=== PATIENT | male | born 1980 | race Caucasian/White ===

== ENCOUNTER 2021-07-31 23:59 | Emergency (ER) | payer OTHER, SELFPAY ==
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
--- NOTE | 2021-08-01 01:35 | ER ---
Nurse's Notes [facility] Name: Severo Morgan Age: 40 yrs Sex: Male : 1980 Arrival Date: 08/01/2021 Time: 00:06 Bed Waiting Private MD: Diagnosis: ED Course: 08/01 00:06 Patient arrived in ED. es 01:10 Patient's name was called from ER lobby. No response. bb 01:35 Patient's name was called from ER lobby. No response. Unable to locate patient. Will bb disposition as left without being seen by a provider. Administered Medications: No medications were administered Outcome: 01:35 Patient left the ED. bb Signatures: Sandy Bentley Brenda, RN RN bb
== END 2021-08-01 01:35 | disposition left against medical advice (07) ==
LOC: ER 23:59
DX: Z02.9 Encounter for administrative examinations, unspecified (principal)

== ENCOUNTER 2022-03-10 06:05 | Emergency (ER) | payer OTHER ==
[2022-03-10 07:32] LABS: Urine Blood Negative (Negative); Urine Glucose Negative (Negative); Urine Protein Negative (Negative); Urine Specific Gravity >=1.030 (1.005-1.030)
[2022-03-10 11:17] LABS: Absolute Lymphocytes (CBC) 1.6 K/uL (0.7-4.9); Hematocrit 40.7 % (39.6-49.0); Lymphocytes % 30.9 % (15.3-44.8); MCV 90.9 fL (80-100); RBC Red Blood Cell Count 4.48 M/uL (4.33-5.43)
[2022-03-10] MEDS ORDERED: KETOROLAC 30 MG/ML INJ ONE (11:19)
[2022-03-10] MEDS ORDERED: NA CHLORIDE 0.9% 1,000 ML ONE (11:19)
[2022-03-10] MEDS ORDERED: ONDANSETRON 4 MG/2 ML VIAL ONE (11:19)
--- NOTE | 2022-03-10 11:36 | RAD REPORT ---
EXAM DESCRIPTION: CT - Stone Protocol - 03/10/2022 11:08 am CLINICAL HISTORY: flankpain on the right radiating to the lower back, history of kidney stones COMPARISON: No comparisons TECHNIQUE: Axial 3 mm thick images were obtained without oral or IV contrast. The [id number]-nmaj span s the entirety of the system including uppermost abdomen and lung bases. All CT scans are performed using dose optimization technique as appropriate and may include automated exposure control or mA/KV adjustment according to patient size. FINDINGS: No hydronephrosis is present and no obstructing ureteral calculi. No nonobstructing calcul i seen. No edema or stranding in the perinephric fat. No suspicious renal masses. Isodense masses and pyelonephritis are not excluded on a stone protocol CT scan. No significant adrenal finding. No urin kassidy bladder suspicious finding. No prostate gland or seminal vesicle abnormality seen. Imaged portions of the liver, spleen and pancreas show no suspicious findings on non-contrast imaging . No gallbladder or biliary tree abnormality identified. No acute stomach or small bowel finding. Large amount of stool is present in the colon from cecum to mid transverse colon. The appendix is normal. No hernia, mass or bulky lymphadenopathy noted. No free air, free fluid or inflammatory stranding. Patient has advanced for age facet joint degenerative change at L5-S1. L5 lateral recess stenosis is present from the hypertrophy. L4-5 facet degenerative changes mild. No acute bone process. IMPRESSION: No hydronephrosis, obstructing calculus or other acute finding. Isodense masses and pyelonephritis are not excluded on stone protocol technique. Advanced for age L5-S1 facet joint degenerative change with L5 lateral recess stenosis. These changes could be a source for back pain as well as unilateral or bilateral L5 radiculopathy.
[2022-03-10 11:45] LABS: Albumin 3.8 g/dL (3.4-5.0); Bilirubin Total 0.3 mg/dL (0.2-1.0); Potassium 3.9 mmol/L (3.5-5.1); Protein, Total 6.8 g/dL (6.4-8.2)
--- NOTE | 2022-03-10 12:07 | ER ---
Nurse's Notes [facility] Name: Severo Morgan Age: 41 yrs Sex: Male : 1980 Arrival Date: 03/10/2022 Time: 06:07 Bed 4 Private MD: Diagnosis: Abdominal pain, unspecified;Dental caries, unspecified Presentation: 03/10 06:33 Chief complaint: Patient states: i am having real bad pain in my kidney area on my kd3 right side that radiates to the front. Coronavirus screen: Vaccine status:. Ebola Screen: No symptoms or risks identified at this time. Initial Sepsis Screen: Does the patient meet any 2 criteria? No. Patient's initial sepsis screen is negative. Does the patient have a suspected source of infection? No. Patient's initial sepsis screen is negative. Risk Assessment: Do you want to hurt yourself or someone else? Patient reports no desire to harm self or others. Onset of symptoms. 06:33 Method Of Arrival: Ambulatory kd3 06:33 Acuity: FRANKLIN 3 kd3 Triage Assessment: 06:33 General: Appears in no apparent distress. Behavior is calm, cooperative. Pain: kd3 Complains of pain in flank. Historical: - Allergies: 06:36 No Known Allergies; kd3 - Home Meds: 06:36 None [Active]; kd3 - Immunization history:: Adult Immunizations up to date. - Social history:: Smoking status: unknown. - Family history:: not pertinent. Screenin:36 Abuse screen: Denies threats or abuse. Denies injuries from another. Nutritional kd3 screening: No deficits noted. Tuberculosis screening: No symptoms or risk factors identified. Fall Risk None identified. Assessment: 10:47 General: Appears in no apparent distress. uncomfortable, Behavior is calm, cooperative. vg1 Pain: Complains of pain in posterior aspect of right lateral abdomen Pain currently is 4 out of 10 on a pain scale. Quality of pain is described as shooting, Pain began this morning around 0230, sudden onset. Neuro: Level of Consciousness is awake, alert, obeys commands, Oriented to person, place, time, situation. Cardiovascular: Patient's skin is warm and dry. Respiratory: Airway is patent Respiratory effort is even, unlabored. GI: Abdomen is flat, Reports normal bowel habits, Patient currently denies nausea, vomiting. : Denies burning with urination, pain with urination urinary frequency. EENT: No signs and/or symptoms were reported regarding the EENT system. Derm: Skin is pink, warm \T\ dry. Musculoskeletal: Circulation, motion, and sensation intact. 12:00 Reassessment: Patient and/or family updated on plan of care and expected duration. Pain jh6 level reassessed. Patient is alert, oriented x 3, equal unlabored respirations, skin warm/dry/pink. Patient states feeling better. 12:00 Pain: Denies pain. jh6 Vital Signs: 06:33 Pulse 89; Resp 18; Temp 98.1; Pulse Ox 100% ; kd3 06:36 BP 119 / 91; Weight 58.97 kg; Height 5 ft. 9 in. (175.26 cm); Pain 6/10; kd3 12:00 BP 123 / 76; Pulse 86; Resp 18; Pulse Ox 100% ; Pain 0/10; jh6 06:36 Body Mass Index 19.20 (58.97 kg, 175.26 cm) kd3 ED Course: 06:07 Patient arrived in ED. bp1 06:35 Triage completed. kd3 06:36 Arm band placed on right wrist. kd3 10:03 Joshua Langford MD is Attending Physician. [facility] 10:28 Candy Wilson, RN is Primary Nurse. vg1 10:47 Patient has correct armband on for positive identification. Bed in low position. Call vg1 light in reach. 10:47 No provider procedures requiring assistance completed. vg1 11:[address] via wheelchair. jh6 11:04 Inserted saline lock: 20 gauge in right in left antecubital area, using aseptic 6 technique. Blood collected. 11:09 CT Stone Protocol In Process Unspecified. EDMS 12:22 IV discontinued, intact, bleeding controlled, No redness/swelling at site. Pressure jh6 dressing applied. Administered Medications: 11:16 Drug: NS 0.9% 500 ml Route: IV; Rate: bolus; Site: right antecubital; jh6 12:10 Follow up: IV Status: Completed infusion jh6 11:16 Drug: Ketorolac 30 mg Route: IVP; Site: right antecubital; jh6 12:00 Follow up: Response: Pain is decreased jh6 11:16 Drug: Zofran (Ondansetron) 4 mg Route: IVP; Site: right antecubital; [facility] 12:00 Follow up: Response: No adverse reaction [facility] Medication: 10:47 VIS not applicable for this client. vg1 Outcome: 12:06 Discharge ordered by . evelia 12:22 Discharged to home ambulatory. [facility] 12:22 Condition: improved 12:22 Discharge instructions given to patient, Instructed on discharge instructions, follow up and referral plans. Demonstrated understanding of instructions, follow-up care, medications, Prescriptions given X 3. 12:23 Patient left the ED. [facility] Signatures: Dispatcher [employer] EDWA Joshua Langford MD MD cha Garcia, Victoria, RN RN vg1 Stephanie Garcia Kyli RN RN kd3 Heather Cardoso, RN RN jh6
--- NOTE | 2022-03-10 12:07 | EDPHYS ---
Physician Documentation [facility] Name: Severo Morgan Age: 41 yrs Sex: Male : 1980 Arrival Date: 03/10/2022 Time: 06:07 Bed 4 Private MD: ED Physician Joshua Langford HPI: 03/10 12:01 This 41 yrs old Male presents to ER via Ambulatory with complaints of Low evelia Back Pain, Flank Pain. 12:01 The patient presents with pain that is acute, with no known mechanism of injury. The evelia symptoms are located in the right mid back and right low back. The pain does not radiate. The problem was sustained from unknown cause. Onset: The symptoms/episode began/occurred this morning, today. Modifying factors: The patient symptoms are alleviated by nothing, the patient symptoms are aggravated by nothing. Severity of symptoms: At their worst the symptoms were mild, in the emergency department the symptoms are unchanged. The patient has not experienced similar symptoms in the past. Historical: - Allergies: 06:36 No Known Allergies; kd3 - Home Meds: 06:36 None [Active]; kd3 - Immunization history:: Adult Immunizations up to date. - Social history:: Smoking status: unknown. - Family history:: not pertinent. ROS: 12:01 Constitutional: Negative for fever, chills, and weight loss, Eyes: Negative for injury, evelia pain, redness, and discharge, ENT: Negative for injury, pain, and discharge, Neck: Negative for injury, pain, and swelling, Cardiovascular: Negative for chest pain, palpitations, and edema, Respiratory: Negative for shortness of breath, cough, wheezing, and pleuritic chest pain, : Negative for injury, bleeding, discharge, and swelling, MS/Extremity: Negative for injury and deformity, Skin: Negative for injury, rash, and discoloration, Neuro: Negative for headache, weakness, numbness, tingling, and seizure, Psych: Negative for depression, anxiety, suicide ideation, homicidal ideation, and hallucinations, Allergy/Immunology: Negative for hives, rash, and allergies, Endocrine: Negative for neck swelling, polydipsia, polyuria, polyphagia, and marked weight changes, Hematologic/Lymphatic: Negative for swollen nodes, abnormal bleeding, and unusual bruising. 12:01 Abdomen/GI: Positive for abdominal pain, of the anterior aspect of right lateral abdomen, posterior aspect of right lateral abdomen and right lower quadrant. Exam: 12:01 Constitutional: This is a well developed, well nourished patient who is awake, alert, evelia and in no acute distress. Head/Face: Normocephalic, atraumatic. Eyes: Pupils equal round and reactive to light, extra-ocular motions intact. Lids and lashes normal. Conjunctiva and sclera are non-icteric and not injected. Cornea within normal limits. Periorbital areas with no swelling, redness, or edema. ENT: Nares patent. No nasal discharge, no septal abnormalities noted. Tympanic membranes are normal and external auditory canals are clear. Oropharynx with no redness, swelling, or masses, exudates, or evidence of obstruction, uvula midline. Mucous membranes moist. Neck: Trachea midline, no thyromegaly or masses palpated, and no cervical lymphadenopathy. Supple, full range of motion without nuchal rigidity, or vertebral point tenderness. No Meningismus. Chest/axilla: Normal chest wall appearance and motion. Nontender with no deformity. No lesions are appreciated. Cardiovascular: Regular rate and rhythm with a normal S1 and S2. No gallops, murmurs, or rubs. Normal PMI, no JVD. No pulse deficits. Respiratory: Lungs have equal breath sounds bilaterally, clear to auscultation and percussion. No rales, rhonchi or wheezes noted. No increased work of breathing, no retractions or nasal flaring. Back: No spinal tenderness. No costovertebral tenderness. Full range of motion. Male : Normal genitalia with no discharge or lesions. Skin: Warm, dry with normal turgor. Normal color with no rashes, no lesions, and no evidence of cellulitis. MS/ Extremity: Pulses equal, no cyanosis. Neurovascular intact. Full, normal range of motion. Neuro: Awake and alert, GCS 15, oriented to person, place, time, and situation. Cranial nerves II-XII grossly intact. Motor strength 5/5 in all extremities. Sensory grossly intact. Cerebellar exam normal. Normal gait. Psych: Awake, alert, with orientation to person, place and time. Behavior, mood, and affect are within normal limits. 12:01 Abdomen/GI: Inspection: abdomen appears normal, Bowel sounds: normal, Palpation: mild abdominal tenderness, in the right lower quadrant, Liver: no appreciated palpable abnormalities, Hernia: not appreciated. Vital Signs: 06:33 Pulse 89; Resp 18; Temp 98.1; Pulse Ox 100% ; kd3 06:36 BP 119 / 91; Weight 58.97 kg; Height 5 ft. 9 in. (175.26 cm); Pain 6/10; kd3 12:00 BP 123 / 76; Pulse 86; Resp 18; Pulse Ox 100% ; Pain 0/10; jh6 06:36 Body Mass Index 19.20 (58.97 kg, 175.26 cm) kd3 MDM: 10:03 Patient medically screened. [facility] 12:04 Differential diagnosis: strain, contusion, UTI. Data reviewed: vital signs, nurses [facility] notes, lab test result(s), radiologic studies, CT scan. Data interpreted: cinder pitman: not applicable for this patient encounter. rate is 89 beats/min, rhythm is regular, Pulse oximetry: on room air is 100 %. Test interpretation: by ED physician or midlevel provider:. Counseling: I had a detailed discussion with the patient and/or guardian regarding: the historical points, exam findings, and any diagnostic results supporting the discharge/admit diagnosis, lab results. 03/10 07:32 Order name: Urine Dipstick-Ancillary; Complete Time: 11:58 [facility] 03/10 10:49 Order name: CBC with Diff; Complete Time: 11:58 [facility] 03/10 10:49 Order name: Comprehensive Metabolic Panel; Complete Time: 11:58 [facility] 03/10 10:49 Order name: CT Stone Protocol; Complete Time: 11:58 [facility] 03/10 07:07 Order name: Urine Dipstick-Ancillary (obtain specimen); Complete Time: 07:31 bb Administered Medications: 11:16 Drug: NS 0.9% 500 ml Route: IV; Rate: bolus; Site: right antecubital; 6 12:10 Follow up: IV Status: Completed infusion [facility] 11:16 Drug: Ketorolac 30 mg Route: IVP; Site: right antecubital; 6 12:00 Follow up: Response: Pain is decreased 6 11:16 Drug: Zofran (Ondansetron) 4 mg Route: IVP; Site: right antecubital; 6 12:00 Follow up: Response: No adverse reaction jh6 Disposition Summary: 03/10/22 12:06 Discharge Ordered Location: Home evelia Problem: new evelia Symptoms: have improved evelia Condition: Stable evelia Diagnosis - Abdominal pain, unspecified evelia - Dental caries, unspecified evelia Followup: evelia - With: Private Physician - When: 2 - 3 days - Reason: Recheck today's complaints, Continuance of care, Re-evaluation by your physician Discharge Instructions: - Discharge Summary Sheet evelia - Abdominal Pain, Adult evelia Forms: - Medication Reconciliation Form [facility] - Thank You Letter [facility] - Antibiotic Education [facility] - Prescription Opioid Use [facility] Prescriptions: - Zofran 4 mg Oral Tablet - take 1 tablet by ORAL route every 12 hours As needed; 20 tablet; Refills: 0, evelia Product Selection Permitted - dicyclomine 20 mg Oral Tablet - take 1 tablet by ORAL route 4 times per day; 28 tablet; Refills: 0, Product evelia Selection Permitted - Clindamycin HCl 150 mg Oral Capsule - take 2 capsule by ORAL route every 6 hours for 7 days; 56 capsule; Refills: 0, evelia Product Selection Permitted Signatures: Dispatcher [employer] Joshua Redmond MD MD cha Ballard, Brenda, RN RN Sarika Jimenez RN RN kd3 Heather Cardoso RN RN jh6
[2022-03-10] MEDS ORDERED: NA CHLORIDE 0.9% 0 ML ONE (14:24)
[2022-03-10 14:59] VITALS: TEMP 98.1; O2SAT 100
[2022-03-10 15:04] VITALS: BP 123/76
== END 2022-03-10 12:23 | disposition home or self-care (01) ==
LOC: ER 06:05
DX: R10.31 Right lower quadrant pain (principal); K02.9 Dental caries, unspecified
CPT/HCPCS: 96361; 85025; 36415; 81003; 80053; 76377; 74176; 96375; 96374; 99284; J7030; J2405; J7050

== ENCOUNTER 2023-12-23 21:57 | Emergency (ER) | payer OTHER ==
--- OUTSIDE RECORDS SUMMARY | 2023-12-23 22:03 | XMS REPORT | Continuity of Care Document ---
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 Test Item Value Reference Range Interpretation Comme nts %CKMB (test code = %MB) 0.6 % CKMB (test code = CKMB) 0.8 NG/ML 0.22-2.4 CK (test code = CK) 143 U/L 55-170 Natriuretic peptide B [Mass/volume] in Serum [id number] 01:48:00* Test Item Value Reference Range Interpretation Comme nts Natriuretic peptide B [Mass/ volume] in Serum or Plasma (test code = 08388-9) <20.0 N [facility]Creatine kinase.MB [Mass/volume] in Serum or Pl 2023-10-10 01:48:00* Test Item Value Reference Range Interpretation Comme nts Creatine kinase.MB/Creatine kinase.total in Serum or Plasma (test code = 35757-7) 0.6 % N Creatine kinase.MB [Mass/vol ume] in Serum or Plasma (test code = 07515-7) 0.8 NG/ML 0.22-2.4 N Creatine kinase isoenzymes [interpretation] in Serum or Plasma Narrative (test code = 37825-1) 143 U/L 55.0-170.0 N [facility][id number] 01:35:00* Test Item Value Reference Range Interpretation Comme nts MG (test code = MG) 1.7 mg/dL 1.6-2.3 CHEST 1 VIEW [id number] 01:34:00 [facility] 1980 [facility] [place] [id number] IMAGING R EPORTPatient Name: SEVERO DIOPDate of Service: [id number]: 43 Sex: M Order #: [id number] [facility] 1980 [facility] Number: [id number] Record Number: [id number] Hospital Number: [id number] Physician: Sherry CROSS Physician: ALEJANDRA CROSSPROCEDURE: CHEST 1 VIEW PORTABLEINDICATIONS: dx: chest painpt stS: c/o chest pain x 10-15 days. Was admittedand got discharge 09/30, still having chest pain. Pain is sharp and radiatesdown armno hx of chest surg denies chest pathologypsv: ladi shieldedSingle-view chestComparison: 09/29/2023Findings:Normal cardiac silhouette and pulmonary vasculature. No acute congestion,infiltrate or effusion. Mild pulmonary hyperinflation bilaterally. Intactskeletal structures. No pneumothorax.Impression:No acute cardiopulmonary pathology.This document has been electronically signed by: Bryant Wilkinson III, MD 10/10/2023 01:33:00Legally authenticated by MINH POWELL 2023-10-10 01:33:00Portable XR Chest Views [id number] 01:33:00ORDER 800: CHEST 1 VIEW PORTABLE (LOINC: 33320-3)ORDER DATE: October 10, 2023 6:45:00 AM [facility]) Magnesium [Mass/volume] in Serum or [id number] 01:30:00* Test Item Value Reference Range Interpretation Comme nts Magnesium [Mass/volume] in S jeni or Plasma (test code = 34679-1) 1.7 mg/dL 1.6-2.3 N [facility])[id number] 01:28:00* Test Item Value Reference Range Interpretation Comme nts WBC (test code = WBC) 7.8 K/UL 3.5-10.9 RBC (test code = RBC) 4.47 M/UL 4.3-5.7 HGB (test code = HGB) 13.9 G/DL 13.0-17.9 HCT (test code = HCT) 41.8 % 38-52 MCV (test code = MCV) 93.5 FL 80-98 MCH (test code = MCH) 31.1 PG 28-32 MCHC (test code = MCHC) 33.3 G/DL 32.5-36.5 RDW (test code = RDW) 11.8 % 11.5-14.5 PLT (test code = PLT) 245 K/UL 150-450 MPV (test code = MPV) 10.1 FL 7.4-10.4 MANDIFF (test code = MANDIFF) NO SCAN (test code = SCAN) NO NEUT% (test code = NEUT%) 57.3 % 40-75 LYMPH% (test code = LYMPH%) 30.1 % 24-44 MONO% (test code = MONO%) 9.8 % 0-13 EOS% (test code = EOS%) 1.9 % 0-4 BASO % (test code = BASO%) 0.6 % 0.0-2.0 IG (test code = IG) 0 % 0-1 IG% (test code = IG%) 0.3 % 0-1 IG% = Metamyeloc ytes, Myelocytes, and Promyelocytes. (Immature neutrophils not including "bands".) > 3% IG indicates risk of sepsis NRBC% (test code = NRBC%) 0 /100 WBC ABS NEUT (test code = NEUT) 4.4 K/UL 1.2-7.2 CBC W Auto Differential panel - [id number] 01:28:00* Test Item Value Reference Range Interpretation Comme nts Leukocytes other [Identifier ] in Blood by Automated count (test code = 53545-7) 7.8 K/UL 3.5-10.9 N Erythrocytes [#/volume] in B lood (test code = 74338-0) 4.47 M/UL 4.3-5.7 N Hemoglobin A/Hemoglobin.tota l in Blood (test code = 4546-8) 13.9 G/DL 13.0-17.9 N Hematocrit [Volume Fraction] of Blood (test code = 59361-0) 41.8 % 38.0-52.0 N Erythrocyte mean corpuscular volume [Entitic volume] (test code = 70263-8) 93.5 FL 80.0-98.0 N Erythrocyte mean corpuscular hemoglobin [Entitic mass] (test code = 70721-2) 31.1 PG 28.0-32.0 N Erythrocyte mean corpuscular hemoglobin concentration [Mass/volume] (test code = 20933-5) 33.3 G/DL 32.5-36.5 N Erythrocyte distribution wid th [Ratio] (test code = 38200-6) 11.8 % 11.5-14.5 N Platelets panel - Blood by Automated count (test code = 87538-0) 245 K/UL 150.0-450.0 N Platelet mean volume [Entiti c volume] in Blood by Automated count (test code = 86372-0) 10.1 FL 7.4-10.4 N Neutrophils.segmented/100 leukocytes in Blood (test code = 59219-3) 57.3 % 40.0-75.0 N Lymphocytes Variant/100 leuk ocytes in Blood (test code = 95755-4) 30.1 % 24.0-44.0 N Lymphocytes+Monocytes/100 leukocytes in Blood (test code = 4662-3) 9.8 % 0.0-13.0 N Eosinophils [#/volume] in Bl ood (test code = 10209-0) 1.9 % 0.0-4.0 N Basophils [#/volume] in Bloo d (test code = 95387-8) 0.6 % 0.0-2.0 N Immature granulocytes/100 leukocytes in Blood (test code = 12246-5) 0.3 % 0.0-1.0 N Nucleated erythrocytes [#/vo lume] in Blood (test code = 78466-3) 0 /100 WBC N Neutrophils [#/volume] in Bl ood (test code = 31332-8) 4.4 K/UL 1.2-7.2 N [facility])TROPONIN [id number] 00:58:00* Test Item Value Reference Range Interpretation Comme nts TROPER (test code = TROPER) 0.00 NG/ML 0.0-0.08 INTERPRETIVE DATA A POC TROPONIN OF </= 0.08 NG/ML IS CONSIDERED NEGATIVE Troponin T.cardiac [Mass/volume] in [id number] 00:58:00* Test Item Value Reference Range Interpretation Comme nts Troponin T.cardiac [Mass/vol ume] in Blood (test code = 72683-6) 0.0 NG/ML 0.0-0.08 N [facility])ISTAT CHEM [id number] 00:52:00* Test Item Value Reference Range Interpretation Comme nts ISTATNA (test code = ISTATNA) 142 MMOL/L 137-145 ISTATK (test code = ISTATK) 3.8 MMOL/L 3.6-5.0 ISTATCL (test code = ISTATCL) 100 MMOL/L 98-107 ISTIONCA (test code = ISTIONCA) 1.07 MMOL/L 1.12-1.32 L ISTCO2 (test code = ISTCO2) 30 MMOL/L 22-30 ISTATGLU (test code = ISTATGLU) 90 MG/DL 65-110 ISTATBUN (test code = ISTATBUN) 15.0 MG/DL 7.0-20.0 ISTCREA (test code = ISTCREA) 0.8 MG/DL 0.7-1.5 ISTATHCT (test code = ISTATHCT) 44 %PCV 37.0-52.0 ISTATHGB (test code = ISTATHGB) 15.0 G/DL 12.0-18.0 Notified Nurse/M D of results outside of Reference Ranges ISTANGAP (test code = ISTANGAP) 17 MMOL/L Notified Nurse/M D of results outside of Reference Ranges Basic metabolic panel - [id number] 00:52:00* Test Item Value Reference Range Interpretation Comme nts Sodium [Moles/volume] in Art erial blood (test code = 09239-0) 142 MMOL/L 137.0-145.0 N Potassium [Moles/volume] in Arterial blood (test code = 40149-8) 3.8 MMOL/L 3.6-5.0 N Chloride [Moles/volume] in Arterial blood (test code = 28805-1) 100 MMOL/L 98.0-107.0 N Calcium.ionized [Mass/volume ] in Arterial blood (test code = 31710-1) 1.07 MMOL/L 1.12-1.32 L Carbon dioxide, total [Moles/volume] in Blood (test code = 48306-2) 30 MMOL/L 22.0-30.0 N Glucose [Mass/volume] in Art erial blood (test code = 84989-6) 90 MG/DL 65.0-110.0 N Urea nitrogen [Mass/volume] in Arterial blood (test code = 56511-7) 15.0 MG/DL 7.0-20.0 N Creatinine [Mass/volume] in Blood (test code = 16724-6) 0.8 MG/DL 0.7-1.5 N Hematocrit [Volume Fraction] of Arterial blood (test code = 80572-0) 44 %PCV 37.0-52.0 N Hemoglobin [Mass/volume] in Arterial cord blood (test code = 37002-0) 15.0 G/DL 12.0-18.0 N Anion gap in Blood (test cod e = 37936-2) 17 MMOL/L N [facility])ECHO COMPLETE W/[id number] 15:51:00 [facility] : 1980 Sex: MStudy ID: [id number] BAPTIST HOSPITALECHOCARDIOGRAM REPORTName: SEVERO DIOP Study Date: 09/30/2023 02:19 PMMRN: [id number] Patient Location: T3\\S\\3316\\S\\AHR: 64DOB: 1980 (M/d/yyyy) Gender: MaleAge: 43 yrs Ethnicity: WHeight: 69 in Weight: 143 lbBSA: 1.8 i7Evkiep For Study: chest pain, abnormal EKG- Brugada patternMMode/2D Measurements & Ca lculationsIVSd: 0.54 cm LVIDd: 4.8 cmIVSs: 0.67 cm LVIDs: 3.6 cmLVPWd: 0.77 cmLVPWs: 1.1 cm FS: 25.2 % % IVS thick: 23.6 %EDV(Teich): 105.1 mlESV(Teich): 52.8 mlEF(Teich): 49.7 % SV(Teich): 52.3 ml EPSS: 0.75 cmMV E-F slope: 8.1 cm/sec Ao root diam: 3.2 cm LVOT diam: 2.0 cmAo root area: 8.0 cm2 LVOT area: 3.3 cm2ACS:1.6 cmLA dimension: 2.9 cm LVAd ap4: 27.6 cm2 SV(MOD-sp4): 41.9 mlLVLd ap4: 8.0 cmEDV(MOD-sp4): 78.5 mlEDV(sp4-el): 81.4 mlLVAs ap4: 16.3 hm3RDBj ap4: 6.3 cmESV(MOD-sp4): 36.6 mlESV(sp4-el): 35.5 mlEF(MOD-sp4): 53.3 %EF(sp4-el): 56.5 % SV(sp4-el): 46.0 ml LAV(MOD-sp2): 33.8 mlLAV(MOD-sp4): 36.1 mlLAV(MOD-bp): 35.2 mlLAV(MOD-bp) Indexed: 19.7 ml/m2 TAPSE: 2.8 cm RA A4Cs: 12.1 cm2RA Length: 4.6 cm LA Area (A2C): 14.5 cm2 LA Area (A4C): 14.6 cm2 LA Length: 4.8 cm LA Volume (AL- bp): 37.7 ml LA Volume Index (AL-bp): 21.0 ml/m2 RA Volume: 27.5 ml RA Volume Index: 15.4 ml/a9Bverzbc Measurements & CalculationsMV E max madison: 65.7 cm/sec MV dec slope: 292.1 cm/sec2MV A max madison:55.6 cm/sec MV dec time: 0.22 secMV E/A: 1.2LV IVRT: 0.08 secIVCT: 0.07 sec Ao V2 max: 119.8 cm/sec LV V1 max P.4 mmHgAo max P.7 mmHg LV V1 mean P.4 mmHgAo V2 mean: 87.9 cm/sec LV V1 max: 78.2 cm/secAo mean P.5 mmHg LV V1 mean: 55.4 cm/secAo V2 VTI: 29.1 cm LV V1 VTI: 17.9 cmAVA(I,D): 2.0 cm2AVA(V,D): 2.1 cm2 MR max madison: 160.0 cm/sec Lat Peak E' Madison: 15.8 cm/secMR max P.3 mmHg Med Peak E' Madison:14.7 cm/sec SV(LVOT): 59.0 ml PI end-d madison: 87.0 cm/sec TR max madison: 185.3 cm/secTR max P.8 mmHgRVSP(TR): 16.8 mmHg RAP systole: 3.0 mmHg RV S Madison: 11.5 cm/sec AV Dimensionless Index: 0.65 MARK/BSA Index: 1.1 cm2/m2__ Lat E/e': 4.2 Med E/e': 4.5Left VentricleThe left ventricle is normal in size. There is normal left ventricular wallthickness. Left ventricular systolic function is borderline reduced.Ejection Fraction = 55-60%. The transmitral spectral Doppler flow pattern isnormal for age.Right VentricleThe right ventricle is grossly normal size. The right ventricular systolicfunction is normal.AtriaThe left atrial size is normal. Right atrial size isnormal.Mitral ValveThe mitral valve is grossly normal. There is no mitral valve stenosis. Thereis no mitral regurgitation noted.Tricuspid ValveThe tricuspid valve is not well visualized, but is grossly normal. There isno tricuspid stenosis. No tricuspid regurgitation.Aortic ValveThe aortic valve isnormal in structure and function. No hemodynamicallysignificant valvular aortic stenosis. No aorticregurgitation is present.Pulmonic ValveThe pulmonic valve is not well seen, but is grossly normal. There is nopulmonic valvular regurgitation.Great VesselsThe aortic root is normal size.Pericardium/PleuralThere is no pericardial effusion. The pericardium appears normal. There isno pleural effusion.ProceduresA complete two-dimensional transthoracic echocardiogram was performed (2D,M-mode, Doppler a nd color flow Doppler).Interpretation SummaryThe left ventricle is normal in size.Left ventricular systolic function is borderline reduced.Ejection Fraction = 55-60%.The transmitral spectral Doppler flow pattern is normal for age. Reading Physician:Jitendra Ellison MD 09/30/2023 03:51 PMOrdering Physician: George SnowdenReferring Physician: CATHERINE, PCPPerformed By: Hilario Fajardo echo study [id number] 15:51:00ORDER 2600: ECHO COMPLETE W/DOPPLER (LOINC: 59572-1)ORDER DATE: September 30, 2023 6:55:00 PM [facility]) URINE DRUG [id number] 13:51:00* Test Item Value Reference Range Interpretation Comme nts AMPHET (test code = BAMP) NEGATIVE NEGATIVE This is an uncon firmed screening. Result are to be used for medical purposes (treatment) only. Not intended for non-medical purposes. Cut-off concentration for a positive result for each drug: Amphetamine - 1,000 ng/ml Barbiturate - 200 ng/ml Benzodiazepine - 200 ng/ml Cannabinoids - 50 ng/ml Cocaine - 300 ng/ml Opiates - 300 ng/ml PCP - 25 ng/ml BARBITURATES (test code = BBAR) NEGATIVE NEGATIVE BENZO (test code = BBENZ) POSITIVE NEGATIVE A CANNABS (test code = BCANN) NEGATIVE NEGATIVE COCAINE (test code = BCOC) NEGATIVE NEGATIVE OPIATES (test code = BOPI) NEGATIVE NEGATIVE PCP (test code = BMTPCP) NEGATIVE NEGATIVE Drugs of abuse 5 panel - Urine by Screen [id number] 13:51:00 NegativeNegativePositiveNegativeNegativeNegativeNegativeBl[facility] Hospital)[id number] 11:40:00* Test Item Value Reference Range Interpretation Comme nts %CKMB (test code = %MB) 0.5 % CKMB (test code = CKMB) 0.5 NG/ML 0.22-2.4 CK (test code = CK) 102 U/L 55-170 Creatine kinase.MB [Mass/volume] in Serum or [id number] 11:40:00* Test Item Value Reference Range Interpretation Comme nts Creatine kinase.MB/Creatine kinase.total in Serum or Plasma (test code = 09929-6) 0.5 % N Creatine kinase.MB [Mass/vol ume] in Serum or Plasma (test code = 92881-6) 0.5 NG/ML 0.22-2.4 N Creatine kinase isoenzymes [interpretation] in Serum or Plasma Narrative (test code = 05532-3) 102 U/L 55.0-170.0 [facility])TROPONIN I - [id number] 11:01:00* Test Item Value Reference Range Interpretation Comme [facility] TROP-I (test code = TROP-I) <0.012 ng/ml 0.012-0.033 INTERPRETI VE DATA A TROPONIN OF LESS THAN 0.034 NG/ML IS CONSIDERED NEGATIVE A TROPONIN OF 0.034 - 0.119 NG/ML IS CONSIDERED GRAYZONE A TROPONIN =/> 0.120 NG/ML IS CONSIDERED POSITIVE Troponin I.cardiac [Mass/volume] in Serum or [id number] 10:57:00* Test Item Value Reference Range Interpretation Comme [facility] Troponin I.cardiac [Mass/vol ume] in Serum or Plasma (test code = 79751-3) <0.012 0.012-0.033 [facility])D-DIMER [id number] 10:56:00* Test Item Value Reference Range Interpretation Comme [facility] D-DIMER QUANTITATIVE (test code = DDIMER) <215 ng/mL (FEU) 0-500 VALUES OF QUANTITATIVE D-DIMER LESS THAN 499 ng/mL HAVE BEEN REPORTED TO BE ASSOCIATED WITH A LOW PROBABILITY OF DEEP VEIN THROMBOSIS/PULMONARY EMBOLISM. THIS TEST ALONE SHOULD NOT BE USED TO RULE OUT DVT/PE. Fibrin D-dimer FEU [Mass/volume] in Platelet [id number] 10:56:00* Test Item Value Reference Range Interpretation Comme [facility] Fibrin D-dimer FEU [Mass/vol ume] in Platelet poor plasma (test code = 99178-8) <215 0.0-500.0 [facility])BASIC METABOLIC [id number] 04:57:00* Test Item Value Reference Range Interpretation Comme [facility] SODIUM (test code = NA) 138 MMOL/L 137-145 K+ (test code = KSERUM) 4.4 MMOL/L 3.5-5.1 CHLORIDE (test code = CL) 104 MMOL/L 98-107 CO2 (test code = CO2) 27 MMOL/L 22-30 BUN (test code = BUN) 18 MG/DL 9-20 CREA (test code = CREA) 0.7 MG/DL 0.8-1.5 L GLUCOSE (test code = GLUCOSE) 93 MG/DL 70-99 Fasting glucos e normal <100 MG/DL- [employer] recommendation CALCIUM (test code = CABLOOD) 8.3 MG/DL 8.4-10.2 L GFR (test code = GFR) 131 mL/min/1.73m2 See_Comment A GFR of >90 mL/min/1.73m2 is considered normal. The GFR calculation on patients over 70 years of age is not validated by the women's swim coach and may not represent the patients true renal function. [Automated message] The system which generated this result transmitted reference range: 59-. The reference range was not used to interpret this result as normal/abnormal. [id number] 04:47:00* Test Item Value Reference Range Interpretation Comme nts MG (test code = MG) 1.7 mg/dL 1.6-2.3 LIPID [id number] 04:47:00* Test Item Value Reference Range Interpretation Comme nts CHOLEST (test code = CHOLEST) 157 MG/DL 0-200 TRIGLYCE (test code = TRIGLYCE) 250 MG/DL 0-150 H HDL (test code = HDL) 43 MG/DL 30-65 NEG ATIVE RISK FACTOR FOR HEART DISEASE IF HDL >/=60 mg/dl MAJOR RISK FACTOR FOR HEART DISEASE IF HDL <40 mg/dL CALC LDL (test code = CALC LDL) 64 MG/DL See_Comment [Automated [employer]] The system which generated this result transmitted reference range: -100. The reference range was not used to interpret this result as normal/abnormal. DIRECT [id number] 04:47:00* Test Item Value Reference Range Interpretation Comme nts DIR LDL (test code = LDL) 84 MG/DL See_Comment [Automated [employer]] The system which generated this result transmitted reference range: 0-<100. The reference range was not used to interpret this result as normal/abnormal. [id number] 04:47:00* Test Item Value Reference Range Interpretation Comme nts %CKMB (test code = %MB) 0.5 % CKMB (test code = CKMB) 0.5 NG/ML 0.22-2.4 CK (test code = CK) 101 U/L 55-170 TROPONIN I - [id number] 04:47:00* Test Item Value Reference Range Interpretation Comme nts TROP-I (test code = TROP-I) <0.012 ng/ml 0.012-0.033 INTERPRETI VE DATA A TROPONIN OF LESS THAN 0.034 NG/ML IS CONSIDERED NEGATIVE A TROPONIN OF 0.034 - 0.119 NG/ML IS CONSIDERED GRAYZONE A TROPONIN =/> 0.120 NG/ML IS CONSIDERED POSITIVE Basic metabolic 2000 panel - Serum or [id number] 04:47:00* Test Item Value Reference Range Interpretation Comme nts Sodium [Moles/volume] in Blood (test code = 2947-0) 138 MMOL/L 137.0-145.0 N Potassium [Moles/volume] in Blood (test code = 6298-4) 4.4 MMOL/L 3.5-5.1 N Chloride [Moles/volume] in Blood (test code = 2069-3) 104 MMOL/L 98.0-107.0 N Carbon dioxide, total [Moles/volume] in Blood (test code = 82900-8) 27 MMOL/L 22.0-30.0 N Urea nitrogen [Mass/volume] in Serum or Plasma (test code = 3094-0) 18 MG/DL 9.0-20.0 N Creatinine [Mass/volume] in Blood (test code = 85971-5) 0.7 MG/DL 0.8-1.5 L Glucose [Mass/volume] in Blood (test code = 2339-0) 93 MG/DL 70.0-99.0 N Calcium [Mass/volume] in Serum or Plasma (test code = 71037-9) 8.3 MG/DL 8.4-10.2 L Estimated or measured glomerular filtration rate less than 50 percent [- Reported] (test code = 20219-4) 131 mL/min/1.73m2 N [facility])Magnesium [Mass/volume] in Serum or [id number] 04:47:00* Test Item Value Reference Range Interpretation Comme nts Magnesium [Mass/volume] in S jeni or Plasma (test code = 77921-1) 1.7 mg/dL 1.6-2.3 N [facility])VAP cholesterol panel - Serum or [id number] 04:47:00* Test Item Value Reference Range Interpretation Comme nts Cholesterol [Mass/volume] in Serum or Plasma (test code = 2093-3) 157 MG/DL 0.0-200.0 N Triglyceride [Mass/volume] i n Serum or Plasma (test code = 2571-8) 250 MG/DL 0.0-150.0 H Lipoprotein.alpha [Mass/volu me] in Serum or Plasma (test code = 2573-4) 43 MG/DL 30.0-65.0 N Cholesterol in LDL [Mass/vol ume] in Serum or Plasma by calculation (test code = 66447-7) 64 MG/DL N [facility])Cholesterol in LDL [Mass/volume] in Serum or Pl 2023-09-30 04:47:00* Test Item Value Reference Range Interpretation Comme nts Cholesterol in LDL [Mass/vol ume] in Serum or Plasma by Direct assay (test code = 32459-4) 84 MG/DL N [facility])Creatine kinase.MB [Mass/volume] in Serum or Pl 2023-09-30 04:47:00* Test Item Value Reference Range Interpretation Comme nts Creatine kinase.MB/Creatine kinase.total in Serum or Plasma (test code = 94094-5) 0.5 % N Creatine kinase.MB [Mass/vol ume] in Serum or Plasma (test code = 07176-0) 0.5 NG/ML 0.22-2.4 N Creatine kinase isoenzymes [interpretation] in Serum or Plasma Narrative (test code = 50253-9) 101 U/L 55.0-170.0 N [facility])Troponin I.cardiac [Mass/volume] in Serum or Pl 2023-09-30 04:47:00* Test Item Value Reference Range Interpretation Comme nts Troponin I.cardiac [Mass/vol ume] in Serum or Plasma (test code = 32325-7) <0.012 0.012-0.033 N [facility])PROBRAIN NATRIURETIC [id number] 04:41:00* Test Item Value Reference Range Interpretation Comme nts NT-PROBNP (test code = PROBNP) <20 pg/mL Exclusion for he art failure for patients of all ages is 300 pg/mL. Inclusion for heart failure for patients age <50 is 450 pg/mL; for patients age 50-75 is 900 pg/mL; for patients age >75 is 1800 pg/mL. [id number] 04:40:00* Test Item Value Reference Range Interpretation Comme nts WBC (test code = WBC) 4.8 K/UL 3.5-10.9 RBC (test code = RBC) 4.39 M/UL 4.3-5.7 HGB (test code = HGB) 13.6 G/DL 13.0-17.9 HCT (test code = HCT) 39.5 % 38-52 MCV (test code = MCV) 90.0 FL 80-98 MCH (test code = MCH) 31.0 PG 28-32 MCHC (test code = MCHC) 34.4 G/DL 32.5-36.5 RDW (test code = RDW) 11.9 % 11.5-14.5 PLT (test code = PLT) 234 K/UL 150-450 MPV (test code = MPV) 10.5 FL 7.4-10.4 H MANDIFF (test code = MANDIFF) NO SCAN (test code = SCAN) NO NEUT% (test code = NEUT%) 36.6 % 40-75 L LYMPH% (test code = LYMPH%) 46.4 % 24-44 H MONO% (test code = MONO%) 13.7 % 0-13 H EOS% (test code = EOS%) 2.3 % 0-4 BASO % (test code = BASO%) 0.8 % 0.0-2.0 IG (test code = IG) 0 % 0-1 IG% (test code = IG%) 0.2 % 0-1 IG% = Metamyeloc ytes, Myelocytes, and Promyelocytes. (Immature neutrophils not including "bands".) > 3% IG indicates risk of sepsis NRBC% (test code = NRBC%) 0 /100 WBC ABS NEUT (test code = NEUT) 1.8 K/UL 1.2-7.2 CBC W Auto Differential panel - [id number] 04:40:00* Test Item Value Reference Range Interpretation Comme nts Leukocytes other [Identifier ] in Blood by Automated count (test code = 87830-1) 4.8 K/UL 3.5-10.9 N Erythrocytes [#/volume] in B lood (test code = 26755-6) 4.39 M/UL 4.3-5.7 N Hemoglobin A/Hemoglobin.tota l in Blood (test code = 4546-8) 13.6 G/DL 13.0-17.9 N Hematocrit [Volume Fraction] of Blood (test code = 65916-9) 39.5 % 38.0-52.0 N Erythrocyte mean corpuscular volume [Entitic volume] (test code = 41341-5) 90.0 FL 80.0-98.0 N Erythrocyte mean corpuscular hemoglobin [Entitic mass] (test code = 52883-0) 31.0 PG 28.0-32.0 N Erythrocyte mean corpuscular hemoglobin concentration [Mass/volume] (test code = 19569-5) 34.4 G/DL 32.5-36.5 N Erythrocyte distribution wid th [Ratio] (test code = 39113-1) 11.9 % 11.5-14.5 N Platelets panel - Blood by Automated count (test code = 27409-6) 234 K/UL 150.0-450.0 N Platelet mean volume [Entiti c volume] in Blood by Automated count (test code = 48906-7) 10.5 FL 7.4-10.4 H Neutrophils.segmented/100 leukocytes in Blood (test code = 22133-6) 36.6 % 40.0-75.0 L Lymphocytes Variant/100 leuk ocytes in Blood (test code = 44369-2) 46.4 % 24.0-44.0 H Lymphocytes+Monocytes/100 leukocytes in Blood (test code = 4662-3) 13.7 % 0.0-13.0 H Eosinophils [#/volume] in Bl ood (test code = 06087-0) 2.3 % 0.0-4.0 N Basophils [#/volume] in Bloo d (test code = 75936-6) 0.8 % 0.0-2.0 N Immature granulocytes/100 leukocytes in Blood (test code = 06803-1) 0.2 % 0.0-1.0 N Nucleated erythrocytes [#/vo lume] in Blood (test code = 53991-2) 0 /100 WBC N Neutrophils [#/volume] in Bl ood (test code = 95714-6) 1.8 K/UL 1.2-7.2 N [facility])Natriuretic peptide B [Mass/volume] in Serum or 2023-09-30 04:38:00* Test Item Value Reference Range Interpretation Comme nts Natriuretic peptide B [Mass/ volume] in Serum or Plasma (test code = 78318-5) <20 N [facility])CHEST 1 VIEW [id number] 21:48:00 [facility] : 1980 Sex: M[address] [id number] IMAGING R EPORTPatient Name: SEVERO DIOPShadte of Service: [id number]: 43 Sex: M Order #: [id number] Room: ERDOB: 1980 X-Ray Number: [id number] Record Number: [id number] Hospital Number: [id number] Physician: James MORALES Physician: JENNIFER MORALESPROCEDURE: CHEST 1 VIEW PORTABLEINDICATIONS: dx: chest wall pain pt sts: c/o left chest wall pain onset 3days agonohapsv: jtt1 view chest x-rayComparison: NoneFindings:No consolidation or effusion.Heart size is normal.No acute fracture.IMPRESSION:1. No acute findings.This document has been electronically signed by: Ba Fontaine MD 09/29/2023 21:47:15Legally authenticated by DONOVAN SHUKLA 2023-09-29 21:47:15 Portable XR Chest Views [id number] 21:47:15ORDER 500: CHEST 1 VIEW PORTABLE (LOINC: 18893-0)ORDER DATE: September 30, 2023 2:38:00 AM [facility])[id number] 21:30:00* Test Item Value Reference Range Interpretation Comme nts %CKMB (test code = %MB) 0.6 % CKMB (test code = CKMB) 0.8 NG/ML 0.22-2.4 CK (test code = CK) 130 U/L 55-170 TROPONIN I - [id number] 21:30:00* Test Item Value Reference Range Interpretation Comme nts TROP-I (test code = TROP-I) <0.012 ng/ml 0.012-0.033 INTERPRETI VE DATA A TROPONIN OF LESS THAN 0.034 NG/ML IS CONSIDERED NEGATIVE A TROPONIN OF 0.034 - 0.119 NG/ML IS CONSIDERED GRAYZONE A TROPONIN =/> 0.120 NG/ML IS CONSIDERED POSITIVE Creatine kinase.MB [Mass/volume] in Serum or [id number] 21:30:00* Test Item Value Reference Range Interpretation Comme nts Creatine kinase.MB/Creatine kinase.total in Serum or Plasma (test code = 41298-1) 0.6 % N Creatine kinase.MB [Mass/vol ume] in Serum or Plasma (test code = 99456-0) 0.8 NG/ML 0.22-2.4 N Creatine kinase isoenzymes [interpretation] in Serum or Plasma Narrative (test code = 16378-5) 130 U/L 55.0-170.0 N [facility])Troponin I.cardiac [Mass/volume] in Serum or Pl 2023-09-29 21:30:00* Test Item Value Reference Range Interpretation Comme nts Troponin I.cardiac [Mass/vol ume] in Serum or Plasma (test code = 01423-6) <0.012 0.012-0.033 N [facility])BASIC METABOLIC [id number] 21:09:00* Test Item Value Reference Range Interpretation Comme nts SODIUM (test code = NA) 139 MMOL/L 137-145 K+ (test code = KSERUM) 4.4 MMOL/L 3.5-5.1 CHLORIDE (test code = CL) 101 MMOL/L 98-107 CO2 (test code = CO2) 32 MMOL/L 22-30 H BUN (test code = BUN) 13 MG/DL 9-20 CREA (test code = CREA) 0.8 MG/DL 0.8-1.5 GLUCOSE (test code = GLUCOSE) 96 MG/DL 70-99 Fasting glucos e normal <100 MG/DL- [employer] recommendation CALCIUM (test code = CABLOOD) 9.2 MG/DL 8.4-10.2 GFR (test code = GFR) 112.0 mL/min/1.73m2 See_Comment A GFR of >90 mL/min/1.73m2 is considered normal. The GFR calculation on patients over 70 years of age is not validated by the women's swim coach and may not represent the patients true renal function. [Automated message] The system which generated this result transmitted reference range: 59-. The reference range was not used to interpret this result as normal/abnormal. Basic metabolic 2000 panel - Serum or [id number] 21:01:00* Test Item Value Reference Range Interpretation Comme nts Sodium [Moles/volume] in Blood (test code = 2947-0) 139 MMOL/L 137.0-145.0 N Potassium [Moles/volume] in Blood (test code = 6298-4) 4.4 MMOL/L 3.5-5.1 N Chloride [Moles/volume] in Blood (test code = 2069-3) 101 MMOL/L 98.0-107.0 N Carbon dioxide, total [Moles/volume] in Blood (test code = 58627-5) 32 MMOL/L 22.0-30.0 H Urea nitrogen [Mass/volume] in Serum or Plasma (test code = 3094-0) 13 MG/DL 9.0-20.0 N Creatinine [Mass/volume] in Blood (test code = 95532-0) 0.8 MG/DL 0.8-1.5 N Glucose [Mass/volume] in Blood (test code = 2339-0) 96 MG/DL 70.0-99.0 N Calcium [Mass/volume] in Serum or Plasma (test code = 67564-3) 9.2 MG/DL 8.4-10.2 N Estimated or measured glomerular filtration rate less than 50 percent [- Reported] (test code = 34630-8) 112.0 mL/min/1.73m2 N [facility])BASIC METABOLIC [id number] 23:20:00* Test Item Value Reference Range Interpretation Comme nts SODIUM (test code = NA) 141 mmol/L 134-147 N POTASSIUM (test code = K) 3.6 mmol/L 3.4-5.0 N CHLORIDE (test code = CL) 104 mmol/L 100-108 N CARBON DIOXIDE (test code = CO2) 36 mmol/L 21-32 H ANION GAP (test code = GAP) 1.0 GAP calc 4.0-15.0 L GLUCOSE (test code = GLU) 93 MG/DL 70-110 N BLOOD UREA NITROGEN (test code = BUN) 11 MG/DL 7-18 N GLOMERULAR FILTRATION RATE (test code = GFR) >=60 max estimate estGFR >60 The Glomerular Filtration Rate is a calculated parameterbased on serum Creatinine, patient age and sex. GFR valuesless than 60 mL/min/1.73 square meters are indicative ofChronic Kidney Disease. Values less than 15 mL/min/1.73square meters indicate Kidney failure. The calculation forGFR is based on the CKD-EPI (202) calculation. This formulais race indifferent and is the recommended formula for GFRby the National Kidney Foundation for Adults.The GFR will not calculate if the sex is unknown or if thepatient's age is <18 years. CREATININE (test code = CREAT) 0.8 MG/DL 0.8-1.3 N CALCIUM (test code = CA) 8.3 MG/DL 8.5-10.1 L CBC W/AUTO [id number] 22:58:00* Test Item Value Reference Range Interpretation Comme nts WHITE BLOOD CELL (test code = WBC) 4.4 K/mm3 3.5-11.0 N RED BLOOD CELL (test code = RBC) 4.45 M/mm3 4.70-6.10 L HEMOGLOBIN (test code = HGB) 13.7 G/DL 12.3-15.9 N HEMATOCRIT (test code = HCT) 39.9 % 35.8-46.7 N MEAN CELL VOLUME (test code = MCV) 89.7 Fl 86.3-98.9 N MEAN CELL HGB (test code = MCH) 30.8 pg 28.9-34.4 N MEAN CELL HGB CONCETRATION (test code = MCHC) 34.3 G/DL 32.1-34.5 N RED CELL DISTRIBUTION WIDTH (test code = RDW) 11.9 SD 11.5-14.5 N PLATELET COUNT (test code = PLT) 324 K/mm3 150-450 N MEAN PLATELET VOLUME (test c ode = MPV) 9.90 fL 7.0-9.6 H NEUTROPHIL % (test code = NT%) 42.1 % 40-76 N IMMATURE GRANULOCYTE % (test code = IG%) 0.2 % 0.0-5.0 N LYMPHOCYTE % (test code = LY%) 42.5 % 20.5-51.1 N MONOCYTE % (test code = MO%) 12.7 % 1.7-9.3 H EOSINOPHIL % (test code = EO%) 1.6 % 0.0-6.0 N BASOPHIL % (test code = BA%) 0.9 % 0.0-2.0 N NUCLEATED RBC % (test code = NRBC%) 0.0 /100WBC% 0.0-1.0 N NEUTROPHIL # (test code = NT#) 1.9 K/mm3 1.8-7.6 N IMMATURE GRANULOCYTE # (test code = IG#) 0.01 x10 3/uL 0.00-0.03 N LYMPHOCYTE # (test code = LY#) 1.9 K/mm3 0.6-3.0 N MONOCYTE # (test code = MO#) 0.6 K/mm3 0.2-1.5 N EOSINOPHIL # (test code = EO#) 0.1 K/mm3 0.0-0.4 N BASOPHIL # (test code = BA#) 0.0 K/mm3 0.0-0.2 N NUCLEATED RBC # (test code = NRBC#) 0.0 K/mm3 0.00-0.01 N MANUAL DIFF REQUIRED (test c ode = MDIFF) NO DIFF/SCN CRITERIA TROPONIN [id number] 19:12:12* Test Item Value Reference Range Interpretation Comments TROPONIN I (test code = 0306769953) 0.002 ng/mL See_Comment [Automated message] The system which generated this result transmitted reference range: <=0.034. The reference range was not used to interpret this result as normal/abnormal. CHERYL (test code = CHERYL) Reference (Normal) Range (defined by the 99th percentile reference limit): <= 0.034 ng/mL Note: Cardiac troponin begins to rise 3-4 hours after the onset of ischemia. Repeat in 4-6 hours if the sample was drawn within 3-4 hours of the onset of the symptom and found normal. Diagnosis of myocardial injury is made with acute changes in cTn concentrations with at least one serial sample above the 99th percentile upper reference limit (URL), taken together with the patient's clinical presentation. Biotin has been reported to cause a negative bias, interpret results relative to patient's use of biotin. Lab Interpretation (test code = 41148-3) Normal [facility] CenterTHY[facility]ID STIMULATING [id number] 17:56:10 * Test Item Value Reference Range Interpretation Comme nts TSH (test code = 0402712667) See_Comment [Automated [employer]] The system which generated this result transmitted reference range: 0.45 - 4.70 mIU/L. The reference range was not used to interpret this result as normal/abnormal. Lab Interpretation (test code = 10960-9) Normal [facility] CenterFREE [id number] 17:43:07* Test Item Value Reference Range Interpretation Comme nts FREE T4 (test code = 4561137023) See_Comment [Automated messa ge] The system which generated this result transmitted reference range: 0.78 - 2.20 ng/dL:. The reference range was not used to interpret this result as normal/abnormal. Lab Interpretation (test code = 24978-5) Normal [facility] CenterTROPONIN [id number] 17:38:07* Test Item Value Reference Range Interpretation Comments TROPONIN I (test code = 9316658373) 0.003 ng/mL See_Comment [Automated message] The system which generated this result transmitted reference range: <=0.034. The reference range was not used to interpret this result as normal/abnormal. CHERYL (test code = CHERYL) Reference (Normal) Range (defined by the 99th percentile reference limit): <= 0.034 ng/mL Note: Cardiac troponin begins to rise 3-4 hours after the onset of ischemia. Repeat in 4-6 hours if the sample was drawn within 3-4 hours of the onset of the symptom and found normal. Diagnosis of myocardial injury is made with acute changes in cTn concentrations with at least one serial sample above the 99th percentile upper reference limit (URL), taken together with the patient's clinical presentation. Biotin has been reported to cause a negative bias, interpret results relative to patient's use of biotin. Lab Interpretation (test code = 51778-4) Normal [facility] CenterN-TERMINAL [id number] 17:36:31* Test Item Value Reference Range Interpretation Comme nts NT-proBNP (test code = 1623691108) <11 See_Comment [Automated message] The system which generated this result transmitted reference range: <=125 pg/mL. The reference range was not used to interpret this result as normal/abnormal. CHERYL (test code = CHERYL) Biotin has been reported to cause a negative bias, interpret results relative to patient's use of biotin. Lab Interpretation (test code = 37100-5) Normal [facility] CenterETHANOL2022-06-25 17:25:57* Test Item Value Reference Range Interpretation Comme nts ALCOHOL (test code = 9844667076) <10 mg/dL CHERYL (test code = CHERYL) <10 [id number] Toxic>100 Depression of ROOMING HOUSE KEEPER>[address] [facility] CenterACETAMINOPHEN2022-06-25 17:25:32* Test Item Value Reference Range Interpretation Comme nts ACETAMINOP (test code = 4940755420) <10.0 10.0-30.0 L CHERYL (test code = CHERYL) Toxic: Greater chel n 200 ug/mL @ 4 hour post ingestion or greater than 50 ug/mL @ 12 hour post ingestion Lab Interpretation (test code = 10785-2) Abnormal [facility] CenterCOMP. METABOLIC PANEL (71490)2022-02-06 17:15:44* Test Item Value Reference Range Interpretation Comme nts NA (test code = 5157650390) 142 mmol/L 135-145 K (test code = 7024749921) 4.2 mmol/L 3.5-5.0 CL (test code = 3501473456) 104 mmol/L 98-108 CO2 TOTAL (test code = 1921499046) 28 mmol/L 23-31 AGAP (test code = 8580223171) 2-16 BUN (test code = 8555741753) 9 mg/dL 7-23 GLUCOSE (test code = 7554069575) 117 mg/dL 70-110 H CREATININE (test code = 8000313370) 0.76 mg/dL 0.60-1.25 TOTAL BILI (test code = 0581187178) 0.6 mg/dL 0.1-1.1 CALCIUM (test code = 2032713047) 9.3 mg/dL 8.6-10.6 T PROTEIN (test code = 4416549048) 7.0 g/dL 6.3-8.2 ALBUMIN (test code = 7662362711) 4.4 g/dL 3.5-5.0 ALK PHOS (test code = 4433337621) 44 U/L 34-122 ALTv (test code = 1742-6) 12 U/L 5-50 AST(SGOT) (test code = 9305337758) 18 U/L 13-40 eGFR (test code = 5434391797) mL/min/1.73m2 CHERYL (test code = CHERYL) Association of Glomerular Filtration Rate (GFR) and Staging of Kidney Disease* + --+ --+ ------+| GFR (mL/min/1.73 m2) ?| With Kidney Damage ?| ?Without Kidney Damage+ --------+ --------+ +| ?>90 ?| ?Stage one ?| ? Normal ?+ ---+ ---+ -------+| ?60-89 ?| ?Stage two ?| ? Decreased GFR ? + --+ --+ ------+| ?30-59 ?| ?Stage three ?| ? Stage three ? + --+ --+ ------+| ?15-29 ?| ?Stage four ? | ? Stage four ?+ ---+ ---+ -------+| ?<15 (or dialysis) ? ?| ?Stage five ? | ? Stage five ?+ ---+ ---+ -------+ *Each stage assumes the associated GFR level has been in effect for at least three months. ?Stages 1 to 5, with or without kidney disease, indicate chronic kidney disease. Notes: Determination of stages one and two (with eGFR >59mL/min/1.73 m2) requires estimation of kidney damage for at least three months as defined by structural or functional abnormalities of the kidney, manifested by either:Pathological abnormalities or Markers of kidney damage (including abnormalities in the composition of the blood or urine or abnormalities in imaging tests). Lab Interpretation (test code = 29114-2) Abnormal [facility] CenterSALICYLATE2022-06-25 17:15:44* Test Item Value Reference Range Interpretation Comme nts SALICYLATE (test code = 1285436103) 40 mg/L CHERYL (test code = CHERYL) Therapeutic Range: ? Analgesic and Antipyretic Use ? 20-100 mg/L ? ? Anti-Inflammatory Use ? 100-250 mg/L Toxic Range: ? Greater than 300 mg/L [facility] CenterCREATINE [id number] 17:15:23* Test Item Value Reference Range Interpretation Comme nts CK (test code = 6782469320) 73 U/L 33-194 Lab Interpretation (test cod e = 60726-8) Normal [facility] CenterCB WITH [id number] 17:04:44* Test Item Value Reference Range Interpretation Comme nts WBC (test code = 6690-2) See_Comment [Automated [employer]] The system which generated this result transmitted reference range: 4.20 - 10.70 10*3/?L. The reference range was not used to interpret this result as normal/abnormal. RBC (test code = 789-8) See_Comment [Automated [employer]] The system which generated this result transmitted reference range: 4.26 - 5.52 10*6/?L. The reference range was not used to interpret this result as normal/abnormal. HGB (test code = 718-7) 14.7 g/dL 12.2-16.4 HCT (test code = 4544-3) 41.6 % 38.4-49.3 MCV (test code = 787-2) 88.5 fL 81.7-95.6 MCH (test code = 785-6) 31.3 pg 26.1-32.7 MCHC (test code = 786-4) 35.3 g/dL 31.2-35.0 H RDW-SD (test code = 96691-0) 37.9 fL 38.5-51.6 L RDW-CV (test code = 788-0) 11.7 % 12.1-15.4 L PLT (test code = 777-3) See_Comment [Automated messa ge] The system which generated this result transmitted reference range: 150 - 328 10*3/?L. The reference range was not used to interpret this result as normal/abnormal. MPV (test code = 12497-6) 9.8 fL 9.8-13.0 NRBC/100 WBC (test code = 7439396527) See_Comment [Automated [employer] ssage] The system which generated this result transmitted reference range: 0.0 - 10.0 /100 WBCs. The reference range was not used to interpret this result as normal/abnormal. NRBC x10^3 (test code = 3706366945) <0.01 See_Comment [Automated messa ge] The system which generated this result transmitted reference range: 10*3/?L. The reference range was not used to interpret this result as normal/abnormal. GRAN MAT (NEUT) % (test code = 770-8) 59.1 % IMM GRAN % (test code = 3706870434) 0.20 % LYMPH % (test code = 736-9) 29.3 % MONO % (test code = 5905-5) 10.8 % EOS % (test code = 713-8) 0.2 % BASO % (test code = 706-2) 0.4 % GRAN MAT x10^3(ANC) (test code = 8339675359) 3.06 10*3/uL 1.99-6.95 IMM GRAN x10^3 (test code = 1952769718) <0.03 0.00-0.06 LYMPH x10^3 (test code = 731-0) 1.52 10*3/uL 1.09-3.23 MONO x10^3 (test code = 742-7) 0.56 10*3/uL 0.36-1.02 EOS x10^3 (test code = 711-2) <0.03 0.06-0.53 L BASO x10^3 (test code = 704-7) <0.03 0.01-0.09 Lab Interpretation (test code = 69615-4) Abnormal [facility] CenterCOMP. METABOLIC PANEL (28565)2021-08-06 02:11:29* Test Item Value Reference Range Interpretation Comme nts NA (test code = 6699405708) 140 mmol/L 135-145 K (test code = 7875913023) 4.8 mmol/L 3.5-5.0 CL (test code = 1103167639) 104 mmol/L 98-108 CO2 TOTAL (test code = 9734900767) 28 mmol/L 23-31 AGAP (test code = 5037877697) 2-16 BUN (test code = 5226559673) 21 mg/dL 7-23 GLUCOSE (test code = 9998768136) 111 mg/dL 70-110 H CREATININE (test code = 3926690042) 0.93 mg/dL 0.60-1.25 TOTAL BILI (test code = 4930900401) 0.4 mg/dL 0.1-1.1 CALCIUM (test code = 9146999588) 9.0 mg/dL 8.6-10.6 T PROTEIN (test code = 1911618084) 7.0 g/dL 6.3-8.2 ALBUMIN (test code = 0758474473) 4.3 g/dL 3.5-5.0 ALK PHOS (test code = 7824869282) 51 U/L 34-122 ALTv (test code = 1742-6) 15 U/L 5-50 AST(SGOT) (test code = 9454914847) 25 U/L 13-40 eGFR (test code = 8131484511) mL/min/1.73m2 CHERYL (test code = CHERYL) Association of Glomerular Filtration Rate (GFR) and Staging of Kidney Disease* + --+ --+ ------+| GFR (mL/min/1.73 m2) ?| With Kidney Damage ?| ?Without Kidney Damage+ --------+ --------+ +| ?>90 ?| ?Stage one ?| ? Normal ?+ ---+ ---+ -------+| ?60-89 ?| ?Stage two ?| ? Decreased GFR ? + --+ --+ ------+| ?30-59 ?| ?Stage three ?| ? Stage three ? + --+ --+ ------+| ?15-29 ?| ?Stage four ? | ? Stage four ?+ ---+ ---+ -------+| ?<15 (or dialysis) ? ?| ?Stage five ? | ? Stage five ?+ ---+ ---+ -------+ *Each stage assumes the associated GFR level has been in effect for at least three months. ?Stages 1 to 5, with or without kidney disease, indicate chronic kidney disease. Notes: Determination of stages one and two (with eGFR >59mL/min/1.73 m2) requires estimation of kidney damage for at least three months as defined by structural or functional abnormalities of the kidney, manifested by either:Pathological abnormalities or Markers of kidney damage (including abnormalities in the composition of the blood or urine or abnormalities in imaging tests). Lab Interpretation (test code = 62508-4) Abnormal [facility] WITH [id number] 02:04:56* Test Item Value Reference Range Interpretation Comme nts WBC (test code = 6690-2) See_Comment [[employer]] The system which generated this result transmitted reference range: 4.20 - 10.70 10*3/?L. The reference range was not used to interpret this result as normal/abnormal. RBC (test code = 789-8) See_Comment [[employer]] The system which generated this result transmitted reference range: 4.26 - 5.52 10*6/?L. The reference range was not used to interpret this result as normal/abnormal. HGB (test code = 718-7) 15.0 g/dL 12.2-16.4 HCT (test code = 4544-3) 43.8 % 38.4-49.3 MCV (test code = 787-2) 89.8 fL 81.7-95.6 MCH (test code = 785-6) 30.7 pg 26.1-32.7 MCHC (test code = 786-4) 34.2 g/dL 31.2-35.0 RDW-SD (test code = 32736-1) 39.9 fL 38.5-51.6 RDW-CV (test code = 788-0) 12.1 % 12.1-15.4 PLT (test code = 777-3) See_Comment [Automated messa ge] The system which generated this result transmitted reference range: 150 - 328 10*3/?L. The reference range was not used to interpret this result as normal/abnormal. MPV (test code = 39795-1) 9.9 fL 9.8-13.0 NRBC/100 WBC (test code = [id number]) See_Comment [Automated me ssage] The system which generated this result transmitted reference range: 0.0 - 10.0 /100 WBCs. The reference range was not used to interpret this result as normal/abnormal. NRBC x10^3 (test code = [id number]) <0.01 See_Comment [Automated me ssage] The system which generated this result transmitted reference range: 10*3/?L. The reference range was not used to interpret this result as normal/abnormal. GRAN MAT (NEUT) % (test code = 770-8) 61.1 % IMM GRAN % (test code = [id number]) 0.50 % LYMPH % (test code = 736-9) 28.5 % MONO % (test code = 5905-5) 8.6 % EOS % (test code = 713-8) 0.8 % BASO % (test code = 706-2) 0.5 % GRAN MAT x10^3(ANC) (test code = 0711963339) 4.73 10*3/uL 1.99-6.95 IMM GRAN x10^3 (test code = 6074297227) 0.04 10*3/uL 0.00-0.06 LYMPH x10^3 (test code = 731-0) 2.21 10*3/uL 1.09-3.23 MONO x10^3 (test code = 742-7) 0.67 10*3/uL 0.36-1.02 EOS x10^3 (test code = 711-2) 0.06 10*3/uL 0.06-0.53 BASO x10^3 (test code = 704-7) 0.04 10*3/uL 0.01-0.09 [facility] count (number/volume) 2019-06-01 01:11:00* Test Item Value Reference Range Interpretation Comme nts Basophils # (Auto) (test code = 704-7) 0.0 0-0.1 [facility] HealthAutomated blood nucleated erythrocyte count (count/volume) 2019-06-01 01:11:00* Test Item Value Reference Range Interpretation Comme nts Nucleated Red Blood Cells # (test code = 771-6) 0.00 0-0.01 [facility] comment [id number] 01:11:00* Test Item Value Reference Range Interpretation Comme nts Manual Differential (test co de = 8265-1) Not Ind [facility] Health[facility]um or plasma sodium measurement (moles/volume)2019-06-01 01:11:00* Test Item Value Reference Range Interpretation Comme nts Sodium Level (test code = 2951-2) 140 136-145 [facility]um or plasma potassium measurement (moles/volume)2019-06-01 01:11:00* Test Item Value Reference Range Interpretation Comme nts Potassium Level (test code = 2823-3) 4.4 3.5-5.1 [facility]um or plasma chloride measurement (moles/volume)2019-06-01 01:11:00* Test Item Value Reference Range Interpretation Comme nts Chloride Level (test code = 2075-0) 99 98-107 [facility] or plasma carbon dioxide measurement (moles/volume) 2019-06-01 01:11:00* Test Item Value Reference Range Interpretation Comme nts Carbon Dioxide Level (test c ode = 2027-) 29 24-33 [facility]um or plasma anion gap 4 determination (moles/volume) 2019-06-01 01:11:00* Test Item Value Reference Range Interpretation Comme nts Anion Gap (test code = 1863-0) 16 8-18 [facility]um or plasma urea nitrogen measurement (mass/volume)2019-06-01 01:11:00* Test Item Value Reference Range Interpretation Comme nts Blood Urea Nitrogen (test co de = 3094-0) 13 6-20 [facility] or plasma creatinine measurement (mass/volume)2019-06-01 01:11:00* Test Item Value Reference Range Interpretation Comme [facility] Creatinine (test code = 2160-0) 0.8 0.9-1.5 [facility] HospitalGlomerular filtration rate (GFR) estimation/1.73 sq m using serum, plasma, or whole blood creatinine measurement with MDRD equation 2019-06-01 01:11:00* Test Item Value Reference Range Interpretation Comme [facility] Estimat Glomerular Filtratio n Rate (test code = 79492-0) 115 81-133 [facility]um or plasma glucose measurement (mass/volume)2019-06-01 01:11:00* Test Item Value Reference Range Interpretation Comme [facility] Glucose Level (test code = 2345-7) 83 60-100 [facility] or plasma calcium measurement (mass/volume)2019-06-01 01:11:00* Test Item Value Reference Range Interpretation Comme [facility] Calcium Level (test code = 07037-1) 8.8 9.1-10.9 [facility] HealthAutomated blood leukocyte count (number/volume)2019-06-01 01:11:00* Test Item Value Reference Range Interpretation Comme [facility] White Blood Count (test code = 6690-2) 5.3 4.5-11.5 [facility] HealthBlood erythrocytes automated count (number/volume)2019-06-01 01:11:00* Test Item Value Reference Range Interpretation Comme [facility] Red Blood Count (test code = 789-8) 3.70 4.4-6.2 [facility] hemoglobin measurement (mass/volume)2019-06-01 01:11:00* Test Item Value Reference Range Interpretation Comme [facility] Hemoglobin (test code = 718-7) 11.1 13.0-17.5 [facility] HealthAutomated blood hematocrit (volume fraction)2019-06-01 01:11:00* Test Item Value Reference Range Interpretation Comme [facility] Hematocrit (test code = 4544-3) 34.3 39.0-52.5 [facility] HealthAutomated erythrocyte mean corpuscular volume (MCV) measurement 2019-06-01 01:11:00* Test Item Value Reference Range Interpretation Comme [facility] Mean Corpuscular Volume (ana luisa t code = 787-2) 93 80-94 [facility] HealthAutomated erythrocyte mean corpuscular hemoglobin (mass per erythrocyte)2019-06-01 01:11:00* Test Item Value Reference Range Interpretation Comme nts Mean Corpuscular Hemoglobin (test code = 785-6) 30.0 27.0-33.0 [facility]Automated erythrocyte mean corpuscular hemoglobin concentration measurement (mass/wwd4746-03-14 01:11:00* Test Item Value Reference Range Interpretation Comme nts Mean Corpuscular Hemoglobin Concent (test code = 786-4) 32.4 33.0-37.0 [facility]Automated erythrocyte distribution width riqgv0346-61-98 01:11:00 * Test Item Value Reference Range Interpretation Comme nts Red Cell Distribution Width (test code = 788-0) 11.7 10.7-14.5 [facility]Automated blood platelet count (count/volume)2019-06-01 01:11:00 * Test Item Value Reference Range Interpretation Comme nts Platelet Count (test code = 777-3) 246 150-450 [facility]Automated blood platelet mean volume bsqtmerckqj4332-60-18 01:11:00* Test Item Value Reference Range Interpretation Comme nts Mean Platelet Volume (test c ode = 44001-6) 10.1 5.7-10.7 [facility]Automated blood neutrophil count as percentage of total tytopgdqkc4307-88-51 01:11:00* Test Item Value Reference Range Interpretation Comme nts Neutrophils (%) (Auto) (test code = 770-8) 60 47-75 [facility]Automated blood immature granulocyte count as percentage of total llpekmerdy8351-81-58 01:11:00* Test Item Value Reference Range Interpretation Comme nts Immature Granulocyte % (Auto ) (test code = 36963-4) 0 0-0 [facility]Automated blood lymphocyte count as percentage of total xrfnkazqgq2175-96-36 01:11:00* Test Item Value Reference Range Interpretation Comme nts Lymphocytes (%) (Auto) (test code = 736-9) 26 25-44 [facility]ated blood monocyte count as percentage of total leukocytes 2019-06-01 01:11:00* Test Item Value Reference Range Interpretation Comme nts Monocytes (%) (Auto) (test c ode = 5905-5) 11 3-10 [facility]ated blood eosinophil count as percentage of total qaplzxutpl3807-00-49 01:11:00* Test Item Value Reference Range Interpretation Comme nts Eosinophils (%) (Auto) (test code = 713-8) 2 0-7 [facility] blood basophil count as percentage of total leukocytes 2019-06-01 01:11:00* Test Item Value Reference Range Interpretation Comme nts Basophils (%) (Auto) (test c ode = 706-2) 1 0-1 [facility] blood nucleated erythrocyte count as percentage of total fsbfdwtuhe4665-78-92 01:11:00* Test Item Value Reference Range Interpretation Comme nts Nucleated Red Blood Cells % (test code = 58663-5) 0.0 0-0.2 [facility] blood neutrophil count (number/volume)2019-06-01 01:11:00* Test Item Value Reference Range Interpretation Comme nts Neutrophils # (Auto) (test c ode = 751-8) 3.2 1.3-6.7 [facility] blood immature granulocyte count as percentage of total ywtvellteg0108-70-42 01:11:00* Test Item Value Reference Range Interpretation Comme nts Immature Granulocyte # (Auto ) (test code = 41332-7) 0.0 0.0-0.0 [facility] blood lymphocyte count (number/volume)2019-06-01 01:11:00* Test Item Value Reference Range Interpretation Comme nts Lymphocytes # (Auto) (test c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 mouth every 6 (six) hours as needed for Pain (scale 4-6).ONDANSETRON (ZOFRAN ODT) 4 MG DISINTEGRATING TABLET Take 1 tablet by mouth every 8 (eight) hours as needed for Nausea and Vomiting (N/V).TAMSULOSIN 0.4 MG 24 HR CAPSULE Take 1 capsule by mouth at bedtime.Follow-up:Electronically signed by:Amanda Raymond DO11/27/23 1040 18904-6Pphdrvreb Emergency department HztoXJ4671-42-41B56:40:59[facility] Emergency department NoteTXT1.2.840.548798.1.13.104.2.7.2.7 20842|4083371675QBPtqjcubdc for patient nbdt64341-8Tkgqqibew department NoteLNNARRATIVEFormatted C-CDA narrative [address] XxmzKimdnfeanDqxwbenvzUAPM6791147306UF QGXPRFZOSVQEUMLIVGSO1264-39-76Q06:40:5 91.2.840.864004.1.72.3.15|1.2.840.1143 50.1.13.104.2.7.2.727879_[id number] [facility] 2023-10-13 20:33:24 26555010FxQMmd61Dyg8ZbapvWqxy+oLxVmIox GD2omts2944SZCBoaEi/lKKjO82zKLDgu1555- 02-29T20:33:24+ + --------+ +------+-------+- +-------+ +-------- ----+| DISCHARGE MEDICATIONS | | | | | | | | || Status | RXNORM | Medication | Dose | Route | Frequency | Dates | Comments | Updated By |+ +========+==== ========+======+=======+ +== =====+ + +| Patient discharge medication information is not available. | | | | | | | | |+ +--------+---- --------+------+-------+ +-- -----+ + ++------- +--------+ + + + +- +---- + +| PATIENT OPEN ORDERS | | | | | | | | || Code | System | Description | Frequency | Occurrences | Priority | Start Date | Ordering Physician | Updated By |+ +========+===== ========+ + +=== =======+ ====+ + +| 84421-7 | ELIAN | EKG study | ONE TIME | 0 | Stat | October 10, 2023 6:11:00 AM [facility] | AMERICA ROBERTS | kjp5yzt on October 10, 2023 6:11:00 AM [facility] |+ +--------+----- --------+ + +--- -------+ ----+ + ++--- +--------+ ---+--------+ +-------- ----+| SCHEDULED PROCEDURES | | | | | || Code | System | Description | Status | Scheduled Date | Updated By |+ +========+===== ========+========+ +=== =========+| Patient scheduled procedure information is not available. | | | | | |+ +--------+----- --------+--------+ +--- ---------+59160-3Igzl of TreatmentLNTREATMENT PLANTXT2.16.840.1.404399.3.1579.562085 437745.1.100|10338933|2.16.840.1.57599 3..20.22.2.10AVAvailable for patient srawMjltbmyZxkdvmgsvKACOi68 Section NarrativeNARRATIVEFormatted C-CDA narrative textLENOX HILL HOSPITALETASCENSION [facility]+1(622)185-559-67647961-0271112810-96-96R80:3 3:24 [facility] 2023-10-13 20:33:24 2114270w4NYBCiIV4kgI/NJ3GIBsOYKvas49UR 4aVRBJqcernKpbkG7wn6HARTU2YBxVRRU9779- 02-29T20:33:24CARE TEAM+ + +----- ---+ + +- ------+| Member | Role on Team | Status | Start Date | End Date | Updated By |+ + +-------- + +-- +---- ---+| NO PCP | PCP | normal | October 10, 2023 6:33:41 AM UTC | October 10, 2023 10:39:00 AM UTC | VWY6UTE on October 10, 2023 6:33:41 AM UTC |+ + +-------- + +-- +---- ---+| NO PCP | Referring | normal | October 10, 2023 6:33:41 AM UTC | October 10, 2023 10:39:00 AM UTC | ESZ6CJX on October 10, 2023 6:33:41 AM UTC |+ + +-------- + +-- +---- ---+| CROSS ALEJANDRA | Attending | normal | October 10, 2023 6:33:41 AM UTC | October 10, 2023 10:39:00 AM UTC | NVN6IYW on October 10, 2023 6:33:41 AM UTC |+ + +-------- + +-- +---- ---+| AMERICA ROBERTS | Admitting | normal | October 10, 2023 6:33:41 AM UTC | October 10, 2023 10:39:00 AM UTC | CXD0OAS on October 10, 2023 6:33:41 AM UTC |+ + +-------- + +-- +---- ---+07726-7Rvrknqm Care team informationLNCARE TEAMTXT2.16.840.1.949001.3.1579.835637 252895.1.100|94625511|2.16.840.1.11967 3.10.20.22.2.500AVAvailable for patient oikvSafgnkhIeyqhggctHGLDc42 Section NarrativeNARRATIVEFormatted C-CDA narrative textSSETASCENSION GENESYS HOSPITAL+7(829)689-652-23290226-6046854980-65-65Z99:3 3:24 [facility] 2023-10-12 20:19:57 [id number]vm+oLxVmIox PP5mixo5289BUOUjzSz/zQHzT83yPWVvu9291- 02-28T20:19:57+ + --------+ +------+-------+- +-------+ +-------- ----+| DISCHARGE MEDICATIONS | | | | | | | | || Status | RXNORM | Medication | Dose | Route | Frequency | Dates | Comments | Updated By |+ +========+==== ========+======+=======+ +== =====+ + +| Patient discharge medication information is not available. | | | | | | | | |+ +--------+---- --------+------+-------+ +-- -----+ + ++------- +--------+ + + + +- +---- + +| PATIENT OPEN ORDERS | | | | | | | | || Code | System | Description | Frequency | Occurrences | Priority | Start Date | Ordering Physician | Updated By |+ +========+===== ========+ + +=== =======+ ====+ + +| 95465-0 | ELIAN | IZABEL study | ONE TIME | 0 | Stat | October 10, 2023 6:11:00 AM [facility] | AMERICA ROBERTS | yqv1hzw on October 10, 2023 6:11:00 AM [facility] |+ +--------+----- --------+ + +--- -------+ ----+ + ++--- +--------+ ---+--------+ +-------- ----+| SCHEDULED PROCEDURES | | | | | || Code | System | Description | Status | Scheduled Date | Updated By |+ +========+===== ========+========+ +=== =========+| Patient scheduled procedure information is not available. | | | | | |+ +--------+----- --------+--------+ +--- ---------+90397-7Geov of TreatmentLNTREATMENT PLANTXT2.16.840.1.923685.3.1579.788135 338190.1.100|05473592|2.16.840.1.12896 3.10.20.22.2.10AVAvailable for patient fppsJjqnljgNvqakobwiBOALc68 Section NarrativeNARRATIVEFormatted C-CDA narrative textSSETASCENSION GENESYS HOSPITAL+5(154)088-852-53534853-1578215458-56-76P72:1 9:57 [facility] 2023-10-12 20:19:57 7776079x7QLDVbNI9vnG/LN7ITDsJSAznw08LX 2mWRZClavuuNwjzB2wk0IZMCX8GTbABPM3727- 02-28T20:19:57CARE TEAM+ + +----- ---+ + +- ------+| Member | Role on Team | Status | Start Date | End Date | Updated By |+ + +-------- + +-- +---- ---+| NO PCP | PCP | normal | October 10, 2023 6:33:41 AM UTC | October 10, 2023 10:39:00 AM UTC | ABD8QVB on October 10, 2023 6:33:41 AM UTC |+ + +-------- + +-- +---- ---+| NO PCP | Referring | normal | October 10, 2023 6:33:41 AM UTC | October 10, 2023 10:39:00 AM UTC | BGK2UJE on October 10, 2023 6:33:41 AM UTC |+ + +-------- + +-- +---- ---+| CROSS ALEJANDRA | Attending | normal | October 10, 2023 6:33:41 AM UTC | October 10, 2023 10:39:00 AM UTC | EUM8JFS on October 10, 2023 6:33:41 AM UTC |+ + +-------- + +-- +---- ---+| AMERICA ROBERTS | Admitting | normal | October 10, 2023 6:33:41 AM UTC | October 10, 2023 10:39:00 AM UTC | GGL6APV on October 10, 2023 6:33:41 AM UTC |+ + +-------- + +-- +---- ---+21687-1Vozcxbm Care team informationLNCARE TEAMTXT2.16.840.1.206906.3.1579.606548 761041.1.100|70669199|2.16.840.1.48609 3.10.20.22.2.500AVAvailable for patient rtvlWkfedhmEuxlbptqbBEMNd07 Section NarrativeNARRATIVEFormatted C-CDA narrative textLENOX HILL HOSPITALETASCENSION GENESYS [facility]ITAL+1(088)694872-66165269-2090685719-11-09H13:1 9:57 [facility] 2023-10-11 21:26:24 77551629JpBAkj60Rja9ZhiiyUvuo+oLxVmIox MA2yafv4029EHCPgdZn/yAMxD14zIHRkl6465- 02-27T21:26:24+ + --------+ +------+-------+- +-------+ +-------- ----+| DISCHARGE MEDICATIONS | | | | | | | | || Status | RXNORM | Medication | Dose | Route | Frequency | Dates | Comments | Updated By |+ +========+==== ========+======+=======+ +== =====+ + +| Patient discharge medication information is not available. | | | | | | | | |+ +--------+---- --------+------+-------+ +-- -----+ + ++------- +--------+ + + + +- +---- + +| PATIENT OPEN ORDERS | | | | | | | | || Code | System | Description | Frequency | Occurrences | Priority | Start Date | Ordering Physician | Updated By |+ +========+===== ========+ + +=== =======+ ====+ + +| 65822-6 | ELIAN | BARRYG study | ONE TIME | 0 | Stat | October 10, 2023 6:11:00 AM [facility] | AMERICA ROBERTS | xmu4dqo on October 10, 2023 6:11:00 AM [facility] |+ +--------+----- --------+ + +--- -------+ ----+ + ++--- +--------+ ---+--------+ +-------- ----+| SCHEDULED PROCEDURES | | | | | || Code | System | Description | Status | Scheduled Date | Updated By |+ +========+===== ========+========+ +=== =========+| Patient scheduled procedure information is not available. | | | | | |+ +--------+----- --------+--------+ +--- ---------+81838-7Ltzx of TreatmentLNTREATMENT PLANTXT2.16.840.1.145729.3.1579.450245 363443.1.100|77484926|2.16.840.1.51705 3.10.20.22.2.10AVAvailable for patient chqvTkrwfhlAhibxjfjmEUUOg68 Section NarrativeNARRATIVEFormatted C-CDA narrative textE[facility] [place]+2(221)375-218-13678623-3754619085-87-73J99:2 6:24 [facility] 2023-10-11 21:26:24 2231173i9MGEXaDJ2pfI/JN2UFGuKPMtcj08WP 6zPASUvzdqtUtdzX9of5JLYTJ1ZHiSNDS0818- 02-27T21:26:24CARE TEAM+ + +----- ---+ + +- ------+| Member | Role on Team | Status | Start Date | End Date | Updated By |+ + +-------- + +-- +---- ---+| NO PCP | PCP | normal | October 10, 2023 6:33:41 AM UTC | October 10, 2023 10:39:00 AM UTC | UNJ3KHN on October 10, 2023 6:33:41 AM UTC |+ + +-------- + +-- +---- ---+| NO PCP | Referring | normal | October 10, 2023 6:33:41 AM UTC | October 10, 2023 10:39:00 AM UTC | AYL2RNO on October 10, 2023 6:33:41 AM UTC |+ + +-------- + +-- +---- ---+| AMERICA ROBERTS | Attending | normal | October 10, 2023 6:33:41 AM UTC | October 10, 2023 10:39:00 AM UTC | QLN0BAL on October 10, 2023 6:33:41 AM UTC |+ + +-------- + +-- +---- ---+| AMERICA ROBERTS | Admitting | normal | October 10, 2023 6:33:41 AM UTC | October 10, 2023 10:39:00 AM UTC | OHY1QGD on October 10, 2023 6:33:41 AM UTC |+ + +-------- + +-- +---- ---+57468-2Rxxojgz Care team informationLNCARE TEAMTXT2.16.840.1.347474.3.1579.650704 512284.1.100|96850436|2.16.840.1.94254 3.10.20.22.2.500AVAvailable for patient zndgNuwfounWypyytwteQQEZh37 Section NarrativeNARRATIVEFormatted C-CDA narrative textEAST [facility]ENNES[facility] [place]+2(834)655-093-19874064-9602651736-60-11U34:2 6:24 [facility] 2023-10-10 04:40:17 52136745TtYKuj48Dtl1NcgbkWmpv+oLxVmIox JH1tixg6167PNZMuyUj/wVEaV11pAWYzo0737- 02-26T04:40:17+ + --------+ +------+-------+- +-------+ +-------- ----+| DISCHARGE MEDICATIONS | | | | | | | | || Status | RXNORM | Medication | Dose | Route | Frequency | Dates | Comments | Updated By |+ +========+==== ========+======+=======+ +== =====+ + +| Patient discharge medication information is not available. | | | | | | | | |+ +--------+---- --------+------+-------+ +-- -----+ + ++------- +--------+ + + + +- +---- + +| PATIENT OPEN ORDERS | | | | | | | | || Code | System | Description | Frequency | Occurrences | Priority | Start Date | Ordering Physician | Updated By |+ +========+===== ========+ + +=== =======+ ====+ + +| 41723-0 | LOINC | EKG study | ONE TIME | 0 | Stat | October 10, 2023 6:11:00 AM [place] | CROSS ALEJANDRA | [email or web address] on October 10, 2023 6:11:00 AM [facility] |+ +--------+----- --------+ + +--- -------+ ----+ + ++--- +--------+ ---+--------+ +-------- ----+| SCHEDULED PROCEDURES | | | | | || Code | System | Description | Status | Scheduled Date | Updated By |+ +========+===== ========+========+ +=== =========+| Patient scheduled procedure information is not available. | | | | | |+ +--------+----- --------+--------+ +--- ---------+55575-7Yuut of TreatmentLNTREATMENT PLANTXT2.16.840.1.131719.3.1579.321841 637254.1.100|19500245|2.16.840.1.37334 3.10.20.22.2.10AVAvailable for patient mxddXaagbjvDfkipesrzOXGAg47 Section NarrativeNARRATIVEFormatted C-CDA narrative textSSETASCENSION GENESYS HOSPITAL+4(660)100-770-02959797-0093601629-12-69L22:4 0:17 [facility] 2023-10-10 04:40:17 7374494g9XJGHhKV1mpW/PX2MNExSAMckn48LH 9fWHXGmwqvlCqrsA9cw5ZHIRD8WLzPQSH2293- 02-26T04:40:17CARE TEAM+ + +----- ---+ + +- ------+| Member | Role on Team | Status | Start Date | End Date | Updated By |+ + +-------- + +-- +---- ---+| NO PCP | PCP | normal | October 10, 2023 6:33:41 AM UTC | October 10, 2023 10:39:00 AM UTC | SMY7PSB on October 10, 2023 6:33:41 AM UTC |+ + +-------- + +-- +---- ---+| NO PCP | Referring | normal | October 10, 2023 6:33:41 AM UTC | October 10, 2023 10:39:00 AM UTC | SZR5VZW on October 10, 2023 6:33:41 AM UTC |+ + +-------- + +-- +---- ---+| AMERICA ROBERTS | Attending | normal | October 10, 2023 6:33:41 AM UTC | October 10, 2023 10:39:00 AM UTC | YSQ9AFG on October 10, 2023 6:33:41 AM UTC |+ + +-------- + +-- +---- ---+| AMERICA ROBERTS | Admitting | normal | October 10, 2023 6:33:41 AM UTC | October 10, 2023 10:39:00 AM UTC | IEG0CQC on October 10, 2023 6:33:41 AM UTC |+ + +-------- + +-- +---- ---+19304-8Yxwrapx Care team informationLNCARE TEAMTXT2.16.840.1.239341.3.1579.133284 496002.1.100|82584022|2.16.840.1.03890 3.10.20.22.2.500AVAvailable for patient hsgcGvcxhfdHqxeikkuwKWUEr70 Section NarrativeNARRATIVEFormatted C-CDA narrative textEAST [facility]ENN[facility] [place]+7(551)970312-60429939-0102467557-92-10F61:4 0:17 [facility] 2023-10-10 01:33:00 RIiwoptklsv709994v36NharqTbjl1E/TSni77 tANouuaIQWSQW/ze5i7DDRLkfY/AnCSsBN9GVT TZS8y9974-15-56B96:33:00[place] [address] DIAGNOSTIC IMAGING REPORT Patient Name: Shira DIOP of Service: [id number]: 43 Sex: M Order #: [id number] Room: [facility]: 1980 X-Ray Number: [id number] Record Number: [id number] Hospital Number: [id number] Physician: Sherry CRSOS Physician: ALEJANDRA CROSS PROCEDURE: CHEST 1 VIEW PORTABLE INDICATIONS: dx: chest painpt stS: c/o chest pain x 10-15 days. Was admittedand got discharge 09/30, still having chest pain. Pain is sharp and radiatesdown armno hx of chest surg denies chest pathology psv: ladi shielded Single-view chestComparison: 09/29/2023Findings:Normal cardiac silhouette and pulmonary vasculature. No acute congestion,infiltrate or effusion. Mild pulmonary hyperinflation bilaterally. Intactskeletal structures. No pneumothorax.Impression:No acute cardiopulmonary pathology.This document has been electronically signed by: Bryant Wilkinson III, MD on10/10/2023 01:33:00 Legally authenticated by MINH POWELL 2023-10-10 01:33:53GQEwdbuptnecuxpvbyy11913PFJWNJ Y, ZBLQOCIHBGVKNCXPMOI4692-67-32U64:33:00 [id number] 97162971NMIQYPEX76329EZGKRLO, DDDRDIXIZCSAIUI2224-53-73Z85:34:34 [facility] 2023-10-04 07:13:37 00089077xClTCFXPkt0Pxkqp9ydAmcudKHfgo8 tgKyDZZh1pjUUVc7uzBjrtBhv1TKwiOb33460- 02-20T07:13:37Chest pain ; 80483-8LafgsdopzcuDQLWRDPLSRDJLRJQ9.16 .840.1.162550.3.1579.273013467635.1.10 0|94354531|2.16.840.1.829229.10.20.22. 2.8AVAvailable for patient auqrFykhbewQzhiqcgmqTLZCq58 [facility]+5(927)934-064-27480532-7534294036-30-95O34:1 3:37 [facility] 2023-10-04 07:13:37 5108565BRsuomiq6uKkOxBclVRvOeCFh6c5JBt u7wQ4nuc1vxJzcCO/BHK7K/9IuyOrND831815- 02-20T07:13:37+ +--------+ --+--------+ + + + +-- -----+| DISCHARGE MEDICATIONS | | | | | | | | || Status | RXNORM | Medication | Dose | Route | Frequency | Dates | Comments | Updated By |+ +========+=== +========+= =========+ =+ + + +| Continued | 207319 | Ibuprofen Oral Tablet 600 MG | 600 mg | BY MOUTH | THREE TIMES DAILY NEEDED | Prescribed: September 30, 2023 10:20:33 PM UTC | | DCURRY on September 30, 2023 10:20:33 PM UTC |+ +--------+--- +--------+- ---------+ -+ + + +| Continued | [id number] | Pepcid Oral Tablet 20 MG | 20 mg | BY MOUTH | TWICE DAILY | Prescribed: September 30, 2023 10:20:33 PM UTC | | DCURRY on September 30, 2023 10:20:33 PM UTC |+ +--------+--- +--------+- ---------+ -+ + + ++------ +--------+ + + + + +--- + +| PATIENT OPEN ORDERS | | | | | | | | || Code | System | Description | Frequency | Occurrences | Priority | Start Date | Ordering Physician | Updated By |+ +========+===== ========+ + +=== =======+ ====+ +====== =+| [id number] | LOINC | EKG study | ONE TIME | 0 | Stat | September 30, 2023 2:29:00 AM [facility] | [facility] [place] | [email or web address] on September 30, 2023 2:29:00 AM [facility] |+ +--------+----- --------+ + +--- -------+ ----+ +------ -+| [id number] | LOINC | EKG study | IN AM | 1 | Routine | September 30, 2023 9:00:00 AM UTC | [facility] | [facility] on September 30, 2023 3:43:00 AM UTC |+ +--------+----- --------+ + +--- -------+ ----+ +------ -++ +--------+---- ---------+--------+ +-- +| SCHEDULED PROCEDURES | | | | | || Code | System | Description | Status | Scheduled Date | Updated By |+ +========+===== ========+========+ +=== =========+| Patient scheduled procedure information is not available. | | | | | |+ +--------+----- --------+--------+ +--- ---------+70181-6Wmav of TreatmentLNTREATMENT PLANTXT2.16.840.1.133136.3.1579.715054 720400.1.100|21004818|2.16.840.1.80257 3..20.22.2.10AVAvailable for patient zqajIenokndXtmlazllhJQDMo47 Section NarrativeNARRATIVEFormatted C-CDA narrative textE[facility] [place]+0(810)[id number]:1 3:37 [facility] 2023-10-04 07:13:37 8624985bwp39aCA/sAxqXr1EoF7/8TvR5YzSQk +jnYKuC4wSYiik2IBQ8HyOFBh6h87GFOu1127- 02-20T07:13:37PATIENT GOALS+ + +----- --+| Goal | Assigned Date | Updated By |+ ========+ +========= +| ASSESS PATIENT CONDITION AND STATUS | September 30, 2023 | [email or web address] on September 30, 2023 5:16:19 AM [facility] |+ --------+ +--------- +| PATIENT OR SIGNIFICANT OTHER WILL CONVEY UNDERSTANDING ABOUT THEIR PLAN OF CARE | September 30, 2023 | XNJ8ASW on September 30, 2023 5:16:24 AM [facility] || INCLUDING ILLNESS, MEDICAL CARE, IMPORTANCE OF MEDICATION THERAPY OR TREATMENT | | || REGIMEN PRESCRIBED. THEY KNOW WHERE TO SEEK ASSISTANCE AND RETURNS | | || DEMONSTRATION OF PROCEDURES WITHOUT DIFFICULTY. | | |+ --------+ +--------- +6 1146-5AmphyEBKFCQPUXF4.16.840.1.839505 .3.1579.277077477123.1.100|01913403|2. 16.840.1.310221.10.20.22.2.60AVAvailab for patient zxkhQzqctnuAfprdfhshFYZYg39 Section NarrativeNARRATIVEFormatted C-CDA narrative textBHSSETBAMCLAREN [place]+9(075)[id number]:1 3:37 [facility] 2023-10-04 07:13:37 4097960qwWXxWfdyn8QfE3hsG/xDB2gj8HJ/3e 64uiDLlW3r/Isa3Azoab4iyl9EfTvGALf8325- 02-20T07:13:37CARE TEAM+ + + --------+ -----+ ---+ +| Member | Role on Team | Status | Start Date | End Date | Updated By |+ + +--- -----+ --+ + --------+| ROSALBA SANTIAGO | Attending | normal | September 30, 2023 6:30:57 AM UTC | September 29, 2023 6:00:00 AM UTC | YZW5XBP on September 30, 2023 6:30:57 AM UTC |+ + +--- -----+ --+ + --------+| ROSALBA SANTIAGO | Admitting | normal | September 30, 2023 6:30:57 AM UTC | September 29, 2023 6:00:00 AM UTC | ZWJ5TGO on September 30, 2023 6:30:57 AM UTC |+ + +--- -----+ --+ + --------+| REGIS HOLT | Consulting | normal | September 30, 2023 3:43:31 AM UTC | October 01, 2023 12:42:00 AM UTC | WUB7AEH on September 30, 2023 6:30:57 AM UTC |+ + +--- -----+ --+ + --------+| NO PCP | PCP | normal | September 30, 2023 3:38:54 AM UTC | September 30, 2023 3:49:01 AM UTC | OOX8KYQ on September 30, 2023 6:30:57 AM UTC |+ + +--- -----+ --+ + --------+| NO PCP | Referring | normal | September 30, 2023 3:38:54 AM UTC | September 29, 2023 6:00:00 AM UTC | CQH1KCY on September 30, 2023 6:30:57 AM UTC |+ + +--- -----+ --+ + --------+| SALLIETHIA ASAELID | Attending | normal | September 30, 2023 3:38:54 AM UTC | September 30, 2023 3:49:01 AM UTC | IGY4IPQ on September 30, 2023 6:30:57 AM UTC |+ + +--- -----+ --+ + --------+| ANDREW VYASID | Admitting | normal | September 30, 2023 3:38:54 AM UTC | September 30, 2023 3:49:01 AM UTC | LFV2SLQ on September 30, 2023 6:30:57 AM UTC |+ + +--- -----+ --+ + --------+96750-6Gtgkvcw Care team informationLNCARE TEAMTXT2.16.840.1.465217.3.1579.187474 290472.1.100|25088089|2.16.840.1.21787 3.10.20.22.2.500AVAvailable for patient ysyzQratxtyMkkwpmhszTDQVn48 Section NarrativeNARRATIVEFormatted C-CDA narrative textSSETASCENSION GENESYS HOSPITAL+3(160)[id number]:1 3:37 [facility] 2023-10-03 18:02:32 41364971dDfFOXSAic9Exkcx6vpMsqtsEHrpa0 ocNdNZFp3svINTc5vvQuuxFoy1FDnsOm68233- 02-19T18:02:32Chest pain ; 71307-7HnmrtpjtkyhNIIWULGWIUSAIJYO7.16 .840.1.725611.3.1579.149150716883.1.10 0|85998391|2.16.840.1.233936.10.20.22. 2.8AVAvailable for patient uawcFegmbwfQmtoqodzhACPNw30 Section NarrativeLENOX HILL HOSPITALETASC[facility]+1(453)[id number]:0 2:32 [facility] 2023-10-03 18:02:32 [id number]PhXHr3g3XAx n9lL2tjk9rfVweXM/BHK7K/7ZkdWaDE5978078:02:32+ +--------+ --+--------+ + + + +-- -----+| DISCHARGE MEDICATIONS | | | | | | | | || Status | RXNORM | Medication | Dose | Route | Frequency | Dates | Comments | Updated By |+ +========+=== +========+= =========+ =+ + + +| Continued | | Ibuprofen Oral Tablet 600 MG | 600 mg | BY MOUTH | THREE TIMES DAILY NEEDED | Prescribed: September 30, 2023 10:20:33 PM UTC | | DCURRY on September 30, 2023 10:20:33 PM UTC |+ +--------+--- +--------+- ---------+ -+ + + +| Continued | 412147 | Pepcid Oral Tablet 20 MG | 20 mg | BY MOUTH | TWICE DAILY | Prescribed: September 30, 2023 10:20:33 PM UTC | | DCURRY on September 30, 2023 10:20:33 PM UTC |+ +--------+--- +--------+- ---------+ -+ + + ++------ +--------+ + + + + +--- + +| PATIENT OPEN ORDERS | | | | | | | | || Code | System | Description | Frequency | Occurrences | Priority | Start Date | Ordering Physician | Updated By |+ +========+===== ========+ + +=== =======+ ====+ +====== =+| 48608-1 | LOINC | EKG study | ONE TIME | 0 | Stat | September 30, 2023 2:29:00 AM [facility] | BART LOZANOANCE NASRA-GRICELDA | wul1ecy on September 30, 2023 2:29:00 AM [place] |+ +--------+----- --------+ + +--- -------+ ----+ +------ -+| 98436-0 | LOINC | EKG study | IN AM | 1 | Routine | September 30, 2023 9:00:00 AM UT | SETH WESLEY | KISHANH on September 30, 2023 3:43:00 AM UT |+ +--------+----- --------+ + +--- -------+ ----+ +------ -++ +--------+---- ---------+--------+ +-- +| SCHEDULED PROCEDURES | | | | | || Code | System | Description | Status | Scheduled Date | Updated By |+ +========+===== ========+========+ +=== =========+| Patient scheduled procedure information is not available. | | | | | |+ +--------+----- --------+--------+ +--- ---------+20289-2Yijh of TreatmentLNTREATMENT PLANTXT2.16.840.1.269576.3.1579.367905 335852.1.100|52645361|2.16.840.1.84671 3.10.20.22.2.10AVAvailable for patient fccaIrmrypkUazxwhlizWYBRf15 Section NarrativeNARRATIVEFormatted C-CDA narrative textE[facility] [place]+1(630)[id number]:0 2:32 [facility] 2023-10-03 18:02:32 2940939rle00sAW/nKbrDu6EuP1/5CzF1VoDSk +nsEShB5rGPzey3QJG6UcTWPo2i38DVZt3413- 02-19T18:02:32PATIENT GOALS+ + +----- --+| Goal | Assigned Date | Updated By |+ ========+ +========= +| ASSESS PATIENT CONDITION AND STATUS | September 30, 2023 | VMN2HKD on September 30, 2023 5:16:19 AM [facility] |+ --------+ +--------- +| PATIENT OR SIGNIFICANT OTHER WILL CONVEY UNDERSTANDING ABOUT THEIR PLAN OF CARE | September 30, 2023 | XFL8YAK on September 30, 2023 5:16:24 AM [facility] || INCLUDING ILLNESS, MEDICAL CARE, IMPORTANCE OF MEDICATION THERAPY OR TREATMENT | | || REGIMEN PRESCRIBED. THEY KNOW WHERE TO SEEK ASSISTANCE AND RETURNS | | || DEMONSTRATION OF PROCEDURES WITHOUT DIFFICULTY. | | |+ --------+ +--------- +6 1146-5HvvvbAWCYCXJXIR1.16.840.1.229308 .3.1579.661221479373.1.100|73678552|2. 16.840.1.030207.10.20.22.2.60AVAvailab for patient baclRaessydJsizaeqnfXHBAq35 Section NarrativeNARRATIVEFormatted C-CDA narrative textSSETBAMCLAREN [place]+6(117)[id number]:0 2:32 [facility] 2023-10-03 18:02:32 2551469wULd9EB4v87+Uo9GEFFBtcLwYVzjYL2 A/MVMzVEmFi3otzHeWB2z+xI+fMRYNnWh49148:02:32CARE TEAM+ + + --------+ -----+ ---+ +| Member | Role on Team | Status | Start Date | End Date | Updated By |+ + +--- -----+ --+ + -------+| ROSALBA SANTIAGO | Attending | normal | September 30, 2023 6:30:57 AM UTC | October 01, 2023 12:42:00 AM UTC | DAYEND on September 30, 2023 6:30:57 AM UTC |+ + +--- -----+ --+ + -------+| ROSALBA SANTIAGO | Admitting | normal | September 30, 2023 6:30:57 AM UTC | October 01, 2023 12:42:00 AM UTC | DAYEND on September 30, 2023 6:30:57 AM UTC |+ + +--- -----+ --+ + -------+| REGIS HOLT | Consulting | normal | September 30, 2023 3:43:31 AM UTC | October 01, 2023 12:42:00 AM UTC | DAYEND on September 30, 2023 6:30:57 AM UTC |+ + +--- -----+ --+ + -------+| NO PCP | PCP | normal | September 30, 2023 3:38:54 AM UTC | September 30, 2023 3:49:01 AM UTC | DAYEND on September 30, 2023 6:30:57 AM UTC |+ + +--- -----+ --+ + -------+| NO PCP | Referring | normal | September 30, 2023 3:38:54 AM UTC | October 01, 2023 12:42:00 AM UTC | DAYEND on September 30, 2023 6:30:57 AM UTC |+ + +--- -----+ --+ + -------+| ANDREW NASHID | Attending | normal | September 30, 2023 3:38:54 AM UTC | September 30, 2023 3:49:01 AM UTC | DAYEND on September 30, 2023 6:30:57 AM UTC |+ + +--- -----+ --+ + -------+| SALLIETHIJosefina NASHID | Admitting | normal | September 30, 2023 3:38:54 AM UTC | September 30, 2023 3:49:01 AM UTC | DAYEND on September 30, 2023 6:30:57 AM UTC |+ + +--- -----+ --+ + -------+14434-2Uuassny Care team informationLNCARE TEAMTXT2.16.840.1.104778.3.1579.223974 612218.1.100|59910492|2.16.840.1.39803 3...22.2.500AVAvailable for patient kutjGycotozHqgpvkhzqUNGKs24 Section NarrativeNARRATIVEFormatted C-CDA narrative [facility]+1(929) [id number]:0 2:32 [facility] 2023-09-30 21:02:32 42192834pWdOZEFNyf4Lmnos2iyPreluRHoou2 hvYjDFPr2grDUJl8gyJdavDbp8UHshYh03628- 02-16T21:02:32Chest pain ; 19520-4SfyuipxviypCOQVYCXBFKCRBPKA9.16 .840.1.551479.3.1579.871571405972.1.10 0|17836795|2.16.840.1.602413...22. 2.8AVAvailable for patient qamhRwpdmoiQcfhrwwodKUELj79 Section [facility]+1(351) [id number]:0 2:32 [facility] 2023-09-30 21:02:32 0913116Xk/4LNC2lixEG7l8H3njtPVuv07EKA6 MiRt5hEf8qc8y9D279gVSuxok/O1Ap7fX6553- 02-16T21:02:32+ +--------+ --+--------+ + + + +-- -----+| DISCHARGE MEDICATIONS | | | | | | | | || Status | RXNORM | Medication | Dose | Route | Frequency | Dates | Comments | Updated By |+ +========+=== +========+= =========+ =+ + + +| Continued | 288070 | Ibuprofen Oral Tablet 600 MG | 600 mg | BY MOUTH | THREE TIMES DAILY NEEDED | Prescribed: September 30, 2023 10:20:33 PM UT | | DCURRY on September 30, 2023 10:20:33 PM UTC |+ +--------+--- +--------+- ---------+ -+ + + +| Continued | 666769 | Pepcid Oral Tablet 20 MG | 20 mg | BY MOUTH | TWICE DAILY | Prescribed: September 30, 2023 10:20:33 PM UTC | | DCURRY on September 30, 2023 10:20:33 PM UTC |+ +--------+--- +--------+- ---------+ -+ + + ++------ +--------+ +---- -------+ + +----- +-------- + +| PATIENT OPEN ORDERS | | | | | | | | || Code | System | Description | Frequency | Occurrences | Priority | Start Date | Ordering Physician | Updated By |+ +========+===== ===+ + +======== ==+ + + +| 87653-0 | ELIAN | EKG study | ONE TIME | 0 | Stat | September 30, 2023 2:29:00 AM [facility] | BART DASILVACAR RENTAL CLERK | wgu2fup on September 30, 2023 2:29:00 AM UT |+ +--------+----- ---+ + +-------- --+ + + +| 71633-9 | LOINC | EKG study | IN AM | 1 | Routine | September 30, 2023 9:00:00 AM [place] | SETH WESLEY | KISHANH on September 30, 2023 3:43:00 AM UTC |+ +--------+----- ---+ + +-------- --+ + + +| 31441-1 | LOINC | Basic metabolic 2000 panel - Serum or Plasma | IN AM | 0 | Routine | October 01, 2023 9:00:00 AM UTC | RULA KAN | CUF9KCE on September 30, 2023 8:31:00 PM UTC |+ +--------+----- ---+ + +-------- --+ + + +| 44200-6 | LOINC | Basic metabolic 2000 panel - Serum or Plasma | IN AM | 0 | Routine | October 02, 2023 9:00:00 AM UTC | RULA KAN | HER6TDF on September 30, 2023 8:31:00 PM UTC |+ +--------+----- ---+ + +-------- --+ + + +| 56892-5 | LOINC | Basic metabolic 2000 panel - Serum or Plasma | IN AM | 0 | Routine | October 03, 2023 9:00:00 AM UTC | RULA KAN | IRQ5ZBA on September 30, 2023 8:31:00 PM UTC |+ +--------+----- ---+ + +-------- --+ + + +| 98698-3 | LOINC | CBC W Auto Differential panel - Blood | IN AM | 0 | Routine | October 01, 2023 9:00:00 AM UTC | RULA KAN | EXJ9JYG on September 30, 2023 8:31:00 PM UTC |+ +--------+----- ---+ + +-------- --+ + + +| 86812-6 | LOINC | CBC W Auto Differential panel - Blood | IN AM | 0 | Routine | October 02, 2023 9:00:00 AM UTC | MAHENDRAStew KAN | RSJ1PUU on September 30, 2023 8:31:00 PM UTC |+ +--------+----- ---+ + +-------- --+ + + +| 44126-0 | LOINC | CBC W Auto Differential panel - Blood | IN AM | 0 | Routine | October 03, 2023 9:00:00 AM UT | RULA KAN | CBZ9EFU on September 30, 2023 8:31:00 PM UTC |+ +--------+----- ---+ + +-------- --+ + + ++-- +--------+--------- ----+--------+ +------- -----+| SCHEDULED PROCEDURES | | | | | || Code | System | Description | Status | Scheduled Date | Updated By |+ +========+===== ========+========+ +=== =========+| Patient scheduled procedure information is not available. | | | | | |+ +--------+----- --------+--------+ +--- ---------+30629-1Hpek of TreatmentLNTREATMENT PLANTXT2.16.840.1.566930.3.1579.595431 040323.1.100|80354764|2.16.840.1.22399 3.10.20.22.2.10AVAvailable for patient lpjpJvjsjmlOfubjhvnrLSYBg88 Section NarrativeNARRATIVEFormatted C-CDA narrative textLENOX [facility]ILL [facility]OSPITALETASC[facility]+3(082)844-143-49226189-2872854002-29-41C73:0 2:32 [facility] 2023-09-30 21:02:32 8175767vmc58uEB/mAdzVo3BaQ2/0UzF5BuLGy +fnCHyO5jRDzut3XHC7RiGUQn0n29SUTf5280- 02-16T21:02:32PATIENT GOALS+ + +----- --+| Goal | Assigned Date | Updated By |+ ========+ +========= +| ASSESS PATIENT CONDITION AND STATUS | September 30, 2023 | CPV5KSQ on September 30, 2023 5:16:19 AM [facility] |+ --------+ +--------- +| PATIENT OR SIGNIFICANT OTHER WILL CONVEY UNDERSTANDING ABOUT THEIR PLAN OF CARE | September 30, 2023 | VZH2CBC on September 30, 2023 5:16:24 AM [facility] || INCLUDING ILLNESS, MEDICAL CARE, IMPORTANCE OF MEDICATION THERAPY OR TREATMENT | | || REGIMEN PRESCRIBED. THEY KNOW WHERE TO SEEK ASSISTANCE AND RETURNS | | || DEMONSTRATION OF PROCEDURES WITHOUT DIFFICULTY. | | |+ --------+ +--------- +6 1146-2OapfsHLTXTQMDLM5.16.840.1.206685 .3.1579.998463278578.1.100|54757742|2. 16.840.1.011393.10.20.22.2.60AVAvailab for patient jbqgMxmnelzQwmctyutpIXMJu37 Section NarrativeNARRATIVEFormatted C-CDA narrative textE[facility] [place]+1(657)614-079-87638926-2685050299-98-24H59:0 2:32 [facility] 2023-09-30 21:02:32 3260915jWVz9CZ3y58+Nk3MAUXRgaLbJCiyZJ8 A/TCIoVEqCp4ntoGmVK9u+xI+pHMQMwJn608909-30T21:02:32CARE TEAM+ + + --------+ -----+ ---+ +| Member | Role on Team | Status | Start Date | End Date | Updated By |+ + +--- -----+ --+ + -------+| ROSALBA SANTIAGO | Attending | normal | September 30, 2023 6:30:57 AM UTC | October 01, 2023 12:42:00 AM UTC | DAYEND on September 30, 2023 6:30:57 AM UTC |+ + +--- -----+ --+ + -------+| ROSALBA SANTIAGO | Admitting | normal | September 30, 2023 6:30:57 AM UTC | October 01, 2023 12:42:00 AM UTC | DAYEND on September 30, 2023 6:30:57 AM UTC |+ + +--- -----+ --+ + -------+| REGIS HOLT | Gilberto | normal | September 30, 2023 3:43:31 AM UTC | October 01, 2023 12:42:00 AM UTC | DAYEND on September 30, 2023 6:30:57 AM UTC |+ + +--- -----+ --+ + -------+| NO PCP | PCP | normal | September 30, 2023 3:38:54 AM UTC | September 30, 2023 3:49:01 AM UTC | DAYEND on September 30, 2023 6:30:57 AM UTC |+ + +--- -----+ --+ + -------+| NO PCP | Referring | normal | September 30, 2023 3:38:54 AM UTC | October 01, 2023 12:42:00 AM UTC | DAYEND on September 30, 2023 6:30:57 AM UTC |+ + +--- -----+ --+ + -------+| ANDREW VYASID | Attending | normal | September 30, 2023 3:38:54 AM UTC | September 30, 2023 3:49:01 AM UTC | DAYEND on September 30, 2023 6:30:57 AM UTC |+ + +--- -----+ --+ + -------+| DECLANA ASAELID | Admitting | normal | September 30, 2023 3:38:54 AM UTC | September 30, 2023 3:49:01 AM UTC | DAYEND on September 30, 2023 6:30:57 AM UTC |+ + +--- -----+ --+ + -------+68524-1Fxadnrt Care team informationLNCARE TEAMTXT2.16.840.1.773444.3.1579.910030 845881.1.100|18449161|2.16.840.1.70544 3.10.20.22.2.500AVAvailable for patient ywjzGntcjheBezxfeleoVAORr09 Section NarrativeNARRATIVEFormatted C-CDA narrative textE[facility] [place]+1(899)[id number]:0 2:32 [facility] 2023-09-29 21:47:15 YVmaopltdcg608085jnrGkkwVNf7bUTO4R+SoA XwGQco9kvnd0va4iWGUOiNo59rCa2LU9I46laT utZAT0581-19-91N03:47:15[place] [address] DIAGNOSTIC IMAGING REPORT Patient Name: Shira DIOP of Service: [id number]: 43 Sex: M Order #: [id number] Room: [facility]: 1980 X-Ray Number: [id number] Record Number: [id number] Hospital Number: [id number] Physician: James MORALES Physician: JENNIFER MORALES PROCEDURE: CHEST 1 VIEW PORTABLE INDICATIONS: dx: chest wall pain pt sts: c/o left chest wall pain onset 3days agonohapsv: jtt 1 view chest x-rayComparison: NoneFindings:No consolidation or effusion.Heart size is normal.No acute fracture.IMPRESSION:1. No acute findings.This document has been electronically signed by: Ba Fontaine MD on09/29/2023 21:47:15 Legally authenticated by DONOVAN SHUKLA 2023-09-29 21:47:42BEDccxvbamqbovoekan05972DXKOAX BQCQLZYOVSEXAEKO7696-52-30J24:47:15ER5 [id number]01707933 64459TOBRBVDM46289QSJDPW, LGXYVSQBVBLNZEBIV5640-78-58G24:48:41 [facility] 2023-03-31 22:28:00 QJ40728014053ZP7Bw9lKV83TBPq/gV55OXEBC /a3SQuFSfj8J6S1JyB7X8+BtWECuyRDYU9Oxbc 5761-01-70R50:28:00 [facility])EMERGENCY PROVIDER REPORTREPORT#:[id number] REPORT STATUS: SignedDATE:03/31/23 TIME:2227 PATIENT: SEVERO DIOP UNIT #: [id number]#: [id number] ROOM/BED:: 80 AGE: 42 SEX: M PCP PHYS: DOES_NOT KNOWSERVICE AUTHOR: Walter Salinas MD * ALL edits or amendments must be made on the electronic/computer document * HPI-General Illness Free Text HPI NotesFree Text HPI Nrbit91-ukpx-fap 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 Patient states that the symptoms started after eating [employer]. Patient states that he has been without methamphetamine for the past 2 days. Denies vomiting, chest pain, abdominal pain, severe headache, diarrhea, fever GeneralInitial Greet Date/Time 03/31/232227 PresentationChief Complaint __ (dizziness) Review of Systems ROS StatementsAll systems rev neg except as marked. Past Medical History - AdultStated Complaint POSS FOOD POISON-LIGHT HEADED, CONFUSIONAllergiesCoded Allergies:No Known Allergies (03/31/23) Physical Exam Vital SignsVital SignsFirst Documented: Result Date Time Pulse Ox 99 03/31 2231 B/P 149/94 03/31 2231 B/P Mean 112 03/31 2231 O2 Delivery Room air 03/31 2231 Temp 37.0 03/31 2231 Pulse 84 03/31 2231 Resp 18 03/31 2231 Last Documented: Result Date Time Pulse Ox 99 03/31 2231 B/P 149/94 03/31 2231 B/P Mean 112 03/31 2231 O2 Delivery Room air 03/31 2231 Temp 37.0 03/31 2231 Pulse 84 03/31 2231 Resp 03/31 Review of Vital Signs Reviewed Free Text PE NotesFree Text PE Notes P HYSICAL EXAM: Vital Signs Reviewed. General: Awake, Alert Neuro: No gross deficits, cranial nerves II through XII intact/no focal deficit HEENT: Normocephalic, PERRLA Cardiovascular: RRR Respiratory: No Stridor, Breathing Comfortably, Lungs CTAB Abdomen: Non-Tender, Non-Distended Extremities: No gross deformities. Skin: No Petechiae Interpretation Diagnostics Lab Results InterpretationResultsLaboratory Tests 03/31/232243:[Embedded Image Not Available]Laboratory Tests: 03/31 2244 Chemistry Sodium (134 - 147 mmol/L) 141 Potassium (3.4 - 5.0 mmol/L) 3.6 Chloride (100 - 108 mmol/L) 104 Carbon Dioxide (21 - 32 mmol/L) 36 H Anion Gap (4.0 - 15.0 GAP calc) 1.0 L BUN (7 - 18 MG/DL) 11 Creatinine (0.8 - 1.3 MG/DL) 0.8 Glomerular Filtr Rate (>60 estGFR) >=60 max estimate Glucose (70 - 110 MG/DL) 93 Calcium (8.5 - 10.1 MG/DL) 8.3 L Hematology WBC (3.5 - 11.0 K/mm3) 4.4 RBC (4.70 - 6.10 M/mm3) 4.45 L Hgb (12.3 - 15.9 G/DL) 13.7 Hct (35.8 - 46.7 %) 39.9 MCV (86.3 - 98.9 Fl) 89.7 MCH (28.9 - 34.4 pg) 30.8 MCHC (32.1 - 34.5 G/DL) 34.3 RDW (11.5 - 14.5 SD) 11.9 Plt Count (150 - 450 K/mm3) 324 MPV (7.0 - 9.6 fL) 9.90 H Neut % (Auto) (40 - 76 %) 42.1 Lymph % (Auto) (20.5 - 51.1 %) 42.5 Howard % (Auto) (1.7 - 9.3 %) 12.7 H Eos % (Auto) (0.0 - 6.0 %) 1.6 Baso % (Auto) (0.0 - 2.0 %) 0.9 Neut # (Auto) (1.8 - 7.6 K/mm3) 1.9 Lymph # (Auto) (0.6 - 3.0 K/mm3) 1.9 Howard # (Auto) (0.2 - 1.5 K/mm3) 0.6 Eos # (Auto) (0.0 - 0.4 K/mm3) 0.1 Baso # (Auto) (0.0 - 0.2 K/mm3) 0.0 Abs Immat Gran (auto) (0.00 - 0.03 x10 3/uL) 0.01 Add Manual Diff (CRITERIA DIFF/SCN) NO Immature Gran % (0.0 - 5.0 %) 0.2 Nucleated RBC % (0.0 - 1.0 /100WBC%) 0.0 Re-Evaluation MDM Free Text MDM NotesAdditional TextSuspect methamphetamine withdrawal, will obtain labs and screening EKG to ensureand rule out arrhythmia, anemia, renal failure. IV fluids in case of potential dehydration Independen t EKG INTERPRETATION by Dr Walter Salinas MD Time at Intrepretation:2242 Rhythm: Normal SinusSegments: Normal appeareanceRate: normalQRS: normalQTC: normal Interpretation:- NSR - No characterstics concerning for ischemia Re-exam after fluids, pt playing on smartphone, pt states symptoms resolved Ruled Out: Anemia, renal failure, hypokalemia ED CourseMedication(s) OrderedMedication(s) Ordered:Electrolytic, Caloric, And Jenny Sig/Felisa Start time Last Medication Dose Route Stop Time Status Admin Sodium Chloride 1,000 ML X1ED STA 03/31 2231 AC 03/31 IV 03/31 Patient Discharge Departure Vital Signs/ConditionVital SignsFirst Documented: Result Date Time Pulse Ox 99 03/31 2231 B/P 149/94 03/31 2231 B/P Mean 112 03/31 2231 O2 Delivery Room air 03/31 2231 Temp 37.0 03/31 2231 Pulse 84 03/31 2231 Resp 03/31 Last Documented: Result Date Time Pulse Ox 99 03/31 2231 B/P 149/94 03/31 2231 B/P Mean 112 03/31 2231 O2 Delivery Room air 03/31 2231 Temp 37.0 03/31 2231 Pulse 84 03/31 2231 Resp 03/31 All vital signs available at the time of this entry have been reviewed. Clinical ImpressionClinical ImpressionPrimary Impression: DehydrationSecondary Impressions: Lightheadedness Disposition DecisionDischarge )( Discharged to Home Yes )( Time 2323 )( Date 03/31/23 Discharge/Care PlanPatient Instructions ED Dehydration (Adult)Additional InstructionsPlease follow up with your primary care doctor within the week. If you do not have a primary care doctor, please call and make the earliest appointment for: Dr Ceci [id number] [facility], [place], [place] [address]Tvltu: [email or web address] Return if your symptoms worsen or you develop any new concerning symptoms at 2325 RPT #: [id number] OF REPORTLamb [facility] Center department [id number]:28:00L.[id number] for patient [id number]:25:32 [facility] 2023-03-21 06:02:28 tW6GfV5nXKLWsXF+nwJQqtebmAKbK7p6L6g8ZD Rkq28oTTQGGi8TjJ+248Qz/IvX3221-51-95P0 6:02:28 Pt given printed and verbal discharge instructions regarding toothache, encouraged hydration.Prescriptions provided.Discussed ibuprofen and to take with food to avoid GI distress.Discussed antibiotic therapy and to take until all completed unless adverse reaction occurs - if occurs, discontinue medication and follow up with pcp/seek medical attention.Pt verbalized understanding of instructions, pt awake alert oriented, resp reg unlabored, skin w/d, color appropriate for race, moves all ext well,pt encouraged to follow up with pcp and or dentist.Advised to seek medical attention for new/prolonged/worsening of symptoms.No adverse reaction to meds given in ER noted upon discharge.Awake, alert oriented, resp reg unlabored, skin w/d, pt leaving amb with steady gait, in no apparent distress. 71244-7Rpkapikba department [id number]:03:14[facility] [id number] [id number] for patient [id number][id number] VWNSODBITWICZMJOTUDH3258-43-21X56:03:1 [id number]|1.2.840.1143 [id number] [facility] 2023-03-21 05:27:03 L4zZG4wnom/EMTyHy4S2AkZkMr4fpWRw+eJX4v vOQ83PF1eaQCKnWIUD9odiB0hn9929-82-54S8 5:27:03 Patient came in with complaints of right upper toothache since last night and it woke him up from sleep 45 mins ago. Patient said that he took BC Powder last night and today morning before he got here but no relief. 60850-0Pgxazsgoc department Triage [id number]:28:37[facility] Triage [id number] for patient [id number] department [id number] C Heredia RNUT[id number] [id number]:28:3 [id number] Vicki Daniel RN [facility] 2023-03-21 05:19:00 [id number]TQQxhKKmkF QknwmoQRk6/OMMbusqhF2+[id number] 5:19:00 [facility] Emergency Department NotePatient Name: Severo Robertson of : 1980 42 year old maleTreatment Room: [place] [address]/[id number] Record Number: [id number] Care Physician: [facility]ou Garsia [facility]Patient Escorted by: Self [9]Mode of Arrival: Personal means [1]EMS Treatment Prior to ED Arrival: Travel and Exposure Screening:SymptomsDoes patient have any of these symptoms?: (not recorded)Exposure ScreeningHas patient had contact with someone with a communicable disease in the last month?: (not recorded)Diseases exposed to:: (not recorded)Is Patient ?: (not recorded)Exposure Date: (not recorded)Chief Complaint:Chief Complaint Patient presents with Tooth Pain Right upper History of Present Illness:Severo Diop is a 42 year old male who presents to the ED for evaluation of toothache that began last HS.Pty took BC powder alst HS for same and again this AM. No fever. No facial swelling. Has throbbingDental ProblemLocation: UpperUpper teeth location: 2/RU 2nd molarQuality: AchingSeverity: SevereOnset quality: GradualDuration: 1 dayTiming: SporadicProgression: WorseningChronicity: NewContext: dental caries and poor dentition Context: not abscess, cap still on, not crown fracture, not dental fracture, not enamel fracture, filling intact, not intrusion, not malocclusion, not recent dental surgery and not trauma Relieved by: None triedWorsened by: NothingIneffective treatments: None triedAssociated symptoms: no congestion, no difficulty swallowing, no drooling, no facial pain, no facial swelling, no fever, no gum swelling, no headaches, no neck pain, no neck swelling, no oral bleeding, no oral lesions and no trismus Risk factors: lack of dental care Past Medical History/Immunizations:EX-Methamphetami ne Abuse Allergies:No Known AllergiesPast Social History:Substance & Sexual Activity No substance use or sexual activity history on file. Past Surgical History:ORIF Left ForearmSkin Garft to ScalpReview of Systems: Review of Systems Constitutional: Negative. Negative for fever. HENT: Positive for dental problem. Negative for congestion, drooling, facial swelling and mouth sores. Eyes: Negative. Respiratory: Negative. Breasts: Negative. Cardiovascular: Negative. Genitourinary: Negative. Musculoskeletal: Negative. Negative for neck pain. Skin: Negative. Neurological: Negative. Negative for headaches. Psychiatric/Behavioral: Negative. All other systems reviewed and are negative.Endocrine: Endocrine negativePhysical Exam: ED Triage Vitals [03/21/23 0528] Weight 59 kg (130 lb) Actual or estimated Estimated by patient/family report Height 1.753 m (5' 9") BP 133/88 Pulse 83 Resp 15 Temp 36.8 ?C (98.2 ?F) Temp source Oral SpO2 98 % Measured on Room air Physical ExamVitals and nursing note reviewed. Constitutional: General: He is not in acute distress. Appearance: Normal appearance. He is well-developed and normal weight. He is not ill-appearing, toxic-appearing or diaphoretic. HENT: Head: Normocephalic and atraumatic. Nose: Nose normal. Mouth/Throat: Mouth: Mucous membranes are moist. Pharynx: Oropharynx is clear. Comments: Poor oral dentition with cavities/cariesEyes: General: No scleral icterus. Right eye: No discharge. Left eye: No discharge. Conjunctiva/sclera: Conjunctivae normal. Pupils: Pupils are equal, round, and reactive to light. Cardiovascular: Rate and Rhythm: Normal rate and regular rhythm. Heart sounds: Normal heart sounds. Pulmonary: Effort: Pulmonary effort is normal. No respiratory distress. Breath sounds: Normal breath sounds. No stridor. No wheezing or rhonchi. Abdominal: General: Bowel sounds are normal. There is no distension. Palpations: Abdomen is soft. Tenderness: There is no abdominal tenderness. There is no right CVA tenderness, left CVA tenderness, guarding or rebound. Musculoskeletal: General: No swelling, tenderness, deformity or signs of injury. Normal range of motion. Cervical back: Normal range of motion and neck supple. No rigidity or tenderness. Right lower leg: No edema. Left lower leg: No edema. Lymphadenopathy: Cervical: No cervical adenopathy. Skin: General: Skin is warm and dry. Capillary Refill: Capillary refill takes less than 2 seconds. Coloration: Skin is not jaundiced or pale. Findings: No bruising, erythema, lesion or rash. Neurological: Mental Status: He is alert and oriented to person, place, and time. Cranial Nerves: No cranial nerve deficit. Sensory: No sensory deficit. Motor: No weakness. Coordination: Coordination normal. Gait: Gait normal. Deep Tendon Reflexes: Reflexes normal. Psychiatric: Behavior: Behavior normal. Thought Content: Thought content normal. Judgment: Judgment normal. Radiology:No orders to display Lab Results:Lab Results - No data to displayOrders and Treatments:No orders of the defined types were placed in this encounter.Orders Placed This Encounter Medications ibuprofen (IBU) tablet 800 mg clindamycin 300 mg capsule ibuprofen 800 mg tablet First Provider Eval:ED Events Date/Time Event User Comments 03/21/23536 Medical Screening Begins MENG MÁRQUEZ MD -- 03/21/23536 First Provider Evaluation MENG MÁRQUEZ MD -- No notes of EC Admission Criteria type on file.ED COURSEDiagnosis/Impression as of 03/21/23550 Toothache Procedures: ProceduresMDM:Medical Decision MakingScxiomara Diop is a 42 year old male who presents to the ED with toothacheRiskPrescription drug management. Flowsheet Documentation: Scoring Tools: No data recorded Disposition/Condition:ED Disposition ED Disposition Disch - Home Condition Stable Comment -- Discharge Medications:Patient's Medications START taking these medications CLINDAMYCIN 300 MG CAPSULE Take 1 capsule by mouth in the morning and 1 capsule at noon and 1 capsule in the evening. Do all this for 7 days. IBUPROFEN 800 MG TABLET Take 1 tablet by mouth every 8 (eight) hours as needed for Pain (scale 4-6). CONTINUE taking these medications which have NOT CHANGED KETOROLAC 10 MG TABLET Take 1 tablet by mouth every 6 (six) hours as needed for Pain (scale 4-6). ONDANSETRON (ZOFRAN ODT) 4 MG DISINTEGRATING TABLET Take 1 tablet by mouth every 8 (eight) hours as needed for Nausea and Vomiting (N/V). TAMSULOSIN 0.4 MG 24 HR CAPSULE Take 1 capsule by mouth at bedtime. START taking Modified Medications as Prescribed No medications on file STOP taking these medications No medications on file Follow-up:Contact information for follow-up Center, [place] [facility] Medical Relationship: PCP - General [address] [facility] [id number] Electronically signed by: Meng Márquez MD03/21/2351 [id number] Emergency department [id number]:51:28Physician Emergency department [id number] for patient [id number] department NoteLNUT[address] Bz[id number] YVKVCWGZNISPPWAFJOZN0560-51-59E83:51:2 [id number]|[id number] [id number] [facility]
--- NOTE | 2023-12-23 22:38 | ER ---
Nurse's Notes [facility] Name: Severo Morgan Age: 43 yrs Sex: Male : 1980 Arrival Date: 12/23/2023 Time: 21:57 Bed DX3 Private MD: Diagnosis: Periapical abscess without sinus;Dental caries, unspecified Presentation: 12/22 22:31 Chief complaint: Patient states: left upper tooth pain of 3,onset 3 weeks. Patient pf1 stated completed antibiotics 1.5 weeks ago. Coronavirus screen: Vaccine status: Patient reports receiving the 2nd dose of the covid vaccine. Client denies travel out of the [place] in the last 14 days. At this time, the client does not indicate any symptoms associated with coronavirus-19. Ebola Screen: Patient negative for fever greater than or equal to 101.5 degrees Fahrenheit, and additional compatible Ebola Virus Disease symptoms. Initial Sepsis Screen: Does the patient meet any 2 criteria? No. Patient's initial sepsis screen is negative. Does the patient have a suspected source of infection? No. Patient's initial sepsis screen is negative. Risk Assessment: Do you want to hurt yourself or someone else? Patient reports no desire to harm self or others. Onset of symptoms was December 09, 2023. 22:31 Method Of Arrival: Ambulatory pf1 22:31 Acuity: FRANKLIN 5 pf1 Triage Assessment: 22:37 General: Appears in no apparent distress. comfortable, well developed, Behavior is pf1 calm, cooperative, appropriate for age, quiet. Pain: Complains of pain in upper left central incisor (#9) Pain currently is 3 out of 10 on a pain scale. EENT: Reports pain in upper left central incisor (#9). Historical: - Allergies: 22:53 No Known Allergies; cm10 - Home Meds: 22:53 None [Active]; cm10 - PMHx: 22:53 None; cm10 - PSHx: 22:53 Skin Graft; cm10 - Immunization history:: Adult Immunizations up to date. - Infectious Disease History:: Denies. - Social history:: Smoking status: Patient reports the use of cigarette tobacco products, smokes one-half pack cigarettes per day. Screenin:57 [facility] ED Fall Risk Assessment (Adult) History of falling in the last 3 months, cm10 including since admission No falls in past 3 months (0 pts) Confusion or Disorientation No (0 pts) Intoxicated or Sedated No (0 pts) Impaired Gait No (0 pts) Mobility Assist Device Used No (0 pt) Altered Elimination No (0 pt) Score/Fall Risk Level 0 - 2 = Low Risk Oriented to surroundings, Maintained a safe environment, Hourly rounding (assess needs \T\ fall precautionary measures) done. Abuse screen: Denies threats or abuse. Denies injuries from another. Nutritional screening: No deficits noted. Tuberculosis screening: No symptoms or risk factors identified. Assessment: 22:57 General: Appears in no apparent distress. comfortable, Behavior is calm, cooperative. cm10 Neuro: No deficits noted. Level of Consciousness is awake, alert, obeys commands, Oriented to person, place, time, situation, Appropriate for age. Respiratory: No deficits noted. Airway is patent Respiratory effort is even, unlabored, Respiratory pattern is regular, symmetrical. Vital Signs: 22:31 BP 131 / 79; Pulse 71; Resp 16; Temp 97.7; Pulse Ox 99% on R/A; Weight 68.04 kg; Height pf1 5 ft. 9 in. ; Pain 3/10; 22:31 Body Mass Index 22.15 (68.04 kg, 175.26 cm) pf1 22:31 Pain Scale: Adult pf1 ED Course: 22:02 Patient arrived in ED. gm2 22:10 Nallely Patino FNP-C is [facility]. kb 22:10 Rudy Hicks MD is Attending Physician. kb 22:37 Triage completed. pf1 22:37 Arm band placed on right wrist. pf1 22:57 Patient has correct armband on for positive identification. Provided Education on: cm10 Follow-up instructions.. 22:57 No provider procedures requiring assistance completed. Patient did not have IV access cm10 during this emergency room visit. Administered Medications: 22:56 Drug: Clindamycin PO 300 mg PO once Route: PO; cm10 22:56 Follow up: Response: Medication administered at discharge. cm10 Medication: 22:57 VIS not applicable for this client. cm10 Outcome: 22:37 Discharge ordered by . kb 22:58 Discharged to home ambulatory, with family, cm10 22:58 Condition: good 22:58 Discharge instructions given to patient, Instructed on discharge instructions, follow up and referral plans. medication usage, Demonstrated understanding of instructions, follow-up care, medications, Prescriptions given X 1, 22:58 Patient left the ED. cm10 Signatures: Nallely Patino FNP-C FNP-Ckb Finley, Pamala RN RN pf1 Renetta Dickson RN RN cm10 Ny Raygoza 2
--- NOTE | 2023-12-23 22:38 | EDPHYS ---
Physician Documentation [facility] Name: Severo Morgan Age: 43 yrs Sex: Male : 1980 Arrival Date: 12/23/2023 Time: 21:57 Bed DX3 Private MD: ED Physician Rudy Hicks HPI: 12/22 22:36 This 43 yrs old Male presents to ER via Unassigned with complaints of Toothache. kb 22:36 Pt is a 43 year old male who presents with toothache and gum swelling that started kb weeks ago. States he was seen at [facility] and given augment, which he finished 1.5 weeks ago and now the symptoms are back. Denies fever. . Historical: - Allergies: 22:53 No Known Allergies; cm10 - Home Meds: 22:53 None [Active]; cm10 - PMHx: 22:53 None; cm10 - PSHx: 22:53 Skin Graft; cm10 - Immunization history:: Adult Immunizations up to date. - Infectious Disease History:: Denies. - Social history:: Smoking status: Patient reports the use of cigarette tobacco products, smokes one-half pack cigarettes per day. ROS: 22:35 Constitutional: As per HPI kb Exam: 22:35 Constitutional: This is a well developed, well nourished patient who is awake, alert, kb and in no acute distress. Head/Face: Normocephalic, atraumatic. ENT: Moist Mucous membranes Cardiovascular: Regular rate Respiratory: Respirations even and unlabored. No increased work of breathing. Talking in full sentences Skin: Warm, dry with normal turgor. Normal color. MS/ Extremity: Pulses equal, no cyanosis. Neurovascular intact. Full, normal range of motion. Neuro: Awake and alert, GCS 15, oriented to person, place, time, and situation. Moves all extremities. Normal gait. 22:35 ENT: Dental exam: abscess, that is mild, specifically in the upper left central incisor (#9), dental caries, gum swelling, that is mild, specifically in the upper left central incisor (#9), pain, that is moderate, specifically in the upper left central incisor (#9), Vital Signs: 22:31 BP 131 / 79; Pulse 71; Resp 16; Temp 97.7; Pulse Ox 99% on R/A; Weight 68.04 kg; Height pf1 5 ft. 9 in. ; Pain 3/10; 22:31 Body Mass Index 22.15 (68.04 kg, 175.26 cm) pf1 22:31 Pain Scale: Adult pf1 MDM: 22:10 Patient medically screened. kb 22:36 Differential diagnosis: dental caries, gingivitis, dental abscess. Data reviewed: vital kb signs, nurses notes. Counseling: I had a detailed discussion with the patient and/or guardian regarding the historical points, exam findings, and any diagnostic results supporting the discharge/admit diagnosis, the need for outpatient follow up, a dentist, to return to the emergency department if symptoms worsen or persist or if there are any questions or concerns that arise at home. Administered Medications: 22:56 Drug: Clindamycin PO 300 mg PO once Route: PO; cm10 22:56 Follow up: Response: Medication administered at discharge. cm10 Disposition: 12/23 01:17 Co-signature as Attending Physician, Rudy Hicks MD I reviewed the patient's care rt provided by the Advanced Practice Provider and agree with the diagnosis and treatment plan. Disposition Summary: 12/23/23 22:37 Discharge Ordered Notes: Location: Home kb Condition: Stable kb Diagnosis - Periapical abscess without sinus kb - Dental caries, unspecified kb Followup: kb - With: Emergency Department - When: As needed - Reason: Worsening of condition Followup: kb - With: Private Physician - When: 2 - 3 days - Reason: Recheck today's complaints, Continuance of care, Re-evaluation by your physician Discharge Instructions: - Discharge Summary Sheet kb - Dental Caries, Adult kb - Dental Pain, Psyf-ao-Xplm kb - Dental Abscess, Xzcz-wk-Cjet kb Forms: - Medication Reconciliation Form kb - Antibiotic Education kb - Prescription Opioid Use kb - Patient Portal Instructions kb - Leadership Thank You Letter kb Prescriptions: - Clindamycin HCl 300 mg Oral Capsule - take 1 capsule ORAL route every 6 hours for 10 days; 40 capsule; Refills: 0, kb Product Selection Permitted Signatures: Nallely Patino, ART EDITOR-C HAYLEY-Rudy Mckeon MD MD rt Renetta Dickson RN RN cm10
[2023-12-23 23:36] VITALS: BP 131/79; TEMP 97.7; O2SAT 99
== END 2023-12-23 22:58 | disposition home or self-care (01) ==
LOC: ER 21:57
DX: K04.7 Periapical abscess without sinus (principal); K02.9 Dental caries, unspecified; F17.210 Nicotine dependence, cigarettes, uncomplicated
CPT/HCPCS: 99283

== ENCOUNTER 2024-01-17 02:49 | Emergency (ER) | payer OTHER ==
--- OUTSIDE RECORDS SUMMARY | 2024-01-17 02:55 | XMS REPORT | Continuity of Care Document ---
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 Reference Range Interpretation Comme nts NT-PROBNP (test code = PROBNP) <20.0 pg/mL Exclusion for he art failure for patients of all ages is 300 pg/mL. Inclusion for heart failure for patients age <50 is 450 pg/mL; for patients age 50-75 is 900 pg/mL; for patients age >75 is 1800 pg/mL. [id number] 01:48:00* Test Item Value Reference Range Interpretation Comme nts %CKMB (test code = %MB) 0.6 % CKMB (test code = CKMB) 0.8 NG/ML 0.22-2.4 CK (test code = CK) 143 U/L 55-170 Natriuretic peptide B [Mass/volume] in Serum [id number] 01:48:00* Test Item Value Reference Range Interpretation Comme nts Natriuretic peptide B [Mass/ volume] in Serum or Plasma (test code = 81152-6) <20.0 N [facility])Creatine kinase.MB [Mass/volume] in Serum or Pl 2023-10-10 01:48:00* Test Item Value Reference Range Interpretation Comme nts Creatine kinase.MB/Creatine kinase.total in Serum or Plasma (test code = 76181-6) 0.6 % N Creatine kinase.MB [Mass/vol ume] in Serum or Plasma (test code = 38242-1) 0.8 NG/ML 0.22-2.4 N Creatine kinase isoenzymes [interpretation] in Serum or Plasma Narrative (test code = 40268-9) 143 U/L 55.0-170.0 N [facility])[id number] 01:35:00* Test Item Value Reference Range Interpretation Comme nts MG (test code = MG) 1.7 mg/dL 1.6-2.3 CHEST 1 VIEW [id number] 01:34:00 [facility] 1980 [facility] [place], [place] [id number] IMAGING R EPORTPatient Name: SEVERO DIOPDate of Service: [id number]: 43 Sex: M Order #: [id number] [facility] 1980 X-Ray Number: [id number] Record Number: [id number] Hospital Number: [id number] Physician: Sherry CROSS Physician: ALEJANDRA CROSSPROCEDURE: CHEST [...] signed by: Bryant Wilkinson III, MD on10/10/2023 01:33:00Legally authenticated by MINH POWELL 2023-10-10 01:33:00Portable XR Chest Views [id number] 01:33:00ORDER 800: CHEST 1 VIEW PORTABLE (LOINC: 62230-2)ORDER DATE: October 10, 2023 6:45:00 AM [facility] Magnesium [Mass/volume] in Serum or [id number] 01:30:00* Test Item Value Reference Range Interpretation Comme nts Magnesium [Mass/volume] in S jeni or Plasma (test code = 58511-1) 1.7 mg/dL 1.6-2.3 N [facility][id number] 01:28:00* Test Item Value Reference Range Interpretation [...] 1.2-7.2 CBC W Auto Differential panel - [id number] 01:28:00* Test Item Value Reference Range Interpretation Comme nts Leukocytes other [Identifier ] in Blood by Automated count (test code = 36925-1) 7.8 K/UL 3.5-10.9 N Erythrocytes [#/volume] in B lood (test code = 53993-1) 4.47 M/UL 4.3-5.7 N Hemoglobin A/Hemoglobin.tota l in Blood (test code = 4546-8) 13.9 G/DL 13.0-17.9 N Hematocrit [Volume Fraction] of Blood (test code = 02199-1) 41.8 % 38.0-52.0 N Erythrocyte mean corpuscular volume [Entitic volume] (test code = 89610-7) 93.5 FL 80.0-98.0 N Erythrocyte mean corpuscular hemoglobin [Entitic mass] (test code = 42916-1) 31.1 PG 28.0-32.0 N Erythrocyte mean corpuscular hemoglobin concentration [Mass/volume] (test code = 49569-0) 33.3 G/DL 32.5-36.5 N Erythrocyte distribution wid th [Ratio] (test code = 01181-1) 11.8 % 11.5-14.5 N Platelets panel - Blood by Automated count (test code = 94714-1) 245 K/UL 150.0-450.0 N Platelet mean volume [Entiti c volume] in Blood by Automated count (test code = 55574-5) 10.1 FL 7.4-10.4 N Neutrophils.segmented/100 leukocytes in Blood (test code = 76647-5) 57.3 % 40.0-75.0 N Lymphocytes Variant/100 leuk ocytes in Blood (test code = 14634-0) 30.1 % 24.0-44.0 N Lymphocytes+Monocytes/100 leukocytes in Blood (test code = 4662-3) 9.8 % 0.0-13.0 N Eosinophils [#/volume] in Bl ood (test code = 19118-6) 1.9 % 0.0-4.0 N Basophils [#/volume] in Bloo d (test code = 99699-8) 0.6 % 0.0-2.0 N Immature granulocytes/100 leukocytes in Blood (test code = 23255-3) 0.3 % 0.0-1.0 N Nucleated erythrocytes [#/vo lume] in Blood (test code = 19984-1) 0 /100 WBC N Neutrophils [#/volume] in Bl ood (test code = 67830-0) 4.4 K/UL 1.2-7.2 N [facility]TROPONIN [id number] 00:58:00* Test Item Value Reference Range Interpretation Comme nts TROPER (test code = TROPER) 0.00 NG/ML 0.0-0.08 INTERPRETIVE DATA A POC TROPONIN OF </= 0.08 NG/ML IS CONSIDERED NEGATIVE Troponin T.cardiac [Mass/volume] in [id number] 00:58:00* Test Item Value Reference Range Interpretation Comme nts Troponin T.cardiac [Mass/vol ume] in Blood (test code = 02531-4) 0.0 NG/ML 0.0-0.08 N [facility])ISTAT CHEM [id number] 00:52:00* Test Item Value Reference Range Interpretation [...] of Reference Ranges Basic metabolic panel - Dzmgu1669-36-17 00:52:00* Test Item Value Reference Range Interpretation Comme nts Sodium [Moles/volume] in Art erial blood (test code = 44709-2) 142 MMOL/L 137.0-145.0 N Potassium [Moles/volume] in Arterial blood (test code = 78242-7) 3.8 MMOL/L 3.6-5.0 N Chloride [Moles/volume] in Arterial blood (test code = 38427-0) 100 MMOL/L 98.0-107.0 N Calcium.ionized [Mass/volume ] in Arterial blood (test code = 74385-2) 1.07 MMOL/L 1.12-1.32 L Carbon dioxide, total [Moles/volume] in Blood (test code = 99383-7) 30 MMOL/L 22.0-30.0 N Glucose [Mass/volume] in Art erial blood (test code = 06770-2) 90 MG/DL 65.0-110.0 N Urea nitrogen [Mass/volume] in Arterial blood (test code = 55786-2) 15.0 MG/DL 7.0-20.0 N Creatinine [Mass/volume] in Blood (test code = 14415-5) 0.8 MG/DL 0.7-1.5 N Hematocrit [Volume Fraction] of Arterial blood (test code = 18018-3) 44 %PCV 37.0-52.0 N Hemoglobin [Mass/volume] in Arterial cord blood (test code = 59095-1) 15.0 G/DL 12.0-18.0 N Anion gap in Blood (test cod e = 74613-3) 17 MMOL/L N [facility])ECHO COMPLETE W/[id number] 15:51:00 [facility] : 1980 Sex: MStudy ID: [id number] TRAIL [facility] HOSPITALECHOCARDIOGRAM REPORTName: SEVERO DIOP Study Date: 09/30/2023 02:19 PMMRN: [id number] Patient Location: T3\\S\\3316\\S\\AHR: 64DOB: 1980 (M/d/yyyy) Gender: MaleAge: 43 yrs Ethnicity: WHeight: 69 in Weight: 143 lbBSA: 1.8 m2Cbyhsy For Study: chest pain, abnormal EKG- Brugada patternMMode/2D Measurements & CalculationsIVSd: 0.54 cm LVIDd: 4.8 cmIVSs: 0.67 cm LVIDs: 3.6 cmLVPWd: 0.77 cmLVPWs: 1.1 cm FS: 25.2 % % IVS thick: 23.6 %EDV(Teich): 105.1mlESV(Teich): 52.8 mlEF(Teich): 49.7 % SV(Teich): 52.3 ml EPSS: 0.75 cmMV E-F slope: 8.1 cm/sec Ao root diam: 3.2 cm LVOT diam: 2.0 cmAo root area: 8.0 cm2 LVOT area: 3.3 cm2ACS: 1.6 cmLA dimension: 2.9 cm LVAd ap4: 27.6 cm2 SV(MOD-sp4): 41.9 mlLVLd ap4: 8.0 cmEDV(MOD-sp4): 78.5 mlEDV(sp4-el): 81.4 mlLVAs ap4: 16.3 eq8SXIa ap4: 6.3 cmESV(MOD-sp4): 36.6 mlESV(sp4-el): 35.5 mlEF(MOD-sp4): 53.3 %EF(sp4-el): 56.5 % SV(sp4-el): 46.0 ml LAV(MOD-sp2): 33.8 mlLAV(MOD-sp4): 36.1 mlLAV(MOD-bp): 35.2 mlLAV(MOD-bp) Indexed: 19.7 ml/m2 TAPSE: 2.8 cm RA A4Cs: 12.1 cm2RA Length: 4.6 cm LA Area (A2C): 14.5 cm2 LA Area (A4C): 14.6 cm2 LA Length: 4.8 cm LA Volume (AL- bp): 37.7 ml LA Volume Index (AL-bp): 21.0 ml/m2 RA Volume:27.5 ml RA Volume Index: 15.4 ml/m9Qbbwfsn Measurements & CalculationsMV E max [place]: 65.7 cm/sec MV dec slope: 292.1 cm/sec2MV A max [place]: 55.6 cm/sec MV dec time: 0.22 secMV E/A: 1.2LV IVRT: 0.08 secIVCT: 0.07 sec Ao V2 max: 119.8 cm/sec LV V1 max P.4 mmHgAo max P.7 mmHg LV V1 mean P.4 mmHgAo V2 mean: 87.9 cm/sec LV V1 max: 78.2 cm/secAo mean P.5 mmHg LV V1mean: 55.4 cm/secAo V2 VTI: 29.1 cm LV [...] Physician:Jitendra Ellison MD 09/30/2023 03:51 PMOrdering Physician: Maggie Snowdenerrdillan Physician: CATHERINE, PCPPerformed By: Hilario Fajardo echo study [id number] 15:51:00ORDER 2600: ECHO COMPLETE W/DOPPLER (LOINC: 84091-8)ORDER DATE: September 30, 2023 6:55:00 PM [facility] URINE DRUG [id number] 13:51:00* Test Item Value Reference Range Interpretation [...] abuse 5 panel - Urine by Screen [id number] 13:51:00 NegativeNegativePositiveNegativeNegativeNegativeNegativeSouthern [facility])[id number] 11:40:00* Test Item Value Reference Range Interpretation Comme nts %CKMB (test code = %MB) 0.5 % CKMB (test code = CKMB) 0.5 NG/ML 0.22-2.4 CK (test code = CK) 102 U/L 55-170 Creatine kinase.MB [Mass/volume] in Serum or [id number] 11:40:00* Test Item Value Reference Range Interpretation Comme nts Creatine kinase.MB/Creatine kinase.total in Serum or Plasma (test code = 84541-6) 0.5 % N Creatine kinase.MB [Mass/vol ume] in Serum or Plasma (test code = 19515-4) 0.5 NG/ML 0.22-2.4 N Creatine kinase isoenzymes [interpretation] in Serum or Plasma Narrative (test code = 19506-2) 102 U/L 55.0-170.0 N [facility])TROPONIN I - [id number] 11:01:00* Test Item Value Reference Range Interpretation Comme nts TROP-I (test code = TROP-I) <0.012 ng/ml 0.012-0.033 INTERPRETI VE DATA A TROPONIN OF LESS THAN 0.034 NG/ML IS CONSIDERED NEGATIVE A TROPONIN OF 0.034 - 0.119 NG/ML IS CONSIDERED GRAYZONE A TROPONIN =/> 0.120 NG/ML IS CONSIDERED POSITIVE Troponin I.cardiac [Mass/volume] in Serum or [id number] 10:57:00* Test Item Value Reference Range Interpretation Comme [facility] Troponin I.cardiac [Mass/vol ume] in Serum or Plasma (test code = 09268-7) <0.012 0.012-0.033 [facility])D-DIMER [id number] 10:56:00* Test Item Value Reference Range Interpretation Comme [facility] D-DIMER QUANTITATIVE (test code = DDIMER) <215 ng/mL (FEU) 0-500 VALUES OF QUANTITATIVE D-DIMER LESS THAN 499 ng/mL HAVE BEEN REPORTED TO BE ASSOCIATED WITH A LOW PROBABILITY OF DEEP VEIN THROMBOSIS/PULMONARY EMBOLISM. THIS TEST ALONE SHOULD NOT BE USED TO RULE OUT DVT/PE. Fibrin D-dimer FEU [Mass/volume] in Platelet [id number] 10:56:00* Test Item Value Reference Range Interpretation Comme [facility] Fibrin D-dimer FEU [Mass/vol ume] in Platelet poor plasma (test code = 42941-4) <215 0.0-500.0 [facility])BASIC METABOLIC [id number] 04:57:00* Test Item Value Reference Range Interpretation Comme nts SODIUM (test code = NA) 138 MMOL/L 137-145 K+ (test code = KSERUM) 4.4 MMOL/L 3.5-5.1 CHLORIDE (test code = CL) 104 MMOL/L 98-107 CO2 (test code = CO2) 27 MMOL/L 22-30 BUN (test code = BUN) 18 MG/DL 9-20 CREA (test code = CREA) 0.7 MG/DL 0.8-1.5 L GLUCOSE (test code = GLUCOSE) 93 MG/DL 70-99 Fasting glucos e normal <100 MG/DL- [employer] recommendation CALCIUM (test code = CABLOOD) 8.3 MG/DL 8.4-10.2 L GFR (test code = GFR) 131 mL/min/1.73m2 See_Comment A GFR of >90 mL/min/1.73m2 is considered normal. The GFR calculation on patients over 70 years of age is not validated by the pit [facility] and may not represent the patients true renal function. [Automated message] The system which generated this result transmitted reference range: 59-. The reference range was not used to interpret this result as normal/abnormal. [id number] 04:47:00* Test Item Value Reference Range Interpretation Comme nts MG (test code = MG) 1.7 mg/dL 1.6-2.3 LIPID [id number] 04:47:00* Test Item Value Reference Range Interpretation [...] code = CALC LDL) 64 MG/DL See_Comment [YR.MRKT] The system which generated this result transmitted reference range: -100. The reference range was not used to interpret this result as normal/abnormal. DIRECT [id number] 04:47:00* Test Item Value Reference Range Interpretation Comme nts DIR LDL (test code = LDL) 84 MG/DL See_Comment [YR.MRKT] The system which generated this result transmitted reference range: 0-<100. The reference range was not used to interpret this result as normal/abnormal. [id number] 04:47:00* Test Item Value Reference Range Interpretation Comme nts %CKMB (test code = %MB) 0.5 % CKMB (test code = CKMB) 0.5 NG/ML 0.22-2.4 CK (test code = CK) 101 U/L 55-170 TROPONIN I - [id number] 04:47:00* Test Item Value Reference Range Interpretation Comme nts TROP-I (test code = TROP-I) <0.012 ng/ml 0.012-0.033 INTERPRETI VE DATA A TROPONIN OF LESS THAN 0.034 NG/ML IS CONSIDERED NEGATIVE A TROPONIN OF 0.034 - 0.119 NG/ML IS CONSIDERED GRAYZONE A TROPONIN =/> 0.120 NG/ML IS CONSIDERED POSITIVE Basic metabolic 2000 panel - Serum or [id number] 04:47:00* Test Item Value Reference Range Interpretation Comme nts Sodium [Moles/volume] in Blood (test code = 2947-0) 138 MMOL/L 137.0-145.0 N Potassium [Moles/volume] in Blood (test code = 6298-4) 4.4 MMOL/L 3.5-5.1 N Chloride [Moles/volume] in Blood (test code = 2069-3) 104 MMOL/L 98.0-107.0 N Carbon dioxide, total [Moles/volume] in Blood (test code = 92317-4) 27 MMOL/L 22.0-30.0 N Urea nitrogen [Mass/volume] in Serum or Plasma (test code = 3094-0) 18 MG/DL 9.0-20.0 N Creatinine [Mass/volume] in Blood (test code = 59260-9) 0.7 MG/DL 0.8-1.5 L Glucose [Mass/volume] in Blood (test code = 2339-0) 93 MG/DL 70.0-99.0 N Calcium [Mass/volume] in Serum or Plasma (test code = 11809-3) 8.3 MG/DL 8.4-10.2 L Estimated or measured glomerular filtration rate less than 50 percent [- Reported] (test code = 27703-4) 131 mL/min/1.73m2 N [facility])Magnesium [Mass/volume] in Serum or [id number] 04:47:00* Test Item Value Reference Range Interpretation Comme nts Magnesium [Mass/volume] in S jeni or Plasma (test code = 05864-7) 1.7 mg/dL 1.6-2.3 N [facility])VAP cholesterol panel - Serum or [id number] 04:47:00* Test Item Value Reference Range Interpretation [...] or Plasma by calculation (test code = 49369-2) 64 MG/DL N [facility])Cholesterol in LDL [Mass/volume] in Serum or Pl 2023-09-30 04:47:00* Test Item Value Reference Range Interpretation Comme nts Cholesterol in LDL [Mass/vol ume] in Serum or Plasma by Direct assay (test code = 68554-8) 84 MG/DL N [facility])Creatine kinase.MB [Mass/volume] in Serum or Pl 2023-09-30 04:47:00* Test Item Value Reference Range Interpretation Comme nts Creatine kinase.MB/Creatine kinase.total in Serum or Plasma (test code = 47255-9) 0.5 % N Creatine kinase.MB [Mass/vol ume] in Serum or Plasma (test code = 05996-4) 0.5 NG/ML 0.22-2.4 N Creatine kinase isoenzymes [interpretation] in Serum or Plasma Narrative (test code = 99819-0) 101 U/L 55.0-170.0 N [facility])Troponin I.cardiac [Mass/volume] in Serum or Pl 2023-09-30 04:47:00* Test Item Value Reference Range Interpretation Comme nts Troponin I.cardiac [Mass/vol ume] in Serum or Plasma (test code = 08049-0) <0.012 0.012-0.033 [facility])PROBRAIN NATRIURETIC [id number] 04:41:00* Test Item Value Reference Range Interpretation Comme nts NT-PROBNP (test code = PROBNP) <20 pg/mL Exclusion for he art failure for patients of all ages is 300 pg/mL. Inclusion for heart failure for patients age <50 is 450 pg/mL; for patients age 50-75 is 900 pg/mL; for patients age >75 is 1800 pg/mL. [id number] 04:40:00* Test Item Value Reference Range Interpretation [...] 1.2-7.2 CBC W Auto Differential panel - [id number] 04:40:00* Test Item Value Reference Range Interpretation Comme nts Leukocytes other [Identifier ] in Blood by Automated count (test code = 87713-6) 4.8 K/UL 3.5-10.9 N Erythrocytes [#/volume] in B lood (test code = 47593-3) 4.39 M/UL 4.3-5.7 N Hemoglobin A/Hemoglobin.tota l in Blood (test code = 4546-8) 13.6 G/DL 13.0-17.9 N Hematocrit [Volume Fraction] of Blood (test code = 29542-1) 39.5 % 38.0-52.0 N Erythrocyte mean corpuscular volume [Entitic volume] (test code = 21343-8) 90.0 FL 80.0-98.0 N Erythrocyte mean corpuscular hemoglobin [Entitic mass] (test code = 00730-0) 31.0 PG 28.0-32.0 N Erythrocyte mean corpuscular hemoglobin concentration [Mass/volume] (test code = 36596-3) 34.4 G/DL 32.5-36.5 N Erythrocyte distribution wid th [Ratio] (test code = 93433-3) 11.9 % 11.5-14.5 N Platelets panel - Blood by Automated count (test code = 29853-6) 234 K/UL 150.0-450.0 N Platelet mean volume [Entiti c volume] in Blood by Automated count (test code = 86855-6) 10.5 FL 7.4-10.4 H Neutrophils.segmented/100 leukocytes in Blood (test code = 63729-1) 36.6 % 40.0-75.0 L Lymphocytes Variant/100 leuk ocytes in Blood (test code = 42305-6) 46.4 % 24.0-44.0 H Lymphocytes+Monocytes/100 leukocytes in Blood (test code = 4662-3) 13.7 % 0.0-13.0 H Eosinophils [#/volume] in Bl ood (test code = 72183-6) 2.3 % 0.0-4.0 N Basophils [#/volume] in Bloo d (test code = 11545-0) 0.8 % 0.0-2.0 N Immature granulocytes/100 leukocytes in Blood (test code = 21264-7) 0.2 % 0.0-1.0 N Nucleated erythrocytes [#/vo lume] in Blood (test code = 17201-3) 0 /100 WBC N Neutrophils [#/volume] in Bl ood (test code = 73679-3) 1.8 K/UL 1.2-7.2 N [facility])Natriuretic peptide B [Mass/volume] in Serum or 2023-09-30 04:38:00* Test Item Value Reference Range Interpretation Comme nts Natriuretic peptide B [Mass/ volume] in Serum or Plasma (test code = 84067-9) <20 N [facility])CHEST 1 VIEW [id number] 21:48:00 [facility] : 1980 [facility] [place] [id number] IMAGING R EPORTPatient Name: SEVERO DIOPDate of Service: [id number]: 43 Sex: M Order #: [id number] [facility] 1980 X-Ray Number: [id number] Record Number: [id number] Hospital Number: [id number] Physician: James MORALES Physician: JENNIFER MORALESPROCEDURE: CHEST 1 VIEW PORTABLEINDICATIONS: dx: chest wall pain pt sts: c/o left chest wall pain onset 3days agonohapsv: jtt1 view chest x-rayComparison: NoneFindings:No consolidation or effusion.Heart size is normal.No acute fracture.IMPRESSION:1. No acute findings.This document has been electronically signed by: Ba Fontaine MD 09/29/2023 21:47:15Legally authenticated by DONOVAN SHUKLA 2023-09-29 21:47:15 Portable XR Chest Views [id number] 21:47:15ORDER 500: CHEST 1 VIEW PORTABLE (LOINC: 88997-1)ORDER DATE: September 30, 2023 2:38:00 AM [facility])[id number] 21:30:00* Test Item Value Reference Range Interpretation Comme nts %CKMB (test code = %MB) 0.6 % CKMB (test code = CKMB) 0.8 NG/ML 0.22-2.4 CK (test code = CK) 130 U/L 55-170 TROPONIN I - [id number] 21:30:00* Test Item Value Reference Range Interpretation Comme nts TROP-I (test code = TROP-I) <0.012 ng/ml 0.012-0.033 INTERPRETI VE DATA A TROPONIN OF LESS THAN 0.034 NG/ML IS CONSIDERED NEGATIVE A TROPONIN OF 0.034 - 0.119 NG/ML IS CONSIDERED GRAYZONE A TROPONIN =/> 0.120 NG/ML IS CONSIDERED POSITIVE Creatine kinase.MB [Mass/volume] in Serum or [id number] 21:30:00* Test Item Value Reference Range Interpretation Comme nts Creatine kinase.MB/Creatine kinase.total in Serum or Plasma (test code = 11615-0) 0.6 % N Creatine kinase.MB [Mass/vol ume] in Serum or Plasma (test code = 81449-3) 0.8 NG/ML 0.22-2.4 N Creatine kinase isoenzymes [interpretation] in Serum or Plasma Narrative (test code = 48190-8) 130 U/L 55.0-170.0 [facility])Troponin I.cardiac [Mass/volume] in Serum or Pl 2023-09-29 21:30:00* Test Item Value Reference Range Interpretation Comme [facility] Troponin I.cardiac [Mass/vol ume] in Serum or Plasma (test code = 39493-1) <0.012 0.012-0.033 N [facility])BASIC METABOLIC [id number] 21:09:00* Test Item Value Reference Range Interpretation [...] 70-99 Fasting glucos e normal <100 MG/DL- [employer] recommendation CALCIUM (test code = CABLOOD) 9.2 MG/DL 8.4-10.2 GFR (test code = GFR) 112.0 mL/min/1.73m2 See_Comment A GFR of >90 mL/min/1.73m2 is considered normal. The GFR calculation on patients over 70 years of age is not validated by the pit tanner and may not represent the patients true renal function. [Automated message] The system which generated this result transmitted reference range: 59-. The reference range was not used to interpret this result as normal/abnormal. Basic metabolic 2000 panel - Serum or Bcwcen0344-35-75 21:01:00* Test Item Value Reference Range Interpretation Comme nts Sodium [Moles/volume] in Blood (test code = 2947-0) 139 MMOL/L 137.0-145.0 N Potassium [Moles/volume] in Blood (test code = 6298-4) 4.4 MMOL/L 3.5-5.1 N Chloride [Moles/volume] in Blood (test code = 2069-3) 101 MMOL/L 98.0-107.0 N Carbon dioxide, total [Moles/volume] in Blood (test code = 33851-6) 32 MMOL/L 22.0-30.0 H Urea nitrogen [Mass/volume] in Serum or Plasma (test code = 3094-0) 13 MG/DL 9.0-20.0 N Creatinine [Mass/volume] in Blood (test code = 78055-3) 0.8 MG/DL 0.8-1.5 N Glucose [Mass/volume] in Blood (test code = 2339-0) 96 MG/DL 70.0-99.0 N Calcium [Mass/volume] in Serum or Plasma (test code = 70882-0) 9.2 MG/DL 8.4-10.2 N Estimated or measured glomerular filtration rate less than 50 percent [- Reported] (test code = 94949-4) 112.0 mL/min/1.73m2 N [facility])BASIC METABOLIC [id number] 23:20:00* Test Item Value Reference Range Interpretation [...] calculation forGFR is based on the CKD-EPI (2020) calculation. This formulais race indifferent and is the recommended formula for GFRby the National Kidney Foundation for Adults.The GFR will not calculate if the sex is unknown or if thepatient's age is <18 years. CREATININE (test code = CREAT) 0.8 MG/DL 0.8-1.3 N CALCIUM (test code = CA) 8.3 MG/DL 8.5-10.1 L CBC W/AUTO [id number] 22:58:00* Test Item Value Reference Range Interpretation [...] ode = MDIFF) NO DIFF/SCN CRITERIA TROPONIN [id number] 19:12:12* Test Item Value Reference Range Interpretation Comments TROPONIN I (test code = 5507893517) 0.002 ng/mL See_Comment [Automated message] The system [...] of biotin. Lab Interpretation (test code = 10322-9) Normal [facility] [id number] 17:56:10 * Test Item Value Reference Range Interpretation Comme nts TSH (test code = 9024503745) See_Comment [Automated [employer]] The system which generated this result transmitted reference range: 0.45 - 4.70 mIU/L. The reference range was not used to interpret this result as normal/abnormal. Lab Interpretation (test code = 45626-9) Normal [facility] HospitalFREE [id number] 17:43:07* Test Item Value Reference Range Interpretation Comme nts FREE T4 (test code = 9121802394) See_Comment [Automated [employer]] The system which generated this result transmitted reference range: 0.78 - 2.20 ng/dL:. The reference range was not used to interpret this result as normal/abnormal. Lab Interpretation (test code = 50876-4) Normal [facility] HospitalTROPONIN [id number] 17:38:07* Test Item Value Reference Range Interpretation Comments TROPONIN I (test code = 9617469143) 0.003 ng/mL See_Comment [Automated message] The system [...] of biotin. Lab Interpretation (test code = 55759-3) Normal [facility] HospitalN-TERMINAL YWQ-[id number] 17:36:31* Test Item Value Reference Range Interpretation Comme nts NT-proBNP (test code = 6531108221) <11 See_Comment [Automated message] The system which generated this result transmitted reference range: <=125 pg/mL. The reference range was not used to interpret this result as normal/abnormal. CHERYL (test code = CHERYL) Biotin has been reported to cause a negative bias, interpret results relative to patient's use of biotin. Lab Interpretation (test code = 60033-5) Normal [facility] HospitalETHANOL2022-06-25 17:25:57* Test Item Value Reference Range Interpretation Comme nts ALCOHOL (test code = 0911751612) <10 mg/dL CHERYL (test code = CHERYL) <10 Weuqoopq16-533 Toxic>100 Depression of BATTERY INSPECTOR>400 Fatalities Reported [facility] HospitalACETAMINOPHEN2022-06-25 17:25:32* Test Item Value Reference Range Interpretation Comme nts ACETAMINOP (test code = 0087414842) <10.0 10.0-30.0 L CHERYL (test code = CHERYL) Toxic: Greater chel n 200 ug/mL @ 4 hour post ingestion or greater than 50 ug/mL @ 12 hour post ingestion Lab Interpretation (test code = 80532-2) Abnormal [facility] HospitalCOMP. METABOLIC PANEL (56543)2022-02-06 17:15:44* Test Item Value Reference Range Interpretation Comme nts NA (test code = 5334708924) 142 mmol/L 135-145 K (test code = 1526685345) 4.2 mmol/L 3.5-5.0 CL (test code = 9759559673) 104 mmol/L 98-108 CO2 TOTAL (test code = 5391740055) 28 mmol/L 23-31 AGAP (test code = 2488223345) 2-16 BUN (test code = 0331613991) 9 mg/dL 7-23 GLUCOSE (test code = 0090267820) 117 mg/dL 70-110 H CREATININE (test code = 3834926307) 0.76 mg/dL 0.60-1.25 TOTAL BILI (test code = 7270849198) 0.6 mg/dL 0.1-1.1 CALCIUM (test code = 3739160177) 9.3 mg/dL 8.6-10.6 T PROTEIN (test code = 9267308843) 7.0 g/dL 6.3-8.2 ALBUMIN (test code = 4991261907) 4.4 g/dL 3.5-5.0 ALK PHOS (test code = 1303842313) 44 U/L 34-122 ALTv (test code = 1742-6) 12 U/L 5-50 AST(SGOT) (test code = 4187149401) 18 U/L 13-40 eGFR (test code = 2704633719) mL/min/1.73m2 CHERYL (test code = CHERYL) Association [...] imaging tests). Lab Interpretation (test code = 06873-2) Abnormal [facility] HospitalSALICYLATE2022-06-25 17:15:44* Test Item Value Reference Range Interpretation Comme nts SALICYLATE (test code = 8008792444) 40 mg/L CHERYL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 [facility] |+ +--------+----- --------+ + +--- -------+ ----+ +------ -++ +--------+---- ---------+--------+ +-- +| SCHEDULED PROCEDURES | | | | | || Code | System | Description | Status | Scheduled Date | Updated By |+ +========+===== ========+========+ +=== =========+| Patient scheduled procedure information is not available. | | | | | |+ +--------+----- --------+--------+ +--- ---------+12767-7Hzkp of TreatmentLNTREATMENT PLANTXT2.16.840.1.635205.3.1579.026312 743902.1.100|44931426|2.16.840.1.35759 3.10.20.22.2.10AVAvailable for patient hynhIigcaczMobkxilpvIUWFk30 Section NarrativeNARRATIVEFormatted C-CDA narrative textHENDERSON COUNTY COMM[facility]+[phone])437-438-73363970-0726606657-55-19W22:0 2:38 [facility] 2023-12-27 21:02:38 1923507qbf46mJP/aMtnWz2YnH8/9SaN3GmUOv +wrGLcK3lLJnpd6EUK3HbNGBw1m02SJAn1253- 05-14T21:02:38PATIENT GOALS+ + +----- --+| Goal | Assigned Date | Updated By |+ =========+ +======== + | ASSESS PATIENT CONDITION AND STATUS | September 30, 2023 | ZAI7ZSP on September 30, 2023 5:16:19 AM [facility] |+ --------+ +--------- +| PATIENT OR SIGNIFICANT OTHER WILL CONVEY UNDERSTANDING ABOUT THEIR PLAN OF CARE | September 30, 2023 | VVL3HOG on September 30, 2023 5:16:24 AM [facility] || INCLUDING ILLNESS, MEDICAL CARE, IMPORTANCE OF MEDICATION THERAPY OR TREATMENT | | || REGIMEN PRESCRIBED. THEY KNOW WHERE TO SEEK ASSISTANCE AND RETURNS | | || DEMONSTRATION OF PROCEDURES WITHOUT DIFFICULTY. | | |+ --------+ +--------- +6 1146-6KylciYQRPLIQSVE9.16.840.1.533717 .3.1579.150542887376.1.100|14400484|2. 16.840.1.500893.10.20.22.2.60AVAvailab for patient xzktVcdxnmcLgtacdjymOTQGz19 Section NarrativeNARRATIVEFormatted C-CDA narrative textBHSSETASPIRUS ONTONAGON HOSPITAL+0(915)810-910-74051951-0309563147-08-46R94:0 2:38 [facility] 2023-12-27 21:02:38 [id number]/qZL5qe6JK/3e 90lqEYqY5b/Zzh7Ysfsw1oec3EaPwEXAp8461- 05-14T21:02:38CARE TEAM+ + + --------+ -----+ ---+ +| Member | Role on Team | Status | Start Date | End Date | Updated By |+ + +--- -----+ --+ + --------+| ROSALBA SANTIAGO | Attending | normal | September 30, 2023 6:30:57 AM UTC | September 29, 2023 6:00:00 AM UTC | PHU2CYK on September 30, 2023 6:30:57 AM UTC |+ + +--- -----+ --+ + --------+| ROSALBA SANTIAGO | Admitting | normal | September 30, 2023 6:30:57 AM UTC | September 29, 2023 6:00:00 AM UTC | NKW3OCD on September 30, 2023 6:30:57 AM UTC |+ + +--- -----+ --+ + --------+| REGIS HOLT | Consulting | normal | September 30, 2023 3:43:31 AM UTC | October 01, 2023 12:42:00 AM UTC | FQT0FKE on September 30, 2023 6:30:57 AM UTC |+ + +--- -----+ --+ + --------+| NO PCP | PCP | normal | September 30, 2023 3:38:54 AM UTC | September 30, 2023 3:49:01 AM UTC | GIP5ZRC on September 30, 2023 6:30:57 AM UTC |+ + +--- -----+ --+ + --------+| NO PCP | Referring | normal | September 30, 2023 3:38:54 AM UTC | September 29, 2023 6:00:00 AM UTC | XJV4WCO on September 30, 2023 6:30:57 AM UTC |+ + +--- -----+ --+ + --------+| DECLANA ASAELID | Attending | normal | September 30, 2023 3:38:54 AM UTC | September 30, 2023 3:49:01 AM UTC | GRS3FTM on September 30, 2023 6:30:57 AM UTC |+ + +--- -----+ --+ + --------+| ANDREW RODRIGUEZ | Admitting | normal | September 30, 2023 3:38:54 AM [facility] | September 30, 2023 3:49:01 AM [facility] | IWE9HAG on September 30, 2023 6:30:57 AM [place] |+ + +--- -----+ --+ + --------+77217-4Rpnyndb Care team informationLNCARE TEAMTXT2.16.840.1.704574.3.1579.084760 645574.1.100|57625588|2.16.840.1.23435 3.10.20.22.2.500AVAvailable for patient tgngZuzglyeWmnxwtjxcFKLAi31 Section NarrativeNARRATIVEFormatted C-CDA narrative textHENDERSON COUNTY COMM[facility]+9(788)[phone]1-40R44:0 2:38 [facility] 2023-11-27 10:43:29 3780-26-02Y28:43:29 Patient discharged to home. Patient given printed [...] with steady gait in no apparent distress. 91453-5Hbnvfliaf department HfqgWL6341-55-01G26:43:37[facility] NoteTXT1.2.840.750676.1.13.104.2.7.2.7 03850|7738664347QKWbwktisqq for patient yhmh15552-8IirpVJMCPTZYPSTEkppalfbi C-CDA narrative igtf013632341Tnwkvv M Leibee RN[address] [id number] PZDDGPUZSZZMUPEZLVPX7846-41-45C83:43:3 71.2.840.015178.1.72.3.15|1.2.840.1143 50.1.13.104.2.7.2.727879_[id number] Isma Cortez RN [facility] 2023-11-27 10:30:08 1863-89-52X07:30:08 Sinus congestion x1 week. Thinks he has a sinus infection. 14425-8Sahemzlgj department Triage lyojYS5542-55-98A90:30:24[facility] Triage noteTXT1.2.840.496736.1.13.104.2.7.2.7 11886|[id number] for patient ntok75835-0Kjhexluzj department NoteLNNARRATIVEFormatted C-CDA narrative cqhl246059862Tzurmlr Fief RN[id number] ZPWJFUDETYIFFIDNODDG3632-77-07A90:30:2 41.2.840.573855.1.72.3.15|1.2.840.1143 50.1.13.104.2.7.2.727879_[id number] Mirela Flor RN [facility] - Health 2023-11-27 10:16:00 1599-90-36B11:16:00 [facility] Emergency Department NotePatient Name: Severo Robertson of : 1980 43 year old maleTreatment Room[facility] PO[facility]/ADERTA-PLMedical Record Number: [id number] Care Physician: Sc Jewel [facility]oleBigfork [facility] HospitalPatient Escorted by: Family [5]Mode of Arrival: Personal [...] mg tabletFirst Provider Eval:ED EventsDate/Time Event User Pigipobg29/14/24 1019 Medical Screening Begins AMANDA RAYMOND DO [...] capsule by mouth at bedtime.Follow-up:Electronically signed by:Amanda Raymond, 11/27/23 1040 68644-6Dwhuemebq Emergency department CvgrYP3569-26-03J34:40:59Physian Emergency department NoteTXT1.2.840.195096.1.13.104.2.7.2.7 11505|[id number] for patient ovli15976-1Kqjeczgkf department NoteLNNARRATIVEFormatted C-CDA narrative text[address] IljqZvlupbfpxVqqnhjhwhGKMQ7748840596PN NSHGFWGWHEDNEFKYGFEI7701-28-17C03:40:5 91.2.840.603330.1.72.3.15|1.2.840.1143 50.1.13.104.2.7.2.727879_[id number] [facility] 2023-10-13 20:33:24 15772379CyYRwe54Ckm8TswqcCfex+oLxVmIox ZA8izyq9380NMJClmHv/bQWpA31iFOCge8618T20:33:24+ + --------+ +------+-------+- +-------+ +-------- ----+| DISCHARGE [...] ========+ + +=== =======+ ====+ + +| 06024-7 | LOINC | EKG study | ONE TIME | 0 | Stat | October 10, 2023 6:11:00 AM [facility] | AMERICA ROBERTS | vdo5wru on October 10, 2023 6:11:00 AM UTC |+ +--------+----- --------+ + +--- -------+ ----+ + ++--- +--------+ ---+--------+ +-------- ----+| SCHEDULED PROCEDURES | | | | | || Code | System | Description | Status | Scheduled Date | Updated By |+ +========+===== ========+========+ +=== =========+| Patient scheduled procedure information is not available. | | | | | |+ +--------+----- --------+--------+ +--- ---------+46849-6Clyw of TreatmentLNTREATMENT PLANTXT2.16.840.1.414847.3.1579.664805 893500.1.100|47391118|2.16.840.1.47237 3.10.20.22.2.10AVAvailable for patient naucYscimizVxcfhhnkkPQSNo25 Section NarrativeNARRATIVEFormatted C-CDA narrative textHENDERSON COUNTY COMM[facility]+1(633)233-030-88349633-3377753507-07-66H29:3 3:24 [facility] 2023-10-13 20:33:24 3144442e0SHFXsGM6dgI/PV4NURdRUCwkj34EW 8jDERQxypzbZkbhZ9zu5XFSLX0NZsTZJC1207- 02-29T20:33:24CARE TEAM+ + +----- ---+ + +- ------+| Member | Role on Team | Status | Start Date | End Date | Updated By |+ + +-------- + +-- +---- ---+| NO PCP | PCP | normal | October 10, 2023 6:33:41 AM UTC | October 10, 2023 10:39:00 AM UTC | XOQ6ZIT on October 10, 2023 6:33:41 AM UTC |+ + +-------- + +-- +---- ---+| NO PCP | Referring | normal | October 10, 2023 6:33:41 AM UTC | October 10, 2023 10:39:00 AM UTC | XVN6WZR on October 10, 2023 6:33:41 AM UTC |+ + +-------- + +-- +---- ---+| AMERICA ROBERTS | Attending | normal | October 10, 2023 6:33:41 AM UTC | October 10, 2023 10:39:00 AM UTC | GUI4JWB on October 10, 2023 6:33:41 AM UTC |+ + +-------- + +-- +---- ---+| AMERICA ROBERTS | Admitting | normal | October 10, 2023 6:33:41 AM UTC | October 10, 2023 10:39:00 AM UTC | IHV0YDF on October 10, 2023 6:33:41 AM UTC |+ + +-------- + +-- +---- ---+58337-8Maqjool Care team informationRIVERSIDE [facility] TEAMTXT2.16.840.1.635724.3.1579.025454 353885.1.100|38747358|2.16.840.1.28326 3.10.20.22.2.500AVAvailable for patient eyjgPzgfumrVwabfmrxzGEOSi71 Section NarrativeNARRATIVEFormatted C-CDA narrative textHENDERSON COUNTY COMM[facility]+[phone])786-35747947-8756096010-99-85Z05:3 3:24 [facility] 2023-10-12 20:19:57 61012996NhPVxw71Ntd1DayduPrla+oLxVmIox DH1cddm0248NMOTzmRr/yZIwI53vQVZba5817- 02-28T20:19:57+ + --------+ +------+-------+- +-------+ +-------- ----+| [...] ========+ + +=== =======+ ====+ + +| 75907-2 | LOINC | EKG study | ONE TIME | 0 | Stat | October 10, 2023 6:11:00 AM [place] | AMERICA ROBERTS | hxj3olk on October 10, 2023 6:11:00 AM [place] |+ +--------+----- --------+ + +--- -------+ ----+ + ++--- +--------+ ---+--------+ +-------- ----+| SCHEDULED PROCEDURES | | | | | || Code | System | Description | Status | Scheduled Date | Updated By |+ +========+===== ========+========+ +=== =========+| Patient scheduled procedure information is not available. | | | | | |+ +--------+----- --------+--------+ +--- ---------+14255-8Pyjj of TreatmentLNTREATMENT PLANTXT2.16.840.1.120251.3.1579.679240 670847.1.100|97140526|2.16.840.1.16146 3.10.20.22.2.10AVAvailable for patient ekhkBktjhngQlogrbnrbHRJFn20 Section NarrativeNARRATIVEFormatted C-CDA narrative textHENDERSON COUNTY COMM[facility]+[phone])[id number]3T18:1 9:57 [facility] 2023-10-12 20:19:57 7229779t3YYKSsCC4wtA/QZ4TJXqPXHags32PU 2cOQWRaltkfTrslQ1eh3WAGFM9ZIwDNBQ8970- 02-28T20:19:57CARE TEAM+ + +----- ---+ + +- ------+| Member | Role on Team | Status | Start Date | End Date | Updated By |+ + +-------- + +-- +---- ---+| NO PCP | PCP | normal | October 10, 2023 6:33:41 AM UTC | October 10, 2023 10:39:00 AM UTC | WEE7NGI on October 10, 2023 6:33:41 AM UTC |+ + +-------- + +-- +---- ---+| NO PCP | Referring | normal | October 10, 2023 6:33:41 AM UTC | October 10, 2023 10:39:00 AM UTC | YPG5IFH on October 10, 2023 6:33:41 AM UTC |+ + +-------- + +-- +---- ---+| AMERICA ROBERTS | Attending | normal | October 10, 2023 6:33:41 AM UTC | October 10, 2023 10:39:00 AM UTC | VCM9OTZ on October 10, 2023 6:33:41 AM UTC |+ + +-------- + +-- +---- ---+| AMERICA ROBERTS | Admitting | normal | October 10, 2023 6:33:41 AM UTC | October 10, 2023 10:39:00 AM UTC | CZM9PZB on October 10, 2023 6:33:41 AM UTC |+ + +-------- + +-- +---- ---+46651-3Ufkihqd Care team informationLNCARE TEAMTXT2.16.840.1.077031.3.1579.898800 105146.1.100|44579654|2.16.840.1.56090 3.10.20.22.2.500AVAvailable for patient segiCuskbibXiehmeureNGRGs17 Section NarrativeNARRATIVEFormatted C-CDA narrative textHENDERSON COUNTY COMM[facility]+[phone])196-047-91331100-0436468797-39-58C44:1 9:57 [facility] 2023-10-11 21:26:24 [id number]x+oLxVmIox PL5xqre1290EEWSoiDc/yTZuL64kLHBot2532- 02-27T21:26:24+ + --------+ +------+-------+- +-------+ +-------- ----+| [...] ========+ + +=== =======+ ====+ + +| 61349-4 | LOINC | EKG study | ONE TIME | 0 | Stat | October 10, 2023 6:11:00 AM [facility] | AMERICA ROBERTS | vcl2sxg on October 10, 2023 6:11:00 AM [facility] |+ +--------+----- --------+ + +--- -------+ ----+ + ++--- +--------+ ---+--------+ +-------- ----+| SCHEDULED PROCEDURES | | | | | || Code | System | Description | Status | Scheduled Date | Updated By |+ +========+===== ========+========+ +=== =========+| Patient scheduled procedure information is not available. | | | | | |+ +--------+----- --------+--------+ +--- ---------+11277-1Jgtp of TreatmentLNTREATMENT PLANTXT2.16.840.1.408308.3.1579.199418 319813.1.100|73637266|2.16.840.1.73241 3.10.20.22.2.10AVAvailable for patient foorZqyslvfDrxxnfltzIGURg22 Section NarrativeNARRATIVEFormatted C-CDA narrative [facility]+[phone])266-35150609-5347258014-03-11V87:2 6:24 [facility] 2023-10-11 21:26:24 1856545w8SQELbXZ7dqK/NK8APQcFGOjbv61EO 4mCUQXkoqqbRfzhE3zr9JAMTE8RKjSNBL47241:26:24CARE TEAM+ + +----- ---+ + +- ------+| Member | Role on Team | Status | Start Date | End Date | Updated By |+ + +-------- + +-- +---- ---+| NO PCP | PCP | normal | October 10, 2023 6:33:41 AM UTC | October 10, 2023 10:39:00 AM UTC | OQP3HPN on October 10, 2023 6:33:41 AM UTC |+ + +-------- + +-- +---- ---+| NO PCP | Referring | normal | October 10, 2023 6:33:41 AM UTC | October 10, 2023 10:39:00 AM UTC | PSU0FNL on October 10, 2023 6:33:41 AM UTC |+ + +-------- + +-- +---- ---+| AMERICA ROBERTS | Attending | normal | October 10, 2023 6:33:41 AM UTC | October 10, 2023 10:39:00 AM UTC | WTE4REV on October 10, 2023 6:33:41 AM UTC |+ + +-------- + +-- +---- ---+| AMERICA ROBERTS | Admitting | normal | October 10, 2023 6:33:41 AM UTC | October 10, 2023 10:39:00 AM UTC | [id number] on October 10, 2023 6:33:41 AM UTC |+ + +-------- + +-- +---- ---+[id number] Care team informationLNCARE [id number]|2.16.840.1.02740 3.10.20.22.2.500AVAvailable for patient vxtvKrghjezSyesybgjnJELGn90 Section NarrativeNARRATIVEFormatted C-CDA narrative textHENDERSON [facility]+[phone]:2 6:24 [facility] 2023-10-10 04:40:17 [id number]+oLxVmIox MR1hzud6227NIMOplOo/mTTtJ43iIHBre4796- 02-26T04:40:17+ + --------+ +------+-------+- +-------+ +-------- ----+| [...] ========+ + +=== =======+ ====+ + +| 82346-3 | ELIAN | EKG study | ONE TIME | 0 | Stat | October 10, 2023 6:11:00 AM [facility] | AMERICA ROBERTS | [email or web address] on October 10, 2023 6:11:00 AM [facility] |+ +--------+----- --------+ + +--- -------+ ----+ + ++--- +--------+ ---+--------+ +-------- ----+| SCHEDULED PROCEDURES | | | | | || Code | System | Description | Status | Scheduled Date | Updated By |+ +========+===== ========+========+ +=== =========+| Patient scheduled procedure information is not available. | | | | | |+ +--------+----- --------+--------+ +--- ---------+93104-2Ogke of TreatmentLNTREATMENT [id number]|[id number]|2.16.840.1.31510 3.10.20.22.2.10AVAvailable for patient tghjPqrzxufRowwupgsjSQZMl08 Section NarrativeNARRATIVEFormatted C-CDA narrative tarynVASSAR BROTHERS MEDICAL CENTERETASPIRUS [facility]+[phone])[id number]:4 0:17 [facility] 2023-10-10 04:40:17 [id number]/MG0ENWmJJFsni42RY 2xKWTSsmjuqJgenM7yn4GTYMU6VVaJLHH5380- 02-26T04:40:17CARE TEAM+ + +----- ---+ + +- ------+| Member | Role on Team | Status | Start Date | End Date | Updated By |+ + +-------- + +-- +---- ---+| NO PCP | PCP | normal | October 10, 2023 6:33:41 AM UTC | October 10, 2023 10:39:00 AM UTC | [email or web address] on October 10, 2023 6:33:41 AM UTC |+ + +-------- + +-- +---- ---+| NO PCP | Referring | normal | October 10, 2023 6:33:41 AM UTC | October 10, 2023 10:39:00 AM UTC | [email or web address] on October 10, 2023 6:33:41 AM UTC |+ + +-------- + +-- +---- ---+| AMERICA ROBERTS | Attending | normal | October 10, 2023 6:33:41 AM UTC | October 10, 2023 10:39:00 AM UTC | [email or web address] on October 10, 2023 6:33:41 AM UTC |+ + +-------- + +-- +---- ---+| AMERICA ROBERTS | Admitting | normal | October 10, 2023 6:33:41 AM UTC | October 10, 2023 10:39:00 AM UTC | WCX3JUG on October 10, 2023 6:33:41 AM UTC |+ + +-------- + +-- +---- ---+72845-5Srrzlaj Care team informationLNCARE TEAMTXT2.16.840.1.858381.3.1579.450102 599051.1.100|92772218|2.16.840.1.32179 3.10.20.22.2.500AVAvailable for patient hlxfJabsqckUpwxzvqtfFYSYl75 Section NarrativeNARRATIVEFormatted C-CDA narrative textHEND[facility]+1(009)550-536-66418758-7578687484-21-69H16:4 0:17 [facility] 2023-10-10 01:33:00 STfdopaquhm259060e01EedvdMlrq9S/TSni77 tANouuaIQWSQW/ho0z4BUZYyfJ/GaUIkDV8XVQ JHJ4n0090-01-62J17:33:[address] [address] DIAGNOSTIC IMAGING REPORT Patient Name: Shira DIOP of Service: 09-[birth year]77Ixd: 43 Sex: M Order #: [id number] [facility] 1980 X-Ray Number: [id number] Record Number: [id number] Hospital Number: [id number] Physician: ALEJANDRA CROSSOrdering Physician: ALEJANDRA CROSS PROCEDURE: CHEST 1 VIEW [...] 01:33:00 Legally authenticated by MINH POWELL 2023-10-10 01:33:29MUCqjyrutcfihtecegi07591EYIHYQ Y, NRXDENGLRYKQKRDMTMA7283-37-09S16:33:00 [id number] 95946234QUBXYPUH73941EPZIWBG, XRZXKKREVPMRFJG6691-40-18Z72:34:34 [facility] 2023-10-04 07:13:37 84752098pTdRTWJPxa3Cmonm3avZzqjtKMotx0 brQzNCFq2muYJOa9yyOcjyJrk1LWboLu01790- 02-20T07:13:37Chest pain ; 10828-1LsvtmdaexhdGVSOOLONHZSHVHBP0.16 .840.1.010882.3.1579.544298346342.1.10 0|76763066|2.16.840.1.086117.10.20.22. 2.8AVAvailable for patient wgbmChrsklpUkaionruyXEZKs95 Section NarrativeSSETBAMEMORIAL HEALTHCARE+3(457)060-496-30817344-3481831487-67-53C57:1 3:37 [facility] 2023-10-04 07:13:37 8749656NFknimoq4nEuBdKmqFQfIlMZf0v6BGc l8yW1ifr4eeItzPF/BHK7K/6EcjQwRW424418- 02-20T07:13:37+ +--------+ --+--------+ + + + +-- -----+| DISCHARGE MEDICATIONS | | | | | | | | || Status | RXNORM | Medication | Dose | Route | Frequency | Dates | Comments | Updated By |+ +========+=== +========+= =========+ =+ + + +| Continued | 471472 | Ibuprofen Oral Tablet 600 MG | 600 mg | BY MOUTH | THREE TIMES DAILY NEEDED | Prescribed: September 30, 2023 10:20:33 PM UTC | | DCURRY on September 30, 2023 10:20:33 PM UTC |+ +--------+--- +--------+- ---------+ -+ + + +| Continued | 531294 | Pepcid Oral Tablet 20 MG | [...] ========+ + +=== =======+ ====+ +====== =+| 74226-3 | LOINC | EKG study | ONE TIME | 0 | Stat | September 30, 2023 2:29:00 AM [facility] | BART HAMMONDS-PRACTICING MD ANESTHESIOLOGIST | gja0pja on September 30, 2023 2:29:00 AM UT |+ +--------+----- --------+ + +--- -------+ ----+ +------ -+| 56760-5 | LOINC | EKG study | IN AM | 1 | Routine | September 30, 2023 9:00:00 AM UT | SETH WESLEY | KISHANOlvin on September 30, 2023 3:43:00 AM UT |+ +--------+----- --------+ + +--- -------+ ----+ +------ -++ +--------+---- ---------+--------+ +-- +| SCHEDULED PROCEDURES | | | | | || Code | System | Description | Status | Scheduled Date | Updated By |+ +========+===== ========+========+ +=== =========+| Patient scheduled procedure information is not available. | | | | | |+ +--------+----- --------+--------+ +--- ---------+68254-8Fezu of TreatmentLNTREATMENT PLANT2.16.840.1.343654.3.1579.062793 291253.1.100|13330343|2.16.840.1.09265 3.10.20.22.2.10AVAvailable for patient orwqPgztjbjUahzabrvaPGSXe21 Section NarrativeNARRATIVEFormatted C-CDA narrative textHENDERSON [facility]+7(377)113-644-76530815-2924879203-12-89P40:1 3:37 [facility] 2023-10-04 07:13:37 4057821prm42nOZ/bIeqUa5BlB3/1DpC4DaQNk +poMWgS9oNAhpp7WIU2MmXDOt8e81JVHx1469- 02-20T07:13:37PATIENT GOALS+ + +----- --+| Goal | Assigned Date | Updated By |+ ========+ +========= +| ASSESS PATIENT CONDITION AND STATUS | September 30, 2023 | PYG5QFF on September 30, 2023 5:16:19 AM [facility] |+ --------+ +--------- +| PATIENT OR SIGNIFICANT OTHER WILL CONVEY UNDERSTANDING ABOUT THEIR PLAN OF CARE | September 30, 2023 | VDR6WVU on September 30, 2023 5:16:24 AM [facility] || INCLUDING ILLNESS, MEDICAL CARE, IMPORTANCE OF MEDICATION THERAPY OR TREATMENT | | || REGIMEN PRESCRIBED. THEY KNOW WHERE TO SEEK ASSISTANCE AND RETURNS | | || DEMONSTRATION OF PROCEDURES WITHOUT DIFFICULTY. | | |+ --------+ +--------- +6 1146-5SwrgxCRBAMDLEPE3.16.840.1.925874 .3.1579.771776582489.1.100|68464059|2. 16.840.1.321658.10.20.22.2.60AVAvailab for patient mtvlErsjnolStughvpjeHGCEq35 Section NarrativeNARRATIVEFormatted C-CDA narrative tarynVASSAR BROTHERS MEDICAL CENTERETASPIR[facility]+1(557)288-78226131-6083993752-00-34P83:1 3:37 [facility] 2023-10-04 07:13:37 8849674yoRSkSbuho0FmS7uoN/oWY2yz4NK/3e 09xlTJnV5y/Wmt4Tztmc2tth1MzVbDJRd6840- 02-20T07:13:37CARE TEAM+ + + --------+ -----+ ---+ +| Member | Role on Team | Status | Start Date | End Date | Updated By |+ + +--- -----+ --+ + --------+| ROSALBA SANTIAGO | Attending | normal | September 30, 2023 6:30:57 AM UTC | September 29, 2023 6:00:00 AM UTC | QHY6YHU on September 30, 2023 6:30:57 AM UTC |+ + +--- -----+ --+ + --------+| ROSALBA SANTIAGO | Admitting | normal | September 30, 2023 6:30:57 AM UTC | September 29, 2023 6:00:00 AM UTC | PVD1OLE on September 30, 2023 6:30:57 AM UTC |+ + +--- -----+ --+ + --------+| REGIS HOLT | Consulting | normal | September 30, 2023 3:43:31 AM UTC | October 01, 2023 12:42:00 AM UTC | TNY3HZC on September 30, 2023 6:30:57 AM UTC |+ + +--- -----+ --+ + --------+| NO PCP | PCP | normal | September 30, 2023 3:38:54 AM UTC | September 30, 2023 3:49:01 AM UTC | UFY8TIA on September 30, 2023 6:30:57 AM UTC |+ + +--- -----+ --+ + --------+| NO PCP | Referring | normal | September 30, 2023 3:38:54 AM UTC | September 29, 2023 6:00:00 AM UTC | JEE7PGU on September 30, 2023 6:30:57 AM UTC |+ + +--- -----+ --+ + --------+| SHINTHIA NASHID | Attending | normal | September 30, 2023 3:38:54 AM UTC | September 30, 2023 3:49:01 AM UTC | BIK5JYQ on September 30, 2023 6:30:57 AM UTC |+ + +--- -----+ --+ + --------+| SHINTHIA NASHID | Admitting | normal | September 30, 2023 3:38:54 AM UTC | September 30, 2023 3:49:01 AM UTC | ESG3QZK on September 30, 2023 6:30:57 AM UTC |+ + +--- -----+ --+ + --------+57995-7Oefepyz Care team informationLNCARE TEAMTXT2.16.840.1.967133.3.1579.012173 223379.1.100|16677884|2.16.840.1.32644 3...22.2.500AVAvailable for patient yzzhGthgwawVzijvduzwQNNRp26 Section NarrativeNARRATIVEFormatted C-CDA narrative textHENDERSON [facility]+8(258)382-95745-59856118-8452104769-22-54F53:1 3:37 [facility] 2023-10-03 18:02:32 43861415fAhQWZSQhz3Khgzb0ahLjqqjWUqdl1 wcXtPKJm6tfPXQr1toHcywFle4JHdjNf97054- 02-19T18:02:32Chest pain ; 56210-8NmtnfttwzjyMBJMPXSCAKZHPSRA1.16 .840.1.079736.3.1579.839717543275.1.10 0|40352183|2.16.840.1.486713.10..22. 2.8AVAvailable for patient wkffCrklwloMymcbkkiyMFDAb11 Section [facility]+1(844) 793-9874006-31123751-3644008596-18-24K62:0 2:32 [facility] 2023-10-03 18:02:32 3843798EByueeoq2wJdZcSztFNwJtDTl3w8NKt e9bA0pau6iuZsbKD/BHK7K/9FbpDbAI620407- 02-19T18:02:32+ +--------+ --+--------+ + + + +-- -----+| DISCHARGE MEDICATIONS | | | | | | | | || Status | RXNORM | Medication | Dose | Route | Frequency | Dates | Comments | Updated By |+ +========+=== +========+= =========+ =+ + + +| Continued | 203658 | Ibuprofen Oral Tablet 600 MG | 600 mg | BY MOUTH | THREE TIMES DAILY NEEDED | Prescribed: September 30, 2023 10:20:33 PM [facility] | | DCURRY on September 30, 2023 10:20:33 PM UTC |+ +--------+--- +--------+- ---------+ -+ + + +| Continued | 349910 | Pepcid Oral Tablet 20 MG | [...] ========+ + +=== =======+ ====+ +====== =+| 87181-9 | LOINC | EKG study | ONE TIME | 0 | Stat | September 30, 2023 2:29:00 AM [facility] | BART MELTON | hau3ehi on September 30, 2023 2:29:00 AM [facility] |+ +--------+----- --------+ + +--- -------+ ----+ +------ -+| 36800-5 | LOINC | EKG study | IN [...] | | | |+ +--------+----- --------+--------+ +--- ---------+11239-5Aiib of TreatmentLNTREATMENT PLANTXT2.16.840.1.469870.3.1579.926466 352537.1.100|12688608|2.16.840.1.69366 3.10.20.22.2.10AVAvailable for patient qkteZgjwyfaNaffnklqtUAQYu70 Section NarrativeNARRATIVEFormatted C-CDA narrative textHENDERSON [facility]+6(739)671-545-75895875-4004938168-32-54I39:0 2:32 [facility] 2023-10-03 18:02:32 8943054dqc80nKX/yZawIz1TbH0/8WuS8VtVFm +zsLSjU6wWGkig9WTH2BuNVJg2k55ALHr5907- 02-19T18:02:32PATIENT GOALS+ + +----- --+| Goal | Assigned Date | Updated By |+ ========+ +========= +| ASSESS PATIENT CONDITION AND STATUS | September 30, 2023 | SFZ1ADH on September 30, 2023 5:16:19 AM [facility] |+ --------+ +--------- +| PATIENT OR SIGNIFICANT OTHER WILL CONVEY UNDERSTANDING ABOUT THEIR PLAN OF CARE | September 30, 2023 | WRM8YMK on September 30, 2023 5:16:24 AM [facility] || INCLUDING ILLNESS, MEDICAL CARE, IMPORTANCE OF MEDICATION THERAPY OR TREATMENT | | || REGIMEN PRESCRIBED. THEY KNOW WHERE TO SEEK ASSISTANCE AND RETURNS | | || DEMONSTRATION OF PROCEDURES WITHOUT DIFFICULTY. | | |+ --------+ +--------- +6 1146-3PgkpdQCVCSAAPJR5.16.840.1.544385 .3.1579.173433091991.1.100|46714283|2. 16.840.1.107056.10.20.22.2.60AVAvailab for patient fhheEuosreeGmjjeqdzhKGLPo96 Section NarrativeNARRATIVEFormatted C-CDA narrative textHENDERSON COUNTY [facility]+1(044)346491-57935066-7766613741-70-18H36:0 2:32 [facility] 2023-10-03 18:02:32 9546941lVFf7GS2u76+Sa3UZVQBomYmOLgnBV3 A/YWVnDLmSp3wdtAuJC5i+xI+jFJYAiJm522310-03T18:02:32CARE TEAM+ + + --------+ -----+ ---+ +| [...] -----+ --+ + -------+| DECLANA ASAELID | Attending | normal | September 30, 2023 3:38:54 AM UTC | September 30, 2023 3:49:01 AM UTC | DAYEND on September 30, 2023 6:30:57 AM UTC |+ + +--- -----+ --+ + -------+| ANDREW RODRIGUEZ | Admitting | normal | September 30, 2023 3:38:54 AM UTC | September 30, 2023 3:49:01 AM UTC | DAYEND on September 30, 2023 6:30:57 AM UTC |+ + +--- -----+ --+ + -------+26294-6Obdeczt Care team informationLNCARE TEAMTXT2.16.840.1.513273.3.1579.249142 214445.1.100|37577063|2.16.840.1.07782 3.10.20.22.2.500AVAvailable for patient xzxpYegkhrkQnlwbeagzPCKZt81 Section NarrativeNARRATIVEFormatted C-CDA narrative textVASSAR BROTHERS MEDICAL CENTERETBAMEMORIAL HEALTHCARE+1(040)222-458-16909176-9785341289-30-44J80:0 2:32 [facility] 2023-09-30 21:02:32 69961090hVxBDUNMeo0Lknqc6tyMeqvqZHcyw0 nmOiDQSz8lqFHPh0bwMcdtMha8CKoyQw96769- 02-16T21:02:32Chest pain ; 87719-8MoxaiwizcxqUHIAEADTZDAQNQBD2.16 .840.1.027660.3.1579.917551708412.1.10 0|45613254|2.16.840.1.885548.10.20.22. 2.8AVAvailable for patient auktFvsrjleQyvdhnobgIFLRq33 Section NarrativeVASSAR BROTHERS MEDICAL CENTERETASPIRUS [facility]+1(196)517-903-43575461-7534118781-43-98K27:0 2:32 [facility] 2023-09-30 21:02:32 3432889Bx/3JLK6kbpRS4l7B6otsMFvf08GSB0 OlAe7nVr9sh8x5R257rAQngbo/D5Zw0mQ18791:02:32+ +--------+ --+--------+ + + + +-- -----+| DISCHARGE MEDICATIONS | | | | | | | | || Status | RXNORM | Medication | Dose | Route | Frequency | Dates | Comments | Updated By |+ +========+=== +========+= =========+ =+ + + +| Continued | 157157 | Ibuprofen Oral Tablet 600 MG | 600 mg | BY MOUTH | THREE TIMES DAILY NEEDED | Prescribed: September 30, 2023 10:20:33 PM UTC | | DCURRY on September 30, 2023 10:20:33 PM UTC |+ +--------+--- +--------+- ---------+ -+ + + +| Continued | 955792 | Pepcid Oral Tablet 20 MG | [...] ===+ + +======== ==+ + + +| 89697-7 | LOINC | EKG study | ONE TIME | 0 | Stat | September 30, 2023 2:29:00 AM [facility] | BART HAMMONDS-GRICELDA | hwm1zln on September 30, 2023 2:29:00 AM [facility] |+ +--------+----- ---+ + +-------- --+ + + +| 77143-1 | LOINC | EKG study | IN AM | 1 | Routine | September 30, 2023 9:00:00 AM UTC | [facility] | DOMYNH on September 30, 2023 3:43:00 AM UTC |+ +--------+----- ---+ + +-------- --+ + + +| 23535-0 | LOINC | Basic metabolic 2000 panel - Serum or Plasma | IN AM | 0 | Routine | October 01, 2023 9:00:00 AM UTC | RULA KAN | XIU9CZN on September 30, 2023 8:31:00 PM UTC |+ +--------+----- ---+ + +-------- --+ + + +| 78800-7 | LOINC | Basic metabolic 2000 panel - Serum or Plasma | IN AM | 0 | Routine | October 02, 2023 9:00:00 AM UTC | RULA KAN | IVX9GWX on September 30, 2023 8:31:00 PM UTC |+ +--------+----- ---+ + +-------- --+ + + +| 15361-7 | LOINC | Basic metabolic 2000 panel - Serum or Plasma | IN AM | 0 | Routine | October 03, 2023 9:00:00 AM UTC | RULA ABRAHAMNA | HAI4QHE on September 30, 2023 8:31:00 PM UTC |+ +--------+----- ---+ + +-------- --+ + + +| 87991-8 | LOINC | CBC W Auto Differential panel - Blood | IN AM | 0 | Routine | October 01, 2023 9:00:00 AM UTC | XINTAVELONIS LORETA | OJJ5RZM on September 30, 2023 8:31:00 PM UTC |+ +--------+----- ---+ + +-------- --+ + + +| 70639-6 | LOINC | CBC W Auto Differential panel - Blood | IN AM | 0 | Routine | October 02, 2023 9:00:00 AM UTC | XINTAVELONIS LORETA | ZFF9VUT on September 30, 2023 8:31:00 PM UTC |+ +--------+----- ---+ + +-------- --+ + + +| 98969-6 | LOINC | CBC W Auto Differential panel - Blood | IN AM | 0 | Routine | October 03, 2023 9:00:00 AM UTC | STEVETAANIAStew ABRAHAMNA | XXR6DDY on September 30, 2023 8:31:00 PM UTC |+ +--------+----- ---+ + +-------- --+ + + ++-- +--------+--------- ----+--------+ +------- -----+| SCHEDULED PROCEDURES | | | | | || Code | System | Description | Status | Scheduled Date | Updated By |+ +========+===== ========+========+ +=== =========+| Patient scheduled procedure information is not available. | | | | | |+ +--------+----- --------+--------+ +--- ---------+66669-9Ydes of TreatmentLNTREATMENT PLANTXT2.16.840.1.389803.3.1579.560159 097734.1.100|53945887|2.16.840.1.32688 3.10.20.22.2.10AVAvailable for patient pfowQuitacjYgqckhoilATTCf84 Section NarrativeNARRATIVEFormatted C-CDA narrative textBHSSETBAPTCLARIBEL TEODORO [facility]+1(583)014-90387723-8898473983-52-11N07:0 2:32 [facility] 2023-09-30 21:02:32 4804355dtb86tTH/nLmaBg6KmD0/8MiY1KeEUv +wtVUeE7zVYjqu3VSM7CzRYXb1n54CDKk8039- 02-16T21:02:32PATIENT GOALS+ + +----- --+| Goal | Assigned Date | Updated By |+ ========+ +========= +| ASSESS PATIENT CONDITION AND STATUS | September 30, 2023 | TNE9ADP on September 30, 2023 5:16:19 AM [facility] |+ --------+ +--------- +| PATIENT OR SIGNIFICANT OTHER WILL CONVEY UNDERSTANDING ABOUT THEIR PLAN OF CARE | September 30, 2023 | YCP5ZGO on September 30, 2023 5:16:24 AM [facility] || INCLUDING ILLNESS, MEDICAL CARE, IMPORTANCE OF MEDICATION THERAPY OR TREATMENT | | || REGIMEN PRESCRIBED. THEY KNOW WHERE TO SEEK ASSISTANCE AND RETURNS | | || DEMONSTRATION OF PROCEDURES WITHOUT DIFFICULTY. | | |+ --------+ +--------- +6 1146-2BndykCHGYXNKMLU0.16.840.1.028844 .3.1579.434862416411.1.100|94483165|2. 16.840.1.732971.10.20.22.2.60AVAvailab for patient rwlrWkntcguOofzwurjzJTKLa81 Section NarrativeNARRATIVEFormatted C-CDA dina [facility]+1(065)948-234-09840786-7607928578-75-14R60:0 2:32 [facility] 2023-09-30 21:02:32 2543949hKJs5NZ5g41+Gs4TJTOJegFeSXddMB8 A/QYEkXAxMm2xpbAsNG7x+xI+zRTXHkRz166509-30T21:02:32CARE TEAM+ + + --------+ -----+ ---+ +| [...] |+ + +--- -----+ --+ + -------+| RAJWINDERESTRELLA SANTIAGO | Admitting | normal | September [...] |+ + +--- -----+ --+ + -------+| SHINTHIA NASHID | Attending | normal | September 30, 2023 3:38:54 AM UTC | September 30, 2023 3:49:01 AM UTC | DAYEND on September 30, 2023 6:30:57 AM UTC |+ + +--- -----+ --+ + -------+| ANDREW VYASID | Admitting | normal | September 30, 2023 3:38:54 AM UTC | September 30, 2023 3:49:01 AM UTC | DAYEND on September 30, 2023 6:30:57 AM UTC |+ + +--- -----+ --+ + -------+19448-0Luggwls Care team informationLNCARE TEAMTXT2.16.840.1.533689.3.1579.012631 835813.1.100|33954863|2.16.840.1.10568 3.10.20.22.2.500AVAvailable for patient zyhtVfflqhlPssjfrlfjQLGUy40 Section NarrativeNARRATIVEFormecu health bertie hospitaled C-CDA narrative textTAMIKOASPIRUS ONTONAGON HOSPITAL+0(056)103-429-31318208-0710634318-92-22E67:0 2:32 [facility] 2023-09-29 21:47:15 BWsluclppdz491039frhQlpxIXp6iLAP7B+SoA QsKSjf4zvhq8lu4sBUQZfXt80aRj1FD8C62nxZ seZTN0735-92-58L70:47:15[place] [address] DIAGNOSTIC IMAGING REPORT Patient Name: SEVERO DIOPDate of Service: 06-10-[birth year]64Jgs: 43 Sex: M Order #: [id number] [facility] 1980 [facility]Ray Number: [id number] Record Number: [id number] Hospital Number: [id number] Physician: James MORALES Physician: JENNIFER MORALES PROCEDURE: CHEST 1 VIEW PORTABLE INDICATIONS: dx: chest wall pain pt sts: c/o left chest wall pain onset 3days agonohapsv: jtt 1 view chest x-rayComparison: NoneFindings:No consolidation or effusion.Heart size is normal.No acute fracture.IMPRESSION:1. No acute findings.This document has been electronically signed by: Ba Fontaine MD 09/29/2023 21:47:15 Legally authenticated by DONOVAN SHUKLA 2023-09-29 21:47:25EKTsdggxmuavhnfsnrj53706MKPPNX , CZPYNIUQOTPQTJYL5666-32-44E54:47:15ER5 [id number]574368 26278NFTCEWXL97562FMLVMY, IPJNEWAGWTOZLPRLN4851-45-46K93:48:41 BA FONTAINE BRIDGET 2023-03-31 22:28:00 AS15348193533LW0Wd0gYW50AQGk/zA74FMQWJ /u3QUcFQpy1F1K6DsK4K8+WnSKQpaNYPN7Kkek 2342-91-27R82:28:00 [facility]EM[facility] PROVID[facility] REPORTREPORT#:[id number] REPORT STATUS: SignedDATE:03/31/23 TIME:2227 PATIENT: SEVERO DIOP UNIT #: [id number]#: [id number] ROOM/BED:: 80 AGE: 42 SEX: M PCP PHYS: DOES_NOT KNOWSERVICE AUTHOR: Walter Salinas MD * ALL edits or amendments must be made on the electronic/computer document * HPI-General Illness Free Text HPI NotesFree Text HPI Mrxxa78-cxai-ter 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 Patient states that the symptoms started after eating Uuxq-lp-eum-Box. Patient states that he has been without [...] 84 03/31 2231 Resp 18 03/31 2231 Review of Vital Signs Reviewed Free Text [...] % (Auto) (20.5 - 51.1 %) 42.5 Love % (Auto) (1.7 - 9.3 %) 12.7 H Eos % (Auto) (0.0 - 6.0 %) 1.6 Baso % (Auto) (0.0 - 2.0 %) 0.9 Neut # (Auto) (1.8 - 7.6 K/mm3) 1.9 Lymph # (Auto) (0.6 - 3.0 K/mm3) 1.9 Love # (Auto) (0.2 - 1.5 K/mm3) 0.6 [...] 84 03/31 2231 Resp 18 03/31 2231 All vital signs available at the time of this entry have been reviewed. Clinical ImpressionClinical ImpressionPrimary Impression: DehydrationSecondary Impressions: Lightheadedness Disposition DecisionDischarge )( Discharged to Home Yes )( Time 2324 )( Date 03/31/23 Discharge/Care PlanPatient Instructions ED Dehydration (Adult)Additional InstructionsPlease follow up with your primary care doctor within the week. If you do not have a primary care doctor, please call and make the earliest appointment for: Dr Ceci [address] [place], [place] [address]Diwbi: [email or web address] Return if your symptoms worsen or you develop any new concerning symptoms at 2325 RPT #: [id number] OF REPORTEDEmerbaptist health rehabilitation institute department tctqoc3113-09-87W65:28:00L.WRMV5873602 7-0239AVAvailable for patient lcaaNSLYORJLBWJLAA8167-87-99Z65:25:32 HCAPM 2023-03-21 06:02:28 5354-11-01U97:02:28 Pt given printed and verbal discharge instructions [...] with steady gait, in no apparent distress. 23398-1Iqobofsmf department FpkpLV8394-09-77C80:03:14[facility] department NoteTXT1.2.840.983192.1.13.104.2.7.2.7 25524|9698071857IVDrmrlmhpg for patient ziys88553-9YmecUWPDNROWSN[address] [id number] PYNBXLWIQHXQZJZVNXHC4206-11-12U32:03:1 41.2.840.192819.1.72.3.15|1.2.840.1143 50.1.13.104.2.7.2.727879_[id number] [facility] 2023-03-21 05:27:03 1417-85-81Y96:27:03 Patient came in with complaints of right upper toothache since last night and it woke him up from sleep 45 mins ago. Patient said that he took BC Powder last night and today morning before he got here but no relief. 90986-7Kcnvktdne department Triage lmjwGX7876-29-23M16:28:37[facility] department Triage noteTXT1.2.840.320354.1.13.104.2.7.2.7 97623|[id number] for patient gljm32419-5Hnwykjecl department [id number] C Heredia RN[id number] DHIQLGETOTCMDFNTZYSJ7582-06-05O82:28:3 71.2.840.296710.1.72.3.15|1.2.840.1143 50.1.13.104.2.7.2.727879_[id number] Vicki Daniel RN [facility] 2023-03-21 05:19:00 6075-79-88V56:19:00 [facility] Emergency Department NotePatient Name: Severo Robertson of : 1980 42 year old maleTreatment Room: [place] [address]Medical Record Number: [id number] Care Physician: Marylou Garsia [facility]Patient Escorted by: Self [9]Mode of Arrival: Personal [...] Criteria type on file.ED COURSEDiagnosis/Impression as of 03/21/23 0551 Toothache Procedures: ProceduresMDM:Medical Decision MakingScxiomara Diop is [...] on file Follow-up:Contact information for follow-up Center, [facility] Medical Relationship: PCP - General [address] [facility] [id number] Electronically signed by: Meng Márquez MD03/21/23 0551 21508-8Skegjgall Emergency department XqlaRX0025-79-15A15:51:28Physician Emergency department NoteTXT1.2.840.402306.1.13.104.2.7.2.7 [id number] for patient eyxg81076-9Rvattcdpv department NoteLNUT[id number] IKGMAFYEMCSGTERZBHOJ9401-42-31M40:51:2 81.2.840.795198.1.72.3.15|1.2.840.1143 50.1.13.104.2.7.2.727879_[id number] [facility]
--- NOTE | 2024-01-17 03:41 | EDPHYS ---
Physician Documentation [facility] Name: Severo Morgan Age: 43 yrs Sex: Male : 1980 Arrival Date: 01/17/2024 Time: 02:49 Bed IW3 Private MD: ED Physician Rudy Hicks HPI: 01/16 03:45 This 43 yrs old Male presents to ER via Ambulatory with complaints of Toothache. rt 03:45 Patient presents to the ED with dental pain for about a month. He had been on rt antibiotics. He has not yet seen a dentist. States that the pain is worsened today. Denies other acute complaints, symptoms are mild in severity, no other aggravating or alleviating factors.. Historical: - Allergies: 03:40 No Known Allergies; ss - PSHx: 03:40 skin graft; ss - Immunization history:: Client reports receiving the 2nd dose of the Covid vaccine. - Infectious Disease History:: Denies. - Social history:: Smoking status: Patient reports the use of cigarette tobacco products, smokes one-half pack cigarettes per day. - Family history:: not pertinent. ROS: 03:45 Constitutional: Negative for fever, chills, and weight loss, Cardiovascular: Negative rt for chest pain, palpitations, and edema, Respiratory: Negative for shortness of breath, cough, wheezing, and pleuritic chest pain, Abdomen/GI: Negative for abdominal pain, nausea, vomiting, diarrhea, and constipation, Skin: Negative for injury, rash, and discoloration, Neuro: Negative for headache, weakness, numbness, tingling, and seizure, 03:45 ENT: Positive for dental pain, Exam: 03:45 Constitutional: This is a well developed, well nourished patient who is awake, alert, rt and in no acute distress. Head/Face: Normocephalic, atraumatic. Chest/axilla: Normal chest wall appearance and motion. Nontender with no deformity. No lesions are appreciated. Cardiovascular: Regular rate and rhythm with a normal S1 and S2. No gallops, murmurs, or rubs. Normal PMI, no JVD. No pulse deficits. Respiratory: Lungs have equal breath sounds bilaterally, clear to auscultation and percussion. No rales, rhonchi or wheezes noted. No increased work of breathing, no retractions or nasal flaring. Abdomen/GI: Soft, non-tender, with normal bowel sounds. No distension or tympany. No guarding or rebound. No evidence of tenderness throughout. Skin: Warm, dry with normal turgor. Normal color with no rashes, no lesions, and no evidence of cellulitis. MS/ Extremity: Pulses equal, no cyanosis. Neurovascular intact. Full, normal range of motion. 03:45 ENT: Multiple dental caries noted, no drainable abscess. Vital Signs: 03:39 BP 121 / 84; Pulse 78; Resp 17; Temp 98.4(O); Pulse Ox 100% on R/A; Weight 65.77 kg; ss Height 5 ft. 9 in. ; Pain 4/10; 03:39 Body Mass Index 21.41 (65.77 kg, 175.26 cm) 03:39 Pain Scale: Adult ss MDM: 03:40 Patient medically screened. rt 03:45 Differential diagnosis: Dental caries, periodontal disease. Data reviewed: vital signs, rt nurses notes. I considered the following discharge prescriptions or medication management in the emergency department Medications were administered in the Emergency Department. See MAR. Test considered but Not performed: CT: No signs of RPA, [employer], Josemanuel's angina, no obvious drainable abscess, CT scan is not indicated. Counseling: I had a detailed discussion with the patient and/or guardian regarding the historical points, exam findings, and any diagnostic results supporting the discharge/admit diagnosis, the need for outpatient follow up. Administered Medications: 03:50 Drug: Ketorolac IM 15 mg IM once Route: IM; Site: right deltoid; 03:50 Follow up: Response: Medication administered at discharge. Disposition Summary: 01/17/24 03:40 Discharge Ordered Notes: Location: Home rt Problem: an ongoing problem rt Symptoms: are unchanged rt Condition: Stable rt Diagnosis - Dental caries, unspecified rt Followup: rt - With: Private Physician - When: 2 - 3 days - Reason: Discharge Instructions: - Discharge Summary Sheet rt - Dental Caries, Adult rt - Dental Pain rt Forms: - Medication Reconciliation Form rt - Antibiotic Education rt - Prescription Opioid Use rt - Patient Portal Instructions rt - Leadership Thank You Letter rt Prescriptions: - Augmentin 875-125 mg Oral Tablet - take 1 tablet ORAL route every 12 hours for 10 days; 20 tablet; Refills: 0, rt Product Selection Permitted Signatures: Prachi Jackson, MARS RN ss Rudy Hicks MD MD rt
--- NOTE | 2024-01-17 03:41 | ER ---
Nurse's Notes [facility] Name: Severo Morgan Age: 43 yrs Sex: Male : 1980 Arrival Date: 01/17/2024 Time: 02:49 Bed IW3 Private MD: Diagnosis: Dental caries, unspecified Presentation: 01/16 03:39 Chief complaint: Patient states: dental pain x 2 months. Unable to follow up with ss dentist and has been on two antibiotics before today's visit. Coronavirus screen: Client denies travel out of the [place] in the last 14 days. Ebola Screen: Patient denies exposure to infectious person. Patient denies travel to an Ebola-affected area in the 21 days before illness onset. Initial Sepsis Screen: Does the patient meet any 2 criteria? No. Patient's initial sepsis screen is negative. Does the patient have a suspected source of infection? No. Patient's initial sepsis screen is negative. Risk Assessment: Do you want to hurt yourself or someone else? Patient reports no desire to harm self or others. Onset of symptoms was December 14, 2023. 03:39 Method Of Arrival: Ambulatory ss 03:39 Acuity: [place] 4 ss Triage Assessment: 03:40 General: Appears in no apparent distress. comfortable, Behavior is calm, cooperative. ss Neuro: Level of Consciousness is awake, alert, obeys commands. Respiratory: Airway is patent Respiratory effort is even, unlabored, Respiratory pattern is regular, symmetrical. Derm: Skin is intact, is healthy with good turgor, Skin is pink, warm \T\ dry. normal. Historical: - Allergies: 03:40 No Known Allergies; ss - PSHx: 03:40 skin graft; ss - Immunization history:: Client reports receiving the 2nd dose of the Covid vaccine. - Infectious Disease History:: Denies. - Social history:: Smoking status: Patient reports the use of cigarette tobacco products, smokes one-half pack cigarettes per day. - Family history:: not pertinent. Screenin:41 Abuse screen: Denies threats or abuse. Denies injuries from another. Nutritional ss screening: No deficits noted. Tuberculosis screening: Never had TB. Assessment: 03:41 Reassessment: SEE TRIAGE ASSESSMENT. ss Vital Signs: 03:39 BP 121 / 84; Pulse 78; Resp 17; Temp 98.4(O); Pulse Ox 100% on R/A; Weight 65.77 kg; ss Height 5 ft. 9 in. ; Pain 4/10; 03:39 Body Mass Index 21.41 (65.77 kg, 175.26 cm) ss 03:39 Pain Scale: Adult ss ED Course: 02:58 Patient arrived in ED. gm2 03:02 Rudy Hicks MD is Attending Physician. rt 03:40 Triage completed. ss 03:40 Arm band placed on right wrist. ss 03:41 Patient has correct armband on for positive identification. Bed in low position. ss 03:41 No provider procedures requiring assistance completed. Patient did not have IV access ss during this emergency room visit. Administered Medications: 03:50 Drug: Ketorolac IM 15 mg IM once Route: IM; Site: right deltoid; ss 03:50 Follow up: Response: Medication administered at discharge. ss Medication: 03:41 VIS not applicable for this client. ss Outcome: 03:40 Discharge ordered by MD. rt 03:50 Discharged to home ambulatory, with family, ss 03:50 Condition: good 03:50 Discharge instructions given to patient, family, Instructed on discharge instructions, follow up and referral plans. medication usage, Demonstrated understanding of instructions, follow-up care, medications, Prescriptions given X 1, 03:51 Patient left the ED. Signatures: Prachi Jackson, MARS RN Rudy Hicks MD MD rt [place] gm2
[2024-01-17] MEDS ORDERED: KETOROLAC 30 MG/ML INJ ONE (03:44)
[2024-01-17 04:26] VITALS: BP 121/84; TEMP 98.4; O2SAT 100
== END 2024-01-17 03:51 | disposition home or self-care (01) ==
LOC: ER 02:49
DX: K02.9 Dental caries, unspecified (principal)
CPT/HCPCS: 96372; 99284

== ENCOUNTER 2024-04-06 21:20 | Emergency (ER) | payer OTHER ==
--- OUTSIDE RECORDS SUMMARY | 2024-04-06 21:27 | XMS REPORT | Continuity of Care Document ---
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 0.6 % CKMB (test code = CKMB) 0.8 NG/ML 0.22-2.4 CK (test code = CK) 143 U/L 55-170 Natriuretic peptide B [Mass/volume] in Serum [id number] 01:48:00* Test Item Value Reference Range Interpretation Comme nts Natriuretic peptide B [Mass/ volume] in Serum or Plasma (test code = 16405-5) <20.0 N [facility])Creatine kinase.MB [Mass/volume] in Serum or Pl 2023-10-10 01:48:00* Test Item Value Reference Range Interpretation Comme nts Creatine kinase.MB/Creatine kinase.total in Serum or Plasma (test code = 82330-3) 0.6 % N Creatine kinase.MB [Mass/vol ume] in Serum or Plasma (test code = 12486-1) 0.8 NG/ML 0.22-2.4 N Creatine kinase isoenzymes [interpretation] in Serum or Plasma Narrative (test code = 87608-8) 143 U/L 55.0-170.0 [facility])[id number] 01:35:00* Test Item Value Reference Range Interpretation Comme nts MG (test code = MG) 1.7 mg/dL 1.6-2.3 CHEST 1 VIEW [id number] 01:34:00 [facility] : 1980 [facility] [place] [address] [id number] IMAGING R EPORTPatient Name: SEVERO DIOPDate of Service: [id number]: 43 Sex: M Order #: [id number] [facility] 1980 [facility] Number: [id number] Record Number: [id number] Hospital Number: [id number] Physician: Sherry CROSS Physician: ALEJANDRA CROSSPROCEDURE: CHEST [...] MINH POWELL 2023-10-10 01:33:00Portable XR Chest Views [id number] 01:33:00ORDER 800: CHEST 1 VIEW PORTABLE (LOINC: 61872-6)ORDER DATE: October 10, 2023 6:45:00 AM [facility]) Magnesium [Mass/volume] in Serum or [id number] 01:30:00* Test Item Value Reference Range Interpretation Comme [facility] Magnesium [Mass/volume] in S jeni or Plasma (test code = 94416-9) 1.7 mg/dL 1.6-2.3 N [facility])[id number] 01:28:00* Test Item Value Reference Range Interpretation [...] 1.2-7.2 CBC W Auto Differential panel - [id number] 01:28:00* Test Item Value Reference Range Interpretation Comme nts Leukocytes other [Identifier ] in Blood by Automated count (test code = 12149-1) 7.8 K/UL 3.5-10.9 N Erythrocytes [#/volume] in B lood (test code = 74439-9) 4.47 M/UL 4.3-5.7 N Hemoglobin A/Hemoglobin.tota l in Blood (test code = 4546-8) 13.9 G/DL 13.0-17.9 N Hematocrit [Volume Fraction] of Blood (test code = 99165-0) 41.8 % 38.0-52.0 N Erythrocyte mean corpuscular volume [Entitic volume] (test code = 18504-2) 93.5 FL 80.0-98.0 N Erythrocyte mean corpuscular hemoglobin [Entitic mass] (test code = 14863-3) 31.1 PG 28.0-32.0 N Erythrocyte mean corpuscular hemoglobin concentration [Mass/volume] (test code = 57223-1) 33.3 G/DL 32.5-36.5 N Erythrocyte distribution wid th [Ratio] (test code = 37093-5) 11.8 % 11.5-14.5 N Platelets panel - Blood by Automated count (test code = 85335-7) 245 K/UL 150.0-450.0 N Platelet mean volume [Entiti c volume] in Blood by Automated count (test code = 24861-9) 10.1 FL 7.4-10.4 N Neutrophils.segmented/100 leukocytes in Blood (test code = 79521-1) 57.3 % 40.0-75.0 N Lymphocytes Variant/100 leuk ocytes in Blood (test code = 39307-7) 30.1 % 24.0-44.0 N Lymphocytes+Monocytes/100 leukocytes in Blood (test code = 4662-3) 9.8 % 0.0-13.0 N Eosinophils [#/volume] in Bl ood (test code = 45360-8) 1.9 % 0.0-4.0 N Basophils [#/volume] in Bloo d (test code = 82816-6) 0.6 % 0.0-2.0 N Immature granulocytes/100 leukocytes in Blood (test code = 88201-1) 0.3 % 0.0-1.0 N Nucleated erythrocytes [#/vo lume] in Blood (test code = 44522-5) 0 /100 WBC N Neutrophils [#/volume] in Bl ood (test code = 14726-8) 4.4 K/UL 1.2-7.2 N [facility])TROPONIN [id number] 00:58:00* Test Item Value Reference Range Interpretation Comme nts TROPER (test code = TROPER) 0.00 NG/ML 0.0-0.08 INTERPRETIVE DATA A POC TROPONIN OF </= 0.08 NG/ML IS CONSIDERED NEGATIVE Troponin T.cardiac [Mass/volume] in [id number] 00:58:00* Test Item Value Reference Range Interpretation Comme nts Troponin T.cardiac [Mass/vol ume] in Blood (test code = 97561-1) 0.0 NG/ML 0.0-0.08 N [facility])ISTAT CHEM [id number] 00:52:00* Test Item Value Reference Range Interpretation [...] of Reference Ranges Basic metabolic panel - [id number] 00:52:00* Test Item Value Reference Range Interpretation Comme nts Sodium [Moles/volume] in Art erial blood (test code = 55189-2) 142 MMOL/L 137.0-145.0 N Potassium [Moles/volume] in Arterial blood (test code = 28356-0) 3.8 MMOL/L 3.6-5.0 N Chloride [Moles/volume] in Arterial blood (test code = 42089-9) 100 MMOL/L 98.0-107.0 N Calcium.ionized [Mass/volume ] in Arterial blood (test code = 93981-7) 1.07 MMOL/L 1.12-1.32 L Carbon dioxide, total [Moles/volume] in Blood (test code = 92405-3) 30 MMOL/L 22.0-30.0 N Glucose [Mass/volume] in Art erial blood (test code = 46124-4) 90 MG/DL 65.0-110.0 N Urea nitrogen [Mass/volume] in Arterial blood (test code = 95956-1) 15.0 MG/DL 7.0-20.0 N Creatinine [Mass/volume] in Blood (test code = 72801-9) 0.8 MG/DL 0.7-1.5 N Hematocrit [Volume Fraction] of Arterial blood (test code = 45560-9) 44 %PCV 37.0-52.0 N Hemoglobin [Mass/volume] in Arterial cord blood (test code = 22492-1) 15.0 G/DL 12.0-18.0 N Anion gap in Blood (test cod e = 03853-2) 17 MMOL/L N [facility])ECHO COMPLETE W/[id number] 15:51:[address] [facility] : 1980 Sex: MStudy ID: [id number] METHODIST WEST HOSPITALECHOCARDIOGRAM REPORTName: SEVERO DIOP Study Date: 09/30/2023 02:19 PMMRN: [id number] Patient Location: T3\\S\\3316\\S\\AHR: 64DOB: 1980 (M/d/yyyy) Gender: MaleAge: 43 yrs Ethnicity: WHeight: 69 in Weight: 143 lbBSA: 1.8 h4Qglrti For Study: chest pain, abnormal EKG- Brugada [...] 1.6 cmLA dimension: 2.9 cm LVAd ap4: 27.6cm2 SV(MOD-sp4): 41.9 mlLVLd ap4: 8.0 cmEDV(MOD-sp4): 78.5 mlEDV(sp4-el): 81.4 mlLVAs ap4: 16.3 ir6PUFo ap4: 6.3 cmESV(MOD-sp4): 36.6 mlESV(sp4-el): 35.5 mlEF(MOD-sp4): [...] Volume: 27.5 ml RA Volume Index: 15.4 ml/h5Nwyusrn Measurements & CalculationsMV E max madison: 65.7 [...] cm/secMR max P.3 mmHg Med Peak E' [place]: 14.7 cm/sec SV(LVOT): 59.0 ml PI end-d mad[place]: 87.0 cm/sec TR max [place]: 185.3 cm/secTR max P.8 mmHgRVSP(TR): 16.8 mmHg RAP systole: 3.0 mmHg RV S [place]: 11.5 cm/sec AV Dimensionless Index: 0.65 MARK/BSA Index: 1.1 cm2/m2___ Lat E/e': 4.2 Med E/e': 4.5Left VentricleThe left ventricle is normal in size. There is normal left ventricular wallthickness. Left ventricular systolic function is borderline reduced.Ejection Fraction = 55-60%. The transmitral spectral Doppler flow pattern isnormal for age.Right VentricleThe right ventricle is grossly normal size. The right ventricular systolicfunction is normal.AtriaThe left atrial size is normal. Right atrial size is normal.Mitral ValveThe mitral valve is grossly normal. There is no mitral valve stenosis. Thereis nomitral regurgitation noted.Tricuspid ValveThe tricuspid valve is not well visualized, but is grossly normal. There isno tricuspid stenosis. No tricuspid regurgitation.Aortic ValveThe aortic valve is normal in structure and function. No hemodynamicallysignificant valvular aortic stenosis. No aortic regurgitation is present.Pulmonic ValveThe pulmonic valve is not well seen, but is grossly normal. There is nopulmonic valvular regurgitation.Great VesselsThe aortic root is normal size.Pericardium/PleuralThere is no pericardial effusion. The pericardium appears normal. There isno pleural effusion.ProceduresA complete two-dimensional transthoracic echocardiogram was performed (2D,M-mode, Doppler and color flow Doppler).Interpretation SummaryThe left ventricle is normal in size.Left ventricular systolic function is borderline reduced.Ejection Fraction = 55-60%.The transmitral spectral Doppler flow pattern is normal for age. Reading Physician:Yanet Ellison MD 09/30/2023 03:51 PMOrdering Physician: José Miguel Snowden Physician: CATHERINE, PCPPerformed By: Hilario Fajardo echo study [id number] 15:51:00ORDER 2600: ECHO COMPLETE W/DOPPLER (LOINC: 16724-5)ORDER DATE: September 30, 2023 6:55:00 PM [facility] ([place]) URINE DRUG [id number] 13:51:00* Test Item Value Reference Range Interpretation [...] abuse 5 panel - Urine by Screen [id number] 13:51:00 NegativeNegativePositiveNegativeNegativeNegativeNegativeParkwest Medical Center)[id number] 11:40:00* Test Item Value Reference Range Interpretation Comme nts %CKMB (test code = %MB) 0.5 % CKMB (test code = CKMB) 0.5 NG/ML 0.22-2.4 CK (test code = CK) 102 U/L 55-170 Creatine kinase.MB [Mass/volume] in Serum or [id number] 11:40:00* Test Item Value Reference Range Interpretation Comme nts Creatine kinase.MB/Creatine kinase.total in Serum or Plasma (test code = 35248-2) 0.5 % N Creatine kinase.MB [Mass/vol ume] in Serum or Plasma (test code = 08674-8) 0.5 NG/ML 0.22-2.4 N Creatine kinase isoenzymes [interpretation] in Serum or Plasma Narrative (test code = 24282-9) 102 U/L 55.0-170.0 N [facility])TROPONIN I - [id number] 11:01:00* Test Item Value Reference Range Interpretation Comme nts TROP-I (test code = TROP-I) <0.012 ng/ml 0.012-0.033 INTERPRETI VE DATA A TROPONIN OF LESS THAN 0.034 NG/ML IS CONSIDERED NEGATIVE A TROPONIN OF 0.034 - 0.119 NG/ML IS CONSIDERED GRAYZONE A TROPONIN =/> 0.120 NG/ML IS CONSIDERED POSITIVE Troponin I.cardiac [Mass/volume] in Serum or [id number] 10:57:00* Test Item Value Reference Range Interpretation Comme nts Troponin I.cardiac [Mass/vol ume] in Serum or Plasma (test code = 38780-7) <0.012 0.012-0.033 [facility])D-DIMER [id number] 10:56:00* Test Item Value Reference Range Interpretation Comme [facility] D-DIMER QUANTITATIVE (test code = DDIMER) <215 ng/mL (FEU) 0-500 VALUES OF QUANTITATIVE D-DIMER LESS THAN 499 ng/mL HAVE BEEN REPORTED TO BE ASSOCIATED WITH A LOW PROBABILITY OF DEEP VEIN THROMBOSIS/PULMONARY EMBOLISM. THIS TEST ALONE SHOULD NOT BE USED TO RULE OUT DVT/PE. Fibrin D-dimer FEU [Mass/volume] in Platelet [id number] 10:56:00* Test Item Value Reference Range Interpretation Comme nts Fibrin D-dimer FEU [Mass/vol ume] in Platelet poor plasma (test code = 32913-0) <215 0.0-500.0 [facility])BASIC METABOLIC [id number] 04:57:00* Test Item Value Reference Range Interpretation [...] 70-99 Fasting glucos e normal <100 MG/DL- [employer] recommendation CALCIUM (test code = CABLOOD) 8.3 MG/DL 8.4-10.2 L GFR (test code = GFR) 131 mL/min/1.73m2 See_Comment A GFR of >90 mL/min/1.73m2 is considered normal. The GFR calculation on patients over 70 years of age is not validated by the outbound call center representative and may not represent the patients true renal function. [Automated message] The system which generated this result transmitted reference range: 59-. The reference range was not used to interpret this result as normal/abnormal. [id number] 04:47:00* Test Item Value Reference Range Interpretation Comme nts MG (test code = MG) 1.7 mg/dL 1.6-2.3 LIPID [id number] 04:47:00* Test Item Value Reference Range Interpretation [...] = CALC LDL) 64 MG/DL See_Comment [Automated [employer]] The system which generated this result transmitted reference range: -100. The reference range was not used to interpret this result as normal/abnormal. DIRECT [id number] 04:47:00* Test Item Value Reference Range Interpretation Comme nts DIR LDL (test code = LDL) 84 MG/DL See_Comment [[employer]] The system which generated this result transmitted reference range: 0-<100. The reference range was not used to interpret this result as normal/abnormal. [id number] 04:47:00* Test Item Value Reference Range Interpretation Comme nts %CKMB (test code = %MB) 0.5 % CKMB (test code = CKMB) 0.5 NG/ML 0.22-2.4 CK (test code = CK) 101 U/L 55-170 TROPONIN I - [id number] 04:47:00* Test Item Value Reference Range Interpretation Comme nts TROP-I (test code = TROP-I) <0.012 ng/ml 0.012-0.033 INTERPRETI VE DATA A TROPONIN OF LESS THAN 0.034 NG/ML IS CONSIDERED NEGATIVE A TROPONIN OF 0.034 - 0.119 NG/ML IS CONSIDERED GRAYZONE A TROPONIN =/> 0.120 NG/ML IS CONSIDERED POSITIVE Basic metabolic 2000 panel - Serum or [id number] 04:47:00* Test Item Value Reference Range Interpretation Comme nts Sodium [Moles/volume] in Blood (test code = 2947-0) 138 MMOL/L 137.0-145.0 N Potassium [Moles/volume] in Blood (test code = 6298-4) 4.4 MMOL/L 3.5-5.1 N Chloride [Moles/volume] in Blood (test code = 2069-3) 104 MMOL/L 98.0-107.0 N Carbon dioxide, total [Moles/volume] in Blood (test code = 89099-8) 27 MMOL/L 22.0-30.0 N Urea nitrogen [Mass/volume] in Serum or Plasma (test code = 3094-0) 18 MG/DL 9.0-20.0 N Creatinine [Mass/volume] in Blood (test code = 72223-0) 0.7 MG/DL 0.8-1.5 L Glucose [Mass/volume] in Blood (test code = 2339-0) 93 MG/DL 70.0-99.0 N Calcium [Mass/volume] in Serum or Plasma (test code = 35037-5) 8.3 MG/DL 8.4-10.2 L Estimated or measured glomerular filtration rate less than 50 percent [- Reported] (test code = 07819-3) 131 mL/min/1.73m2 N [facility])Magnesium [Mass/volume] in Serum or [id number] 04:47:00* Test Item Value Reference Range Interpretation Comme nts Magnesium [Mass/volume] in S jeni or Plasma (test code = 52915-7) 1.7 mg/dL 1.6-2.3 N [facility])VAP cholesterol panel - Serum or [id number] 04:47:00* Test Item Value Reference Range Interpretation [...] or Plasma by calculation (test code = 29221-5) 64 MG/DL N [facility])Cholesterol in LDL [Mass/volume] in Serum or Pl 2023-09-30 04:47:00* Test Item Value Reference Range Interpretation Comme nts Cholesterol in LDL [Mass/vol ume] in Serum or Plasma by Direct assay (test code = 59540-2) 84 MG/DL N [facility])Creatine kinase.MB [Mass/volume] in Serum or Pl 2023-09-30 04:47:00* Test Item Value Reference Range Interpretation Comme nts Creatine kinase.MB/Creatine kinase.total in Serum or Plasma (test code = 16310-4) 0.5 % N Creatine kinase.MB [Mass/vol ume] in Serum or Plasma (test code = 69274-6) 0.5 NG/ML 0.22-2.4 N Creatine kinase isoenzymes [interpretation] in Serum or Plasma Narrative (test code = 13053-9) 101 U/L 55.0-170.0 [facility])Troponin I.cardiac [Mass/volume] in Serum or Pl 2023-09-30 04:47:00* Test Item Value Reference Range Interpretation Comme nts Troponin I.cardiac [Mass/vol ume] in Serum or Plasma (test code = 44995-2) <0.012 0.012-0.033 [facility])PROBRAIN NATRIURETIC [id number] 04:41:00* Test Item Value Reference Range Interpretation Comme nts NT-PROBNP (test code = PROBNP) <20 pg/mL Exclusion for he art failure for patients of all ages is 300 pg/mL. Inclusion for heart failure for patients age <50 is 450 pg/mL; for patients age 50-75 is 900 pg/mL; for patients age >75 is 1800 pg/mL. [id number] 04:40:00* Test Item Value Reference Range Interpretation [...] 1.2-7.2 CBC W Auto Differential panel - [id number] 04:40:00* Test Item Value Reference Range Interpretation Comme nts Leukocytes other [Identifier ] in Blood by Automated count (test code = 46976-7) 4.8 K/UL 3.5-10.9 N Erythrocytes [#/volume] in B lood (test code = 16819-4) 4.39 M/UL 4.3-5.7 N Hemoglobin A/Hemoglobin.tota l in Blood (test code = 4546-8) 13.6 G/DL 13.0-17.9 N Hematocrit [Volume Fraction] of Blood (test code = 12441-5) 39.5 % 38.0-52.0 N Erythrocyte mean corpuscular volume [Entitic volume] (test code = 84569-6) 90.0 FL 80.0-98.0 N Erythrocyte mean corpuscular hemoglobin [Entitic mass] (test code = 40325-0) 31.0 PG 28.0-32.0 N Erythrocyte mean corpuscular hemoglobin concentration [Mass/volume] (test code = 78879-0) 34.4 G/DL 32.5-36.5 N Erythrocyte distribution wid th [Ratio] (test code = 92843-0) 11.9 % 11.5-14.5 N Platelets panel - Blood by Automated count (test code = 73976-7) 234 K/UL 150.0-450.0 N Platelet mean volume [Entiti c volume] in Blood by Automated count (test code = 77196-6) 10.5 FL 7.4-10.4 H Neutrophils.segmented/100 leukocytes in Blood (test code = 74050-9) 36.6 % 40.0-75.0 L Lymphocytes Variant/100 leuk ocytes in Blood (test code = 37233-7) 46.4 % 24.0-44.0 H Lymphocytes+Monocytes/100 leukocytes in Blood (test code = 4662-3) 13.7 % 0.0-13.0 H Eosinophils [#/volume] in Bl ood (test code = 70902-2) 2.3 % 0.0-4.0 N Basophils [#/volume] in Bloo d (test code = 76156-4) 0.8 % 0.0-2.0 N Immature granulocytes/100 leukocytes in Blood (test code = 79961-1) 0.2 % 0.0-1.0 N Nucleated erythrocytes [#/vo lume] in Blood (test code = 49287-7) 0 /100 WBC N Neutrophils [#/volume] in Bl ood (test code = 89355-6) 1.8 K/UL 1.2-7.2 N [facility] ([place])Natriuretic peptide B [Mass/volume] in Serum or 2023-09-30 04:38:00* Test Item Value Reference Range Interpretation Comme nts Natriuretic peptide B [Mass/ volume] in Serum or Plasma (test code = 82942-0) <20 N [facility] ([place])CHEST 1 VIEW [id number] 21:48:00 [facility] : 1980 Sex: M[address] [id number] IMAGING R EPORTPatient Name: SEVERO DIOPDate of Service: 07-23-3947Swe: 43 Sex: M Order #: [id number] [facility] 1980 [facility] Number: [id number] Record Number: [id number] Hospital Number: [id number] Physician: ASAEL MORALESIDOrdering Physician: ASAEL MORALESIDPROCEDURE: CHEST 1 VIEW PORTABLEINDICATIONS: dx: chest wall pain pt sts: c/o left chest wall pain onset 3days agonohapsv: jtt1 view chest x-rayComparison: NoneFindings:No consolidation or effusion.Heart size is normal.No acute fracture.IMPRESSION:1. No acute findings.This document has been electronically signed by: Ba Fontaine MD 09/29/2023 21:47:15Legally authenticated by DONOVAN SHUKLA 2023-09-29 21:47:15 Portable XR Chest Views [id number] 21:47:15ORDER 500: CHEST 1 VIEW PORTABLE (LOINC: 75768-5)ORDER DATE: September 30, 2023 2:38:00 AM [facility])[id number] 21:30:00* Test Item Value Reference Range Interpretation Comme nts %CKMB (test code = %MB) 0.6 % CKMB (test code = CKMB) 0.8 NG/ML 0.22-2.4 CK (test code = CK) 130 U/L 55-170 TROPONIN I - [id number] 21:30:00* Test Item Value Reference Range Interpretation Comme nts TROP-I (test code = TROP-I) <0.012 ng/ml 0.012-0.033 INTERPRETI VE DATA A TROPONIN OF LESS THAN 0.034 NG/ML IS CONSIDERED NEGATIVE A TROPONIN OF 0.034 - 0.119 NG/ML IS CONSIDERED GRAYZONE A TROPONIN =/> 0.120 NG/ML IS CONSIDERED POSITIVE Creatine kinase.MB [Mass/volume] in Serum or Pr2723-03-69 21:30:00* Test Item Value Reference Range Interpretation Comme nts Creatine kinase.MB/Creatine kinase.total in Serum or Plasma (test code = 75972-2) 0.6 % N Creatine kinase.MB [Mass/vol ume] in Serum or Plasma (test code = 76463-3) 0.8 NG/ML 0.22-2.4 N Creatine kinase isoenzymes [interpretation] in Serum or Plasma Narrative (test code = 67084-7) 130 U/L 55.0-170.0 N [facility])Troponin I.cardiac [Mass/volume] in Serum or Pl 2023-09-29 21:30:00* Test Item Value Reference Range Interpretation Comme nts Troponin I.cardiac [Mass/vol ume] in Serum or Plasma (test code = 58926-2) <0.012 0.012-0.033 N [facility])BASIC METABOLIC [id number] 21:09:00* Test Item Value Reference Range Interpretation [...] 70-99 Fasting glucos e normal <100 MG/DL- [employer] recommendation CALCIUM (test code = CABLOOD) 9.2 MG/DL 8.4-10.2 GFR (test code = GFR) 112.0 mL/min/1.73m2 See_Comment A GFR of >90 mL/min/1.73m2 is considered normal. The GFR calculation on patients over 70 years of age is not validated by the outbound call center representative and may not represent the patients true renal function. [Automated message] The system which generated this result transmitted reference range: 59-. The reference range was not used to interpret this result as normal/abnormal. Basic metabolic 2000 panel - Serum or [id number] 21:01:00* Test Item Value Reference Range Interpretation Comme nts Sodium [Moles/volume] in Blood (test code = 2947-0) 139 MMOL/L 137.0-145.0 N Potassium [Moles/volume] in Blood (test code = 6298-4) 4.4 MMOL/L 3.5-5.1 N Chloride [Moles/volume] in Blood (test code = 2069-3) 101 MMOL/L 98.0-107.0 N Carbon dioxide, total [Moles/volume] in Blood (test code = 87856-8) 32 MMOL/L 22.0-30.0 H Urea nitrogen [Mass/volume] in Serum or Plasma (test code = 3094-0) 13 MG/DL 9.0-20.0 N Creatinine [Mass/volume] in Blood (test code = 40322-1) 0.8 MG/DL 0.8-1.5 N Glucose [Mass/volume] in Blood (test code = 2339-0) 96 MG/DL 70.0-99.0 N Calcium [Mass/volume] in Serum or Plasma (test code = 61765-4) 9.2 MG/DL 8.4-10.2 N Estimated or measured glomerular filtration rate less than 50 percent [- Reported] (test code = 02102-9) 112.0 mL/min/1.73m2 N [facility] ([place])BASIC METABOLIC [id number] 23:20:00* Test Item Value Reference Range Interpretation [...] CA) 8.3 MG/DL 8.5-10.1 L CBC W/AUTO [id number] 22:58:00* Test Item Value Reference Range Interpretation [...] ode = MDIFF) NO DIFF/SCN CRITERIA TROPONIN [id number] 19:12:12* Test Item Value Reference Range Interpretation Comments TROPONIN I (test code = 1092225925) 0.002 ng/mL See_Comment [Automated message] The system [...] of biotin. Lab Interpretation (test code = 52735-7) [facility] [id number] 17:56:10 * Test Item Value Reference Range Interpretation Comme nts TSH (test code = 7817690924) See_Comment [Automated [employer]] The system which generated this result transmitted reference range: 0.45 - 4.70 mIU/L. The reference range was not used to interpret this result as normal/abnormal. Lab Interpretation (test code = 47790-9) [facility] [id number] 17:43:07* Test Item Value Reference Range Interpretation Comme nts FREE T4 (test code = 7820544276) See_Comment [Automated Table8a myhomemove] The system which generated this result transmitted reference range: 0.78 - 2.20 ng/dL:. The reference range was not used to interpret this result as normal/abnormal. Lab Interpretation (test code = 57011-8) [facility] [id number] 17:38:07* Test Item Value Reference Range Interpretation Comments TROPONIN I (test code = 4160066194) 0.003 ng/mL See_Comment [Automated message] The system [...] of biotin. Lab Interpretation (test code = 17168-7) [facility]AL [id number] 17:36:31* Test Item Value Reference Range Interpretation Comme nts NT-proBNP (test code = 9809307294) <11 See_Comment [Automated message] The system which generated this result transmitted reference range: <=125 pg/mL. The reference range was not used to interpret this result as normal/abnormal. CHERYL (test code = CHERYL) Biotin has been reported to cause a negative bias, interpret results relative to patient's use of biotin. Lab Interpretation (test code = 23099-5) [facility]OL2022-[facility] 17:25:57* Test Item Value Reference Range Interpretation Comme nts ALCOHOL (test code = 1892395409) <10 mg/dL CHERYL (test code = CHERYL) <10 Yvjfkwuy00-807 Toxic>100 Depression of [employer] INSTRUCTOR>400 Fatalities Reported [facility]ACET[facility]INOPHEN2022-06-[facility] 17:25:32* Test Item Value Reference Range Interpretation Comme nts ACETAMINOP (test code = 5871737749) <10.0 10.0-30.0 L CHERYL (test code = CHERYL) Toxic: Greater chel n 200 ug/mL @ 4 hour post ingestion or greater than 50 ug/mL @ 12 hour post ingestion Lab Interpretation (test code = 39012-7) [facility]normal [facility]COMP[facility] MET[facility]OLIC PANEL (29268)2022-02-06 17:15:44* Test Item Value Reference Range Interpretation Comme nts NA (test code = 7958398622) 142 mmol/L 135-145 K (test code = 8755302225) 4.2 mmol/L 3.5-5.0 CL (test code = 7505079892) 104 mmol/L 98-108 CO2 TOTAL (test code = 7346685960) 28 mmol/L 23-31 AGAP (test code = 2313887874) 2-16 BUN (test code = 2127992863) 9 mg/dL 7-23 GLUCOSE (test code = 0367158589) 117 mg/dL 70-110 H CREATININE (test code = 8120994681) 0.76 mg/dL 0.60-1.25 TOTAL BILI (test code = 4359173946) 0.6 mg/dL 0.1-1.1 CALCIUM (test code = 4136635900) 9.3 mg/dL 8.6-10.6 T PROTEIN (test code = 9481533250) 7.0 g/dL 6.3-8.2 ALBUMIN (test code = 5030733663) 4.4 g/dL 3.5-5.0 ALK PHOS (test code = 6518018544) 44 U/L 34-122 ALTv (test code = 1742-6) 12 U/L 5-50 AST(SGOT) (test code = 8751042236) 18 U/L 13-40 eGFR (test code = 4267885746) mL/min/1.73m2 CHERYL (test code = CHERYL) Association [...] imaging tests). Lab Interpretation (test code = 54881-6) [facility]normal [facility]AL[facility]YLATE2022-06-[facility] 17:15:44* Test Item Value Reference Range Interpretation Comme nts SALICYLATE (test code = 8487073549) 40 mg/L CHERYL (test code = CHERYL) Therapeutic Range: ? Analgesic and Antipyretic Use ? 20-100 mg/L ? ? Anti-Inflammatory Use ? 100-250 mg/L Toxic Range: ? Greater than 300 mg/L [facility]AT[facility] [id number] 17:15:23* Test Item Value Reference Range Interpretation Comme nts CK (test code = 6134638444) 73 U/L 33-194 Lab Interpretation (test cod e = 96657-2) Normal [facility] HospitalCB WITH [id number] 17:04:44* Test Item Value Reference Range Interpretation Comme nts WBC (test code = 6690-2) See_Comment [Automated Table8[employer] myhomemove] The system which generated this result transmitted reference range: 4.20 - 10.70 10*3/?L. The reference range was not used to interpret this result as normal/abnormal. RBC (test code = 789-8) See_Comment [Automated Table8[employer] myhomemove] The system which generated this result transmitted [...] g/dL 31.2-35.0 H RDW-SD (test code = 79339-3) 37.9 fL 38.5-51.6 L RDW-CV (test code = 788-0) 11.7 % 12.1-15.4 L PLT (test code = 777-3) See_Comment [Automated Table8a ge] The system which generated this result transmitted reference range: 150 - 328 10*3/?L. The reference range was not used to interpret this result as normal/abnormal. MPV (test code = 69310-8) 9.8 fL 9.8-13.0 NRBC/100 WBC (test code = 3821750764) See_Comment [Automated [employer] ssage] The system which generated this result transmitted reference range: 0.0 - 10.0 /100 WBCs. The reference range was not used to interpret this result as normal/abnormal. NRBC x10^3 (test code = 2324459225) <0.01 See_Comment [Automated Table8a ge] The system which generated this result transmitted reference range: 10*3/?L. The reference range was not used to interpret this result as normal/abnormal. GRAN MAT (NEUT) % (test code = 770-8) 59.1 % IMM GRAN % (test code = 5661070292) 0.20 % LYMPH % (test code = 736-9) 29.3 % MONO % (test code = 5905-5) 10.8 % EOS % (test code = 713-8) 0.2 % BASO % (test code = 706-2) 0.4 % GRAN MAT x10^3(ANC) (test code = 5867957247) 3.06 10*3/uL 1.99-6.95 IMM GRAN x10^3 (test code = 2360708988) <0.03 0.00-0.06 LYMPH x10^3 (test code = 731-0) 1.52 10*3/uL 1.09-3.23 MONO x10^3 (test code = 742-7) 0.56 10*3/uL 0.36-1.02 EOS x10^3 (test code = 711-2) <0.03 0.06-0.53 L BASO x10^3 (test code = 704-7) <0.03 0.01-0.09 Lab Interpretation (test code = 86887-4) [facility] (50850)2021-08-06 02:11:29* Test Item Value Reference Range Interpretation Comme nts NA (test code = 6080435419) 140 mmol/L 135-145 K (test code = 9417570039) 4.8 mmol/L 3.5-5.0 CL (test code = 1095092195) 104 mmol/L 98-108 CO2 TOTAL (test code = 7482013728) 28 mmol/L 23-31 AGAP (test code = 1561085383) 2-16 BUN (test code = 8140038556) 21 mg/dL 7-23 GLUCOSE (test code = 5500932762) 111 mg/dL 70-110 H CREATININE (test code = 5544939720) 0.93 mg/dL 0.60-1.25 TOTAL BILI (test code = 7392204049) 0.4 mg/dL 0.1-1.1 CALCIUM (test code = 7472589914) 9.0 mg/dL 8.6-10.6 T PROTEIN (test code = 7817394211) 7.0 g/dL 6.3-8.2 ALBUMIN (test code = 3426107795) 4.3 g/dL 3.5-5.0 ALK PHOS (test code = 0494427243) 51 U/L 34-122 ALTv (test code = 1742-6) 15 U/L 5-50 AST(SGOT) (test code = 0292210765) 25 U/L 13-40 eGFR (test code = 7255579498) mL/min/1.73m2 CHERYL (test code = CHERYL) Association [...] imaging tests). Lab Interpretation (test code = 26574-5) Abnormal [facility] WITH [id number] 02:04:56* Test Item Value Reference Range Interpretation Comme nts WBC (test code = 6690-2) See_Comment [OpenDrive] The system which generated this result transmitted reference range: 4.20 - 10.70 10*3/?L. The reference range was not used to interpret this result as normal/abnormal. RBC (test code = 789-8) See_Comment [OpenDrive] The system which generated this result transmitted [...] 34.2 g/dL 31.2-35.0 RDW-SD (test code = 18676-3) 39.9 fL 38.5-51.6 RDW-CV (test code = 788-0) 12.1 % 12.1-15.4 PLT (test code = 777-3) See_Comment [OpenDrive] The system which generated this result transmitted reference range: 150 - 328 10*3/?L. The reference range was not used to interpret this result as normal/abnormal. MPV (test code = 45690-5) 9.9 fL 9.8-13.0 NRBC/100 WBC (test code = 5464315153) See_Comment [Automated me ssage] The system which generated this result transmitted reference range: 0.0 - 10.0 /100 WBCs. The reference range was not used to interpret this result as normal/abnormal. NRBC x10^3 (test code = 0054785502) <0.01 See_Comment [Automated me ssage] The system which generated this result transmitted reference range: 10*3/?L. The reference range was not used to interpret this result as normal/abnormal. GRAN MAT (NEUT) % (test code = 770-8) 61.1 % IMM GRAN % (test code = 4162033986) 0.50 % LYMPH % (test code = 736-9) 28.5 % MONO % (test code = 5905-5) 8.6 % EOS % (test code = 713-8) 0.8 % BASO % (test code = 706-2) 0.5 % GRAN MAT x10^3(ANC) (test code = 4170912139) 4.73 10*3/uL 1.99-6.95 IMM GRAN x10^3 (test code = 1762842434) 0.04 10*3/uL 0.00-0.06 LYMPH x10^3 (test code = 731-0) 2.21 10*3/uL 1.09-3.23 MONO x10^3 (test code = 742-7) 0.67 10*3/uL 0.36-1.02 EOS x10^3 (test code = 711-2) 0.06 10*3/uL 0.06-0.53 BASO x10^3 (test code = 704-7) 0.04 10*3/uL 0.01-0.09 [facility] HospitalAutomated blood eosinophil count as percentage of total jxwmdcxtvm4374-90-99 01:11:00* Test Item Value Reference Range Interpretation Comme nts Eosinophils (%) (Auto) (test code = 713-8) 2 0-7 [facility] HealthAutomated blood basophil count as percentage of total leukocytes 2019-06-01 01:11:00* Test Item Value Reference Range Interpretation Comme nts Basophils (%) (Auto) (test c ode = 706-2) 1 0-1 [facility] HealthAutomated blood nucleated erythrocyte count as percentage of total zhxzdtmvei3372-10-23 01:11:00* Test Item Value Reference Range Interpretation Comme nts Nucleated Red Blood Cells % (test code = 80732-5) 0.0 0-0.2 [facility] HealthAutomated blood neutrophil count (number/volume)2019-06-01 01:11:00* Test Item Value Reference Range Interpretation Comme nts Neutrophils # (Auto) (test c ode = 751-8) 3.2 1.3-6.7 [facility] HealthAutomated blood immature granulocyte count as percentage of total gbcitdgbwt4291-82-86 01:11:00* Test Item Value Reference Range Interpretation Comme nts Immature Granulocyte # (Auto ) (test code = 70324-9) 0.0 0.0-0.0 [facility] HealthAutomated blood lymphocyte count (number/volume)2019-06-01 01:11:00* Test Item Value Reference Range Interpretation Comme nts Lymphocytes # (Auto) (test c ode = 731-0) 1.4 1.4-4.1 [facility] HealthBlood monocytes automated count (number/volume)2019-06-01 01:11:00* Test Item Value Reference Range Interpretation Comme nts Monocytes # (Auto) (test code = 742-7) 0.6 0-1.3 [facility] HealthAutomated blood eosinophil jiqxf5624-76-25 01:11:00* Test Item Value Reference Range Interpretation [...] = 771-6) 0.00 0-0.01 [facility] comment [id number] 01:11:00* Test Item Value Reference Range Interpretation [...] Carbon Dioxide Level (test c ode = 2027-9) 29 24-33 [facility] HealthSerum or plasma anion [...] Creatinine (test code = 2160-0) 0.8 0.9-1.5 [facility] HospitalGlomerular filtration rate (GFR) estimation/1.73 sq m using serum, plasma, or whole blood creatinine measurement with MDRD equation 2019-06-01 01:11:00* Test Item Value Reference Range Interpretation Comme nts Estimat Glomerular Filtratio n Rate (test code = 59326-9) 115 81-133 [facility] HealthSerum or plasma glucose measurement (mass/volume)2019-06-01 01:11:00* Test Item Value Reference Range Interpretation Comme nts Glucose Level (test code = 2345-7) 83 60-100 [facility] HealthSerum or plasma calcium measurement (mass/volume)2019-06-01 01:11:00* Test Item Value Reference Range Interpretation Comme nts Calcium Level (test code = 67457-4) 8.8 9.1-10.9 [facility] HealthAutomated blood leukocyte count [...] HealthAutomated erythrocyte mean corpuscular hemoglobin concentration measurement (mass/gvk7231-98-18 01:11:00* Test Item Value Reference Range Interpretation Comme nts Mean Corpuscular Hemoglobin Concent (test code = 786-4) 32.4 33.0-37.0 [facility] HealthAutomated erythrocyte distribution width uhkja8146-61-71 01:11:00 * Test Item Value Reference Range Interpretation Comme nts Red Cell Distribution Width (test code = 788-0) 11.7 10.7-14.5 [facility] HealthAutomated blood platelet count (count/volume)2019-06-01 01:11:00 * Test Item Value Reference Range Interpretation Comme nts Platelet Count (test code = 777-3) 246 150-450 [facility] HealthAutomated blood platelet mean volume rqijhrewovd7839-93-81 01:11:00* Test Item Value Reference Range Interpretation Comme nts Mean Platelet Volume (test c ode = 89935-2) 10.1 5.7-10.7 [facility] HealthAutomated blood neutrophil count as percentage of total kkmtsihqbx1911-27-11 01:11:00* Test Item Value Reference Range Interpretation Comme nts Neutrophils (%) (Auto) (test code = 770-8) 60 47-75 [facility] HealthAutomated blood immature granulocyte count as percentage of total jveksvjric0882-90-39 01:11:00* Test Item Value Reference Range Interpretation Comme nts Immature Granulocyte % (Auto ) (test code = 11300-7) 0 0-0 [facility] HealthAutomated blood lymphocyte count as percentage of total knwcqxifqa6631-20-66 01:11:00* Test Item Value Reference Range Interpretation Comme nts Lymphocytes (%) (Auto) (test code = 736-9) 26 25-44 [facility] HealthAutomated blood monocyte count as percentage of total leukocytes 2019-06-01 01:11:00* Test Item Value Reference Range Interpretation Comme nts Monocytes (%) (Auto) (test c ode = 5905-5) 11 3-10 [facility] HealthAutomated blood nucleated erythrocyte count as percentage of total okbllbwkyg6465-38-06 01:11:00* Test Item Value Reference Range Interpretation Comme nts Nucleated Red Blood Cells % (test code = 94359-9) 0.0 Automated blood neutrophil count (number/volume)2019-06-01 01:11:00* Test Item Value Reference Range Interpretation Comme nts Neutrophils # (Auto) (test c ode = 751-8) 3.2 Automated blood immature granulocyte count as percentage of total leukocytes 2019-06-01 01:11:00* Test Item Value Reference Range Interpretation Comme nts Immature Granulocyte # (Auto ) (test code = 39934-4) 0.0 Automated blood lymphocyte count (number/volume)2019-06-01 01:11:00* Test Item Value Reference Range Interpretation Comme nts Lymphocytes # (Auto) (test c ode = 731-0) 1.4 Blood monocytes automated count (number/volume)2019-06-01 01:11:00* Test Item Value Reference Range Interpretation Comme nts Monocytes # (Auto) (test code = 742-7) 0.6 Automated blood eosinophil hseig4469-40-80 01:11:00* Test Item Value Reference Range Interpretation [...] (test code = 771-6) 0.00 Service comment 345603-94-94 01:11:00* Test Item Value Reference Range Interpretation [...] or whole blood creatinine measurement with MDRD kbzdfmfu7074-96-74 01:11:00* Test Item Value Reference Range Interpretation Comme nts Estimat Glomerular Filtratio n Rate (test code = 01009-5) 115 Serum or plasma glucose measurement (mass/volume)2019-06-01 01:11:00* Test Item Value Reference Range Interpretation Comme nts Glucose Level (test code = 2345-7) 83 Serum or plasma calcium measurement (mass/volume)2019-06-01 01:11:00* Test Item Value Reference Range Interpretation Comme nts Calcium Level (test code = 11728-2) 8.8 Automated blood leukocyte count (number/volume)2019-06-01 01:11:00* [...] 34.3 Automated erythrocyte mean corpuscular volume (MCV) boyttbhjapf5069-22-33 01:11:00* Test Item Value Reference Range Interpretation Comme nts Mean Corpuscular Volume (ana luisa t code = 787-2) 93 Automated erythrocyte mean corpuscular hemoglobin (mass per erythrocyte) 2019-06-01 01:11:00* Test Item Value Reference Range Interpretation Comme nts Mean Corpuscular Hemoglobin (test code = 785-6) 30.0 Automated erythrocyte mean corpuscular hemoglobin concentration measurement (mass/sly6394-22-73 01:11:00* Test Item Value Reference Range Interpretation Comme nts Mean Corpuscular Hemoglobin Concent (test code = 786-4) 32.4 Automated erythrocyte distribution width rhvok7272-11-69 01:11:00* Test Item Value Reference Range Interpretation Comme nts Red Cell Distribution Width (test code = 788-0) 11.7 Automated blood platelet count (count/volume)2019-06-01 01:11:00* Test Item Value Reference Range Interpretation Comme nts Platelet Count (test code = 777-3) 246 Automated blood platelet mean volume uuabjpwmwqh1584-30-05 01:11:00* Test Item Value Reference Range Interpretation Comme nts Mean Platelet Volume (test c ode = 77385-5) 10.1 Automated blood neutrophil count as percentage of total qtkfljuoop7266-62-50 01:11:00* Test Item Value Reference Range Interpretation Comme nts Neutrophils (%) (Auto) (test code = 770-8) 60 Automated blood immature granulocyte count as percentage of total leukocytes 2019-06-01 01:11:00* Test Item Value Reference Range Interpretation Comme nts Immature Granulocyte % (Auto ) (test code = 56836-5) 0 Automated blood lymphocyte count as percentage of total rpoheufybe7550-62-14 01:11:00* Test Item Value Reference Range Interpretation Comme nts Lymphocytes (%) (Auto) (test code = 736-9) 26 Automated blood monocyte count as percentage of total faywwggeae0228-82-47 01:11:00* Test Item Value Reference Range Interpretation Comme nts Monocytes (%) (Auto) (test c ode = 5905-5) 11 Automated blood eosinophil count as percentage of total wlmewrxejr2004-47-07 01:11:00* Test Item Value Reference Range Interpretation Comme nts Eosinophils (%) (Auto) (test code = 713-8) 2 Automated blood basophil count as percentage of total vltvysflke6683-24-89 01:11:00* Test Item Value Reference Range Interpretation Comme nts Basophils (%) (Auto) (test c ode = 706-2) 1 Trough vancomycin jjjbs9482-73-14 23:30:00* Test Item Value Reference Range Interpretation Comme nts Vancomycin Level Trough (ana luisa t code = 4092-3) 8.0 10.0-20.0 [facility] lniqo9866-85-75 23:30:00* Test Item Value Reference Range Interpretation Comme nts Vancomycin Level Trough (ana luisa t code = 4092-3) 8.0 Prothrombin time (PT) in platelet poor dnhfza6132-78-82 04:05:00* Test Item Value Reference Range Interpretation Comme nts Prothrombin Time (test code = 5902-2) 10.8 9.4-12.0 [facility] HealthINR in Platelet poor plasma by Coagulation rhjrn1190-47-99 04:05:00* Test Item Value Reference Range Interpretation Comme nts Prothromb Time International Ratio (test code = 6301-6) 1.1 0.8-1.2 [facility] HealthPlasma partial thromboplastin time (PTT)2019-05-28 04:05:00* Test Item Value Reference Range Interpretation Comme nts Activated Partial Thrombopla st Time (test code = 80085-1) 23.6 21.0-33.0 [facility] HealthSerum or plasma total [...] de = 5643-2) < 11 Not Available [facility] HospitalProthrombin time (PT) in platelet poor wpsebp2224-33-84 04:05:00 * Test Item Value Reference Range Interpretation Comme nts Prothrombin Time (test code = 5902-2) 10.8 INR in Platelet poor plasma by Coagulation iqslq2915-85-90 04:05:00* Test Item Value Reference Range Interpretation Comme nts Prothromb Time International Ratio (test code = 6301-6) 1.1 Plasma partial thromboplastin time (PTT)2019-05-28 04:05:00* Test Item Value Reference Range Interpretation Comme nts Activated Partial Thrombopla st Time (test code = 44470-7) 23.6 Serum or plasma total bilirubin measurement [...] Notes Date/Time Note Provider Source 2023-09-30 15:23:12 Cardiology Consultat ion: Patient was seen and examined with resident. [...] his symptoms. Patient was ruled out for GA with negative troponins x3 and an unremarkable EKG. I have a low suspicion for ACS or NSTEMI. He has musculoskeletal chest wall pain. - Recommend ibuprofen 600mg PO TID with food. - Pepcid 20mg PO BID - No further cardiac recs. - WIll sign off. Electronically signed by REGIS HOLT on 1525 [facility] 2023-09-30 10:26:[address] Akers Subjective/Physical Exam Chief Complaint: [...] x3. 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 Strength 5/5. Answers questions appropriately Cranial [...] %CKMB 0.5 CKMB 0.5 TROP-I <0.012 2147 [facility] Radiology BEDCXR 2036 Chemistry SODIUM 139 K+ [...] examined. Electronically signed by REGIS HOLT on 1839 [facility] Discharge Summaries Date/Time Note Provider Source 2023-09-30 16:18:22 1521 T 98.3 HR 75 RR 20 [...] %CKMB 0.5 CKMB 0.5 TROP-I <0.012 2147 [facility] Radiology BEDCXR 2036 Chemistry SODIUM 139 K+ [...] 420 Electronically signed by CYNDEE Marion NP PUBLICITY CONSULTANT on 1619 Electronically signed by RULA KAN on 1318 [facility] History and Physical Notes Date/Time Note Provider Source 2023-09-30 04:48:44 Subjective/Physical Exam C.C. chest pain HPI: 43 y/o [...] %CKMB 0.5 CKMB 0.5 TROP-I <0.012 2148 [facility] Radiology BEDCXR 2036 Chemistry SODIUM 139 K+ [...] Allergies Electronically signed by RULA KAN on 0830 [facility] Notes Date/Time Note Provider Source 2023-12-27 21:02:38 Chest pain ; [facility] PATIENT OPEN ORDERS Code System Description Frequency Occurrences Priority [place] [address]-0 [facility] EKG study ONE TIME 0 Stat September 30, 2023 2:29:00 AM [facility] HAMMONDS-GRICELDA [id number] on September 30, 2023 2:29:00 AM [facility] SCHEDULED PROCEDURES Code System Description Status Scheduled Date Updated By Patient scheduled procedure information is not available. 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 Role on Team Status Start Date End Date Update d By ROSALBA SANTIAGO Attending normal September 30, 2023 6:30:57 AM [facility] September 29, 2023 6:00:00 AM [facility] [id number] on September 30, 2023 6:30:57 AM [facility] ROSALBA SANTIAGO Admitting normal September 30, 2023 6:30:57 AM [facility] September 29, 2023 6:00:00 AM [facility] [id number] on September 30, 2023 6:30:57 AM [facility] REGIS HOLT Consulting normal September 30 3:43:31 AM [facility] October 01, 2023 12:42:00 AM [facility] [id number] on September 30, 2023 6:30:57 AM [facility] NO PCP PCP normal September 30 3:38:54 AM [facility] September 30, 2023 3:49:01 AM [facility] [id number] on September 30, 2023 6:30:57 AM [facility] NO PCP Referring normal September 30 3:38:54 AM [facility] September 29, 2023 6:00:00 AM [facility] [id number] on September 30, 2023 6:30:57 AM [facility] ANDREW RODRIGUEZ Attending normal September 30, 2023 3:38:54 AM [facility] September 30, 2023 3:49:01 AM [facility] [id number] on September 30, 2023 6:30:57 AM [facility] ANDREW RODRIGUEZ Admitting normal September 30, 2023 3:38:54 AM [facility] September 30, 2023 3:49:01 AM [facility] [id number] on September 30, 2023 6:30:57 AM [facility]2024-04-14 10:43:29 Patient discharged to home. Patient given printed [...] with steady gait in no apparent distress. [id number] 10:30:08 Sinus congestion x1 week. Thinks he has a sinus infection. Mirela Flor RNUTMB - [id number] 10:16:00 [facility] Emergency Department Note Patient Name: Severo Diop Date of : 1980 43 year old male Treatment Room: [facility] ED RTA JOSE/MATTYIKE Primary Care Physician: [facility] Patient Escorted by: Family [5] Mode of Arrival: Personal means [1] EMS Treatment Prior to ED Arrival: Travel and Exposure Screening: Symptoms Does patient have any of these symptoms?: (not recorded) Exposure Screening Has patient had contact with someone with a communicable disease in the last month?: (not recorded) Diseases exposed to:: (not recorded) Is Patient ?: (not recorded) Exposure Date: (not recorded) Chief Complaint: Chief Complaint Patient presents with Sinus Problem History of Present Illness: The patient presents from home for evaluation for [...] which has been helping with his pain. Here for evaluation. Past Medical History/Immunizations: History reviewed. No pertinent past medical history. Allergies: No Known Allergies Past Social History: Substance & Sexual Activity No substance use or sexual activity history on file. Past Surgical History: History reviewed. No pertinent surgical history. Review of Systems: Review of Systems Constitutional: Negative for chills and fever. HENT: Positive for dental problem. Respiratory: Negative for cough and shortness of breath. Cardiovascular: Negative for chest pain. Gastrointestinal: Negative for abdominal pain and vomiting. Genitourinary: Negative for dysuria. Musculoskeletal: Negative for arthralgias, neck pain and neck stiffness. Skin: Negative for wound. Neurological: Negative for dizziness. Psychiatric/Behavioral: Negative for agitation. Endocrine: Negative for goiter. Physical Exam: ED Triage Vitals [11/27/23 1030] Weight 59 kg (130 lb) Actual or estimated Estimated by patient/family report Height 1.753 m (5' 9") BP 115/84 Pulse 71 Resp 18 Temp 37.3 ?C (99.1 ?F) Temp source Oral SpO2 97 % Measured on Room air Physical Exam Vitals and nursing note reviewed. Constitutional: Appearance: Normal appearance. HENT: Head: Normocephalic and atraumatic. Mouth/Throat: Dentition: Abnormal dentition. Dental caries present. Comments: Missing all of his molars to the upper and lower jaw. His upper incisors bilaterally are in various stages of decay and are tender with palpation. Cardiovascular: Rate and Rhythm: Normal rate and regular rhythm. Pulses: Normal pulses. Pulmonary: Effort: Pulmonary effort is normal. No respiratory distress. Abdominal: General: There is no distension. Musculoskeletal: General: Normal range of motion. Cervical back: Normal range of motion and neck supple. Skin: General: Skin is warm and dry. Neurological: Mental Status: He is alert. Radiology: No orders to display Lab Results: Lab Results - No data to display EKG: If EKG completed, see Procedure Note. Orders and Treatments: No orders of the defined types were placed in this encounter. Orders Placed This Encounter Medications amoxicillin 875 mg tablet First Provider Eval: ED Events Date/Time Event User Comments 11/27/23 1019 Medical Screening Begins AMANDA RAYMOND DO -- 11/27/23 1019 First Provider Evaluation AMANDA RAYMOND DO -- ED COURSE Diagnosis/Impression as of 11/27/23 1040 Dental infection Procedures: Procedures MDM: Medical Decision Making The patient presents for evaluation for dental pain for the past 1 week. He denies any injury or trauma. No fevers or chills. No cough or URI symptoms. He does smoke cigarettes. No history of diabetes. He did use some ibuprofen earlier today which has been helping with his pain. He is also used multiple antibiotics that he had at home without much help. Vital signs are stable in the ER. He has poor dentition and is missing all of his molars. His incisors to the upper area bilaterally are in severe decay and are tender with palpation. Will treat with antibiotics. Recommend he follow-up with a dentist in 1 week and he stop smoking. He remained stable here in the ER and is okay for discharge home with PCP follow-up. Problems Addressed: Dental infection: acute illness or injury Risk OTC drugs. Prescription drug management. Flowsheet Documentation: Scoring Tools: No data recorded Disposition/Condition: ED Disposition ED Disposition Disch - Home Condition Stable Comment -- Discharge Medications: Patient's Medications START taking these medications AMOXICILLIN 875 MG TABLET Take 1 tablet by mouth in the morning and 1 tablet in the evening. Do all this for 7 days. CONTINUE taking these medications which have NOT CHANGED No medications on file START taking Modified Medications as Prescribed No medications on file STOP taking these medications IBUPROFEN 800 MG TABLET Take 1 tablet by mouth every 8 (eight) hours as needed for Pain (scale 4-6). KETOROLAC 10 MG TABLET Take 1 tablet by mouth every 6 (six) hours as needed for Pain (scale 4-6). ONDANSETRON (ZOFRAN ODT) 4 MG DISINTEGRATING TABLET Take 1 tablet by mouth every 8 (eight) hours as needed for Nausea and Vomiting (N/V). TAMSULOSIN 0.4 MG 24 HR CAPSULE Take 1 capsule by mouth at bedtime. Follow-up: Electronically signed by: Amanda Raymond DO 11/27/23 1040 [facility]2024-02-29 20:33:24 PATIENT OPEN ORDERS Code System Description Frequency Occurrences Priority Start [place] [address]-6 [facility] EKG study ONE TIME 0 Stat October 10, 2023 6:11:00 AM [facility] AMERICA ROBERTS [email or web address] on October 10, 2023 6:11:00 AM [facility] SCHEDULED PROCEDURES Code System Description Status Scheduled Date Updated By Patient scheduled procedure information is not available. [facility]2024-02-29 20:33:24 CARE camp director Role on Team Status Start Date End Date Update d By NO PCP PCP normal October 10 6:33:41 AM [facility] October 10, 2023 10:39:00 AM [place] [id number] on October 10, 2023 6:33:41 AM [facility] NO PCP Referring normal October 10 6:33:41 AM [facility] October 10, 2023 10:39:00 AM [place] [id number] on October 10, 2023 6:33:41 AM [facility] AMERICA ROBERTS Attending normal October 10 6:33:41 AM [facility] October 10, 2023 10:39:00 AM [place] [id number] on October 10, 2023 6:33:41 AM [facility] AMERICA ROBERTS Admitting normal October 10 6:33:41 AM UTC October 10, 2023 10:39:00 AM UTC [id number] on October 10, 2023 6:33:41 AM UTC [facility]2024-02-28 20:19:57 PATIENT OPEN ORDERS Code System Description Frequency Occurrences Priority [place] [address]-8 [facility] EKG study ONE TIME 0 Stat October 10, 2023 6:11:00 AM UTC AMERICA ROBERTS [email or web address] on October 10, 2023 6:11:00 AM UTC SCHEDULED PROCEDURES Code System Description Status Scheduled Date Updated By Patient scheduled procedure information is not available. [facility]2024-02-28 20:19:57 CARE camp director Role on Team Status Start Date End Date Update d By NO PCP PCP normal October 10 6:33:41 AM UTC October 10, 2023 10:39:00 AM UTC [id number] on October 10, 2023 6:33:41 AM UTC NO PCP Referring normal October 10 6:33:41 AM UTC October 10, 2023 10:39:00 AM UTC [id number] on October 10, 2023 6:33:41 AM UTC AMERICA ROBERTS Attending normal October 10 6:33:41 AM UTC October 10, 2023 10:39:00 AM UTC [id number] on October 10, 2023 6:33:41 AM UTC AMERICA ROBERTS Admitting normal October 10 6:33:41 AM UTC October 10, 2023 10:39:00 AM UTC [id number] on October 10, 2023 6:33:41 AM UTC [facility]2024-02-27 21:26:24 PATIENT OPEN ORDERS Code System Description Frequency Occurrences Priority [place] [address]-4 LOINC EKG study ONE TIME 0 Stat October 10, 2023 6:11:00 AM UTC [place] [id number] on October 10, 2023 6:11:00 AM UTC SCHEDULED PROCEDURES Code System Description Status Scheduled Date Updated By Patient scheduled procedure information is not available. [facility]2024-02-27 21:26:24 CARE camp director Role on Team Status Start Date End Date Update d By NO PCP PCP normal October 10 6:33:41 AM UTC October 10, 2023 10:39:00 AM UTC [id number] on October 10, 2023 6:33:41 AM UTC NO PCP Referring normal October 10 6:33:41 AM UTC October 10, 2023 10:39:00 AM UTC [id number] on October 10, 2023 6:33:41 AM UTC [place]ERTS Attending normal October 10 6:33:41 AM UTC October 10, 2023 10:39:00 AM UTC [id number] on October 10, 2023 6:33:41 AM UTC AMERICA ROBERTS Admitting normal October 10 6:33:41 AM UTC October 10, 2023 10:39:00 AM UTC [id number] on October 10, 2023 6:33:41 AM UTC [facility]2024-02-26 04:40:17 PATIENT OPEN ORDERS Code System Description Frequency Occurrences Priority Start [place] [address]-9 [facility] EKG study ONE TIME 0 Stat October 10, 2023 6:11:00 AM UTC [place] [email or web address] on October 10, 2023 6:11:00 AM UTC SCHEDULED PROCEDURES Code System Description Status Scheduled Date Updated By Patient scheduled procedure information is not available. [facility]2024-02-26 04:40:17 CARE camp director Role on Team Status Start Date End Date Update d By NO PCP PCP normal October 10 6:33:41 AM UTC October 10, 2023 10:39:00 AM UTC [id number] on October 10, 2023 6:33:41 AM UTC NO PCP Referring normal October 10 6:33:41 AM UTC October 10, 2023 10:39:00 AM UTC [id number] on October 10, 2023 6:33:41 AM UTC AMERICA ROBERTS Attending normal October 10 6:33:41 AM UTC October 10, 2023 10:39:00 AM UTC [id number] on October 10, 2023 6:33:41 AM UTC AMERICA ROBERTS Admitting normal October 10 6:33:41 AM UTC October 10, 2023 10:39:00 AM UTC [id number] on October 10, 2023 6:33:41 AM [facility]2024-02-26 01:33:[address] [address] DIAGNOSTIC IMAGING REPORT Patient Name: SEVERO DIOP Date of Service: 10-10-2023 Age: 43 Sex: M Order #: [id number] Room: [facility] : 1980 X-Ray Number: [id number] Hospital Number: [id number] Admitting Physician: ALEJANDRA CROSS Ordering Physician: ALEJANDRA CROSS PROCEDURE: CHEST 1 VIEW PORTABLE INDICATIONS: dx: chest painpt stS: c/o chest pain x 10-15 days. Was admitted and got discharge 09/30, still having chest pain. Pain is sharp and radiates down armno hx of chest surg denies chest pathology psv: ladi shielded Single-view chest Comparison: 09/29/2023 Findings: Normal cardiac silhouette and pulmonary vasculature. No acute congestion, infiltrate or effusion. Mild pulmonary hyperinflation bilaterally. Intact skeletal structures. No pneumothorax. Impression: No acute cardiopulmonary pathology. This document has been electronically signed by: Bryant Wilkinson III, MD on 10/10/2023 01:33:00 Legally authenticated by MINH POWELL 2023-10-10 01:33:00OREN WILKINSON [id number] 07:13:37Chest pain ;[facility]2024-02-20 07:13:37 PATIENT OPEN ORDERS Code System Description Frequency Occurrences Priority Start [place] [address]-1 LOINC EKG study ONE TIME 0 Stat September 30, 2023 2:29:00 AM [facility] BART HAMMONDS-GRICELDA [id number] on September 30, 2023 2:29:00 AM [facility] 14236-3 LOINC EKG study IN AM 1 Routine September 30, 2023 9:00:00 AM [facility] SETH ALDRICH on September 30, 2023 3:43:00 AM [facility] SCHEDULED PROCEDURES Code System Description Status Scheduled Date Updated By Patient scheduled procedure information is not available. [facility]2024-02-20 07:13:37PATIENT GOALS [facility]2024-02-20 07:13:37 CARE camp director Role on Team Status Start Date End Date Update d By ROSALBA SANTIAGO Attending normal September 30, 2023 6:30:57 AM UTC September 29, 2023 6:00:00 AM UTC [id number] on September 30, 2023 6:30:57 AM UTC ROSALBA SANTIAGO Admitting normal September 30, 2023 6:30:57 AM UTC September 29, 2023 6:00:00 AM UTC [id number] on September 30, 2023 6:30:57 AM UTC PATRI YANET Consulting normal September 30 3:43:31 AM UTC October 01, 2023 12:42:00 AM UTC [id number] on September 30, 2023 6:30:57 AM [facility] NO PCP PCP normal September 30 3:38:54 AM UTC September 30, 2023 3:49:01 AM UTC [id number] on September 30, 2023 6:30:57 AM [facility] NO PCP Referring normal September 30 3:38:54 AM UTC September 29, 2023 6:00:00 AM UTC [id number] on September 30, 2023 6:30:57 AM UTC ANDREW RODRIGUEZ Attending normal September 30, 2023 3:38:54 AM UT September 30, 2023 3:49:01 AM UTC [id number] on September 30, 2023 6:30:57 AM UTC ANDREW RODRIGUEZ Admitting normal September 30, 2023 3:38:54 AM UTC September 30, 2023 3:49:01 AM UTC [id number] on September 30, 2023 6:30:57 [facility] 18:02:32Chest pain ;[facility]2024-02-19 18:02:32 PATIENT OPEN ORDERS Code System Description Frequency Occurrences Priority Start [place] [address]-6 LOINC EKG study ONE TIME 0 Stat September 30, 2023 2:29:00 AM [facility] BART HAMMONDS-GRICELDA [id number] on September 30, 2023 2:29:00 AM [facility] 64979-7 LOINC EKG study IN AM 1 Routine September 30, 2023 9:00:00 AM UTC SETH ALDRICH on September 30, 2023 3:43:00 AM UTC SCHEDULED PROCEDURES Code System Description Status Scheduled Date Updated By Patient scheduled procedure information is not available. [facility]2024-02-19 18:02:32PATIENT GOALS [facility]2024-02-19 18:02:32 CARE camp director Role on Team Status Start Date End Date Update d By ROSALBA SANTIAGO Attending normal September 30, 2023 6:30:57 AM UTC October 01, 2023 12:42:00 AM UTC [place] on September 30, 2023 6:30:57 AM UTC ROSALBA SANTIAGO Admitting normal September 30, 2023 6:30:57 AM UTC October 01, 2023 12:42:00 AM UTC [facility] on September 30, 2023 6:30:57 AM UTC REGIS HOLT Consulting normal September 30 3:43:31 AM UTC October 01, 2023 12:42:00 AM UTC [place] on September 30, 2023 6:30:57 AM UTC NO PCP PCP normal September 30 3:38:54 AM UTC September 30, 2023 3:49:01 AM UTC [place] on September 30, 2023 6:30:57 AM UTC NO PCP Referring normal September 30 3:38:54 AM UTC October 01, 2023 12:42:00 AM UTC [place] on September 30, 2023 6:30:57 AM UTC ANDREW RODRIGUEZ Attending normal September 30, 2023 3:38:54 AM UTC September 30, 2023 3:49:01 AM UTC [facility] on September 30, 2023 6:30:57 AM UTC ANDREW RODRIGUEZ Admitting normal September 30, 2023 3:38:54 AM UTC September 30, 2023 3:49:01 AM UTC [place] on September 30, 2023 6:30:57 AM UTC [facility]2024-02-16 21:02:32Chest pain ;[facility]2024-02-16 21:02:32 PATIENT OPEN ORDERS Code System Description Frequency Occurrences Priority [place] [address]-9 [facility] EKG study ONE TIME 0 Stat September 30, 2023 2:29:00 AM [facility] BART HAMMONDS-[employer]ANT [id number] on September 30, 2023 2:29:00 AM [facility] 63292-4 [facility] EKG study IN AM 1 Routine September 30, 2023 9:00:00 AM [facility] SETH ALDRICH on September 30, 2023 3:43:00 AM [facility] 43136-0 [facility] Basic metabolic 2000 panel - Serum or Plasma IN AM 0 Routine October 01, 2023 9:00:00 AM [facility] XINTAVELONI S LORETA [id number] on September 30, 2023 8:31:00 PM [facility] 93065-3 [facility] Basic metabolic 2000 panel - Serum or Plasma IN AM 0 Routine October 02, 2023 9:00:00 AM [facility] XINTAVELONI S LORETA [id number] on September 30, 2023 8:31:00 PM [facility] 09389-4 [facility] Basic metabolic 2000 panel - Serum or Plasma IN AM 0 Routine October 03, 2023 9:00:00 AM [facility] XINTAVELONI S LORETA [id number] on September 30, 2023 8:31:00 PM [facility] 99186-6 INC CBC W Auto Differential panel - Blood IN AM 0 Routine October 01, 2023 9:00:00 AM [facility] XINTAVELONI S LORETA [id number] on September 30, 2023 8:31:00 PM [facility] 63980-4 LOINC CBC W Auto Differential panel - Blood IN AM 0 Routine October 02, 2023 9:00:00 AM [facility] XINTAVELONI S LORETA [id number] on September 30, 2023 8:31:00 PM [facility] 25375-9 INC CBC W Auto Differential panel - Blood IN AM 0 Routine October 03, 2023 9:00:00 AM [facility] XINTAVELONI S LORETA [id number] on September 30, 2023 8:31:00 PM [facility] SCHEDULED PROCEDURES Code System Description Status Scheduled Date Updated By Patient scheduled procedure information is not available. [facility]2024-02-16 21:02:32PATIENT GOALS [facility]2024-02-16 21:02:32 CARE camp director Role on Team Status Start Date End Date Update d By ROSALBA SANTIAGO Attending normal September 30, 2023 6:30:57 AM UTC October 01, 2023 12:42:00 AM UTC [place] on September 30, 2023 6:30:57 AM UTC ROSALBA SANTIAGO Admitting normal September 30, 2023 6:30:57 AM UTC October 01, 2023 12:42:00 AM UTC [place] on September 30, 2023 6:30:57 AM UTC ELOYRI YANET Consulting normal September 30 3:43:31 AM UTC October 01, 2023 12:42:00 AM UTC [facility] on September 30, 2023 6:30:57 AM UTC NO PCP PCP normal September 30 3:38:54 AM UTC September 30, 2023 3:49:01 AM UTC [facility] on September 30, 2023 6:30:57 AM UTC NO PCP Referring normal September 30 3:38:54 AM UTC October 01, 2023 12:42:00 AM UTC [place] on September 30, 2023 6:30:57 AM UTC ANDREW RODRIGUEZ Attending normal September 30, 2023 3:38:54 AM UTC September 30, 2023 3:49:01 AM UTC [place] on September 30, 2023 6:30:57 AM UTC ANDREW RODRIGUEZ Admitting normal September 30, 2023 3:38:54 AM UTC September 30, 2023 3:49:01 AM UTC [place] on September 30, 2023 6:30:57 AM UTC [facility]2024-02-15 21:47:15[place] [address] DIAGNOSTIC IMAGING REPORT Patient Name: SEVERO DIOP Date of Service: 09-29-2023 Age: 43 Sex: M Order #: [id number] Room: [facility] : 1980 X-Ray Number: [id number] Hospital Number: [id number] Admitting Physician: JENNIFER MORALES Ordering Physician: JENNIFER MORALES PROCEDURE: CHEST 1 VIEW PORTABLE INDICATIONS: dx: chest wall pain pt sts: c/o left chest wall pain onset 3 days agonohapsv: jtt 1 view chest x-ray Comparison: None Findings: No consolidation or effusion. Heart size is normal. No acute fracture. IMPRESSION: 1. No acute findings. This document has been electronically signed by: Ba Fontaine MD on 09/29/2023 21:47:15 Legally authenticated by DONOVAN SHUKLA 2023-09-29 21:47:15[facility] FONTAINE 2023-03-31 22:28:00 [facility]) EMERGENCY PROVIDER REPORT REPORT#:[id number] REPORT STATUS: Signed DATE:03/31/23 TIME:2227 PATIENT: SEVERO DIOP UNIT #: [id number] ROOM/BED: : [birth year] AGE: 42 SEX: M PCP PHYS: DOES_NOT KNOW SERVICE AUTHOR: Walter Salinas MD * ALL edits or amendments must be made on the electronic/computer document * HPI-General Illness Free Text HPI Notes Free Text HPI Notes 42-year-old 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 Patient states that the symptoms started after eating [employer]. Patient states that he has been without methamphetamine for the past 2 days. Denies vomiting, chest pain, abdominal pain, severe headache, diarrhea, fever General Initial Greet Date/Time 03/31/232227 Presentation Chief Complaint __ (dizziness) Review of Systems ROS Statements All systems rev neg except as marked. Past Medical History - Adult Stated Complaint POSS FOOD POISON-LIGHT HEADED, CONFUSION Allergies Coded Allergies: No Known Allergies (03/31/23) Physical Exam Vital Signs Vital Signs First Documented: Result Date Time Pulse Ox 99 03/31 2231 B/P 149/94 03/31 2231 B/P Mean 112 03/31 2231 O2 Delivery Room air 03/31 2231 Temp 37.0 03/31 2231 Pulse 84 03/31 2231 Resp 18 03/31 2231 Last Documented: Result Date Time Pulse Ox 99 03/31 2231 B/P 149/94 03/31 2231 B/P Mean 112 03/31 2231 O2 Delivery Room air 08/17 2231 Temp 37.0 03/31 2231 Pulse 84 03/31 2231 Resp 18 03/31 2231 Review of Vital Signs Reviewed Free Text PE Notes Free Text PE Notes PHYSICAL EXAM: Vital Signs Reviewed. General: Awake, Alert Neuro: No gross deficits, cranial nerves II through XII intact/no focal deficit HEENT: Normocephalic, PERRLA Cardiovascular: RRR Respiratory: No Stridor, Breathing Comfortably, Lungs CTAB Abdomen: Non-Tender, Non-Distended Extremities: No gross deformities. Skin: No Petechiae Interpretation Diagnostics Lab Results Interpretation Results Laboratory Tests 03/31/232243: [Embedded Image Not Available] Laboratory Tests: 03/31 2244 Chemistry Sodium (134 - [...] % (Auto) (20.5 - 51.1 %) 42.5 [place] % (Auto) (1.7 - 9.3 %) 12.7 H Eos % (Auto) (0.0 - 6.0 %) 1.6 Baso % (Auto) (0.0 - 2.0 %) 0.9 Neut # (Auto) (1.8 - 7.6 K/mm3) 1.9 Lymph # (Auto) (0.6 - 3.0 K/mm3) 1.9 [place] # (Auto) (0.2 - 1.5 K/mm3) 0.6 Eos # (Auto) (0.0 - 0.4 K/mm3) 0.1 Baso # (Auto) (0.0 - 0.2 K/mm3) 0.0 Abs Immat Gran (auto) (0.00 - 0.03 x10 3/uL) 0.01 Add Manual Diff (CRITERIA DIFF/SCN) NO Immature Gran % (0.0 - 5.0 %) 0.2 Nucleated RBC % (0.0 - 1.0 /100WBC%) 0.0 Re-Evaluation MDM Free Text MDM Notes Additional Text Suspect methamphetamine withdrawal, will obtain labs and screening EKG to ensure and rule out arrhythmia, anemia, renal failure. IV fluids in case of potential dehydration Independent EKG INTERPRETATION by Dr Walter Salinas MD Time at Intrepretation:2242 Rhythm: Normal Sinus Segments: Normal appeareance Rate: normal QRS: normal QTC: normal Interpretation: - NSR - No characterstics concerning for ischemia Re-exam after fluids, pt playing on smartphone, pt states symptoms resolved Ruled Out: Anemia, renal failure, hypokalemia ED Course Medication(s) Ordered Medication(s) Ordered: Electrolytic, Caloric, And Jenny Sig/Felisa Start time Last Medication Dose Route Stop Time Status Admin Sodium Chloride 1,000 ML X1ED STA 03/31 2231 AC 03/31 IV 03/31 Patient Discharge Departure Vital Signs/Condition Vital Signs First Documented: Result Date Time Pulse Ox 99 [...] of this entry have been reviewed. Clinical Impression Clinical Impression Primary Impression: Dehydration Secondary Impressions: Lightheadedness Disposition Decision Discharge )( Discharged to Home Yes )( Time 2324 )( Date 03/31/23 Discharge/Care Plan Patient Instructions ED Dehydration (Adult) Additional Instructions Please follow up with your primary care doctor within the week. If you do not have a primary care doctor, please call and make the earliest appointment for: Dr Ceci Rdz [id number] [facility] [place] [id number] [email or web address] if your symptoms worsen or you develop any new concerning symptoms at 2325 RPT #: [id number] END OF [id number] 06:02:28 Pt given printed and verbal discharge instructions regarding toothache, encouraged hydration. Prescriptions provided. Discussed ibuprofen and to take with food to avoid GI distress. Discussed antibiotic therapy and to take until all completed unless adverse reaction occurs - if occurs, discontinue medication and follow up with pcp/seek medical attention. Pt verbalized understanding of instructions, pt awake alert oriented, resp reg unlabored, skin w/d,color appropriate for race, moves all ext well,pt encouraged to follow up with pcp and or dentist. Advised to seek medical attention for new/prolonged/worsening of symptoms. No adverse reaction to meds given in ER noted upon discharge. Awake, alert oriented, resp reg unlabored, skin w/d, pt leaving amb with steady gait, in no apparent distress. [id number] 05:27:03 Patient came in with complaints of right upper toothache since last night and it woke him up from sleep 45 mins ago. Patient said that he took BC Powder last night and today morning before he got here but no relief. [facility] [place][NOTE 3] Vicki Daniel RNSt. Anthony's [id number] 05:19:00 [facility] Emergency Department Note Patient Name: Severo Diop Date of : 1980 42 year old male Treatment Room: [place] [address] Primary Care Physician: [facility] Patient Escorted by: Self [9] Mode of Arrival: Personal means [1] EMS Treatment Prior to ED Arrival: Travel and Exposure Screening: Symptoms Does patient have any of these symptoms?: (not recorded) Exposure Screening Has patient had contact with someone with a communicable disease in the last month?: (not recorded) Diseases exposed to:: (not recorded) Is Patient ?: (not recorded) Exposure Date: (not recorded) Chief Complaint: Chief Complaint Patient presents with Tooth Pain Right upper History of Present Illness: Severo Diop is a 42 year old male who presents to the ED for evaluation of toothache that began last HS.Pty took BC powder alst HS for same and again this AM. No fever. No facial swelling. Has throbbing Dental Problem Location: Upper Upper teeth location: 2/RU 2nd molar Quality: Aching Severity: Severe Onset quality: Gradual Duration: 1 day Timing: Sporadic Progression: Worsening Chronicity: New Context: dental caries and poor dentition Context: not abscess, cap still on, not crown fracture, not dental fracture, not enamel fracture, filling intact, not intrusion, not malocclusion, not recent dental surgery and not trauma Relieved by: None tried Worsened by: Nothing Ineffective treatments: None tried Associated symptoms: no congestion, no difficulty swallowing, no drooling, no facial pain, no facial swelling, no fever, no gum swelling, no headaches, no neck pain, no neck swelling, no oral bleeding, no oral lesions and no trismus Risk factors: lack of dental care Past Medical History/Immunizations: EX-Methamphetamine Abuse Allergies: No Known Allergies Past Social History: Substance & Sexual Activity No substance use or sexual activity history on file. Past Surgical History: ORIF Left Forearm Skin Garft to Scalp Review of Systems: Review of Systems Constitutional: Negative. Negative for fever. HENT: Positive for dental problem. Negative for congestion, drooling, facial swelling and mouth sores. Eyes: Negative. Respiratory: Negative. Breasts: Negative. Cardiovascular: Negative. Genitourinary: Negative. Musculoskeletal: Negative. Negative for neck pain. Skin: Negative. Neurological: Negative. Negative for headaches. Psychiatric/Behavioral: Negative. All other systems reviewed and are negative. Endocrine: Endocrine negative Physical Exam: ED Triage Vitals [03/21/23 0528] Weight 59 kg (130 lb) Actual or estimated Estimated by patient/family report Height 1.753 m (5' 9") BP 133/88 Pulse 83 Resp 15 Temp 36.8 ?C (98.2 ?F) Temp source Oral SpO2 98 % Measured on Room air Physical Exam Vitals and nursing note reviewed. Constitutional: General: He is not in acute distress. Appearance: Normal appearance. He is well-developed and normal weight. He is not ill-appearing, toxic-appearing or diaphoretic. HENT: Head: Normocephalic and atraumatic. Nose: Nose normal. Mouth/Throat: Mouth: Mucous membranes are moist. Pharynx: Oropharynx is clear. Comments: Poor oral dentition with cavities/caries Eyes: General: No scleral icterus. Right eye: No [...] Content: Thought content normal. Judgment: Judgment normal. Radiology: No orders to display Lab Results: Lab Results - No data to display Orders and Treatments: No orders of the defined types were placed in this encounter. Orders Placed This Encounter Medications ibuprofen (IBU) tablet 800 mg clindamycin 300 mg capsule ibuprofen 800 mg tablet First Provider Eval: ED Events Date/Time Event User Comments 03/21/23536 Medical Screening Begins MENG MÁRQUEZ MD -- 03/21/23536 First Provider Evaluation MENG MÁRQUEZ MD -- No notes of EC Admission Criteria type on file. ED COURSE Diagnosis/Impression as of 03/21/23 0551 Toothache Procedures: Procedures MDM: Medical Decision Making Severo Diop is a 42 year old male who presents to the ED with toothache Risk Prescription drug management. Flowsheet Documentation: Scoring Tools: No data recorded Disposition/Condition: ED Disposition ED Disposition Disch - Home Condition Stable Comment -- Discharge Medications: Patient's Medications START taking these medications CLINDAMYCIN 300 [...] tablet by mouth every 8 (eight) hours asneeded for Nausea and Vomiting (N/V). TAMSULOSIN 0.4 MG 24 HR CAPSULE Take 1 capsule by mouth at bedtime. START taking Modified Medications as Prescribed No medications on file STOP taking these medications No medications on file Follow-up: Contact information for follow-up Center, [facility] Medical Relationship: PCP - General [address] [facility] [id number] Electronically signed by: Meng Márquez MD 03/21/[address] [facility]
[2024-04-06] MEDS ORDERED: FLUORESCEIN SODIUM 1 MG/WRAP ONE (21:50)
[2024-04-06] MEDS ORDERED: TETRACAINE HCL 0.5% 4ML OPTH ONE (21:50)
--- NOTE | 2024-04-06 22:45 | EDPHYS ---
Physician Documentation [facility] Name: Severo Morgan Age: 43 yrs Sex: Male : 1980 Arrival Date: 04/06/2024 Time: 21:20 Bed 18 Private MD: ED Physician Isaac Pinedo HPI: 04/06 21:27 This 43 yrs old Male presents to ER via Unassigned with complaints of Eye sp4 Swelling. 21:51 Patient presents with acute left eye discomfort and redness starting yesterday. . sp4 Historical: - Allergies: 21:38 No Known Allergies; tm6 - PMHx: 21:38 None; tm6 - PSHx: 21:38 skin graft; tm6 - Immunization history:: Client reports receiving the 2nd dose of the Covid vaccine. - Infectious Disease History:: Denies. - Social history:: Smoking status: Patient reports the use of cigarette tobacco products, smokes one-half pack cigarettes per day, Patient/guardian denies using alcohol. Vital Signs: 21:36 BP 126 / 81; Pulse 75; Resp 18; Temp 98(O); Pulse Ox 99% on R/A; Weight 68.04 kg; tm6 Height 5 ft. 9 in. ; Pain 0/10; 22:45 BP 123 / 79; Pulse 68; Resp 15; Temp 98.2; Pulse Ox 99% ; me1 21:36 Body Mass Index 22.15 (68.04 kg, 175.26 cm) tm6 21:36 Pain Scale: Adult tm6 MDM: 21:41 Patient medically screened. sp4 04/06 21:50 Order name: Eye Tray; Complete Time: 21:58 sp4 04/06 21:50 Order name: Fluoresene Opth strip; Complete Time: 21:58 sp4 Administered Medications: 22:36 Drug: Tetracaine Ophthalmic Drops 0.5 % 1 drops Ophthalmic once Route: Ophthalmic; me1 Site: right eye; 22:45 Follow up: Response: No adverse reaction me1 Disposition Summary: 04/06/24 22:44 Discharge Ordered Notes: Location: Home sp4 Problem: new sp4 Symptoms: have improved sp4 Condition: Stable sp4 Diagnosis - Acute left corneal abrasion, acute left eye conjunctivitis sp4 Followup: sp4 - With: Praveen Ly MD - When: 7 - 10 days - Reason: Recheck today's complaints Discharge Instructions: - Discharge Summary Sheet sp4 - Corneal Abrasion, [id number] sp4 Forms: - Patient Portal Instructions sp4 Prescriptions: - tobramycin 0.3 % Ophthalmic drops - instill 2 drop OPHTHALMIC route every 6 hours for 7 days 2 drops into left eye sp4 every 6 hours for 7 days; 5 milliliter; Refills: 0, Product Selection Permitted Signatures: Isaac Pinedo MD MD sp4 Kerrie Jorgensen, RN RN me1 Luis Coronado RN RN tm6
--- NOTE | 2024-04-06 22:45 | ER ---
Nurse's Notes [facility] Name: Severo Morgan Age: 43 yrs Sex: Male : 1980 Arrival Date: 04/06/2024 Time: 21:20 Bed 18 Private MD: Diagnosis: Acute left corneal abrasion, acute left eye conjunctivitis Presentation: 04/06 21:36 Chief complaint: Patient states: Starting 3-4 days ago, left eyes started watering, tm6 over a few hours it became red, swollen, and itchy. Right eye is starting to water. Coronavirus screen: Vaccine status: Patient reports receiving the 2nd dose of the covid vaccine. Ebola Screen: Patient negative for fever greater than or equal to 101.5 degrees Fahrenheit, and additional compatible Ebola Virus Disease symptoms Patient denies exposure to infectious person. Patient denies travel to an Ebola-affected area in the 21 days before illness onset. No symptoms or risks identified at this time. Initial Sepsis Screen: Does the patient meet any 2 criteria? No. Patient's initial sepsis screen is negative. Does the patient have a suspected source of infection? No. Patient's initial sepsis screen is negative. Risk Assessment: Do you want to hurt yourself or someone else? Patient reports no desire to harm self or others. Onset of symptoms was April 03, 2024. 21:36 Method Of Arrival: Ambulatory tm6 21:36 Acuity: FRANK[place] 4 tm6 Triage Assessment: 21:38 General: Appears uncomfortable, Behavior is calm, cooperative. Pain: Denies pain. EENT: tm6 Eyes are tearing on right eye and left eye under left eye swollen, left eye red. Reports left eye itching. Neuro: Level of Consciousness is awake, alert, obeys commands, Oriented to person, place, time, situation. Cardiovascular: Patient's skin is warm and dry. Respiratory: Airway is patent Respiratory effort is even, unlabored, Respiratory pattern is regular, symmetrical. GI: No signs and/or symptoms were reported involving the gastrointestinal system. Abdomen is flat, non-distended. : No signs and/or symptoms were reported regarding the genitourinary system. Derm: No signs and/or symptoms reported regarding the dermatologic system. Musculoskeletal: No signs and/or symptoms reported regarding the musculoskeletal system. Historical: - Allergies: 21:38 No Known Allergies; tm6 - PMHx: 21:38 None; tm6 - PSHx: 21:38 skin graft; tm6 - Immunization history:: Client reports receiving the 2nd dose of the Covid vaccine. - Infectious Disease History:: Denies. - Social history:: Smoking status: Patient reports the use of cigarette tobacco products, smokes one-half pack cigarettes per day, Patient/guardian denies using alcohol. Screenin:05 [facility] ED Fall Risk Assessment (Adult) History of falling in the last 3 months, me1 including since admission No falls in past 3 months (0 pts) Confusion or Disorientation No (0 pts) Intoxicated or Sedated No (0 pts) Impaired Gait No (0 pts) Mobility Assist Device Used No (0 pt) Altered Elimination No (0 pt) Score/Fall Risk Level 0 - 2 = Low Risk Maintained a safe environment, Provided non-skid footwear, Hourly rounding (assess needs \T\ fall precautionary measures) done. Abuse screen: Denies threats or abuse. Nutritional screening: No deficits noted. Tuberculosis screening: No symptoms or risk factors identified. Assessment: 22:05 General: Appears uncomfortable, well groomed, well developed, well nourished, Behavior me1 is calm, cooperative, appropriate for age, Reports Starting 3-4 days ago, left eyes started watering, over a few hours it became red, swollen, and itchy. Right eye is starting to water. Pain: Complains of pain in left eye and right eye Pain does not radiate. Pain currently is 5 out of 10 on a pain scale. Quality of pain is described as burning, Pain began 2-3 days ago. Is continuous. Neuro: Level of Consciousness is awake, alert, obeys commands, Oriented to person, place, time, situation, Appropriate for age. Cardiovascular: Patient's skin is warm and dry. Respiratory: Airway is patent Trachea midline Respiratory effort is even, unlabored, Respiratory pattern is regular, symmetrical. GI: No signs and/or symptoms were reported involving the gastrointestinal system. : No signs and/or symptoms were reported regarding the genitourinary system. EENT: Eyes are tearing on right eye and left eye redness, itching and swelling to left eye. Derm: Skin is intact, is healthy with good turgor, Skin is pink, warm \T\ dry. Musculoskeletal: No signs and/or symptoms reported regarding the musculoskeletal system. Vital Signs: 21:36 BP 126 / 81; Pulse 75; Resp 18; Temp 98(O); Pulse Ox 99% on R/A; Weight 68.04 kg; tm6 Height 5 ft. 9 in. ; Pain 0/10; 22:45 BP 123 / 79; Pulse 68; Resp 15; Temp 98.2; Pulse Ox 99% ; me1 21:36 Body Mass Index 22.15 (68.04 kg, 175.26 cm) tm6 21:36 Pain Scale: Adult tm6 ED Course: 21:24 Patient arrived in ED. gm2 21:27 Isaac Pinedo MD is Attending Physician. sp4 21:38 Triage completed. tm6 21:38 Arm band placed on right wrist. tm6 21:51 Kerrie Jorgensen, RN is Primary Nurse. me1 22:05 Patient has correct armband on for positive identification. Bed in low position. Call me1 light in reach. Side rails up X 1. Provided Education on: POC. Verbalized understanding. . 22:05 No provider procedures requiring assistance completed. Patient did not have IV access me1 during this emergency room visit. 22:43 Praveen Ly MD is Referral Physician. sp4 Administered Medications: 22:36 Drug: Tetracaine Ophthalmic Drops 0.5 % 1 drops Ophthalmic once Route: Ophthalmic; me1 Site: right eye; 22:45 Follow up: Response: No adverse reaction me1 Medication: 22:05 VIS not applicable for this client. me1 Outcome: 22:44 Discharge ordered by . sp4 22:51 Discharged to home ambulatory, me1 22:51 Condition: stable 22:51 Discharge instructions given to patient, Instructed on discharge instructions, follow up and referral plans. medication usage, Demonstrated understanding of instructions, follow-up care, medications, Prescriptions given X 1, 22:51 Patient left the ED. me1 Signatures: Isaac Pinedo MD MD sp4 Kerrie Jorgensen, RN RN me1 Ny Raygoza gm2 Luis Coronado RN RN tm6 Corrections: (The following items were deleted from the chart) 22:02 21:36 Chief complaint: Patient states: Starting 3-4 days ago, left eyes started me1 watering, over a few hours it became red, swollen, and itchy. Right eye is starting to water. tm6
[2024-04-06 22:57] VITALS: O2SAT 99
[2024-04-06 22:58] VITALS: BP 123/79; TEMP 98.2
== END 2024-04-06 22:51 | disposition home or self-care (01) ==
LOC: ER 21:20
DX: S05.02XA Injury of conjunctiva and corneal abrasion without foreign body, left eye, initial encounter (principal); H10.32 Unspecified acute conjunctivitis, left eye; F17.210 Nicotine dependence, cigarettes, uncomplicated
CPT/HCPCS: 99283

== ENCOUNTER 2024-07-06 21:36 | Emergency (ER) | payer OTHER ==
--- OUTSIDE RECORDS SUMMARY | 2024-07-06 21:40 | XMS REPORT | Continuity of Care Document ---
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 55-170 Natriuretic peptide B [Mass/volume] in Serum [id number] 01:48:00* Test Item Value Reference Range Interpretation Comme nts Natriuretic peptide B [Mass/ volume] in Serum or Plasma (test code = 07911-3) <20.0 N [facility])Creatine kinase.MB [Mass/volume] in Serum or Pl 2023-10-10 01:48:00* Test Item Value Reference Range Interpretation Comme nts Creatine kinase.MB/Creatine kinase.total in Serum or Plasma (test code = 39163-0) 0.6 % N Creatine kinase.MB [Mass/vol ume] in Serum or Plasma (test code = 68238-5) 0.8 NG/ML 0.22-2.4 N Creatine kinase isoenzymes [interpretation] in Serum or Plasma Narrative (test code = 52336-3) 143 U/L 55.0-170.0 [facility])[id number] 01:35:00* Test Item Value Reference Range Interpretation Comme nts MG (test code = MG) 1.7 mg/dL 1.6-2.3 CHEST 1 VIEW [id number] 01:34:00 [facility] 1980 [facility] [place], [place] [id number] IMAGING R EPORTPatient Name: SEVERO DIOPDate of Service: [id number]: 43 Sex: M Order #: [id number] Room: ERSDOB: 1980 X-Ray Number: [id number] Record Number: [id number] Hospital Number: [id number] Physician: Sherry CROSS Physician: ALEJANDRA CROSSPROCEDURE: CHEST [...] document has been electronically signed by: Bryant Guzman III, MD 10/10/2023 01:33:00Legally authenticated by MINH POWELL 2023-10-10 01:33:00Portable XR Chest Views [id number] 01:33:00ORDER 800: CHEST 1 VIEW PORTABLE (LOINC: 80037-5)ORDER DATE: October 10, 2023 6:45:00 AM [facility] ([place]) Magnesium [Mass/volume] in Serum or [id number] 01:30:00* Test Item Value Reference Range Interpretation Comme nts Magnesium [Mass/volume] in S jeni or Plasma (test code = 70538-9) 1.7 mg/dL 1.6-2.3 N [facility])[id number] 01:28:00* Test Item Value Reference Range Interpretation [...] 1.2-7.2 CBC W Auto Differential panel - [id number] 01:28:00* Test Item Value Reference Range Interpretation Comme nts Leukocytes other [Identifier ] in Blood by Automated count (test code = 98653-4) 7.8 K/UL 3.5-10.9 N Erythrocytes [#/volume] in B lood (test code = 92193-3) 4.47 M/UL 4.3-5.7 N Hemoglobin A/Hemoglobin.tota l in Blood (test code = 4546-8) 13.9 G/DL 13.0-17.9 N Hematocrit [Volume Fraction] of Blood (test code = 46236-8) 41.8 % 38.0-52.0 N Erythrocyte mean corpuscular volume [Entitic volume] (test code = 57823-0) 93.5 FL 80.0-98.0 N Erythrocyte mean corpuscular hemoglobin [Entitic mass] (test code = 06128-7) 31.1 PG 28.0-32.0 N Erythrocyte mean corpuscular hemoglobin concentration [Mass/volume] (test code = 79321-7) 33.3 G/DL 32.5-36.5 N Erythrocyte distribution wid th [Ratio] (test code = 38232-3) 11.8 % 11.5-14.5 N Platelets panel - Blood by Automated count (test code = 19499-5) 245 K/UL 150.0-450.0 N Platelet mean volume [Entiti c volume] in Blood by Automated count (test code = 22442-7) 10.1 FL 7.4-10.4 N Neutrophils.segmented/100 leukocytes in Blood (test code = 28438-2) 57.3 % 40.0-75.0 N Lymphocytes Variant/100 leuk ocytes in Blood (test code = 72218-1) 30.1 % 24.0-44.0 N Lymphocytes+Monocytes/100 leukocytes in Blood (test code = 4662-3) 9.8 % 0.0-13.0 N Eosinophils [#/volume] in Bl ood (test code = 75081-3) 1.9 % 0.0-4.0 N Basophils [#/volume] in Bloo d (test code = 50820-4) 0.6 % 0.0-2.0 N Immature granulocytes/100 leukocytes in Blood (test code = 26581-8) 0.3 % 0.0-1.0 N Nucleated erythrocytes [#/vo lume] in Blood (test code = 70430-9) 0 /100 WBC N Neutrophils [#/volume] in Bl ood (test code = 06893-6) 4.4 K/UL 1.2-7.2 N [facility])TROPONIN [id number] 00:58:00* Test Item Value Reference Range Interpretation Comme nts TROPER (test code = TROPER) 0.00 NG/ML 0.0-0.08 INTERPRETIVE DATA A POC TROPONIN OF </= 0.08 NG/ML IS CONSIDERED NEGATIVE Troponin T.cardiac [Mass/volume] in Lqcsm9895-42-11 00:58:00* Test Item Value Reference Range Interpretation Comme nts Troponin T.cardiac [Mass/vol ume] in Blood (test code = 91845-2) 0.0 NG/ML 0.0-0.08 N [facility])ISTAT CHEM [id number] 00:52:00* Test Item Value Reference Range Interpretation [...] of Reference Ranges Basic metabolic panel - [id number] 00:52:00* Test Item Value Reference Range Interpretation Comme nts Sodium [Moles/volume] in Art erial blood (test code = 20926-2) 142 MMOL/L 137.0-145.0 N Potassium [Moles/volume] in Arterial blood (test code = 79413-5) 3.8 MMOL/L 3.6-5.0 N Chloride [Moles/volume] in Arterial blood (test code = 87639-5) 100 MMOL/L 98.0-107.0 N Calcium.ionized [Mass/volume ] in Arterial blood (test code = 74000-0) 1.07 MMOL/L 1.12-1.32 L Carbon dioxide, total [Moles/volume] in Blood (test code = 33653-0) 30 MMOL/L 22.0-30.0 N Glucose [Mass/volume] in Art erial blood (test code = 70341-3) 90 MG/DL 65.0-110.0 N Urea nitrogen [Mass/volume] in Arterial blood (test code = 79828-2) 15.0 MG/DL 7.0-20.0 N Creatinine [Mass/volume] in Blood (test code = 76655-0) 0.8 MG/DL 0.7-1.5 N Hematocrit [Volume Fraction] of Arterial blood (test code = 03951-0) 44 %PCV 37.0-52.0 N Hemoglobin [Mass/volume] in Arterial cord blood (test code = 86894-4) 15.0 G/DL 12.0-18.0 N Anion gap in Blood (test cod e = 50394-5) 17 MMOL/L N [facility])ECHO COMPLETE W/[id number] 15:51:00 [facility] : 1980 Sex: MStudy ID: [id number] CAMILLUS MEDICAL CENTERECHOCARDIOGRAM REPORTName: SEVERO DIOP Study Date: 09/30/2023 02:19 PMMRN: [id number] Patient Location: T3\\S\\3316\\S\\AHR: 64DOB: 1980 (M/d/yyyy) Gender: MaleAge: 43 yrs Ethnicity: WHeight: 69 in Weight: 143 lbBSA: 1.8 b6Ftkhkm For Study: chest pain, abnormal EKG- Brugada [...] cmEDV(MOD-sp4): 78.5 mlEDV(sp4-el): 81.4 mlLVAs ap4: 16.3 vk5JJKm ap4: 6.3 cmESV(MOD-sp4): 36.6 mlESV(sp4-el): 35.5 mlEF(MOD-sp4): [...] Volume: 27.5 ml RA Volume Index: 15.4 ml/e8Thlwrqd Measurements & CalculationsMV E max [place]: 65.7 [...] AV Dimensionless Index: 0.65 MARK/BSA Index: 1.1 cm2/m2____ Lat E/e': 4.2 Med E/e': 4.5Left VentricleThe [...] Physician:Yanet Ellison MD 09/30/2023 03:51 PMOrdering Physician: Maggie Snowdenerrdillan Physician: CATHERINE, PCPPerformed By: Hilario Fajardo echo study [id number] 15:51:00ORDER 2600: ECHO COMPLETE W/DOPPLER (LOINC: 65909-4)ORDER DATE: September 30, 2023 6:55:00 PM [facility] ([place]) URINE DRUG [id number] 13:51:00* Test Item Value Reference Range Interpretation [...] abuse 5 panel - Urine by Screen rgkyjt2058-15-18 13:51:00 NegativeNegativePositiveNegativeNegativeNegativeNegativeWilliamson Medical Center)[id number] 11:40:00* Test Item Value Reference Range Interpretation Comme nts %CKMB (test code = %MB) 0.5 % CKMB (test code = CKMB) 0.5 NG/ML 0.22-2.4 CK (test code = CK) 102 U/L 55-170 Creatine kinase.MB [Mass/volume] in Serum or [id number] 11:40:00* Test Item Value Reference Range Interpretation Comme nts Creatine kinase.MB/Creatine kinase.total in Serum or Plasma (test code = 34859-6) 0.5 % N Creatine kinase.MB [Mass/vol ume] in Serum or Plasma (test code = 70942-2) 0.5 NG/ML 0.22-2.4 N Creatine kinase isoenzymes [interpretation] in Serum or Plasma Narrative (test code = 15929-2) 102 U/L 55.0-170.0 N [facility])TROPONIN I - [id number] 11:01:00* Test Item Value Reference Range Interpretation Comme nts TROP-I (test code = TROP-I) <0.012 ng/ml 0.012-0.033 INTERPRETI VE DATA A TROPONIN OF LESS THAN 0.034 NG/ML IS CONSIDERED NEGATIVE A TROPONIN OF 0.034 - 0.119 NG/ML IS CONSIDERED GRAYZONE A TROPONIN =/> 0.120 NG/ML IS CONSIDERED POSITIVE Troponin I.cardiac [Mass/volume] in Serum or [id number] 10:57:00* Test Item Value Reference Range Interpretation Comme nts Troponin I.cardiac [Mass/vol ume] in Serum or Plasma (test code = 47428-9) <0.012 0.012-0.033 [facility])D-DIMER [id number] 10:56:00* Test Item Value Reference Range Interpretation Comme [facility] D-DIMER QUANTITATIVE (test code = DDIMER) <215 ng/mL (FEU) 0-500 VALUES OF QUANTITATIVE D-DIMER LESS THAN 499 ng/mL HAVE BEEN REPORTED TO BE ASSOCIATED WITH A LOW PROBABILITY OF DEEP VEIN THROMBOSIS/PULMONARY EMBOLISM. THIS TEST ALONE SHOULD NOT BE USED TO RULE OUT DVT/PE. Fibrin D-dimer FEU [Mass/volume] in Platelet [id number] 10:56:00* Test Item Value Reference Range Interpretation Comme [facility] Fibrin D-dimer FEU [Mass/vol ume] in Platelet poor plasma (test code = 72422-2) <215 0.0-500.0 [facility])BASIC METABOLIC [id number] 04:57:00* Test Item Value Reference Range Interpretation [...] 70-99 Fasting glucos e normal <100 MG/DL- [employer] recommendation CALCIUM (test code = CABLOOD) 8.3 MG/DL 8.4-10.2 L GFR (test code = GFR) 131 mL/min/1.73m2 See_Comment A GFR of >90 mL/min/1.73m2 is considered normal. The GFR calculation on patients over 70 years of age is not validated by the commissioned sales associate and may not represent the patients true renal function. [Automated message] The system which generated this result transmitted reference range: 59-. The reference range was not used to interpret this result as normal/abnormal. [id number] 04:47:00* Test Item Value Reference Range Interpretation Comme nts MG (test code = MG) 1.7 mg/dL 1.6-2.3 LIPID [id number] 04:47:00* Test Item Value Reference Range Interpretation [...] code = CALC LDL) 64 MG/DL See_Comment [Azumio] The system which generated this result transmitted reference range: -100. The reference range was not used to interpret this result as normal/abnormal. DIRECT [id number] 04:47:00* Test Item Value Reference Range Interpretation Comme nts DIR LDL (test code = LDL) 84 MG/DL See_Comment [Azumio] The system which generated this result transmitted reference range: 0-<100. The reference range was not used to interpret this result as normal/abnormal. [id number] 04:47:00* Test Item Value Reference Range Interpretation Comme nts %CKMB (test code = %MB) 0.5 % CKMB (test code = CKMB) 0.5 NG/ML 0.22-2.4 CK (test code = CK) 101 U/L 55-170 TROPONIN I - [id number] 04:47:00* Test Item Value Reference Range Interpretation Comme nts TROP-I (test code = TROP-I) <0.012 ng/ml 0.012-0.033 INTERPRETI VE DATA A TROPONIN OF LESS THAN 0.034 NG/ML IS CONSIDERED NEGATIVE A TROPONIN OF 0.034 - 0.119 NG/ML IS CONSIDERED GRAYZONE A TROPONIN =/> 0.120 NG/ML IS CONSIDERED POSITIVE Basic metabolic 2000 panel - Serum or [id number] 04:47:00* Test Item Value Reference Range Interpretation Comme nts Sodium [Moles/volume] in Blood (test code = 2947-0) 138 MMOL/L 137.0-145.0 N Potassium [Moles/volume] in Blood (test code = 6298-4) 4.4 MMOL/L 3.5-5.1 N Chloride [Moles/volume] in Blood (test code = 2069-3) 104 MMOL/L 98.0-107.0 N Carbon dioxide, total [Moles/volume] in Blood (test code = 82341-4) 27 MMOL/L 22.0-30.0 N Urea nitrogen [Mass/volume] in Serum or Plasma (test code = 3094-0) 18 MG/DL 9.0-20.0 N Creatinine [Mass/volume] in Blood (test code = 45456-4) 0.7 MG/DL 0.8-1.5 L Glucose [Mass/volume] in Blood (test code = 2339-0) 93 MG/DL 70.0-99.0 N Calcium [Mass/volume] in Serum or Plasma (test code = 70038-6) 8.3 MG/DL 8.4-10.2 L Estimated or measured glomerular filtration rate less than 50 percent [- Reported] (test code = 70201-8) 131 mL/min/1.73m2 N [facility])Magnesium [Mass/volume] in Serum or [id number] 04:47:00* Test Item Value Reference Range Interpretation Comme nts Magnesium [Mass/volume] in S jeni or Plasma (test code = 70841-6) 1.7 mg/dL 1.6-2.3 N [facility])VAP cholesterol panel - Serum or [id number] 04:47:00* Test Item Value Reference Range Interpretation [...] or Plasma by calculation (test code = 50827-2) 64 MG/DL N [facility])Cholesterol in LDL [Mass/volume] in Serum or Pl 2023-09-30 04:47:00* Test Item Value Reference Range Interpretation Comme nts Cholesterol in LDL [Mass/vol ume] in Serum or Plasma by Direct assay (test code = 72243-8) 84 MG/DL N [facility])Creatine kinase.MB [Mass/volume] in Serum or Pl 2023-09-30 04:47:00* Test Item Value Reference Range Interpretation Comme nts Creatine kinase.MB/Creatine kinase.total in Serum or Plasma (test code = 06960-0) 0.5 % N Creatine kinase.MB [Mass/vol ume] in Serum or Plasma (test code = 01236-5) 0.5 NG/ML 0.22-2.4 N Creatine kinase isoenzymes [interpretation] in Serum or Plasma Narrative (test code = 34193-7) 101 U/L 55.0-170.0 N [facility])Troponin I.cardiac [Mass/volume] in Serum or Pl 2023-09-30 04:47:00* Test Item Value Reference Range Interpretation Comme nts Troponin I.cardiac [Mass/vol ume] in Serum or Plasma (test code = 30868-8) <0.012 0.012-0.033 [facility])PROBRAIN NATRIURETIC [id number] 04:41:00* Test Item Value Reference Range Interpretation Comme nts NT-PROBNP (test code = PROBNP) <20 pg/mL Exclusion for he art failure for patients of all ages is 300 pg/mL. Inclusion for heart failure for patients age <50 is 450 pg/mL; for patients age 50-75 is 900 pg/mL; for patients age >75 is 1800 pg/mL. [id number] 04:40:00* Test Item Value Reference Range Interpretation [...] 1.2-7.2 CBC W Auto Differential panel - [id number] 04:40:00* Test Item Value Reference Range Interpretation Comme nts Leukocytes other [Identifier ] in Blood by Automated count (test code = 58571-3) 4.8 K/UL 3.5-10.9 N Erythrocytes [#/volume] in B lood (test code = 35380-4) 4.39 M/UL 4.3-5.7 N Hemoglobin A/Hemoglobin.tota l in Blood (test code = 4546-8) 13.6 G/DL 13.0-17.9 N Hematocrit [Volume Fraction] of Blood (test code = 04883-5) 39.5 % 38.0-52.0 N Erythrocyte mean corpuscular volume [Entitic volume] (test code = 87842-2) 90.0 FL 80.0-98.0 N Erythrocyte mean corpuscular hemoglobin [Entitic mass] (test code = 40955-8) 31.0 PG 28.0-32.0 N Erythrocyte mean corpuscular hemoglobin concentration [Mass/volume] (test code = 79921-8) 34.4 G/DL 32.5-36.5 N Erythrocyte distribution wid th [Ratio] (test code = 37392-9) 11.9 % 11.5-14.5 N Platelets panel - Blood by Automated count (test code = 09736-2) 234 K/UL 150.0-450.0 N Platelet mean volume [Entiti c volume] in Blood by Automated count (test code = 43923-4) 10.5 FL 7.4-10.4 H Neutrophils.segmented/100 leukocytes in Blood (test code = 46477-5) 36.6 % 40.0-75.0 L Lymphocytes Variant/100 leuk ocytes in Blood (test code = 75246-1) 46.4 % 24.0-44.0 H Lymphocytes+Monocytes/100 leukocytes in Blood (test code = 4662-3) 13.7 % 0.0-13.0 H Eosinophils [#/volume] in Bl ood (test code = 97073-9) 2.3 % 0.0-4.0 N Basophils [#/volume] in Bloo d (test code = 19954-7) 0.8 % 0.0-2.0 N Immature granulocytes/100 leukocytes in Blood (test code = 12704-7) 0.2 % 0.0-1.0 N Nucleated erythrocytes [#/vo lume] in Blood (test code = 47467-4) 0 /100 WBC N Neutrophils [#/volume] in Bl ood (test code = 11344-9) 1.8 K/UL 1.2-7.2 N [facility])Natriuretic peptide B [Mass/volume] in Serum or 2023-09-30 04:38:00* Test Item Value Reference Range Interpretation Comme nts Natriuretic peptide B [Mass/ volume] in Serum or Plasma (test code = 49196-2) <20 N [facility])CHEST 1 VIEW [id number] 21:48:00 [facility] 1980 [facility] [place] [address] [id number] IMAGING R EPORTPatient Name: SEVERO DIOPDate of Service: 57-13-5253Ktz: 43 Sex: M Order #: [id number] [facility] 1980 [facility] Number: [id number] Record Number: [id number] Hospital Number: [id number] Physician: James MORALES Physician: JENNIFER MORALESPROCEDURE: CHEST 1 VIEW PORTABLEINDICATIONS: dx: chest wall pain pt sts: c/o left chest wall pain onset 3days agonohapsv: jtt1 view chest x-rayComparison: NoneFindings:No consolidation or effusion.Heart size is normal.No acute fracture.IMPRESSION:1. No acute findings.This document has been electronically signed by: MD Nain 09/29/2023 21:47:15Legally authenticated by DONOVAN SHUKLA 2023-09-29 21:47:15 Portable XR Chest Views [id number] 21:47:15ORDER 500: CHEST 1 VIEW PORTABLE (LOINC: 41877-9)ORDER DATE: September 30, 2023 2:38:00 AM [facility])[id number] 21:30:00* Test Item Value Reference Range Interpretation Comme nts %CKMB (test code = %MB) 0.6 % CKMB (test code = CKMB) 0.8 NG/ML 0.22-2.4 CK (test code = CK) 130 U/L 55-170 TROPONIN I - [id number] 21:30:00* Test Item Value Reference Range Interpretation Comme nts TROP-I (test code = TROP-I) <0.012 ng/ml 0.012-0.033 INTERPRETI VE DATA A TROPONIN OF LESS THAN 0.034 NG/ML IS CONSIDERED NEGATIVE A TROPONIN OF 0.034 - 0.119 NG/ML IS CONSIDERED GRAYZONE A TROPONIN =/> 0.120 NG/ML IS CONSIDERED POSITIVE Creatine kinase.MB [Mass/volume] in Serum or [id number] 21:30:00* Test Item Value Reference Range Interpretation Comme [facility] Creatine kinase.MB/Creatine kinase.total in Serum or Plasma (test code = 81389-5) 0.6 % N Creatine kinase.MB [Mass/vol ume] in Serum or Plasma (test code = 36570-7) 0.8 NG/ML 0.22-2.4 N Creatine kinase isoenzymes [interpretation] in Serum or Plasma Narrative (test code = 10543-5) 130 U/L 55.0-170.0 [facility])Troponin I.cardiac [Mass/volume] in Serum or Pl 2023-09-29 21:30:00* Test Item Value Reference Range Interpretation Comme [facility] Troponin I.cardiac [Mass/vol ume] in Serum or Plasma (test code = 77938-8) <0.012 0.012-0.033 [facility])BASIC METABOLIC [id number] 21:09:00* Test Item Value Reference Range Interpretation [...] 70-99 Fasting glucos e normal <100 MG/DL- [employer] recommendation CALCIUM (test code = CABLOOD) 9.2 MG/DL 8.4-10.2 GFR (test code = GFR) 112.0 mL/min/1.73m2 See_Comment A GFR of >90 mL/min/1.73m2 is considered normal. The GFR calculation on patients over 70 years of age is not validated by the commissioned sales associate and may not represent the patients true renal function. [Automated message] The system which generated this result transmitted reference range: 59-. The reference range was not used to interpret this result as normal/abnormal. Basic metabolic 2000 panel - Serum or [id number] 21:01:00* Test Item Value Reference Range Interpretation Comme nts Sodium [Moles/volume] in Blood (test code = 2947-0) 139 MMOL/L 137.0-145.0 N Potassium [Moles/volume] in Blood (test code = 6298-4) 4.4 MMOL/L 3.5-5.1 N Chloride [Moles/volume] in Blood (test code = 2069-3) 101 MMOL/L 98.0-107.0 N Carbon dioxide, total [Moles/volume] in Blood (test code = 84931-9) 32 MMOL/L 22.0-30.0 H Urea nitrogen [Mass/volume] in Serum or Plasma (test code = 3094-0) 13 MG/DL 9.0-20.0 N Creatinine [Mass/volume] in Blood (test code = 88610-4) 0.8 MG/DL 0.8-1.5 N Glucose [Mass/volume] in Blood (test code = 2339-0) 96 MG/DL 70.0-99.0 N Calcium [Mass/volume] in Serum or Plasma (test code = 34898-3) 9.2 MG/DL 8.4-10.2 N Estimated or measured glomerular filtration rate less than 50 percent [- Reported] (test code = 65688-7) 112.0 mL/min/1.73m2 N [facility])BASIC METABOLIC [id number] 23:20:00* Test Item Value Reference Range Interpretation [...] CA) 8.3 MG/DL 8.5-10.1 L CBC W/AUTO [id number] 22:58:00* Test Item Value Reference Range Interpretation [...] ode = MDIFF) NO DIFF/SCN CRITERIA TROPONIN [id number] 19:12:12* Test Item Value Reference Range Interpretation Comments TROPONIN I (test code = 4405550723) 0.002 ng/mL See_Comment [Automated message] The system [...] of biotin. Lab Interpretation (test code = 45686-8) Normal [facility]IM[facility] [id number] 17:56:10 * Test Item Value Reference Range Interpretation Comme nts TSH (test code = 4722147941) See_Comment [Automated [employer]] The system which generated this result transmitted reference range: 0.45 - 4.70 mIU/L. The reference range was not used to interpret this result as normal/abnormal. Lab Interpretation (test code = 11741-7) Normal [facility]landFREE [id number] 17:43:07* Test Item Value Reference Range Interpretation Comme nts FREE T4 (test code = 3605698260) See_Comment [Automated [employer]] The system which generated this result transmitted reference range: 0.78 - 2.20 ng/dL:. The reference range was not used to interpret this result as normal/abnormal. Lab Interpretation (test code = 98144-0) Normal [facility]landTROPONIN [id number] 17:38:07* Test Item Value Reference Range Interpretation Comments TROPONIN I (test code = 4785046160) 0.003 ng/mL See_Comment [Automated message] The system [...] of biotin. Lab Interpretation (test code = 97897-2) Normal [facility]landN-TERMINAL [id number] 17:36:31* Test Item Value Reference Range Interpretation Comme nts NT-proBNP (test code = 5389353914) <11 See_Comment [Automated message] The system which generated this result transmitted reference range: <=125 pg/mL. The reference range was not used to interpret this result as normal/abnormal. CHERYL (test code = CHERYL) Biotin has been reported to cause a negative bias, interpret results relative to patient's use of biotin. Lab Interpretation (test code = 54518-1) Normal [facility]landETHANOL2022-06-25 17:25:57* Test Item Value Reference Range Interpretation Comme nts ALCOHOL (test code = 3200714362) <10 mg/dL CHERYL (test code = CHERYL) <10 Ssvyxwin70-499 Toxic>100 Depression of WELDING ROD COATER>400 Fatalities Reported [facility]landACETAMINOPHEN2022-06-25 17:25:32* Test Item Value Reference Range Interpretation Comme nts ACETAMINOP (test code = 0044345256) <10.0 10.0-30.0 L CHERYL (test code = CHERYL) Toxic: Greater chel n 200 ug/mL @ 4 hour post ingestion or greater than 50 ug/mL @ 12 hour post ingestion Lab Interpretation (test code = 37569-4) Abnormal [facility]landCOMP. METABOLIC PANEL (74097)2022-02-06 17:15:44* Test Item Value Reference Range Interpretation Comme nts NA (test code = 8208883251) 142 mmol/L 135-145 K (test code = 1259413356) 4.2 mmol/L 3.5-5.0 CL (test code = 2062259541) 104 mmol/L 98-108 CO2 TOTAL (test code = 2044008192) 28 mmol/L 23-31 AGAP (test code = 0229034743) 2-16 BUN (test code = 5511067553) 9 mg/dL 7-23 GLUCOSE (test code = 3047486048) 117 mg/dL 70-110 H CREATININE (test code = 2956054323) 0.76 mg/dL 0.60-1.25 TOTAL BILI (test code = 6551403693) 0.6 mg/dL 0.1-1.1 CALCIUM (test code = 2945672203) 9.3 mg/dL 8.6-10.6 T PROTEIN (test code = 7478705826) 7.0 g/dL 6.3-8.2 ALBUMIN (test code = 9944994860) 4.4 g/dL 3.5-5.0 ALK PHOS (test code = 3821872849) 44 U/L 34-122 ALTv (test code = 1742-6) 12 U/L 5-50 AST(SGOT) (test code = 8374294276) 18 U/L 13-40 eGFR (test code = 8931976655) mL/min/1.73m2 CHERYL (test code = CHERYL) Association [...] imaging tests). Lab Interpretation (test code = 74824-1) Abnormal [facility]landSALICYLATE2022-06-25 17:15:44* Test Item Value Reference Range Interpretation Comme nts SALICYLATE (test code = 7503063696) 40 mg/L CHERYL (test code = CHERYL) Therapeutic Range: ? Analgesic and Antipyretic Use ? 20-100 mg/L ? ? Anti-Inflammatory Use ? 100-250 mg/L Toxic Range: ? Greater than 300 mg/L [facility]landCREATINE [id number] 17:15:23* Test Item Value Reference Range Interpretation Comme nts CK (test code = 2934075443) 73 U/L 33-194 Lab Interpretation (test cod e = 03397-6) Normal [facility] MainlandCB WITH [id number] 17:04:44* Test Item Value Reference Range Interpretation Comme nts WBC (test code = 6690-2) See_Comment [Automated [employer]] The system which generated this result transmitted reference range: 4.20 - 10.70 10*3/?L. The reference range was not used to interpret this result as normal/abnormal. RBC (test code = 789-8) See_Comment [Automated [employer]] The system which generated this result transmitted [...] g/dL 31.2-35.0 H RDW-SD (test code = 31192-8) 37.9 fL 38.5-51.6 L RDW-CV (test code = 788-0) 11.7 % 12.1-15.4 L PLT (test code = 777-3) See_Comment [Automated messa ge] The system which generated this result transmitted reference range: 150 - 328 10*3/?L. The reference range was not used to interpret this result as normal/abnormal. MPV (test code = 04842-4) 9.8 fL 9.8-13.0 NRBC/100 WBC (test code = 3353067372) See_Comment [Automated [employer]] The system which generated this result transmitted reference range: 0.0 - 10.0 /100 WBCs. The reference range was not used to interpret this result as normal/abnormal. NRBC x10^3 (test code = 7394252434) <0.01 See_Comment [Automated messa ge] The system which generated this result transmitted reference range: 10*3/?L. The reference range was not used to interpret this result as normal/abnormal. GRAN MAT (NEUT) % (test code = 770-8) 59.1 % IMM GRAN % (test code = 3001244108) 0.20 % LYMPH % (test code = 736-9) 29.3 % MONO % (test code = 5905-5) 10.8 % EOS % (test code = 713-8) 0.2 % BASO % (test code = 706-2) 0.4 % GRAN MAT x10^3(ANC) (test code = 4701729534) 3.06 10*3/uL 1.99-6.95 IMM GRAN x10^3 (test code = 1622311483) <0.03 0.00-0.06 LYMPH x10^3 (test code = 731-0) 1.52 10*3/uL 1.09-3.23 MONO x10^3 (test code = 742-7) 0.56 10*3/uL 0.36-1.02 EOS x10^3 (test code = 711-2) <0.03 0.06-0.53 L BASO x10^3 (test code = 704-7) <0.03 0.01-0.09 Lab Interpretation (test code = 86481-0) Abnormal [facility]. METABOLIC PANEL (54023)2021-08-06 02:11:29* Test Item Value Reference Range Interpretation Comme nts NA (test code = 1831842226) 140 mmol/L 135-145 K (test code = 7005193886) 4.8 mmol/L 3.5-5.0 CL (test code = 2385820290) 104 mmol/L 98-108 CO2 TOTAL (test code = 8204259848) 28 mmol/L 23-31 AGAP (test code = 0134453336) 2-16 BUN (test code = 4384074383) 21 mg/dL 7-23 GLUCOSE (test code = 2816514388) 111 mg/dL 70-110 H CREATININE (test code = 4443603139) 0.93 mg/dL 0.60-1.25 TOTAL BILI (test code = 4104514544) 0.4 mg/dL 0.1-1.1 CALCIUM (test code = 2973190883) 9.0 mg/dL 8.6-10.6 T PROTEIN (test code = 5791469470) 7.0 g/dL 6.3-8.2 ALBUMIN (test code = 5083181998) 4.3 g/dL 3.5-5.0 ALK PHOS (test code = 6109593761) 51 U/L 34-122 ALTv (test code = 1742-6) 15 U/L 5-50 AST(SGOT) (test code = 2977876131) 25 U/L 13-40 eGFR (test code = 2123154177) mL/min/1.73m2 CHERYL (test code = CHERYL) Association [...] imaging tests). Lab Interpretation (test code = 61290-9) Abnormal [facility] WITH [id number] 02:04:56* Test Item Value Reference Range Interpretation Comme nts WBC (test code = 6690-2) See_Comment [Automated [employer]] The system which generated this result transmitted reference range: 4.20 - 10.70 10*3/?L. The reference range was not used to interpret this result as normal/abnormal. RBC (test code = 789-8) See_Comment [Automated [employer]] The system which generated this result transmitted [...] 34.2 g/dL 31.2-35.0 RDW-SD (test code = 09511-6) 39.9 fL 38.5-51.6 RDW-CV (test code = 788-0) 12.1 % 12.1-15.4 PLT (test code = 777-3) See_Comment [Automated [employer]] The system which generated this result transmitted reference range: 150 - 328 10*3/?L. The reference range was not used to interpret this result as normal/abnormal. MPV (test code = 72500-5) 9.9 fL 9.8-13.0 NRBC/100 WBC (test code = 8379417568) See_Comment [Automated me ssage] The system which generated this result transmitted reference range: 0.0 - 10.0 /100 WBCs. The reference range was not used to interpret this result as normal/abnormal. NRBC x10^3 (test code = 4940321536) <0.01 See_Comment [Automated me ssage] The system which generated this result transmitted reference range: 10*3/?L. The reference range was not used to interpret this result as normal/abnormal. GRAN MAT (NEUT) % (test code = 770-8) 61.1 % IMM GRAN % (test code = 9534311927) 0.50 % LYMPH % (test code = 736-9) 28.5 % MONO % (test code = 5905-5) 8.6 % EOS % (test code = 713-8) 0.8 % BASO % (test code = 706-2) 0.5 % GRAN MAT x10^3(ANC) (test code = 1464401648) 4.73 10*3/uL 1.99-6.95 IMM GRAN x10^3 (test code = 4700614795) 0.04 10*3/uL 0.00-0.06 LYMPH x10^3 (test code = 731-0) 2.21 10*3/uL 1.09-3.23 MONO x10^3 (test code = 742-7) 0.67 10*3/uL 0.36-1.02 EOS x10^3 (test code = 711-2) 0.06 10*3/uL 0.06-0.53 BASO x10^3 (test code = 704-7) 0.04 10*3/uL 0.01-0.09 [facility]landAutomated blood lymphocyte count as percentage of total vkdziojxac9363-40-44 01:11:00* Test Item Value Reference Range Interpretation Comme nts Lymphocytes (%) (Auto) (test code = 736-9) 26 25-44 [facility]Autom[facility] blood monocyte count as percentage of total leukocytes 2019-06-01 01:11:00* Test Item Value Reference Range Interpretation Comme nts Monocytes (%) (Auto) (test c ode = 5905-5) 11 3-10 [facility] HealthAutomated blood eosinophil count as percentage of total zeffwqmhyr5757-14-49 01:11:00* Test Item Value Reference Range Interpretation Comme nts Eosinophils (%) (Auto) (test code = 713-8) 2 0-7 [facility] HealthAutomated blood basophil count as percentage of total leukocytes 2019-06-01 01:11:00* Test Item Value Reference Range Interpretation Comme nts Basophils (%) (Auto) (test c ode = 706-2) 1 0-1 [facility] HealthAutomated blood nucleated erythrocyte count as percentage of total mgsxrhftmt2973-99-00 01:11:00* Test Item Value Reference Range Interpretation Comme nts Nucleated Red Blood Cells % (test code = 69761-1) 0.0 0-0.2 [facility] HealthAutomated blood neutrophil count (number/volume)2019-06-01 01:11:00* Test Item Value Reference Range Interpretation Comme nts Neutrophils # (Auto) (test c ode = 751-8) 3.2 1.3-6.7 [facility] HealthAutomated blood lymphocyte count (number/volume)2019-06-01 01:11:00* Test Item Value Reference Range Interpretation Comme nts Lymphocytes # (Auto) (test c ode = 731-0) 1.4 1.4-4.1 [facility] HealthBlood monocytes automated count (number/volume)2019-06-01 01:11:00* Test Item Value Reference Range Interpretation Comme nts Monocytes # (Auto) (test code = 742-7) 0.6 0-1.3 [facility] HealthAutomated blood eosinophil gvija7408-62-10 01:11:00* Test Item Value Reference Range Interpretation [...] = 771-6) 0.00 0-0.01 [facility] comment 128891-85-52 01:11:00* Test Item Value Reference Range Interpretation [...] Creatinine (test code = 2160-0) 0.8 0.9-1.5 [facility] HospitalGlomerular filtration rate (GFR) estimation/1.73 sq m using serum, plasma, or whole blood creatinine measurement with MDRD equation 2019-06-01 01:11:00* Test Item Value Reference Range Interpretation Comme nts Estimat Glomerular Filtratio n Rate (test code = 13017-6) 115 81-133 [facility] HealthSerum or plasma glucose measurement (mass/volume)2019-06-01 01:11:00* Test Item Value Reference Range Interpretation Comme nts Glucose Level (test code = 2345-7) 83 60-100 [facility] HealthSerum or plasma calcium measurement (mass/volume)2019-06-01 01:11:00* Test Item Value Reference Range Interpretation Comme nts Calcium Level (test code = 15272-6) 8.8 9.1-10.9 [facility] HealthAutomated blood leukocyte count [...] HealthAutomated erythrocyte mean corpuscular hemoglobin concentration measurement (mass/qwj6234-30-96 01:11:00* Test Item Value Reference Range Interpretation Comme nts Mean Corpuscular Hemoglobin Concent (test code = 786-4) 32.4 33.0-37.0 [facility] HealthAutomated erythrocyte distribution width nwlkn4022-99-61 01:11:00 * Test Item Value Reference Range Interpretation Comme nts Red Cell Distribution Width (test code = 788-0) 11.7 10.7-14.5 [facility] HealthAutomated blood platelet count (count/volume)2019-06-01 01:11:00 * Test Item Value Reference Range Interpretation Comme nts Platelet Count (test code = 777-3) 246 150-450 [facility] HealthAutomated blood platelet mean volume emcxdxxtbrq0566-31-50 01:11:00* Test Item Value Reference Range Interpretation Comme nts Mean Platelet Volume (test c ode = 17590-5) 10.1 5.7-10.7 [facility] HealthAutomated blood neutrophil count as percentage of total ohbvqkuayn0768-70-26 01:11:00* Test Item Value Reference Range Interpretation Comme nts Neutrophils (%) (Auto) (test code = 770-8) 60 47-75 [facility] HealthAutunc healthed blood immature granulocyte count as percentage of total tmgsniathk6660-82-59 01:11:00* Test Item Value Reference Range Interpretation Comme nts Immature Granulocyte % (Auto ) (test code = 25891-9) 0 0-0 [facility] vancomycin moxgq9185-75-69 23:30:00* Test Item Value Reference Range Interpretation Comme [facility] Vancomycin Level Trough (ana luisa t code = 4092-3) 8.0 10.0-20.0 [facility] HealthProthrombin time (PT) in platelet poor zooyzr1047-57-64 04:05:00 * Test Item Value Reference Range Interpretation Comme nts Prothrombin Time (test code = 5902-2) 10.8 9.4-12.0 [facility] HealthINR in Platelet poor plasma by Coagulation zveqb8448-79-50 04:05:00* Test Item Value Reference Range Interpretation Comme nts Prothromb Time International Ratio (test code = 6301-6) 1.1 0.8-1.2 [facility] HealthPlasma partial thromboplastin time (PTT)2019-05-28 04:05:00* Test Item Value Reference Range Interpretation Comme nts Activated Partial Thrombopla st Time (test code = 08329-4) 23.6 21.0-33.0 [facility] HealthSerum or plasma total [...] de = 5643-2) < 11 Not Available [facility] Consult Notes Date/Time Note Provider Source 2023-09-30 [...] his symptoms. Patient was ruled out for SC with negative troponins x3 and an unremarkable EKG. I have a low suspicion for ACS or NSTEMI. He has musculoskeletal chest wall pain. - Recommend ibuprofen 600mg PO TID with food. - Pepcid 20mg PO BID - No further cardiac recs. - WIll sign off. Electronically signed by REGIS HOLT on 1525 [facility] 2023-09-30 10:26:[address] Akers [...] x3. No motor or sensory deficits, bilateral measurement psychologist equal. Strength 5/5. Answers questions appropriately Cranial [...] %CKMB 0.5 CKMB 0.5 TROP-I <0.012 2148 [facility] Radiology BEDCXR 2036 Chemistry SODIUM [...] will sign off Electronically signed by JOSIANE FERGUSON - YEIMY on 1655 I hereby attest the note that was written on this patient accurately reflects the notations made when patient was examined. Electronically signed by REGIS HOLT on 1839 [facility] Discharge Summaries Date/Time Note Provider Source [...] %CKMB 0.5 CKMB 0.5 TROP-I <0.012 2148 [facility] Radiology BEDCXR 2036 Chemistry SODIUM [...] 420 Electronically signed by CYNDEE Marion NP OIL WELL CABLE TOOL DRILLER on 1619 Electronically signed by RULA KAN on 1318 [facility] History and Physical Notes Date/Time Note [...] %CKMB 0.5 CKMB 0.5 TROP-I <0.012 2148 [facility] Radiology BEDCXR 2036 Chemistry SODIUM [...] Electronically signed by RULA KAN on 0830 [facility] Notes Date/Time Note Provider Source 2023-12-27 21:02:38 Chest pain ; [facility] PATIENT OPEN ORDERS Code System Description Frequency Occurrences Priority [place] [address]-2 [facility] EKG study ONE TIME 0 Stat September 30, 2023 2:29:00 AM [place] [facility]-OIL WELL CABLE TOOL DRILLER nrr1ppu on September 30, 2023 2:29:00 AM UT SCHEDULED PROCEDURES Code System Description Status Scheduled Date Updated By Patient scheduled procedure information is not available. [facility]2024-05-14 21:02:38PATIENT GOALS [facility]2024-05-14 21:02:38 CARE emergency medicine specialist Role on Team Status Start Date End Date Update d By ROSALBA SANTIAGO Attending normal September 30, 2023 6:30:57 AM UT September 29, 2023 6:00:00 AM UTC [id number] on September 30, 2023 6:30:57 AM UTC ROSALBA SANTIAGO Admitting normal September 30, 2023 6:30:57 AM UTC September 29, 2023 6:00:00 AM UTC [id number] on September 30, 2023 6:30:57 AM UTC REGIS HOLT Consulting normal September 30 3:43:31 AM UTC October 01, 2023 12:42:00 AM UTC [id number] on September 30, 2023 6:30:57 AM UTC NO PCP PCP normal September 30 3:38:54 AM UTC September 30, 2023 3:49:01 AM UTC [id number] on September 30, 2023 6:30:57 AM UTC NO PCP Referring normal September 30 3:38:54 AM UTC September 29, 2023 6:00:00 AM UTC [id number] on September 30, 2023 6:30:57 AM UTC ANDREW RODRIGUEZ Attending normal September 30, 2023 3:38:54 AM UTC September 30, 2023 3:49:01 AM UTC XTZ4PNA on September 30, 2023 6:30:57 AM [facility] ANDREW RODRIGUEZ Admitting normal September 30, 2023 3:38:54 AM [facility] September 30, 2023 3:49:01 AM [facility] BEX2GIR on September 30, 2023 6:30:57 AM [facility]2024-04-14 10:43:29 Patient discharged to home. Patient given [...] gait in no apparent distress. Is[facility] Cortez [facility] CharlotteOuyuun1259-72-45 10:30:08 Sinus congestion x1 week. Thinks he has a sinus infection. Mirela Flor [facility] CharlotteQtmrli0578-61-45 10:16:00 [facility] Emergency Department Note Patient Name: Severo Diop Date of : 1980 43 year old male Treatment Room: [facility] ED [facility] JOSEGIRMA Primary Care Physician: [facility] Patient Escorted by: Family [5] Mode of [...] signed by: Amanda Raymond DO 11/27/23 1040 [facility] CompanyGobpts4406-40-91 20:33:24 PATIENT OPEN ORDERS Code System Description Frequency Occurrences Priority [place] [address] [facility] EKG study ONE TIME 0 Stat October 10, 2023 6:11:00 AM UTC AMERICA ROBERTS [id number] on October 10, 2023 6:11:00 AM UTC SCHEDULED PROCEDURES Code System Description Status Scheduled Date Updated By Patient scheduled procedure information is not available. [facility]2024-02-29 20:33:24 CARE emergency medicine specialist Role on Team Status Start Date End Date Update d By NO PCP PCP normal October 10 6:33:41 AM UTC October 10, 2023 10:39:00 AM UTC [id number] on October 10, 2023 6:33:41 AM UTC NO PCP Referring normal October 10 6:33:41 AM UTC October 10, 2023 10:39:00 AM UTC BOM4UNS on October 10, 2023 6:33:41 AM UTC AMERICA ROBERTS Attending normal October 10 6:33:41 AM UTC October 10, 2023 10:39:00 AM UTC NZW3VDK on October 10, 2023 6:33:41 AM UTC AMERICA ROBERTS Admitting normal October 10 6:33:41 AM UTC October 10, 2023 10:39:00 AM UTC [id number] on October 10, 2023 6:33:41 AM UTC [facility]2024-02-28 20:19:57 PATIENT OPEN ORDERS Code System Description Frequency Occurrences Priority [place] [address]1 [facility] EKG study ONE TIME 0 Stat October 10, 2023 6:11:00 AM UTC AMERICA ROBERTS fuk1spt on October 10, 2023 6:11:00 AM UTC SCHEDULED PROCEDURES Code System Description Status Scheduled Date Updated By Patient scheduled procedure information is not available. [facility]2024-02-28 20:19:57 CARE emergency medicine specialist Role on Team Status Start Date End Date Update d By NO PCP PCP normal October 10 6:33:41 AM UTC October 10, 2023 10:39:00 AM UTC [id number] on October 10, 2023 6:33:41 AM UTC NO PCP Referring normal October 10 6:33:41 AM UTC October 10, 2023 10:39:00 AM UTC [id number] on October 10, 2023 6:33:41 AM UTC AMERICA ROBERTS Attending normal October 10 6:33:41 AM UTC October 10, 2023 10:39:00 AM UTC [id number] on October 10, 2023 6:33:41 AM UTC AMERICA ROBERTS Admitting normal October 10 6:33:41 AM UTC October 10, 2023 10:39:00 AM UTC QDA4YKA on October 10, 2023 6:33:41 AM UTC [facility]2024-02-27 21:26:24 PATIENT OPEN ORDERS Code System Description Frequency Occurrences Priority Start [place] [address]-5 [facility] EKG study ONE TIME 0 Stat October 10, 2023 6:11:00 AM UTC AMERICA ROBERTS qrf1mzu on October 10, 2023 6:11:00 AM UTC SCHEDULED PROCEDURES Code System Description Status Scheduled Date Updated By Patient scheduled procedure information is not available. [facility]2024-02-27 21:26:24 CARE emergency medicine specialist Role on Team Status Start Date End Date Update d By NO PCP PCP normal October 10 6:33:41 AM UTC October 10, 2023 10:39:00 AM UTC [id number] on October 10, 2023 6:33:41 AM UTC NO PCP Referring normal October 10 6:33:41 AM UTC October 10, 2023 10:39:00 AM UTC [id number] on October 10, 2023 6:33:41 AM UTC AMERICA ROBERTS Attending normal October 10 6:33:41 AM UTC October 10, 2023 10:39:00 AM UTC HZN2ETE on October 10, 2023 6:33:41 AM UTC AMERICA ROBERTS Admitting normal October 10 6:33:41 AM UTC October 10, 2023 10:39:00 AM UTC GCX3SPG on October 10, 2023 6:33:41 AM UTC [facility]2024-02-26 04:40:17 PATIENT OPEN ORDERS Code System Description Frequency Occurrences Priority [place] [address]-7 [facility] EKG study ONE TIME 0 Stat October 10, 2023 6:11:00 AM [place] AMERICA ROBERTS [id number] on October 10, 2023 6:11:00 AM [facility] SCHEDULED PROCEDURES Code System Description Status Scheduled Date Updated By Patient scheduled procedure information is not available. [facility]2024-02-26 04:40:17 CARE emergency medicine specialist Role on Team Status Start Date End Date Update d By NO PCP PCP normal October 10 6:33:41 AM UT October 10, 2023 10:39:00 AM UT [id number] on October 10, 2023 6:33:41 AM UT NO PCP Referring normal October 10 6:33:41 AM [facility] October 10, 2023 10:39:00 AM [facility] SQU7YVJ on October 10, 2023 6:33:41 AM [facility] AMERICA ROBERTS Attending normal October 10 6:33:41 AM [facility] October 10, 2023 10:39:00 AM [facility] WSF2IEW on October 10, 2023 6:33:41 AM [facility] AMERICA ROBERTS Admitting normal October 10 6:33:41 AM [facility] October 10, 2023 10:39:[address] [facility] on October 10, 2023 6:33:41 AM [facility]2024-02-26 01:33:[address] [address] DIAGNOSTIC IMAGING REPORT Patient Name: SEVEOR DIOP Date of Service: 10-10-2023 Age: 43 Sex: M Order #: [id number] Room: [facility] : 1980 X-Ray Number: [id number] Hospital Number: [id number] Admitting Physician: ALEJANDRA CROSS Ordering Physician: ALEJANDRA [...] document has been electronically signed by: Bryant Guzman III, MD on 10/10/2023 01:33:00 Legally authenticated by MINH POWELL 2023-10-10 01:33:00FOOREN PINEDA [id number] 07:13:37Chest pain ;[facility]2024-02-20 07:13:37 PATIENT OPEN ORDERS Code System Description Frequency Occurrences Priority [place] [address]-0 LOINC EKG study ONE TIME 0 Stat September 30, 2023 2:29:00 AM [facility] BART MELTON [id number] on September 30, 2023 2:29:00 AM [facility] 29625-8 LOINC EKG study IN AM 1 Routine September 30, 2023 9:00:00 AM [facility] SETH ALDRICH on September 30, 2023 3:43:00 AM [facility] SCHEDULED PROCEDURES Code System Description Status Scheduled Date Updated By Patient scheduled procedure information is not available. [facility]2024-02-20 07:13:37PATIENT GOALS [facility]2024-02-20 07:13:37 CARE emergency medicine specialist Role on Team Status Start Date End Date Update d By ROSALBA SANTIAGO Attending normal September 30, 2023 6:30:57 AM [facility] September 29, 2023 6:00:00 AM [facility] [id number] on September 30, 2023 6:30:57 AM [facility] ROSALBA SANTIAGO Admitting normal September 30, 2023 6:30:57 AM [facility] September 29, 2023 6:00:00 AM [facility] [id number] on September 30, 2023 6:30:57 AM [facility] REGIS HOLT Consulting normal September 30 3:43:31 AM [facility] October 01, 2023 12:42:00 AM [facility] [id number] on September 30, 2023 6:30:57 AM [facility] NO PCP PCP normal September 30 3:38:54 AM [facility] September 30, 2023 3:49:01 AM [facility] [id number] on September 30, 2023 6:30:57 AM [facility] NO PCP Referring normal September 30 3:38:54 AM UTC September 29, 2023 6:00:00 AM UTC [id number] on September 30, 2023 6:30:57 AM UTC ANDREW RODRIGUEZ Attending normal September 30, 2023 3:38:54 AM UTC September 30, 2023 3:49:01 AM UTC [id number] on September 30, 2023 6:30:57 AM UTC ANDREW RODRIGUEZ Admitting normal September 30, 2023 3:38:54 AM UTC September 30, 2023 3:49:01 AM UTC [id number] on September 30, 2023 6:30:57 AM UTC [facility]2024-02-19 18:02:32Chest pain ;[facility]2024-02-19 18:02:32 PATIENT OPEN ORDERS Code System Description Frequency Occurrences Priority [place] [address]-2 LOINC EKG study ONE TIME 0 Stat September 30, 2023 2:29:00 AM [facility] B[facility] [employer] DRILLER [email or web address] on September 30, 2023 2:29:00 AM [facility] 95316-8 LOINC EKG study IN AM 1 Routine September 30, 2023 9:00:00 AM [facility] SETH ALDRICH on September 30, 2023 3:43:00 AM [facility] SCHEDULED PROCEDURES Code System Description Status Scheduled Date Updated By Patient scheduled procedure information is not available. [facility]2024-02-19 18:02:32PATIENT GOALS [facility]2024-02-19 18:02:32 CARE emergency medicine specialist Role on Team Status Start Date End Date Update d By ROSALBA SANTIAGO Attending normal September 30, 2023 6:30:57 AM UTC October 01, 2023 12:42:00 AM UTC DAYEND on September 30, 2023 6:30:57 AM UTC ROSALBA SANTIAGO Admitting normal September 30, 2023 6:30:57 AM UTC October 01, 2023 12:42:00 AM UTC DAYEND on September 30, 2023 6:30:57 AM [facility] REGIS Macias normal September 30 3:43:31 AM UTC October 01, 2023 12:42:00 AM UTC DAYEND on September 30, 2023 6:30:57 AM [facility] NO PCP PCP normal September 30 3:38:54 AM UTC September 30, 2023 3:49:01 AM UTC DAYEND on September 30, 2023 6:30:57 AM [facility] NO PCP Referring normal September 30 3:38:54 AM UTC October 01, 2023 12:42:00 AM UTC DAYEND on September 30, 2023 6:30:57 AM [facility] ANDREW RODRIGUEZ Attending normal September 30, 2023 3:38:54 AM UTC September 30, 2023 3:49:01 AM UTC DAYEND on September 30, 2023 6:30:57 AM [facility] ANDREW RODRIGUEZ Admitting normal September 30, 2023 3:38:54 AM [facility] September 30, 2023 3:49:01 AM UTC DAYEND on September 30, 2023 6:30:57 AM [facility]2024-02-16 21:02:32Chest pain ;[facility]2024-02-16 21:02:32 PATIENT OPEN ORDERS Code System Description Frequency Occurrences Priority Start [place] [address]-4 LOINC EKG study ONE TIME 0 Stat September 30, 2023 2:29:00 AM [facility] BART SILVIA LINH [id number] on September 30, 2023 2:29:00 AM [facility] 59720-3 LOINC EKG study IN AM 1 Routine September 30, 2023 9:00:00 AM [facility] SETH WESLEY KISHANOlvin on September 30, 2023 3:43:00 AM [facility] 81758-1 [facility] Basic metabolic 2000 panel - Serum or Plasma IN AM 0 Routine October 01, 2023 9:00:00 AM [facility] MAHENDRA KAN [id number] on September 30, 2023 8:31:00 PM [facility] 14709-6 [facility] Basic metabolic 2000 panel - Serum or Plasma IN AM 0 Routine October 02, 2023 9:00:00 AM [facility] MAHENDRA KAN [id number] on September 30, 2023 8:31:00 PM [facility] 25444-2 [facility] Basic metabolic 2000 panel - Serum or Plasma IN AM 0 Routine October 03, 2023 9:00:00 AM [facility] MAHENDRA ABRAHAMNA [id number] on September 30, 2023 8:31:00 PM [facility] 61243-6 LOINC CBC W Auto Differential panel - Blood IN AM 0 Routine October 01, 2023 9:00:00 AM [facility] XINWESLEY ABRAHAMNA [id number] on September 30, 2023 8:31:00 PM [facility] 79318-2 LOINC CBC W Auto Differential panel - Blood IN AM 0 Routine October 02, 2023 9:00:00 AM [facility] XINWESLEY Mathias LORETA [id number] on September 30, 2023 8:31:00 PM [facility] 68735-2 LOINC CBC W Auto Differential panel - Blood IN AM 0 Routine October 03, 2023 9:00:00 AM [facility] XINWESLEY ABRAHAMNA [id number] on September 30, 2023 8:31:00 PM [facility] SCHEDULED PROCEDURES Code System Description Status Scheduled Date Updated By Patient scheduled procedure information is not available. [facility]2024-02-16 21:02:32PATIENT GOALS [facility]2024-02-16 21:02:32 CARE emergency medicine specialist Role on Team Status Start Date End Date Update d By ROSALBA SANTIAGO Attending normal September 30, 2023 6:30:57 AM [facility] October 01, 2023 12:42:00 AM [facility] DAYEND on September 30, 2023 6:30:57 AM UT ROSALBA SANTIAGO Admitting normal September 30, 2023 6:30:57 AM UT October 01, 2023 12:42:00 AM UTC DAYEND on September 30, 2023 6:30:57 AM [facility] ELOYRI YANET Consulting normal September 30 3:43:31 AM UTC October 01, 2023 12:42:00 AM [facility] DAYEND on September 30, 2023 6:30:57 AM [facility] NO PCP PCP normal September 30 3:38:54 AM UTC September 30, 2023 3:49:01 AM UTC DAYEND on September 30, 2023 6:30:57 AM UT NO PCP Referring normal September 30 3:38:54 AM UTC October 01, 2023 12:42:00 AM [facility] DAYEND on September 30, 2023 6:30:57 AM [facility] ANDREW RODRIGUEZ Attending normal September 30, 2023 3:38:54 AM [facility] September 30, 2023 3:49:01 AM [facility] DAYEND on September 30, 2023 6:30:57 AM [facility] ANDREW RODRIGUEZ Admitting normal September 30, 2023 3:38:54 AM [facility] September 30, 2023 3:49:01 AM [facility] DAYEND on September 30, 2023 6:30:57 AM [facility]2024-02-15 21:47:15[place] [address] DIAGNOSTIC IMAGING REPORT Patient Name: SEVERO DIOP Date of Service: 09-29-2023 Age: 43 Sex: M Order #: [id number] Room: [facility] : 1980 X-Ray Number: [id number] Hospital Number: [id number] Admitting Physician: JENNIFER MORALES Ordering Physician: JENNIFER MORALES PROCEDURE: CHEST 1 VIEW PORTABLE INDICATIONS: dx: chest wall pain pt sts: c/o left chest wall pain onset 3 days agonohapsv: jtt 1 view chest x-ray Comparison: None Findings: No consolidation or effusion. Heart size is normal. No acute fracture. IMPRESSION: 1. No acute findings. This document has been electronically signed by: Ba Man MD on 09/29/2023 21:47:15 Legally authenticated by DONOVAN SHUKLA 2023-09-29 21:47:15[facility] 2023-03-31 22:28:00 [facility] ([facility] EMERGENCY PROVIDER REPORT REPORT#:[id number] REPORT STATUS: Signed DATE:03/31/23 TIME:2227 PATIENT: SEVERO DIOP UNIT #: [id number] ROOM/BED: : 80 AGE: 42 SEX: M [...] states that the symptoms started after eating Qwts-sq-vpk-Box. Patient states that he has been without [...] % (Auto) (20.5 - 51.1 %) 42.5 [place] % (Auto) (1.7 - 9.3 %) 12.7 H Eos % (Auto) (0.0 - 6.0 %) 1.6 Baso % (Auto) (0.0 - 2.0 %) 0.9 Neut # (Auto) (1.8 - 7.6 K/mm3) 1.9 Lymph # (Auto) (0.6 - 3.0 K/mm3) 1.9 [place] # (Auto) (0.2 - 1.5 K/mm3) 0.6 [...] )( Time 2323 )( Date 03/31/23 Discharge/Care Plan Patient Instructions ED Dehydration (Adult) Additional Instructions Please follow up with your primary care doctor within the week. If you do not have a primary care doctor, please call and make the earliest appointment for: Dr Ceci Rdz [address] [facility], [place] [address] [email or web address] Return if your symptoms worsen or you develop any new concerning symptoms at [address] [facility] [[email or web address]] #: [id number] END OF [id number] 06:02:28 Pt given printed and verbal discharge [...] steady gait, in no apparent distress. [id number] 05:27:03 Patient came in with complaints of right upper toothache since last night and it woke him up from sleep 45 mins ago. Patient said that he took BC Powder last night and today morning before he got here but no relief. [facility]icki Daniel [id number] 05:19:00 [facility] Emergency Department Note Patient Name: Severo Diop Date of : 1980 42 year old male Treatment Room: [facility] [id number] Primary Care Physician: Marylou [facility] Patient Escorted by: Self [9] Mode of [...] on file. ED COURSE Diagnosis/Impression as of 03/21/23550 Toothache Procedures: Procedures MDM: Medical Decision Making [...] file Follow-up: Contact information for follow-up Center, [place] Jewel Patino Medical Relationship: PCP - General [address] [facility]. [facility] [id number] Electronically signed by: Meng Márquez MD 03/21/23550 [facility]
--- NOTE | 2024-07-06 22:22 | ER ---
Nurse's Notes [facility] Name: Severo Morgan Age: 43 yrs Sex: Male : 1980 Arrival Date: 07/06/2024 Time: 21:36 Bed DX3 Private MD: Diagnosis: Dental pain with possible dental infection Presentation: 07/06 22:02 Chief complaint: Patient states: Patient presents in the ED c/o toothache for the past ss 2-3 weeks. Patient states that the last 4-5 days it has been getting worse. Coronavirus screen: At this time, the client does not indicate any symptoms associated with coronavirus-19. Ebola Screen: No symptoms or risks identified at this time. Initial Sepsis Screen: Does the patient meet any 2 criteria? No. Patient's initial sepsis screen is negative. Does the patient have a suspected source of infection? No. Patient's initial sepsis screen is negative. Risk Assessment: Do you want to hurt yourself or someone else? Patient reports no desire to harm self or others. Onset of symptoms was July 02, 2024. 22:02 Method Of Arrival: Ambulatory ss 22:02 Acuity: FRANKLIN 4 ss Triage Assessment: 22:36 Headache History: The patient has had previous headaches and this one is similar to vc1 previous episodes. General: Appears in no apparent distress. uncomfortable, slender, well developed, well nourished, Behavior is calm, cooperative, appropriate for age. Pain: Complains of pain in upper left lateral incisor Pain does not radiate. Pain currently is 10 out of 10 on a pain scale. Pain began CHRONIC Also complains of no other associated symptoms. EENT: Reports pain in upper left lateral incisor. Neuro: Level of Consciousness is awake, alert, obeys commands, Oriented to person, place, time, situation, Appropriate for age. Cardiovascular: Capillary refill < 3 seconds Patient's skin is warm and dry. Respiratory: Airway is patent Respiratory effort is even, unlabored, Respiratory pattern is regular, symmetrical, Breath sounds are clear bilaterally. GI: Abdomen is flat, non-distended, Bowel sounds present X 4 quads. : No deficits noted. No signs and/or symptoms were reported regarding the genitourinary system. Derm: Skin is intact, is healthy with good turgor, Skin is dry, Skin is normal, Skin temperature is warm. Musculoskeletal: No deficits noted. No signs and/or symptoms reported regarding the musculoskeletal system. Historical: - PSHx: 22:05 skin graft; ss - Immunization history:: Adult Immunizations up to date. - Infectious Disease History:: Denies. - Social history:: Smoking status: Patient reports the use of cigarette tobacco products, smokes one-half pack cigarettes per day. Screenin:[facility] ED Fall Risk Assessment (Adult) History of falling in the last 3 months, vc1 including since admission No falls in past 3 months (0 pts) Confusion or Disorientation No (0 pts) Intoxicated or Sedated No (0 pts) Impaired Gait No (0 pts) Mobility Assist Device Used No (0 pt) Altered Elimination No (0 pt) Score/Fall Risk Level 0 - 2 = Low Risk Oriented to surroundings, Maintained a safe environment, Educated pt \T\ family on fall prevention, incl call for assistance when getting out of bed. Abuse screen: Denies threats or abuse. Nutritional screening: No deficits noted. Tuberculosis screening: No symptoms or risk factors identified. Vital Signs: 22:02 BP 112 / 92; Pulse 79; Resp 17; Temp 98.4; Pulse Ox 100% on R/A; Weight 70.31 kg; ss 22:42 BP 110 / 88; Pulse 77; Resp 16; Pulse Ox 99% ; vc1 ED Course: 21:38 Patient arrived in ED. am2 21:48 Linda Patel MD is Attending Physician. sp3 22:05 Triage completed. ss 22:34 Arm band placed on right wrist. vc1 22:34 Patient has correct armband on for positive identification. Bed in low position. Call vc1 light in reach. SEEN IN DIAGNOSTIC CHAIR. 22:41 No provider procedures requiring assistance completed. Patient did not have IV access vc1 during this emergency room visit. 22:42 Provided Education on: F/U WITH DENTIST. vc1 Administered Medications: 22:35 Drug: Amoxicillin-Clavulanate PO 875 mg PO once Route: PO; vc1 22:36 Follow up: Response: Medication administered at discharge. vc1 22:35 Drug: HYDROcodone-acetaminophen PO 5 mg-325 mg 2 tabs PO once Route: PO; vc1 22:35 Follow up: Response: Medication administered at discharge. vc1 Medication: 22:35 VIS not applicable for this client. vc1 Outcome: 22:21 Discharge ordered by . sp3 22:41 Discharged to home ambulatory, with significant other, vc1 22:41 Condition: good 22:41 Discharge instructions given to patient, Instructed on discharge instructions, follow up and referral plans. medication usage, Demonstrated understanding of instructions, follow-up care, medications, Prescriptions given X 2, 22:43 Patient left the ED. vc1 Signatures: Prachi Jackson, RN RN Silvia Briggs am2 Linda Patel MD MD sp3 Stephanie Ventura RN RN vc1
--- NOTE | 2024-07-06 22:22 | EDPHYS ---
Physician Documentation [facility] Name: Severo Morgan Age: 43 yrs Sex: Male : 1980 Arrival Date: 07/06/2024 Time: 21:36 Bed DX3 Private MD: ED Physician Linda Patel HPI: 07/06 22:19 This 43 yrs old Male presents to ER via Ambulatory with complaints of Mouth Problem, sp3 Sinus Pain. 22:19 43-year-old male with no significant past medical history, with poor dentition who has sp3 a dental appointment approximately 2 weeks presents with left maxillary pain due to "nerve" on left incisor. He denies any trauma, bleeding, fever or any other signs or symptoms at this time. Review of systems negative for headache, neck pain, chest pain shortness of breath, abdominal pain, vomiting, diarrhea, rash or any other signs or symptoms on ROS at this time.. Historical: - PSHx: 22:05 skin graft; ss - Immunization history:: Adult Immunizations up to date. - Infectious Disease History:: Denies. - Social history:: Smoking status: Patient reports the use of cigarette tobacco products, smokes one-half pack cigarettes per day. ROS: 22:20 Constitutional: Negative for fever, chills, and weight loss, Eyes: Negative for injury, sp3 pain, redness, and discharge, Neck: Negative for injury, pain, and swelling, Cardiovascular: Negative for chest pain, palpitations, and edema, Respiratory: Negative for shortness of breath, cough, wheezing, and pleuritic chest pain, Abdomen/GI: Negative for abdominal pain, nausea, vomiting, diarrhea, and constipation, Back: Negative for injury and pain, MS/Extremity: Negative for injury and deformity, Skin: Negative for injury, rash, and discoloration, Neuro: Negative for headache, weakness, numbness, tingling, and seizure, Psych: Negative for depression, anxiety, suicide ideation, homicidal ideation, and hallucinations, Allergy/Immunology: Negative for hives, rash, and allergies, Endocrine: Negative for neck swelling, polydipsia, polyuria, polyphagia, and marked weight changes, 22:20 All other systems are negative, Exam: 22:20 Constitutional: This is a well developed, well nourished patient who is awake, alert, sp3 and in no acute distress. Head/Face: Normocephalic, atraumatic. Eyes: Pupils equal round and reactive to light, extra-ocular motions intact. Lids and lashes normal. Conjunctiva and sclera are non-icteric and not injected. Cornea within normal limits. Periorbital areas with no swelling, redness, or edema. Neck: Trachea midline, no thyromegaly or masses palpated, and no cervical lymphadenopathy. Supple, full range of motion without nuchal rigidity, or vertebral point tenderness. No Meningismus. Chest/axilla: Normal chest wall appearance and motion. Nontender with no deformity. No lesions are appreciated. Cardiovascular: Regular rate and rhythm with a normal S1 and S2. No gallops, murmurs, or rubs. Normal PMI, no JVD. No pulse deficits. Respiratory: Lungs have equal breath sounds bilaterally, clear to auscultation and percussion. No rales, rhonchi or wheezes noted. No increased work of breathing, no retractions or nasal flaring. Abdomen/GI: Soft, non-tender, with normal bowel sounds. No distension or tympany. No guarding or rebound. No evidence of tenderness throughout. Back: No spinal tenderness. No costovertebral tenderness. Full range of motion. Skin: Warm, dry with normal turgor. Normal color with no rashes, no lesions, and no evidence of cellulitis. MS/ Extremity: Pulses equal, no cyanosis. Neurovascular intact. Full, normal range of motion. Neuro: Awake and alert, GCS 15, oriented to person, place, time, and situation. Cranial nerves II-XII grossly intact. Motor strength 5/5 in all extremities. Sensory grossly intact. Cerebellar exam normal. Normal gait. 22:20 ENT: Poor dentition left incisor maxillary with notable decay and palpable nerve exposure. Will treat with antibiotics and diclofenac and I have urged patient to contact dentist for sooner appointment.. Vital Signs: 22:02 BP 112 / 92; Pulse 79; Resp 17; Temp 98.4; Pulse Ox 100% on R/A; Weight 70.31 kg; ss 22:42 BP 110 / 88; Pulse 77; Resp 16; Pulse Ox 99% ; vc1 MDM: 22:09 Medical Screening Exam initiated sp3 Administered Medications: 22:35 Drug: Amoxicillin-Clavulanate PO 875 mg PO once Route: PO; vc1 22:36 Follow up: Response: Medication administered at discharge. vc1 22:35 Drug: HYDROcodone-acetaminophen PO 5 mg-325 mg 2 tabs PO once Route: PO; vc1 22:35 Follow up: Response: Medication administered at discharge. vc1 Disposition Summary: 07/06/24 22:21 Discharge Ordered Notes: Location: Home sp3 Condition: Stable sp3 Diagnosis - Dental pain with possible dental infection sp3 Followup: sp3 - With: Private Physician - When: Upon discharge from the Emergency Department - Reason: Continuance of care Discharge Instructions: - Discharge Summary Sheet sp3 - Dental Pain sp3 Forms: - Medication Reconciliation Form sp3 - Antibiotic Education sp3 - Prescription Opioid Use sp3 - Patient Portal Instructions sp3 - Leadership Thank You Letter sp3 Prescriptions: - Augmentin 875-125 mg Oral Tablet - take 1 tablet ORAL route every 12 hours for 10 days; 20 tablet; Refills: 0, sp3 Product Selection Permitted - Diclofenac Sodium 75 mg Oral Tablet Sustained Release - take 1 tablet ORAL route 2 times per day; 30 tablet; Refills: 0, Product sp3 Selection Permitted Signatures: Prachi Jackson RN RN ss Linda Patel MD MD sp3 Stephanie Ventura RN RN vc1
[2024-07-06] MEDS ORDERED: AMOX/K CLAV 875 MG TAB ONE (22:30)
[2024-07-06] MEDS ORDERED: HYDROCODONE/APAP 5/325 MG TAB ONE (22:31)
[2024-07-07 02:43] VITALS: TEMP 98.4
[2024-07-07 02:44] VITALS: BP 110/88; O2SAT 99
== END 2024-07-06 22:43 | disposition home or self-care (01) ==
LOC: ER 21:36
DX: K08.89 Other specified disorders of teeth and supporting structures (principal); F17.210 Nicotine dependence, cigarettes, uncomplicated
CPT/HCPCS: 99283

== ENCOUNTER 2024-08-04 21:19 | Emergency (ER) | payer OTHER ==
--- OUTSIDE RECORDS SUMMARY | 2024-08-04 21:24 | XMS REPORT | Continuity of Care Document ---
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 CKMB) 0.8 NG/ML 0.22-2.4 CK (test code = CK) 143 U/L 55-170 Natriuretic peptide B [Mass/volume] in Serum [id number] 01:48:00* Test Item Value Reference Range Interpretation Comme nts Natriuretic peptide B [Mass/ volume] in Serum or Plasma (test code = 59772-4) <20.0 N [facility])Creatine kinase.MB [Mass/volume] in Serum or Pl 2023-10-10 01:48:00* Test Item Value Reference Range Interpretation Comme nts Creatine kinase.MB/Creatine kinase.total in Serum or Plasma (test code = 69389-8) 0.6 % N Creatine kinase.MB [Mass/vol ume] in Serum or Plasma (test code = 29670-3) 0.8 NG/ML 0.22-2.4 N Creatine kinase isoenzymes [interpretation] in Serum or Plasma Narrative (test code = 85268-6) 143 U/L 55.0-170.0 [facility])[id number] 01:35:00* Test Item Value Reference Range Interpretation Comme nts MG (test code = MG) 1.7 mg/dL 1.6-2.3 CHEST 1 VIEW [id number] 01:34:00 [facility] 1980 [facility] [place], [place] [id number] IMAGING R EPORTPatient Name: ANDRE DIOPDate of Service: [id number]: 43 Sex: M Order #: [id number] Room: ERSDOB: 1980 X-Ray Number: [id number] Record Number: [id number] Hospital Number: [id number] Physician: Sherry CROSS Physician: ALEJANDRA CROSSPROCEDURE: CHEST [...] MINH POWELL 2023-10-10 01:33:00Portable XR Chest Views [id number] 01:33:00ORDER 800: CHEST 1 VIEW PORTABLE (LOINC: 00785-0)ORDER DATE: October 10, 2023 6:45:00 AM [facility] Magnesium [Mass/volume] in Serum or [id number] 01:30:00* Test Item Value Reference Range Interpretation Comme nts Magnesium [Mass/volume] in S jeni or Plasma (test code = 84134-6) 1.7 mg/dL 1.6-2.3 N [facility][id number] 01:28:00* Test Item Value Reference Range Interpretation [...] 1.2-7.2 CBC W Auto Differential panel - [id number] 01:28:00* Test Item Value Reference Range Interpretation Comme nts Leukocytes other [Identifier ] in Blood by Automated count (test code = 24461-7) 7.8 K/UL 3.5-10.9 N Erythrocytes [#/volume] in B lood (test code = 80450-6) 4.47 M/UL 4.3-5.7 N Hemoglobin A/Hemoglobin.tota l in Blood (test code = 4546-8) 13.9 G/DL 13.0-17.9 N Hematocrit [Volume Fraction] of Blood (test code = 66537-0) 41.8 % 38.0-52.0 N Erythrocyte mean corpuscular volume [Entitic volume] (test code = 65771-2) 93.5 FL 80.0-98.0 N Erythrocyte mean corpuscular hemoglobin [Entitic mass] (test code = 91578-8) 31.1 PG 28.0-32.0 N Erythrocyte mean corpuscular hemoglobin concentration [Mass/volume] (test code = 68096-3) 33.3 G/DL 32.5-36.5 N Erythrocyte distribution wid th [Ratio] (test code = 45001-6) 11.8 % 11.5-14.5 N Platelets panel - Blood by Automated count (test code = 17383-7) 245 K/UL 150.0-450.0 N Platelet mean volume [Entiti c volume] in Blood by Automated count (test code = 45861-8) 10.1 FL 7.4-10.4 N Neutrophils.segmented/100 leukocytes in Blood (test code = 19215-5) 57.3 % 40.0-75.0 N Lymphocytes Variant/100 leuk ocytes in Blood (test code = 21974-1) 30.1 % 24.0-44.0 N Lymphocytes+Monocytes/100 leukocytes in Blood (test code = 4662-3) 9.8 % 0.0-13.0 N Eosinophils [#/volume] in Bl ood (test code = 14867-2) 1.9 % 0.0-4.0 N Basophils [#/volume] in Bloo d (test code = 45893-0) 0.6 % 0.0-2.0 N Immature granulocytes/100 leukocytes in Blood (test code = 13450-1) 0.3 % 0.0-1.0 N Nucleated erythrocytes [#/vo lume] in Blood (test code = 31059-7) 0 /100 WBC N Neutrophils [#/volume] in Bl ood (test code = 13807-3) 4.4 K/UL 1.2-7.2 N [facility])TROPONIN [id number] 00:58:00* Test Item Value Reference Range Interpretation Comme nts TROPER (test code = TROPER) 0.00 NG/ML 0.0-0.08 INTERPRETIVE DATA A POC TROPONIN OF </= 0.08 NG/ML IS CONSIDERED NEGATIVE Troponin T.cardiac [Mass/volume] in Vjeyl7080-01-02 00:58:00* Test Item Value Reference Range Interpretation Comme [facility] Troponin T.cardiac [Mass/vol ume] in Blood (test code = 09468-5) 0.0 NG/ML 0.0-0.08 N [facility])ISTAT CHEM [id number] 00:52:00* Test Item Value Reference Range Interpretation [...] of Reference Ranges Basic metabolic panel - Fidfo0893-00-78 00:52:00* Test Item Value Reference Range Interpretation Comme nts Sodium [Moles/volume] in Art erial blood (test code = 10565-8) 142 MMOL/L 137.0-145.0 N Potassium [Moles/volume] in Arterial blood (test code = 65005-8) 3.8 MMOL/L 3.6-5.0 N Chloride [Moles/volume] in Arterial blood (test code = 22250-4) 100 MMOL/L 98.0-107.0 N Calcium.ionized [Mass/volume ] in Arterial blood (test code = 43787-5) 1.07 MMOL/L 1.12-1.32 L Carbon dioxide, total [Moles/volume] in Blood (test code = 96596-7) 30 MMOL/L 22.0-30.0 N Glucose [Mass/volume] in Art erial blood (test code = 86098-2) 90 MG/DL 65.0-110.0 N Urea nitrogen [Mass/volume] in Arterial blood (test code = 05827-5) 15.0 MG/DL 7.0-20.0 N Creatinine [Mass/volume] in Blood (test code = 81504-5) 0.8 MG/DL 0.7-1.5 N Hematocrit [Volume Fraction] of Arterial blood (test code = 39224-0) 44 %PCV 37.0-52.0 N Hemoglobin [Mass/volume] in Arterial cord blood (test code = 98277-1) 15.0 G/DL 12.0-18.0 N Anion gap in Blood (test cod e = 43557-2) 17 MMOL/L N [facility])ECHO COMPLETE W/[id number] 15:51:00 [facility] : 1980 Sex: MStudy ID: [id number] [facility]ITALECHOCARDIOGRAM REPORTName: ANDRE DIOP Study Date: 09/30/2023 02:19 PMMRN: [id number] Patient Location: T3\\S\\3316\\S\\AHR: 64DOB: 1980 (M/d/yyyy) Gender: MaleAge: 43 yrs Ethnicity: WHeight: 69 in Weight: 143 lbBSA: 1.8 s1Yhgrbl For Study: chest pain, abnormal EKG- Brugada [...] cmEDV(MOD-sp4): 78.5 mlEDV(sp4-el): 81.4 mlLVAs ap4: 16.3 yy2YCYc ap4: 6.3 cmESV(MOD-sp4): 36.6 mlESV(sp4-el): 35.5 mlEF(MOD-sp4): [...] Volume: 27.5 ml RA Volume Index: 15.4 ml/i8Gtkuyud Measurements & CalculationsMV E max [place]: 65.7 [...] Ellison MD 09/30/2023 03:51 PMOrdering Physician: George SnowdenReferrdillan Physician: CATHERINE, PCPPerformed By: Hilario Fajardo echo study Angadomaj5268-13-03 15:51:00ORDER 2600: ECHO COMPLETE W/DOPPLER (LOINC: 73698-0)ORDER DATE: September 30, 2023 6:55:00 PM [facility] URINE DRUG [id number] 13:51:00* Test Item Value Reference Range Interpretation [...] abuse 5 panel - Urine by Screen [id number] 13:51:00 NegativeNegativePositiveNegativeNegativeNegativeNegative[facility])[id number] 11:40:00* Test Item Value Reference Range Interpretation Comme nts %CKMB (test code = %MB) 0.5 % CKMB (test code = CKMB) 0.5 NG/ML 0.22-2.4 CK (test code = CK) 102 U/L 55-170 Creatine kinase.MB [Mass/volume] in Serum or [id number] 11:40:00* Test Item Value Reference Range Interpretation Comme nts Creatine kinase.MB/Creatine kinase.total in Serum or Plasma (test code = 26956-2) 0.5 % N Creatine kinase.MB [Mass/vol ume] in Serum or Plasma (test code = 05643-5) 0.5 NG/ML 0.22-2.4 N Creatine kinase isoenzymes [interpretation] in Serum or Plasma Narrative (test code = 48940-7) 102 U/L 55.0-170.0 N [facility])TROPONIN I - [id number] 11:01:00* Test Item Value Reference Range Interpretation Comme nts TROP-I (test code = TROP-I) <0.012 ng/ml 0.012-0.033 INTERPRETI VE DATA A TROPONIN OF LESS THAN 0.034 NG/ML IS CONSIDERED NEGATIVE A TROPONIN OF 0.034 - 0.119 NG/ML IS CONSIDERED GRAYZONE A TROPONIN =/> 0.120 NG/ML IS CONSIDERED POSITIVE Troponin I.cardiac [Mass/volume] in Serum or [id number] 10:57:00* Test Item Value Reference Range Interpretation Comme nts Troponin I.cardiac [Mass/vol ume] in Serum or Plasma (test code = 55424-1) <0.012 0.012-0.033 [facility])D-DIMER [id number] 10:56:00* Test Item Value Reference Range Interpretation Comme [facility] D-DIMER QUANTITATIVE (test code = DDIMER) <215 ng/mL (FEU) 0-500 VALUES OF QUANTITATIVE D-DIMER LESS THAN 499 ng/mL HAVE BEEN REPORTED TO BE ASSOCIATED WITH A LOW PROBABILITY OF DEEP VEIN THROMBOSIS/PULMONARY EMBOLISM. THIS TEST ALONE SHOULD NOT BE USED TO RULE OUT DVT/PE. Fibrin D-dimer FEU [Mass/volume] in Platelet [id number] 10:56:00* Test Item Value Reference Range Interpretation Comme [facility] Fibrin D-dimer FEU [Mass/vol ume] in Platelet poor plasma (test code = 85176-2) <215 0.0-500.0 [facility])BASIC METABOLIC [id number] 04:57:00* Test Item Value Reference Range Interpretation [...] 70-99 Fasting glucos e normal <100 MG/DL- [employer] recommendation CALCIUM (test code = CABLOOD) 8.3 MG/DL 8.4-10.2 L GFR (test code = GFR) 131 mL/min/1.73m2 See_Comment A GFR of >90 mL/min/1.73m2 is considered normal. The GFR calculation on patients over 70 years of age is not validated by the microfiche duplicator and may not represent the patients true renal function. [Automated message] The system which generated this result transmitted reference range: 59-. The reference range was not used to interpret this result as normal/abnormal. [id number] 04:47:00* Test Item Value Reference Range Interpretation Comme nts MG (test code = MG) 1.7 mg/dL 1.6-2.3 LIPID [id number] 04:47:00* Test Item Value Reference Range Interpretation [...] code = CALC LDL) 64 MG/DL See_Comment [BMdr] The system which generated this result transmitted reference range: -100. The reference range was not used to interpret this result as normal/abnormal. DIRECT [id number] 04:47:00* Test Item Value Reference Range Interpretation Comme nts DIR LDL (test code = LDL) 84 MG/DL See_Comment [BMdr] The system which generated this result transmitted reference range: 0-<100. The reference range was not used to interpret this result as normal/abnormal. [id number] 04:47:00* Test Item Value Reference Range Interpretation Comme nts %CKMB (test code = %MB) 0.5 % CKMB (test code = CKMB) 0.5 NG/ML 0.22-2.4 CK (test code = CK) 101 U/L 55-170 TROPONIN I - [id number] 04:47:00* Test Item Value Reference Range Interpretation Comme nts TROP-I (test code = TROP-I) <0.012 ng/ml 0.012-0.033 INTERPRETI VE DATA A TROPONIN OF LESS THAN 0.034 NG/ML IS CONSIDERED NEGATIVE A TROPONIN OF 0.034 - 0.119 NG/ML IS CONSIDERED GRAYZONE A TROPONIN =/> 0.120 NG/ML IS CONSIDERED POSITIVE Basic metabolic 2000 panel - Serum or [id number] 04:47:00* Test Item Value Reference Range Interpretation Comme nts Sodium [Moles/volume] in Blood (test code = 2947-0) 138 MMOL/L 137.0-145.0 N Potassium [Moles/volume] in Blood (test code = 6298-4) 4.4 MMOL/L 3.5-5.1 N Chloride [Moles/volume] in Blood (test code = 2069-3) 104 MMOL/L 98.0-107.0 N Carbon dioxide, total [Moles/volume] in Blood (test code = 30342-1) 27 MMOL/L 22.0-30.0 N Urea nitrogen [Mass/volume] in Serum or Plasma (test code = 3094-0) 18 MG/DL 9.0-20.0 N Creatinine [Mass/volume] in Blood (test code = 09066-5) 0.7 MG/DL 0.8-1.5 L Glucose [Mass/volume] in Blood (test code = 2339-0) 93 MG/DL 70.0-99.0 N Calcium [Mass/volume] in Serum or Plasma (test code = 12099-0) 8.3 MG/DL 8.4-10.2 L Estimated or measured glomerular filtration rate less than 50 percent [- Reported] (test code = 06107-0) 131 mL/min/1.73m2 N [facility])Magnesium [Mass/volume] in Serum or [id number] 04:47:00* Test Item Value Reference Range Interpretation Comme nts Magnesium [Mass/volume] in S jeni or Plasma (test code = 17854-3) 1.7 mg/dL 1.6-2.3 N [facility])VAP cholesterol panel - Serum or [id number] 04:47:00* Test Item Value Reference Range Interpretation [...] or Plasma by calculation (test code = 04182-0) 64 MG/DL N [facility])Cholesterol in LDL [Mass/volume] in Serum or Pl 2023-09-30 04:47:00* Test Item Value Reference Range Interpretation Comme nts Cholesterol in LDL [Mass/vol ume] in Serum or Plasma by Direct assay (test code = 96030-1) 84 MG/DL N [facility])Creatine kinase.MB [Mass/volume] in Serum or Pl 2023-09-30 04:47:00* Test Item Value Reference Range Interpretation Comme nts Creatine kinase.MB/Creatine kinase.total in Serum or Plasma (test code = 10017-6) 0.5 % N Creatine kinase.MB [Mass/vol ume] in Serum or Plasma (test code = 26358-9) 0.5 NG/ML 0.22-2.4 N Creatine kinase isoenzymes [interpretation] in Serum or Plasma Narrative (test code = 97492-0) 101 U/L 55.0-170.0 N [facility])Troponin I.cardiac [Mass/volume] in Serum or Pl 2023-09-30 04:47:00* Test Item Value Reference Range Interpretation Comme nts Troponin I.cardiac [Mass/vol ume] in Serum or Plasma (test code = 88943-2) <0.012 0.012-0.033 [facility])PROBRAIN NATRIURETIC [id number] 04:41:00* Test Item Value Reference Range Interpretation Comme nts NT-PROBNP (test code = PROBNP) <20 pg/mL Exclusion for he art failure for patients of all ages is 300 pg/mL. Inclusion for heart failure for patients age <50 is 450 pg/mL; for patients age 50-75 is 900 pg/mL; for patients age >75 is 1800 pg/mL. [id number] 04:40:00* Test Item Value Reference Range Interpretation [...] 1.2-7.2 CBC W Auto Differential panel - [id number] 04:40:00* Test Item Value Reference Range Interpretation Comme nts Leukocytes other [Identifier ] in Blood by Automated count (test code = 74331-3) 4.8 K/UL 3.5-10.9 N Erythrocytes [#/volume] in B lood (test code = 16630-3) 4.39 M/UL 4.3-5.7 N Hemoglobin A/Hemoglobin.tota l in Blood (test code = 4546-8) 13.6 G/DL 13.0-17.9 N Hematocrit [Volume Fraction] of Blood (test code = 98393-6) 39.5 % 38.0-52.0 N Erythrocyte mean corpuscular volume [Entitic volume] (test code = 74272-6) 90.0 FL 80.0-98.0 N Erythrocyte mean corpuscular hemoglobin [Entitic mass] (test code = 51138-4) 31.0 PG 28.0-32.0 N Erythrocyte mean corpuscular hemoglobin concentration [Mass/volume] (test code = 97329-1) 34.4 G/DL 32.5-36.5 N Erythrocyte distribution wid th [Ratio] (test code = 85158-3) 11.9 % 11.5-14.5 N Platelets panel - Blood by Automated count (test code = 81564-8) 234 K/UL 150.0-450.0 N Platelet mean volume [Entiti c volume] in Blood by Automated count (test code = 42835-0) 10.5 FL 7.4-10.4 H Neutrophils.segmented/100 leukocytes in Blood (test code = 97323-4) 36.6 % 40.0-75.0 L Lymphocytes Variant/100 leuk ocytes in Blood (test code = 21030-0) 46.4 % 24.0-44.0 H Lymphocytes+Monocytes/100 leukocytes in Blood (test code = 4662-3) 13.7 % 0.0-13.0 H Eosinophils [#/volume] in Bl ood (test code = 77056-7) 2.3 % 0.0-4.0 N Basophils [#/volume] in Bloo d (test code = 02853-7) 0.8 % 0.0-2.0 N Immature granulocytes/100 leukocytes in Blood (test code = 45250-4) 0.2 % 0.0-1.0 N Nucleated erythrocytes [#/vo lume] in Blood (test code = 81376-2) 0 /100 WBC N Neutrophils [#/volume] in Bl ood (test code = 30193-2) 1.8 K/UL 1.2-7.2 N [facility]Natriuretic peptide B [Mass/volume] in Serum or 2023-09-30 04:38:00* Test Item Value Reference Range Interpretation Comme nts Natriuretic peptide B [Mass/ volume] in Serum or Plasma (test code = 60504-4) <20 N [facility])CHEST 1 VIEW [id number] 21:48:00 [facility] : 1980 [facility] [place] [id number] IMAGING R EPORTPatient Name: ANDRE DIOPShadte of Service: [id number]: 43 Sex: M Order #: [id number] [facility] 1980 [facility] Number: [id number] Record Number: [id number] Hospital Number: [id number] Physician: CATIA MORALESrdering Physician: JENNIFER MORALESPROCEDURE: CHEST 1 VIEW PORTABLEINDICATIONS: dx: chest wall pain pt sts: c/o left chest wall pain onset 3days agonohapsv: jtt1 view chest x-rayComparison: NoneFindings:No consolidation or effusion.Heart size is normal.No acute fracture.IMPRESSION:1. No acute findings.This document has been electronically signed by: Ba Fontaine MD 09/29/2023 21:47:15Legally authenticated by DONOVAN SHUKLA 2023-09-29 21:47:15 Portable XR Chest Views [id number] 21:47:15ORDER 500: CHEST 1 VIEW PORTABLE (LOINC: 90118-0)ORDER DATE: September 30, 2023 2:38:00 [id number] 21:30:00* Test Item Value Reference Range Interpretation Comme nts %CKMB (test code = %MB) 0.6 % CKMB (test code = CKMB) 0.8 NG/ML 0.22-2.4 CK (test code = CK) 130 U/L 55-170 TROPONIN I - [id number] 21:30:00* Test Item Value Reference Range Interpretation Comme nts TROP-I (test code = TROP-I) <0.012 ng/ml 0.012-0.033 INTERPRETI VE DATA A TROPONIN OF LESS THAN 0.034 NG/ML IS CONSIDERED NEGATIVE A TROPONIN OF 0.034 - 0.119 NG/ML IS CONSIDERED GRAYZONE A TROPONIN =/> 0.120 NG/ML IS CONSIDERED POSITIVE Creatine kinase.MB [Mass/volume] in Serum or [id number] 21:30:00* Test Item Value Reference Range Interpretation Comme [facility] Creatine kinase.MB/Creatine kinase.total in Serum or Plasma (test code = 96609-1) 0.6 % N Creatine kinase.MB [Mass/vol ume] in Serum or Plasma (test code = 90650-9) 0.8 NG/ML 0.22-2.4 N Creatine kinase isoenzymes [interpretation] in Serum or Plasma Narrative (test code = 46375-6) 130 U/L 55.0-170.0 [facility])Troponin I.cardiac [Mass/volume] in Serum or Pl 2023-09-29 21:30:00* Test Item Value Reference Range Interpretation Comme [facility] Troponin I.cardiac [Mass/vol ume] in Serum or Plasma (test code = 53018-3) <0.012 0.012-0.033 [facility])BASIC METABOLIC [id number] 21:09:00* Test Item Value Reference Range Interpretation [...] 70-99 Fasting glucos e normal <100 MG/DL- [employer] recommendation CALCIUM (test code = CABLOOD) 9.2 MG/DL 8.4-10.2 GFR (test code = GFR) 112.0 mL/min/1.73m2 See_Comment A GFR of >90 mL/min/1.73m2 is considered normal. The GFR calculation on patients over 70 years of age is not validated by the microfiche duplicator and may not represent the patients true renal function. [Automated message] The system which generated this result transmitted reference range: 59-. The reference range was not used to interpret this result as normal/abnormal. Basic metabolic 2000 panel - Serum or [id number] 21:01:00* Test Item Value Reference Range Interpretation Comme nts Sodium [Moles/volume] in Blood (test code = 2947-0) 139 MMOL/L 137.0-145.0 N Potassium [Moles/volume] in Blood (test code = 6298-4) 4.4 MMOL/L 3.5-5.1 N Chloride [Moles/volume] in Blood (test code = 2069-3) 101 MMOL/L 98.0-107.0 N Carbon dioxide, total [Moles/volume] in Blood (test code = 31564-8) 32 MMOL/L 22.0-30.0 H Urea nitrogen [Mass/volume] in Serum or Plasma (test code = 3094-0) 13 MG/DL 9.0-20.0 N Creatinine [Mass/volume] in Blood (test code = 64216-6) 0.8 MG/DL 0.8-1.5 N Glucose [Mass/volume] in Blood (test code = 2339-0) 96 MG/DL 70.0-99.0 N Calcium [Mass/volume] in Serum or Plasma (test code = 07720-1) 9.2 MG/DL 8.4-10.2 N Estimated or measured glomerular filtration rate less than 50 percent [- Reported] (test code = 42248-0) 112.0 mL/min/1.73m2 N [facility])BASIC METABOLIC [id number] 23:20:00* Test Item Value Reference Range Interpretation [...] CA) 8.3 MG/DL 8.5-10.1 L CBC W/AUTO [id number] 22:58:00* Test Item Value Reference Range Interpretation [...] ode = MDIFF) NO DIFF/SCN CRITERIA TROPONIN [id number] 19:12:12* Test Item Value Reference Range Interpretation Comments TROPONIN I (test code = 2794099147) 0.002 ng/mL See_Comment [Automated message] The system [...] of biotin. Lab Interpretation (test code = 21207-6) [facility] [id number] 17:56:10 * Test Item Value Reference Range Interpretation Comme nts TSH (test code = 0675940264) See_Comment [Automated [employer]] The system which generated this result transmitted reference range: 0.45 - 4.70 mIU/L. The reference range was not used to interpret this result as normal/abnormal. Lab Interpretation (test code = 68169-0) [facility]FREE [id number] 17:43:07* Test Item Value Reference Range Interpretation Comme nts FREE T4 (test code = 9555947253) See_Comment [Automated [employer]] The system which generated this result transmitted reference range: 0.78 - 2.20 ng/dL:. The reference range was not used to interpret this result as normal/abnormal. Lab Interpretation (test code = 65264-1) [facility]landsTROPONIN [id number] 17:38:07* Test Item Value Reference Range Interpretation Comments TROPONIN I (test code = 4329506296) 0.003 ng/mL See_Comment [Automated message] The system [...] of biotin. Lab Interpretation (test code = 81453-0) Normal [facility]landsN-TERMINAL [id number]-[id number] 17:36:31* Test Item Value Reference Range Interpretation Comme nts NT-proBNP (test code = 0664583516) <11 See_Comment [Automated message] The system which generated this result transmitted reference range: <=125 pg/mL. The reference range was not used to interpret this result as normal/abnormal. CHERYL (test code = CHERYL) Biotin has been reported to cause a negative bias, interpret results relative to patient's use of biotin. Lab Interpretation (test code = 25929-6) Normal [facility]landsETHANOL2022-06-25 17:25:57* Test Item Value Reference Range Interpretation Comme nts ALCOHOL (test code = 3172761318) <10 mg/dL CHERYL (test code = CHERYL) <10 Asonudxe98-641 Toxic>100 Depression of FWS FACULTY ASSISTANT>400 Fatalities Reported [facility]landsACETAMINOPHEN2022-06-25 17:25:32* Test Item Value Reference Range Interpretation Comme nts ACETAMINOP (test code = 9192059073) <10.0 10.0-30.0 L CHERYL (test code = CHERYL) Toxic: Greater chel n 200 ug/mL @ 4 hour post ingestion or greater than 50 ug/mL @ 12 hour post ingestion Lab Interpretation (test code = 45691-2) Abnormal [facility]landsCOMP. METABOLIC PANEL (57029)2022-02-06 17:15:44* Test Item Value Reference Range Interpretation Comme nts NA (test code = 4817882248) 142 mmol/L 135-145 K (test code = 9586647222) 4.2 mmol/L 3.5-5.0 CL (test code = 1909931729) 104 mmol/L 98-108 CO2 TOTAL (test code = 8181683533) 28 mmol/L 23-31 AGAP (test code = 3975083761) 2-16 BUN (test code = 5503175474) 9 mg/dL 7-23 GLUCOSE (test code = 7958992420) 117 mg/dL 70-110 H CREATININE (test code = 9821162584) 0.76 mg/dL 0.60-1.25 TOTAL BILI (test code = 4311656455) 0.6 mg/dL 0.1-1.1 CALCIUM (test code = 4375435790) 9.3 mg/dL 8.6-10.6 T PROTEIN (test code = 0001009348) 7.0 g/dL 6.3-8.2 ALBUMIN (test code = 4439094758) 4.4 g/dL 3.5-5.0 ALK PHOS (test code = 0692067992) 44 U/L 34-122 ALTv (test code = 1742-6) 12 U/L 5-50 AST(SGOT) (test code = 6202576906) 18 U/L 13-40 eGFR (test code = 9456168859) mL/min/1.73m2 CHERYL (test code = CHERYL) Association [...] imaging tests). Lab Interpretation (test code = 14361-1) Abnormal [facility]landsSALICYLATE2022-06-25 17:15:44* Test Item Value Reference Range Interpretation Comme nts SALICYLATE (test code = 1967132469) 40 mg/L CHERYL (test code = CHERYL) Therapeutic Range: ? Analgesic and Antipyretic Use ? 20-100 mg/L ? ? Anti-Inflammatory Use ? 100-250 mg/L Toxic Range: ? Greater than 300 mg/L [facility]landsCREATINE [id number] 17:15:23* Test Item Value Reference Range Interpretation Comme nts CK (test code = 7437411083) 73 U/L 33-194 Lab Interpretation (test cod e = 42627-5) Normal [facility]landsCB WITH [id number] 17:04:44* Test Item Value Reference Range Interpretation Comme nts WBC (test code = 6690-2) See_Comment [Automated [employer] ge] The system which generated this result transmitted reference range: 4.20 - 10.70 10*3/?L. The reference range was not used to interpret this result as normal/abnormal. RBC (test code = 789-8) See_Comment [Automated [employer]] The system which generated this result transmitted [...] g/dL 31.2-35.0 H RDW-SD (test code = 51961-3) 37.9 fL 38.5-51.6 L RDW-CV (test code = 788-0) 11.7 % 12.1-15.4 L PLT (test code = 777-3) See_Comment [Automated messa ge] The system which generated this result transmitted reference range: 150 - 328 10*3/?L. The reference range was not used to interpret this result as normal/abnormal. MPV (test code = 10376-1) 9.8 fL 9.8-13.0 NRBC/100 WBC (test code = 1170741922) See_Comment [Automated [employer]] The system which generated this result transmitted reference range: 0.0 - 10.0 /100 WBCs. The reference range was not used to interpret this result as normal/abnormal. NRBC x10^3 (test code = 8898625199) <0.01 See_Comment [Automated messa ge] The system which generated this result transmitted reference range: 10*3/?L. The reference range was not used to interpret this result as normal/abnormal. GRAN MAT (NEUT) % (test code = 770-8) 59.1 % IMM GRAN % (test code = 2611387451) 0.20 % LYMPH % (test code = 736-9) 29.3 % MONO % (test code = 5905-5) 10.8 % EOS % (test code = 713-8) 0.2 % BASO % (test code = 706-2) 0.4 % GRAN MAT x10^3(ANC) (test code = 6284179383) 3.06 10*3/uL 1.99-6.95 IMM GRAN x10^3 (test code = 7566453789) <0.03 0.00-0.06 LYMPH x10^3 (test code = 731-0) 1.52 10*3/uL 1.09-3.23 MONO x10^3 (test code = 742-7) 0.56 10*3/uL 0.36-1.02 EOS x10^3 (test code = 711-2) <0.03 0.06-0.53 L BASO x10^3 (test code = 704-7) <0.03 0.01-0.09 Lab Interpretation (test code = 26703-9) Abnormal [facility]. METABOLIC PANEL (67850)2021-08-06 02:11:29* Test Item Value Reference Range Interpretation Comme nts NA (test code = 2214555835) 140 mmol/L 135-145 K (test code = 2941235786) 4.8 mmol/L 3.5-5.0 CL (test code = 9026629706) 104 mmol/L 98-108 CO2 TOTAL (test code = 7809241393) 28 mmol/L 23-31 AGAP (test code = 1670403464) 2-16 BUN (test code = 5708993207) 21 mg/dL 7-23 GLUCOSE (test code = 6625817819) 111 mg/dL 70-110 H CREATININE (test code = 0980888118) 0.93 mg/dL 0.60-1.25 TOTAL BILI (test code = 2246082445) 0.4 mg/dL 0.1-1.1 CALCIUM (test code = 1204118991) 9.0 mg/dL 8.6-10.6 T PROTEIN (test code = 0594201349) 7.0 g/dL 6.3-8.2 ALBUMIN (test code = 1255547422) 4.3 g/dL 3.5-5.0 ALK PHOS (test code = 3497043903) 51 U/L 34-122 ALTv (test code = 1742-6) 15 U/L 5-50 AST(SGOT) (test code = 3426858185) 25 U/L 13-40 eGFR (test code = 9524435897) mL/min/1.73m2 CHERYL (test code = CHERYL) Association [...] imaging tests). Lab Interpretation (test code = 01265-5) Abnormal [facility] WITH [id number] 02:04:56* Test Item Value Reference Range Interpretation Comme nts WBC (test code = 6690-2) See_Comment [Automated [employer]] The system which generated this result transmitted reference range: 4.20 - 10.70 10*3/?L. The reference range was not used to interpret this result as normal/abnormal. RBC (test code = 789-8) See_Comment [Automated [employer]] The system which generated this result transmitted [...] 34.2 g/dL 31.2-35.0 RDW-SD (test code = 09536-9) 39.9 fL 38.5-51.6 RDW-CV (test code = 788-0) 12.1 % 12.1-15.4 PLT (test code = 777-3) See_Comment [Automated [employer]] The system which generated this result transmitted reference range: 150 - 328 10*3/?L. The reference range was not used to interpret this result as normal/abnormal. MPV (test code = 19931-5) 9.9 fL 9.8-13.0 NRBC/100 WBC (test code = 3476123374) See_Comment [Automated me ssage] The system which generated this result transmitted reference range: 0.0 - 10.0 /100 WBCs. The reference range was not used to interpret this result as normal/abnormal. NRBC x10^3 (test code = 9692194030) <0.01 See_Comment [Automated me ssage] The system which generated this result transmitted reference range: 10*3/?L. The reference range was not used to interpret this result as normal/abnormal. GRAN MAT (NEUT) % (test code = 770-8) 61.1 % IMM GRAN % (test code = 5570957348) 0.50 % LYMPH % (test code = 736-9) 28.5 % MONO % (test code = 5905-5) 8.6 % EOS % (test code = 713-8) 0.8 % BASO % (test code = 706-2) 0.5 % GRAN MAT x10^3(ANC) (test code = 7983502034) 4.73 10*3/uL 1.99-6.95 IMM GRAN x10^3 (test code = 2970573608) 0.04 10*3/uL 0.00-0.06 LYMPH x10^3 (test code = 731-0) 2.21 10*3/uL 1.09-3.23 MONO x10^3 (test code = 742-7) 0.67 10*3/uL 0.36-1.02 EOS x10^3 (test code = 711-2) 0.06 10*3/uL 0.06-0.53 BASO x10^3 (test code = 704-7) 0.04 10*3/uL 0.01-0.09 [facility] or plasma creatinine measurement (mass/volume)2019-06-01 01:11:00* Test Item Value Reference Range Interpretation Comme nts Creatinine (test code = 2160-0) 0.8 0.9-1.5 [facility] Healthular filtration rate (GFR) estimation/1.73 sq m using serum, plasma, or whole blood creatinine measurement with MDRD equation 2019-06-01 01:11:00* Test Item Value Reference Range Interpretation Comme [facility] Estimat Glomerular Filtratio n Rate (test code = 14712-9) 115 81-133 [facility] HealthSerum or plasma glucose measurement (mass/volume)2019-06-01 01:11:00* Test Item Value Reference Range Interpretation Comme nts Glucose Level (test code = 2345-7) 83 60-100 [facility] HealthSerum or plasma calcium measurement (mass/volume)2019-06-01 01:11:00* Test Item Value Reference Range Interpretation Comme nts Calcium Level (test code = 64366-8) 8.8 9.1-10.9 [facility] HealthAutomated blood leukocyte count (number/volume)2019-06-01 01:11:00* Test Item Value Reference Range Interpretation Comme [facility] White Blood Count (test code = 6690-2) 5.3 4.5-11.5 [facility] HealthBlood erythrocytes automated count (number/volume)2019-06-01 01:11:00* Test Item Value Reference Range Interpretation Comme [facility] Red Blood Count (test code = 789-8) 3.70 4.4-6.2 [facility] HealthBlood hemoglobin measurement (mass/volume)2019-06-01 01:11:00* Test Item Value Reference Range Interpretation Comme [facility] Hemoglobin (test code = 718-7) 11.1 13.0-17.5 [facility] HealthAutomated blood hematocrit (volume fraction)2019-06-01 01:11:00* Test Item Value Reference Range Interpretation Comme [facility] Hematocrit (test code = 4544-3) 34.3 39.0-52.5 [facility] HealthAutomated erythrocyte mean corpuscular volume (MCV) measurement 2019-06-01 01:11:00* Test Item Value Reference Range Interpretation Comme [facility] Mean Corpuscular Volume (ana luisa t code = 787-2) 93 80-94 [facility] HealthAutomated erythrocyte mean corpuscular hemoglobin (mass per erythrocyte)2019-06-01 01:11:00* Test Item Value Reference Range Interpretation Comme [facility] Mean Corpuscular Hemoglobin (test code = 785-6) 30.0 27.0-33.0 [facility] HealthAutomated erythrocyte mean corpuscular hemoglobin concentration measurement (mass/nxj3327-97-61 01:11:00* Test Item Value Reference Range Interpretation Comme nts Mean Corpuscular Hemoglobin Concent (test code = 786-4) 32.4 33.0-37.0 [facility] HealthAutomated erythrocyte distribution width bqvae7352-55-75 01:11:00 * Test Item Value Reference Range Interpretation Comme nts Red Cell Distribution Width (test code = 788-0) 11.7 10.7-14.5 [facility] HealthAutomated blood platelet count (count/volume)2019-06-01 01:11:00 * Test Item Value Reference Range Interpretation Comme nts Platelet Count (test code = 777-3) 246 150-450 [facility] HealthAutomated blood platelet mean volume qadhgnzoqps5153-16-81 01:11:00* Test Item Value Reference Range Interpretation Comme nts Mean Platelet Volume (test c ode = 95876-4) 10.1 5.7-10.7 [facility] HealthAutomated blood neutrophil count as percentage of total zflydtbysq7116-98-51 01:11:00* Test Item Value Reference Range Interpretation Comme nts Neutrophils (%) (Auto) (test code = 770-8) 60 47-75 [facility] HealthAutomated blood immature granulocyte count as percentage of total qlxrnsdgmf6562-96-92 01:11:00* Test Item Value Reference Range Interpretation Comme nts Immature Granulocyte % (Auto ) (test code = 60306-9) 0 0-0 [facility] HealthAutomated blood lymphocyte count as percentage of total qorwjxlzxu5699-61-94 01:11:00* Test Item Value Reference Range Interpretation Comme nts Lymphocytes (%) (Auto) (test code = 736-9) 26 25-44 [facility] HealthAutomated blood monocyte count as percentage of total leukocytes 2019-06-01 01:11:00* Test Item Value Reference Range Interpretation Comme nts Monocytes (%) (Auto) (test c ode = 5905-5) 11 3-10 [facility] HealthAutomated blood eosinophil count as percentage of total vbuimtcnaa2963-72-83 01:11:00* Test Item Value Reference Range Interpretation Comme nts Eosinophils (%) (Auto) (test code = 713-8) 2 0-7 [facility] HealthAutomated blood basophil count as percentage of total leukocytes 2019-06-01 01:11:00* Test Item Value Reference Range Interpretation Comme nts Basophils (%) (Auto) (test c ode = 706-2) 1 0-1 [facility] HealthAutomated blood nucleated erythrocyte count as percentage of total yzxyxcsqcn2565-15-09 01:11:00* Test Item Value Reference Range Interpretation Comme nts Nucleated Red Blood Cells % (test code = 78295-0) 0.0 0-0.2 [facility] HealthAutomated blood neutrophil count (number/volume)2019-06-01 01:11:00* Test Item Value Reference Range Interpretation Comme nts Neutrophils # (Auto) (test c ode = 751-8) 3.2 1.3-6.7 [facility] HealthAutomated blood lymphocyte count (number/volume)2019-06-01 01:11:00* Test Item Value Reference Range Interpretation Comme nts Lymphocytes # (Auto) (test c ode = 731-0) 1.4 1.4-4.1 [facility] HealthBlood monocytes automated count (number/volume)2019-06-01 01:11:00* Test Item Value Reference Range Interpretation Comme nts Monocytes # (Auto) (test code = 742-7) 0.6 0-1.3 [facility] HealthAutomated blood eosinophil bjbmy1939-07-31 01:11:00* Test Item Value Reference Range Interpretation [...] = 771-6) 0.00 0-0.01 [facility]Service comment [id number] 01:11:00* Test Item Value Reference Range Interpretation [...] (test co de = 3094-0) 13 6-20 [facility]/1.73 sq m using serum, plasma, or whole blood creatinine measurement with MDRD equation 2019-06-01 01:11:00* Test Item Value Reference Range Interpretation Comme nts Estimat Glomerular Filtratio n Rate (test code = 88198-8) 115 Serum or plasma glucose measurement (mass/volume)2019-06-01 01:11:00* Test Item Value Reference Range Interpretation Comme nts Glucose Level (test code = 2345-7) 83 Serum or plasma calcium measurement (mass/volume)2019-06-01 01:11:00* Test Item Value Reference Range Interpretation Comme nts Calcium Level (test code = 26333-4) 8.8 Automated blood eosinophil kthib3201-53-37 01:11:00* Test Item Value Reference Range Interpretation [...] (test code = 771-6) 0.00 Service comment [id number] 01:11:00* Test Item Value Reference Range Interpretation Comme nts Manual Differential (test co de = 8265-1) Not Ind Trough vancomycin sicpp6521-13-85 23:30:00* Test Item Value Reference Range Interpretation Comme nts Vancomycin Level Trough (ana luisa t code = 4092-3) 8.0 10.0-20.0 [facility] HealthProthrombin time (PT) in platelet poor kmevyf3799-60-41 04:05:00 * Test Item Value Reference Range Interpretation Comme nts Prothrombin Time (test code = 5902-2) 10.8 9.4-12.0 [facility] HealthINR in Platelet poor plasma by Coagulation aujvz1432-24-95 04:05:00* Test Item Value Reference Range Interpretation Comme nts Prothromb Time International Ratio (test code = 6301-6) 1.1 0.8-1.2 [facility] HealthPlasma partial thromboplastin time (PTT)2019-05-28 04:05:00* Test Item Value Reference Range Interpretation Comme nts Activated Partial Thrombopla st Time (test code = 10943-9) 23.6 21.0-33.0 [facility] HealthSerum or plasma total [...] de = 5643-2) < 11 Not Available [facility] Consult Notes Date/Time Note Provider Source 2023-09-30 [...] his symptoms. Patient was ruled out for [place] with negative troponins x3 and an unremarkable [...] x3. 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 Strength 5/5. Answers questions appropriately Cranial Nerves: CN II-XII intact, speech is clear, no facial drooping Skin: Warm and dry, no rashes, no lesions, normal color Patient Problems/Allergies Allergies No Known Allergies Lab Results 720 EKG EKGW View Detail (Preliminary) 224 Special [...] %CKMB 0.5 CKMB 0.5 TROP-I <0.012 2148 [facility] Radiology BEDCXR 2036 Chemistry SODIUM 139 K+ [...] <0.012 0721 EKG EKGW View Detail (Preliminary) 0225 Special Chemistry PROBNP <20 0224 Chemistry SODIUM 138 K+ 4.4 CHLORIDE 104 [...] %CKMB 0.5 CKMB 0.5 TROP-I <0.012 2147 [facility] Radiology BEDCXR 2036 Chemistry SODIUM 139 K+ [...] 420 Electronically signed by CYNDEE Marion NP PACKAGING SUPERVISOR on 1619 Electronically signed by RULA KAN on [facility]8 [facility] History and Physical Notes Date/Time [...] %CKMB 0.5 CKMB 0.5 TROP-I <0.012 2148 [facility] Radiology BEDCXR 2036 Chemistry SODIUM 139 K+ [...]
[2024-08-04] MEDS ORDERED: DIAZEPAM 5 MG TABLET ONE (22:02)
--- NOTE | 2024-08-04 22:31 | ER ---
Nurse's Notes [facility] Name: Severo Morgan Age: 43 yrs Sex: Male : 1980 Arrival Date: 08/04/2024 Time: 21:19 Bed 6 Private MD: Diagnosis: Adverse effect of unspecified drugs, medicaments and biological substances Presentation: 08/04 21:25 Chief complaint: Patient states: he took a "gummie" and is having anxiety and shaking cp4 from it. Coronavirus screen: Client denies travel out of the [place] in the last 14 days. At this time, the client does not indicate any symptoms associated with coronavirus-19. Ebola Screen: Patient negative for fever greater than or equal to 101.5 degrees Fahrenheit, and additional compatible Ebola Virus Disease symptoms Patient denies exposure to infectious person. Patient denies travel to an Ebola-affected area in the 21 days before illness onset. No symptoms or risks identified at this time. Initial Sepsis Screen: Does the patient meet any 2 criteria? HR > 90 bpm. No. Patient's initial sepsis screen is negative. Does the patient have a suspected source of infection? No. Patient's initial sepsis screen is negative. Risk Assessment: Do you want to hurt yourself or someone else? Patient reports no desire to harm self or others. Onset of symptoms was August 04, 2024 at 21:00. 21:25 Method Of Arrival: Ambulatory cp4 21:25 Acuity: FRANKLIN 3 cp4 Triage Assessment: 21:27 General: Appears in no apparent distress. uncomfortable, Behavior is cooperative, cp4 appropriate for age, anxious. Pain: Denies pain. Historical: - Allergies: 21:27 No Known Allergies; cp4 - Immunization history:: Adult Immunizations up to date. - Infectious Disease History:: Denies. - Social history:: Smoking status: Patient reports the use of cigarette tobacco products, smokes one-half pack cigarettes per day. Screenin:50 [facility] ED Fall Risk Assessment (Adult) History of falling in the last 3 months, vc1 including since admission No falls in past 3 months (0 pts) Confusion or Disorientation No (0 pts) Intoxicated or Sedated Yes (3 pts) Impaired Gait No (0 pts) Mobility Assist Device Used No (0 pt) Altered Elimination No (0 pt) Score/Fall Risk Level 3 or more points = High Risk Oriented to surroundings, Maintained a safe environment, Educated pt \\T\\ family on fall prevention, incl call for assistance when getting out of bed. Abuse screen: Denies threats or abuse. Nutritional screening: No deficits noted. Tuberculosis screening: No symptoms or risk factors identified. Assessment: 22:13 Reassessment: Patient appears in no apparent distress at this time. Patient and/or bm8 family updated on plan of care and expected duration. Pain level reassessed. Patient is alert, oriented x 3, equal unlabored respirations, skin warm/dry/pink. General: Appears distressed, comfortable, Behavior is cooperative, agitated. Pain: Denies pain. Neuro: No deficits noted. Level of Consciousness is awake, alert, obeys commands, Oriented to person, place, time, situation, Appropriate for age. Cardiovascular: No deficits noted. Reports palpitations, Heart tones S1 S2 present Capillary refill < 3 seconds in bilateral fingers toes Patient's skin is warm and dry. Rhythm is sinus tachycardia \\T\\104. Respiratory: Airway is patent Trachea midline Respiratory effort is even, unlabored, Respiratory pattern is regular, symmetrical, Breath sounds are clear bilaterally. GI: No signs and/or symptoms were reported involving the gastrointestinal system. : No signs and/or symptoms were reported regarding the genitourinary system. EENT: No signs and/or symptoms were reported regarding the EENT system. Derm: No signs and/or symptoms reported regarding the dermatologic system. Musculoskeletal: No signs and/or symptoms reported regarding the musculoskeletal system. 22:54 Reassessment: Patient appears in no apparent distress at this time. Patient and/or bm8 family updated on plan of care and expected duration. Pain level reassessed. Patient is alert, oriented x 3, equal unlabored respirations, skin warm/dry/pink. Patient denies pain at this time. Patient states feeling better. Patient states symptoms have improved. General: Appears in no apparent distress. comfortable, Behavior is calm, cooperative, appropriate for age. Pain: Denies pain. Neuro: No deficits noted. Level of Consciousness is awake, alert, obeys commands, Oriented to person, place, time, situation, Appropriate for age. Cardiovascular: Denies chest pain, lightheadedness, palpitations, shortness of breath. Vital Signs: 21:25 BP 136 / 95; Pulse 103; Resp 18; Temp 98.1; Pulse Ox 99% ; Pain 0/10; cp4 22:54 BP 121 / 84; Pulse 90; Resp 17; Temp 98.1; Pulse Ox 100% ; Pain 0/10; bm8 21:25 Pain Scale: Adult cp4 22:54 Pain Scale: Adult bm8 Lizzy Coma Score: 22:13 Eye Response: spontaneous(4). Motor Response: obeys commands(6). Verbal Response: bm8 oriented(5). Total: 15. 22:54 Eye Response: spontaneous(4). Motor Response: obeys commands(6). Verbal Response: bm8 oriented(5). Total: 15. ED Course: 21:21 Patient arrived in ED. jj6 21:27 Triage completed. cp4 21:27 Arm band placed on right wrist. Patient placed in waiting room. cp4 21:42 Navi Washington MD is Attending Physician. bo1 21:51 Patient has correct armband on for positive identification. Provided Education on: fall vc1 safety. 22:00 Aubrey Russell, RN is Primary Nurse. bm8 22:13 Client placed on continuous cardiac and pulse oximetry monitoring. NIBP monitoring bm8 applied. Pulse ox on. NIBP on. Door closed. Noise minimized. Warm blanket given. Pillow given. Verbal reassurance given. Head of bed elevated. 22:13 No provider procedures requiring assistance completed. Patient did not have IV access bm8 during this emergency room visit. Patient maintains SpO2 saturation greater than 95% on room air. 22:54 Provided Education on: post er care. bm8 Administered Medications: 22:13 Drug: Diazepam PO 10 mg PO once Route: PO; bm8 22:55 Follow up: Response: No adverse reaction bm8 Medication: 21:53 VIS not applicable for this client. vc1 Outcome: 22:31 Discharge ordered by . bo1 22:54 Discharged to home ambulatory, with family, bm8 22:54 Condition: stable 22:54 Discharge instructions given to patient, family, Instructed on discharge instructions, follow up and referral plans. safety practices, Demonstrated understanding of instructions, follow-up care, medications, 22:56 Patient left the ED. bm8 Signatures: Heather Ramos jj6 Stephanie Ventura RN RN vc1 Karly Cavanaugh cp4 Navi Washington MD MD bo1 Aubrey Russell RN RN bm8 Corrections: (The following items were deleted from the chart) 21:27 PSHx: skin graft; cp4 cp4
--- NOTE | 2024-08-04 22:31 | EDPHYS ---
Physician Documentation [facility] Name: Severo Morgan Age: 43 yrs Sex: Male : 1980 Arrival Date: 08/04/2024 Time: 21:19 Bed 6 Private MD: ED Physician Navi Washington HPI: 08/04 21:57 This 43 yrs old Male presents to ER via Ambulatory with complaints of Anxiety, bo1 RECREATIONAL DRUG USE. 21:57 Pt took half a gummie from a smoke shop. GF is calm and about to go to sleep. But, pt bo1 is anxious.. Onset: The symptoms/episode began/occurred gradually. Historical: - Allergies: 21:27 No Known Allergies; cp4 - Immunization history:: Adult Immunizations up to date. - Infectious Disease History:: Denies. - Social history:: Smoking status: Patient reports the use of cigarette tobacco products, smokes one-half pack cigarettes per day. ROS: 22:28 Constitutional: Negative for fever, chills, and weight loss bo1 22:28 Neck: Negative for pain with movement, pain at rest, 22:28 Cardiovascular: Negative for chest pain, 22:28 Respiratory: Negative for shortness of breath, 22:28 Abdomen/GI: Negative for abdominal pain, 22:28 MS/extremity: Positive for "shaking to the hands", 22:28 Skin: Negative for rash, 22:28 Psych: Positive for anxiety, 22:28 All other systems are negative, Exam: 22:24 Constitutional: This is a well developed, well nourished patient who is awake, alert, bo1 and in no acute distress. 22:24 Constitutional: The patient appears alert, awake, comfortable, restless, 22:24 Eyes: Sclera: no acute changes, icterus, is not appreciated, 22:24 Cardiovascular: Rate: tachycardic, Rhythm: regular, 22:24 Respiratory: the patient does not display signs of respiratory distress, Respirations: normal, Breath sounds: are clear throughout, 22:24 Musculoskeletal/extremity: "tremulousness" both hands, seems anxious. 22:24 Skin: Warm and dry. 22:24 Neuro: Orientation: is normal, appropriate for stated age, no acute changes, Mentation: is normal, appropriate for stated age, no acute changes, GF here, no AMS, 22:24 Psych: Behavior/mood is anxious, Judgement / Insight is normal. "Substance induced - OTC gummie.". Vital Signs: 21:25 BP 136 / 95; Pulse 103; Resp 18; Temp 98.1; Pulse Ox 99% ; Pain 0/10; cp4 22:54 BP 121 / 84; Pulse 90; Resp 17; Temp 98.1; Pulse Ox 100% ; Pain 0/10; bm8 21:25 Pain Scale: Adult cp4 22:54 Pain Scale: Adult bm8 Lizzy Coma Score: 22:13 Eye Response: spontaneous(4). Motor Response: obeys commands(6). Verbal Response: bm8 oriented(5). Total: 15. 22:54 Eye Response: spontaneous(4). Motor Response: obeys commands(6). Verbal Response: bm8 oriented(5). Total: 15. MDM: 21:42 Medical Screening Exam initiated bo1 22:27 Data reviewed: vital signs. ED course: Pt is given 1 dose benzo for symptoms, he bo1 understands to avoid any further gummies. Have reviewed the picture of the product on the GF's phone, 1000mg of an unknown substance or listed ingredients. 22:29 Differential Diagnosis Drug induced symptoms - Unknown product. bo1 Administered Medications: 22:13 Drug: Diazepam PO 10 mg PO once Route: PO; bm8 22:55 Follow up: Response: No adverse reaction bm8 Disposition Summary: 08/04/24 22:31 Discharge Ordered Notes: Location: Home bo1 Problem: new bo1 Symptoms: have improved bo1 Condition: Stable bo1 Diagnosis - Adverse effect of unspecified drugs, medicaments and biological substances bo1 Followup: bo1 - With: Private Physician - When: Upon discharge from the Emergency Department - Reason: Recheck today's complaints, Continuance of care Discharge Instructions: - Discharge Summary Sheet bo1 - Accidental Drug Poisoning, Adult bo1 Forms: - Medication Reconciliation Form bo1 - Antibiotic Education bo1 - Prescription Opioid Use bo1 - Patient Portal Instructions bo1 - Leadership Thank You Letter bo1 Signatures: Karly Cavanaugh cp4 Navi Washington MD MD bo1 Aubrey Russell RN RN bm8 Corrections: (The following items were deleted from the chart) 21:27 21:27 PSHx: skin graft; cp4 cp4
[2024-08-04 23:01] VITALS: TEMP 98.1
[2024-08-04 23:03] VITALS: BP 121/84; O2SAT 100
== END 2024-08-04 22:56 | disposition home or self-care (01) ==
LOC: ER 21:19
DX: T50.995A Adverse effect of other drugs, medicaments and biological substances, initial encounter (principal); F17.210 Nicotine dependence, cigarettes, uncomplicated
CPT/HCPCS: 99284